=== PATIENT | female | born 1960 | race Caucasian/White ===

== ENCOUNTER 2020-04-05 07:54 | Outpatient (REF) | payer OTHER, SELFPAY ==
--- NOTE | 2020-04-05 07:58 | MM_ITS ---
EXAMINATION: MM SCREENING DIGITAL BREAST TOMOSYNTHESIS, BILATERAL CLINICAL INFORMATION: Screening. Asymptomatic. The lifetime risk of breast cancer based on the Tyrer-Cuzick Model is 15%. COMPARISON: Mammography: 08/30/2018, 08/14/2017, 07/25/2016, 06/29/2015, 05/21/2014 TECHNIQUE: Digital breast tomosynthesis is performed in both the craniocaudal and mediolateral oblique views along with computer-aided detection (CAD). Synthesized 2D images are generated from the tomosynthesis. FINDINGS: There are scattered areas of fibroglandular density (ACR BI-RADS breast composition Category b). Parenchymal pattern is similar to prior studies. There is no developing density. There are no significant masses, abnormal calcifications, or other abnormalities. No significant changes. MM/MM tomosynthesis screening BI IMPRESSION: No significant changes from prior studies. ASSESSMENT: BI-RADS 1: Negative RECOMMENDATION: Routine annual mammography screening. This patient's information was entered into a reminder system with a target due date for their next mammogram.
== END 2020-04-05 07:55 | disposition home or self-care (01) ==
LOC: HO.MAMMO 07:54
PROVIDERS: PCP Internal Medicine; Visit Provider Obstetrics & Gynecology
DX: Z12.31 Encounter for screening mammogram for malignant neoplasm of breast (principal)
CPT/HCPCS: 77063; 77067

== ENCOUNTER 2020-05-13 08:38 | Outpatient (REF) | payer OTHER, SELFPAY ==
[2020-05-13 09:31] LABS: Estimated Average Glucose 108 mg/dL; Hemoglobin A1c % 5.4 %
[2020-05-13 09:48] LABS: Alanine Aminotransferase 21 U/L (0-31); Albumin Level 4.9 g/dL (3.5-5.0); Alkaline Phosphatase 88 U/L (39-117); Anion Gap 17 (12-20); Aspartate Amino Transferase 21 U/L (5-31); Bilirubin Total 0.5 mg/dL (0.0-1.0); Blood Urea Nitrogen 13 mg/dL (9-16); Calcium 9.6 mg/dL (8.4-10.2); Carbon Dioxide 25 mmol/L (22-29); Chloride 104 mmol/L (96-108); Cholesterol 153 mg/dL; Estimated Glomerular Filt Rate > 60; Glucose Fasting 95 mg/dL (60-99); HDL Cholesterol 76 mg/dL; LDL Cholesterol Calculated 70 mg/dl; Potassium 4.5 mmol/l (3.3-5.1); Sodium 141 mmol/L (135-145); Total Protein 7.4 g/dL (6.5-8.0); Triglycerides 39 mg/dL
== END 2020-05-13 08:39 | disposition home or self-care (01) ==
LOC: HO.LAB 08:38
PROVIDERS: Visit Provider Internal Medicine
DX: E11.9 Type 2 diabetes mellitus without complications (principal)
CPT/HCPCS: 36415; 80053; 80061; 83036

== ENCOUNTER 2020-05-17 09:13 | Outpatient (REF) | payer OTHER, SELFPAY ==
[2020-05-17 09:47] LABS: MANUAL DIFF FLAG NO
[2020-05-17 09:56] LABS: Basophils Absolute Auto 0.1 X10*3/uL (0.0-0.2); Basophils Percent Auto 1.2 % (0-2); Eosinophils Absolute Auto 0.2 X10*3/uL (0.0-0.4); Eosinophils Percent Auto 4.3 % (0-4); Hematocrit 36.1 % (37-47); Hemoglobin 11.4 g/dl (12.0-16.0); Imm Gran Abs Auto 0.01 X10*3/uL (0.00-0.03); Imm Gran Pct Auto 0.2 % (0.0-0.4); Lymphocytes Absolute Auto 2.1 X10*3/uL (1.2-4.9); Mean Corpuscular HGB Conc 31.6 g/dl (31.0-35.0); Mean Corpuscular Hemoglobin 28.3 pg (27.0-33.0); Mean Corpuscular Volume 89.6 fL (80-98); Mean Platelet Volume 9.2 fL (9.4-12.3); Monocytes Absolute Auto 0.4 X10*3/uL (0.1-1.2); Monocytes Percent Auto 7.9 % (2-11); Neutrophils Absolute Auto 2.1 X10*3/uL (2.0-8.3); Neutrophils Percent Auto 43.4 % (45-73); Platelet Count 271 X10*3/uL (160-400); Red Blood Count 4.03 X10*6/uL (4.20-5.50); Red Cell Distribution Width 12.7 % (11.0-16.0); White Blood Count 4.9 X10*3/uL (4.8-10.8)
== END 2020-05-17 09:14 | disposition home or self-care (01) ==
LOC: HO.LAB 09:13
PROVIDERS: Visit Provider Internal Medicine
DX: Z00.00 Encounter for general adult medical examination without abnormal findings (principal); E11.9 Type 2 diabetes mellitus without complications
CPT/HCPCS: 36415; 85025

== ENCOUNTER 2020-05-20 09:22 | Outpatient (REF) | payer OTHER, SELFPAY ==
[2020-05-20 14:41] LABS: Creatinine Urine 42.39 mg/dL; Microalbum/Creatinine Ratio Ur 68.4 ug/mg cr
== END 2020-05-20 09:23 | disposition home or self-care (01) ==
LOC: HO.LAB 09:22
PROVIDERS: Visit Provider Internal Medicine
DX: E11.9 Type 2 diabetes mellitus without complications (principal)
CPT/HCPCS: 82043

== ENCOUNTER 2020-06-14 07:00 | Outpatient (RCR) | payer OTHER, SELFPAY | END 2020-06-28 15:21 | disposition other institution (70) | LOC: HO.PT 07:00 | PROVIDERS: PCP Internal Medicine; Visit Provider Podiatrist | DX: M72.2 Plantar fascial fibromatosis (principal) | CPT/HCPCS: 97035; 97110; 97112; 97140; 97162; 97535 ==

== ENCOUNTER 2020-09-09 08:15 | Outpatient (REF) | payer OTHER, SELFPAY ==
[2020-09-09 08:59] LABS: Glucose Urine UA NEG (NEG); Leukocyte Esterase Urine NEG (NEG); Nitrite Urine NEG (NEG); Urine Blood NEG (NEG); Urine Ketones NEG (NEG); Urine Protein NEG (NEG-TRACE)
[2020-09-09 09:01] LABS: Appearance Urine CLEAR; Color Urine YELLOW
[2020-09-09 09:13] LABS: Anion Gap 13 (12-20); Blood Urea Nitrogen 9 mg/dL (9-16); Calcium 9.9 mg/dL (8.4-10.2); Carbon Dioxide 25 mmol/L (22-29); Chloride 105 mmol/L (96-108); Estimated Glomerular Filt Rate > 60; Potassium 4.3 mmol/L (3.3-5.1); Sodium 139 mmol/L (135-145)
[2020-09-09 09:30] LABS: Creatinine Urine 43.36 mg/dL; Protein/Creatinine Ratio, Ur 0.21 (<0.2); Total Protein Urine Random 9 mg/dL (<12)
== END 2020-09-09 08:16 | disposition home or self-care (01) ==
LOC: HO.LAB 08:15
PROVIDERS: PCP Internal Medicine; Visit Provider Internal Medicine Hypertension Specialist
DX: R80.9 Proteinuria, unspecified (principal)
CPT/HCPCS: 36415; 80051; 81003; 82310; 82565; 84156; 84520

== ENCOUNTER → 2020-10-02 08:17 | Outpatient (BNVA) | payer OTHER, SELFPAY | PROVIDERS: PCP Internal Medicine; Visit Provider Obstetrics & Gynecology ==

== ENCOUNTER 2020-11-27 13:58 | Outpatient (REF) | payer OTHER, SELFPAY ==
[2020-11-27 14:23] LABS: COVID-19 Test Negative (Negative)
== END 2020-11-27 13:59 | disposition home or self-care (01) ==
LOC: HO.LAB 13:58
PROVIDERS: Visit Provider Internal Medicine
DX: Z20.822 Contact with and (suspected) exposure to COVID-19 (principal)
CPT/HCPCS: 36415; 87635; C9803

== ENCOUNTER → 2020-11-27 16:06 | Outpatient (BNVA) | payer SELFPAY | PROVIDERS: PCP Internal Medicine ==

== ENCOUNTER 2021-04-29 07:47 | Outpatient (REF) | payer OTHER, SELFPAY ==
--- NOTE | ~2021-04-29 | MM_ITS ---
EXAMINATION: MM SCREENING DIGITAL BREAST TOMOSYNTHESIS, BILATERAL CLINICAL INFORMATION: Screening. Asymptomatic. The lifetime risk of breast cancer based on the Tyrer-Cuzick Model is 11%. COMPARISON: Mammography: 04/05/2020, 08/30/2018, 08/06/2017 TECHNIQUE: Digital breast tomosynthesis is performed in both the craniocaudal and mediolateral oblique views along with computer-aided detection (CAD). Synthesized 2D images are generated from the tomosynthesis. FINDINGS: There are scattered areas of fibroglandular density (ACR BI-RADS breast composition Category b). There are no significant masses, abnormal calcifications, or other abnormalities. MM/MM tomosynthesis screening BI IMPRESSION: No mammographic evidence of malignancy. ASSESSMENT: BI-RADS 1: Negative RECOMMENDATION: Routine annual mammography screening. This patient's information was entered into a reminder system with a target due date for their next mammogram.
== END 2021-04-29 07:48 | disposition home or self-care (01) ==
LOC: HO.MAMMO 07:47
PROVIDERS: PCP Internal Medicine; Visit Provider Obstetrics & Gynecology
DX: Z12.31 Encounter for screening mammogram for malignant neoplasm of breast (principal)
CPT/HCPCS: 77063; 77067

== ENCOUNTER → 2021-09-17 08:03 | Outpatient (BNVA) | payer OTHER, SELFPAY | PROVIDERS: PCP Internal Medicine; Visit Provider Obstetrics & Gynecology | DX: Z13.89 Encounter for screening for other disorder (principal) ==

== ENCOUNTER → 2021-12-24 15:25 | Outpatient (BNVA) | payer OTHER, SELFPAY | PROVIDERS: PCP Internal Medicine | DX: Z13.89 Encounter for screening for other disorder (principal) | CPT/HCPCS: 16000; 99213 ==

== ENCOUNTER → 2021-12-26 09:32 | Outpatient (BNVA) | payer OTHER, SELFPAY | PROVIDERS: PCP Internal Medicine; Visit Provider Physician Assistant | DX: Z13.89 Encounter for screening for other disorder (principal) | CPT/HCPCS: 99213 ==

== ENCOUNTER 2022-05-06 08:38 | Outpatient (REF) | payer OTHER, SELFPAY ==
--- NOTE | ~2022-05-06 | MM_ITS ---
EXAMINATION: MM SCREENING DIGITAL BREAST TOMOSYNTHESIS, BILATERAL CLINICAL INFORMATION: Screening. Asymptomatic. The lifetime risk of breast cancer based on the Tyrer-Cuzick Model is 10.3%. COMPARISON: Mammography: April 29, 2021 and studies dating back to June 29, 2015 TECHNIQUE: Digital breast tomosynthesis is performed in both the craniocaudal and mediolateral oblique views along with computer-aided detection (CAD). Synthesized 2D images are generated from the tomosynthesis. FINDINGS: There are scattered areas of fibroglandular density (ACR BI-RADS breast composition Category b). There are no significant masses, abnormal calcifications, or other abnormalities. MM/MM tomosynthesis screening BI IMPRESSION: No significant changes ASSESSMENT: BI-RADS 1: Negative RECOMMENDATION: Routine annual mammography screening. This patient's information was entered into a reminder system with a target due date for their next mammogram.
== END 2022-05-06 08:39 | disposition home or self-care (01) ==
LOC: HO.MAMMO 08:38
PROVIDERS: PCP Internal Medicine; Visit Provider Internal Medicine
DX: Z12.31 Encounter for screening mammogram for malignant neoplasm of breast (principal)
CPT/HCPCS: 77063; 77067

== ENCOUNTER → 2022-06-09 14:36 | Outpatient (BNVA) | payer OTHER, SELFPAY | PROVIDERS: PCP Internal Medicine; Visit Provider Physician Assistant Medical | DX: Z13.89 Encounter for screening for other disorder (principal) | CPT/HCPCS: 16020; 99202 ==

== ENCOUNTER → 2022-06-10 09:20 | Outpatient (BNVA) | payer OTHER, SELFPAY | PROVIDERS: PCP Internal Medicine | DX: Z13.89 Encounter for screening for other disorder (principal) | CPT/HCPCS: 99213 ==

== ENCOUNTER → 2022-06-15 09:50 | Outpatient (BNVA) | payer OTHER, SELFPAY | PROVIDERS: PCP Internal Medicine; Visit Provider Physician Assistant Medical | DX: Z13.89 Encounter for screening for other disorder (principal) | CPT/HCPCS: 99213 ==

== ENCOUNTER → 2022-07-03 13:36 | Outpatient (BNVA) | payer OTHER, SELFPAY | PROVIDERS: PCP Internal Medicine; Visit Provider Internal Medicine | DX: Z13.89 Encounter for screening for other disorder (principal) | CPT/HCPCS: 99202 ==

== ENCOUNTER → 2022-07-07 09:57 | Outpatient (BNVA) | payer OTHER, SELFPAY | PROVIDERS: PCP Internal Medicine; Visit Provider Internal Medicine | DX: Z13.89 Encounter for screening for other disorder (principal) | CPT/HCPCS: 99213 ==

== ENCOUNTER → 2022-09-23 08:19 | Outpatient (BNVA) | payer OTHER, SELFPAY | PROVIDERS: PCP Internal Medicine; Visit Provider Obstetrics & Gynecology ==

== ENCOUNTER 2023-02-22 11:32 | Outpatient (AMB) | payer OTHER, SELFPAY ==
--- NOTE | 2023-02-22 13:44 | AM.OFFWIN_ITS ---
Intake Vital Signs 02/22/23 13:45 Height 5 ft 6 in Weight 199 lb BMI 32.1 BP 128/78 Blood Pressure Location Lt brachial Position Sitting Pulse 83 Pulse Source Pulse Oximeter Temp 98 F Temp Source Oral Pulse Oximetry (%) 97 Oxygen Delivery Method Room Air Intake Visit Reasons: EP, cough, congestion, sore throat Intake Note: pt is here for c/o cough, congestion, sore throat Patient Tobacco Use Status: Never used Tobacco Allergies MILTON Inhibitors [MILTON INHIBITORS] Allergy (Severe, Verified 02/22/23 14:25) SWELLING,ANAPHYLAXIS Calcium Channel Blocking Agents-Dih [CALCIUM CHANNEL BLOCKING AGENTS-DIH] Allergy (Severe, Verified 02/22/23 14:25) SEVERE WEIGHT LOSS lidocaine [LIDOCAINE] Allergy (Severe, Verified 02/22/23 14:25) ANAPHYLAXIS amlodipine [AMLODIPINE] Allergy (Intermediate, Verified 02/22/23 14:25) HIVES, rash aspirin [ASPIRIN] Allergy (Intermediate, Verified 02/22/23 14:25) GI UPSET, rash codeine [CODEINE] Allergy (Intermediate, Verified 02/22/23 14:25) GI UPSET, rash acetaminophen [Percocet] Allergy (Unknown, Verified 02/22/23 14:25) Unknown amoxicillin [AMOXICILLIN] Allergy (Unknown, Verified 02/22/23 14:25) UNKNOWN Anesthetics - Amide Type - Select A [ANESTHETICS - AMIDE TYPE] Allergy (Unknown, Verified 02/22/23 14:25) ANESTHETIC ADDITIVES lisinopril Allergy (Unknown, Verified 02/22/23 14:25) Angioedema, anaphylaxis morphine Allergy (Unknown, Verified 02/22/23 14:25) rash oxycodone [Percocet] Allergy (Unknown, Verified 02/22/23 14:25) Unknown From Novocain Allergy (Severe, Uncoded 02/22/23 14:25) ANAPHYLAXIS ... additives or preservative Allergy (Unknown, Uncoded 02/22/23 14:25) unknown MILTON Inhibitors Allergy (Unknown, Uncoded 02/22/23 14:25) unknown calcium blockers Allergy (Unknown, Uncoded 02/22/23 14:25) unnown Calcium Channel blockers Allergy (Unknown, Uncoded 02/22/23 14:25) anaphylaxis Codeine Phosphate Allergy (Unknown, Uncoded 02/22/23 14:25) unknown Novocain Allergy (Unknown, Uncoded 02/22/23 14:25) anaphylaxis From PERCOCET Adverse Reaction (Intermediate, Uncoded 02/22/23 14:25) GI UPSET Medication List - Last Reconciled 02/22/23 by Maxwell Dickson MD atorvastatin 80 mg PO DAILY blood sugar diagnostic ([employer] Ultra Test strips) once per day escitalopram oxalate 15 mg PO DAILY lamotrigine ER 375 mg PO DAILY lancets ([employer] Delica Lancets) once a day lancing device with lancets ([employer] Delica Plus Lancing Device kit) test once daily lorazepam 1 mg PO BID PRN metformin 500 mg PO TID spironolacton-hydrochlorothiaz 25-25 mg 0.5 tabs PO BID temazepam 15 mg PO BEDTIME trazodone 100 mg PO DAILY Do you need a note to return to daycare/school/sports/work: Yes HPI EP, cough, congestion, sore throat HPI Details Patient presents for a sick visit. Reporting symptoms of sinus congestion, sore throat and difficulty swallowing. Low-grade fever. No family member is sick. No recent travel. Patient reports symptoms of malaise and fatigue. [facility] Medical History Colonoscopy planned Diabetes mellitus Kidney disease Surgical History H/O breast surgery No history of previous surgery Family History Mother No problems noted. Father No problems noted. Social History Housing: House Alcohol intake: current Alcohol intake frequency: holidays/special occasions only Patient Tobacco Use Status: Never used Tobacco Current occupational status: employed Female Reproductive History Menstrual Age of Menarche: 13 Physical Exam Vital Signs: Last Vital Signs Temp 98 F 02/22/23 13:45 Pulse 83 02/22/23 13:45 BP 128/78 02/22/23 13:45 Pulse Ox 97 02/22/23 13:45 Oxygen Delivery Method Room Air 02/22/23 13:45 BMI result Body Mass Index 32.1 Const General: cooperative and healthy appearing Nutritional Appearance: well nourished Orientation/consciousness: patient oriented x3 Limitations: no limitations HEENT Head: Yes normal to inspection Eyes General: appearance normal, both eyes and all related structures Neck Neck: Yes normal visual inspection Chest Chest palpation & inspection: normal palpation of entire chest wall Resp Effort & Inspection: normal respiratory effort Neuro General: patient oriented x3 Office Procedures Nebulizer Treatment Nebulizer Treatment 23686-[id number]/MDI RX initial, or Nebulizer Subsequent Treatment Office Meds albuterol sulfate 2.5 mg/3 mL (0.083 %) solution for nebulization Performing Provider: Maxwell Dickson MD Performing Location: [facility] Administered by: Esha Kebede RN on 02/22/23 14:29 Dose Route Admin Location Dispensed Lot Number Expiration Date [employer] 2.5 mg inhalation 3 mL [id number] 06/17/24 26968-577-88 [employer] Results AMB Rapid Strep AMB Rapid Strep Negative Last Edit by Ed Jimenez CMA on 02/22/23 14 :29 Results Reviewed Results Reviewed: Laboratory Last Values Strep Scn Rapid Clinic Negative 02/22/23 14:26 Assessment & Plan Assessment & Plan (1) Upper respiratory tract infection: Code(s): J06.9 - Acute upper respiratory infection, unspecified Plan: Antibiotics ordered. Increase fluid intake. Tylenol for aches and pains. If symptoms worsen, follow-up here for a recheck. Orders: Orders AMB Nebulizer Treatment Today J06.9 - Acute upper respiratory infection, unspecified AMB Rapid Strep Screen Today Z13.9 - Encounter for screening, unspecified SARS-CoV2/FLU/RSV Today R43.9 - Unspecified disturbances of smell and taste Medications: New prednisone 60 mg (3 x 20 mg) PO DAILY 9 tabs 0RF azithromycin (Zithromax) take 500 mg today (day 1), then 250 mg for 4 days (days 2-5) PO 6 tabs 0RF albuterol sulfate 90 mcg/actuation (Ventolin HFA) 1 inh inhalation QID PRN 8.5 grams 1RF shortness of breath or wheezing Coding Level of Care Code Est Pt Level 4 (64000) Diagnoses Upper respiratory tract infection J06.9 CPT Codes Nebulizer Treatment - Nebulizer Treatment, initial or subsequent: 28800- Nebulizer/MDI RX initial, or Nebulizer Subsequent Treatment ([id number])
[2023-02-22 13:45] VITALS: BP 128/78; PULSE 83; TEMP 36.6; O2SAT 97; BMI 32.1
== END 2023-02-22 14:56 | disposition home or self-care (01) ==
PROVIDERS: PCP Internal Medicine; Visit Provider Internal Medicine
DX: J06.9 Acute upper respiratory infection, unspecified (principal); Z13.9 Encounter for screening, unspecified
CPT/HCPCS: 87880; 94640; 99214; J7613

== ENCOUNTER 2023-02-22 14:26 | Outpatient (REF) | payer OTHER, SELFPAY ==
[2023-02-22 17:45] LABS: Influenza A PCR NEGATIVE (Negative); Influenza B PCR NEGATIVE (Negative); Resp Syncy Virus RNA Qual PCR NEGATIVE (Negative); SARS COV2 PCR INHOUSE POSITIVE (Negative)
== END 2023-02-22 14:27 | disposition home or self-care (01) ==
LOC: HO.LAB 14:26
PROVIDERS: Visit Provider Internal Medicine
DX: Z11.52 Encounter for screening for COVID-19 (principal); Z20.822 Contact with and (suspected) exposure to COVID-19; R43.9 Unspecified disturbances of smell and taste
CPT/HCPCS: 0241U

== ENCOUNTER 2023-03-31 08:24 | Outpatient (REF) | payer OTHER, SELFPAY ==
[2023-03-31 09:35] LABS: Anion Gap 12 (12-20); Blood Urea Nitrogen 20 mg/dL (9-16); Calcium 9.6 mg/dL (8.4-10.2); Carbon Dioxide 27 mmol/L (22-29); Chloride 106 mmol/L (96-108); Estimated Glomerular Filt Rate > 60; Glucose Random 117 mg/dL (60-115); Potassium 4.1 mmol/L (3.3-5.1); Sodium 141 mmol/L (135-145)
[2023-03-31 10:51] LABS: Creatinine Urine 103.97 mg/dL; Protein/Creatinine Ratio, Ur 0.14 (<0.2); Total Protein Urine Random 15 mg/dL (<12)
== END 2023-03-31 08:25 | disposition home or self-care (01) ==
LOC: HO.LAB 08:24
PROVIDERS: PCP Internal Medicine; Visit Provider Internal Medicine Hypertension Specialist
DX: R80.9 Proteinuria, unspecified (principal)
CPT/HCPCS: 36415; 80048; 82570; 84156

== ENCOUNTER 2023-04-26 09:01 | Emergency (ER) | payer OTHER, SELFPAY ==
[2023-04-26 09:12] VITALS: BP 144/92; BP 154/91; PULSE 87; PULSE 90; RESP 20; TEMP 36.9; O2SAT 96; BMI 27.9
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
== END 2023-04-26 10:54 | disposition home or self-care (01) ==
PROVIDERS: Emergency Provider Emergency Medicine
DX: S13.4XXA Sprain of ligaments of cervical spine, initial encounter (principal); M54.2 Cervicalgia; R51.9 Headache, unspecified; V43.52XA Car driver injured in collision with other type car in traffic accident, initial encounter; Y93.9 Activity, unspecified; Y92.410 Unspecified street and highway as the place of occurrence of the external cause; Y99.9 Unspecified external cause status; Z79.899 Other long term (current) drug therapy
CPT/HCPCS: 70450; 72125; 99283; 99284

== ENCOUNTER 2023-04-29 10:52 | Outpatient (AMB) | payer OTHER, SELFPAY ==
[2023-04-29 10:53] VITALS: BP 140/80; PULSE 77; O2SAT 96; BMI 31.7
--- NOTE | 2023-04-29 10:53 | HO.NEPHOV ---
HPI HPI Comments History of Present Illness Details Middle aged woman with DM And proteinuria Unabel to tolerate ACEi/ARB She has been on Sprinoloactone and has done very well Urine protein excretion is negligible HOme BP is excellent She has gained some weight and she is post menopausal Unable to walk much due to foot pain. She has plantar fasciitis and fibroma in foot PFSH Medical History Colonoscopy planned Kidney disease Diabetes mellitus Surgical History H/O breast surgery No history of previous surgery Family History Mother No problems noted. Father No problems noted. Social History Housing: House Alcohol intake: current Alcohol intake frequency: holidays/special occasions only Patient Tobacco Use Status: Never used Tobacco Current occupational status: employed Female Reproductive History Menstrual Age of Menarche: 13 Vital Signs 04/29/23 10:53 04/29/23 11:11 Height 5 ft 7 in Weight 202 lb 2 oz BMI 31.7 BP 140/80 H 136/80 Blood Pressure Location Rt brachial Lt brachial Position Sitting Pulse 77 Pulse Source Pulse Oximeter Pulse Oximetry (%) 96 Oxygen Delivery Method Room Air Physical Exam Vital Signs: Last Vital Signs Pulse 77 04/29/23 10:53 BP 136/80 04/29/23 11:11 Pulse Ox 96 04/29/23 10:53 Oxygen Delivery Method Room Air 04/29/23 10:53 BMI result Body Mass Index 31.7 Const General: comfortable Nutritional Appearance: well nourished Orientation/consciousness: patient oriented x3 HEENT Head: No normal to inspection Mouth: moist mucous membranes Neck Neck: Yes supple and Yes no JVD Resp Auscultation: clear to auscultation bilaterally, no rales and rub present Cardio Jugular venous distension: no JVD Palpation: no palpable S3 and no palpable S4 Heart sounds: no rubs GI Palpation (GI): Soft to palpation and nontender Percussion: No Fluid wave present General: Yes no CVA tenderness Back/Spine/Pelvis Back: no CVA tenderness Skin General skin exam: no rashes or lesions noted Neuro General: patient oriented x3 Extrem General: Yes no pedal edema and No clubbing Assessment & Plan Assessment & Plan (1) Proteinuria: Code(s): R80.9 - Proteinuria, unspecified Plan: Keep on Spironolactone for ADRIANE inhibition Discussed weight loss and control of BP Currently BP is excellent at home (2) Diabetes mellitus: Code(s): E11.9 - Type 2 diabetes mellitus without complications Plan: Goal A1C < 7% NEeds weight loss Orders: Orders Total Protein Urine Random 11 Months R80.9 - Proteinuria, unspecified Electrolytes 11 Months R80.9 - Proteinuria, unspecified Blood Urea Nitrogen 11 Months R80.9 - Proteinuria, unspecified Creatinine 11 Months R80.9 - Proteinuria, unspecified Calcium 11 Months R80.9 - Proteinuria, unspecified Creatinine Urine 11 Months R80.9 - Proteinuria, unspecified Coding Level of Care Code Est Pt Level 3 (15153) Diagnoses Proteinuria R80.9 Diabetes mellitus E11.9 Results Reviewed Nephrology Results: Sodium 141 mmol/L (135-145) 03/31/23 Potassium 4.1 mmol/L (3.3-5.1) 03/31/23 Chloride 106 mmol/L (96-108) 03/31/23 Carbon Dioxide 27 mmol/L (22-29) 03/31/23 BUN 20 mg/dL (9-16) H 03/31/23 Creatinine 0.93 mg/dL (0.5-1.4) 03/31/23 Calcium 9.6 mg/dL (8.4-10.2) 03/31/23 Urine Creatinine 103.97 mg/dL 03/31/23 Protein/Creatinin Ratio 0.14 (<0.2) 03/31/23
[2023-04-29 11:11] VITALS: BP 136/80
== END 2023-04-29 11:16 | disposition home or self-care (01) ==
PROVIDERS: PCP Internal Medicine; Visit Provider Internal Medicine Hypertension Specialist
DX: R80.9 Proteinuria, unspecified (principal); E11.9 Type 2 diabetes mellitus without complications
CPT/HCPCS: 99213

== ENCOUNTER → 2023-04-29 10:52 | Outpatient (BNVA) | payer OTHER, SELFPAY | PROVIDERS: PCP Internal Medicine; Visit Provider Internal Medicine Hypertension Specialist ==

== ENCOUNTER 2023-06-04 07:22 | Outpatient (REF) | payer OTHER, SELFPAY | END 2023-06-04 07:23 | disposition home or self-care (01) | LOC: HO.MAMMO 07:22 | PROVIDERS: PCP Internal Medicine; Visit Provider Internal Medicine | DX: Z12.31 Encounter for screening mammogram for malignant neoplasm of breast (principal) | CPT/HCPCS: 77063; 77067 ==

== ENCOUNTER → 2023-06-04 07:30 | Outpatient (BNV) | payer OTHER, SELFPAY | PROVIDERS: PCP Internal Medicine; Visit Provider Radiology Diagnostic Radiology | DX: Z12.31 Encounter for screening mammogram for malignant neoplasm of breast (principal) | CPT/HCPCS: 77063; 77067 ==

== ENCOUNTER 2023-06-08 12:09 | Emergency (ER) | payer OTHER, SELFPAY ==
--- NOTE | ~2023-06-08 | XR_ITS ---
EXAMINATION: XR CHEST CLINICAL INFORMATION: Coughing COMPARISON: None available. TECHNIQUE: Frontal view of the chest was obtained. FINDINGS: No significant abnormality is noted involving the heart, lungs, mediastinum, bony thorax or soft tissues. XR/XR chest 1V IMPRESSION: Unremarkable chest examination.
[2023-06-08 12:12] VITALS: BP 182/76; PULSE 89; RESP 18; TEMP 36.6; O2SAT 97; BMI 27.9
--- NOTE | 2023-06-08 12:16 | ED.GENADULT ---
HPI - General Adult General Chief complaint: Upper Respiratory Symptoms Stated complaint: Asthma Time Seen by Provider: 06/08/23 12:27 Source: patient Mode of arrival: ambulatory Limitations: no limitations History of Present Illness HPI narrative: This is a 62-year-old female past medical history of diabetes presenting to the emergency department with sudden onset cough that started just prior to arrival while patient was at work. Cough is a dry cough. Patient also reporting fatigue and malaise. She tried using an inhaler with little to no relief. Patient denies chest pain, nausea, vomiting, diarrhea, abdominal pain, headache, vision changes, hemoptysis, dizziness or weakness. 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 Related Data Home Medications Medication Instructions Recorded Confirmed trazodone 100 mg tablet 100 mg PO DAILY 10/02/20 07/30/22 lamotrigine 300 mg tablet,extended 375 mg PO DAILY 07/30/22 07/30/22 release 24 hr escitalopram oxalate 10 mg tablet See Rx Instructions PO DAILY 04/29/23 lorazepam 1 mg/0.5 mL oral syringe 1 mg PO DAILY PRN 04/29/23 (FOR ORAL USE ONLY) spironolactone 25 mg tablet 12.5 mg PO DAILY 04/29/23 temazepam 15 mg capsule See Rx Instructions PO BEDTIME 04/29/23 Previous Rx's Medication Instructions Recorded blood sugar diagnostic ([employer] #100 ea 08/05/22 Ultra Test strips) lancets 33 gauge ([employer] #100 ea 08/05/22 Lancets) lancing device with lancets kit #1 ea 08/05/22 ([employer] Delica Plus Lancing Device kit) atorvastatin 80 mg tablet 80 mg PO DAILY #90 tabs 10/14/22 albuterol sulfate 90 mcg/actuation 1 inh inhalation QID PRN shortness 02/22/23 aerosol inhaler (Ventolin HFA) of breath or wheezing #8.5 grams metformin 500 mg tablet 500 mg PO TID #90 tabs 04/03/23 cyclobenzaprine 5 mg tablet 5 mg PO Q8H PRN pain (scale score 04/26/23 7-10) 5 days #14 tabs albuterol sulfate 90 mcg/actuation 2 inh inhalation Q4-6H PRN 06/08/23 breath activated powder inhaler shortness of breath or wheezing #1 ea benzonatate 100 mg capsule 100 mg PO BID PRN cough #20 caps 06/08/23 prednisone 20 mg tablet 40 mg (2 x 20 mg) PO DAILY 5 days 06/08/23 #10 tabs Allergies Allergy/AdvReac Type Severity Reaction Status Date / Time MILTON Inhibitors Allergy Severe SWELLING,AN Verified 06/08/23 12:12 [MILTON INHIBITORS] APHYLAXIS Calcium Channel Blocking Allergy Severe SEVERE Verified 06/08/23 12:12 Agents-Dih WEIGHT LOSS [CALCIUM CHANNEL BLOCKING AGENTS-DIH] lidocaine [LIDOCAINE] Allergy Severe ANAPHYLAXIS Verified 06/08/23 12:12 amlodipine [AMLODIPINE] Allergy Intermediate HIVES, rash Verified 06/08/23 12:12 aspirin [ASPIRIN] Allergy Intermediate GI UPSET, Verified 06/08/23 12:12 rash codeine [CODEINE] Allergy Intermediate GI UPSET, Verified 06/08/23 12:12 rash acetaminophen [Percocet] Allergy Unknown Unknown Verified 06/08/23 12:12 amoxicillin [AMOXICILLIN] Allergy Unknown UNKNOWN Verified 06/08/23 12:12 Anesthetics - Amide Type - Allergy Unknown ANESTHETIC Verified 06/08/23 12:12 Select A ADDITIVES [ANESTHETICS - AMIDE TYPE] lisinopril Allergy Unknown Angioedema, Verified 06/08/23 12:12 anaphylaxis morphine Allergy Unknown rash Verified 06/08/23 12:12 oxycodone [Percocet] Allergy Unknown Unknown Verified 06/08/23 12:12 From Novocain Allergy Severe ANAPHYLAXIS Uncoded 06/08/23 12:12 ... additives or Allergy Unknown unknown Uncoded 06/08/23 12:12 preservative MILTON Inhibitors Allergy Unknown unknown Uncoded 06/08/23 12:12 calcium blockers Allergy Unknown unnown Uncoded 06/08/23 12:12 Calcium Channel blockers Allergy Unknown anaphylaxis Uncoded 06/08/23 12:12 Codeine Phosphate Allergy Unknown unknown Uncoded 06/08/23 12:12 Novocain Allergy Unknown anaphylaxis Uncoded 06/08/23 12:12 From PERCOCET AdvReac Intermediate GI UPSET Uncoded 06/08/23 12:12 Review of Systems Review of Systems: Yes all other systems are reviewed and are negative PMFSH Past Medical History Attestation statement: The following information was validated with the patient. Source: old records reviewed and nursing notes reviewed Medical History Colonoscopy planned Kidney disease Diabetes mellitus Surgical History H/O breast surgery No history of previous surgery Family History Family History Mother No problems noted. Father No problems noted. Social History Social History Housing: House Alcohol intake: current Alcohol intake frequency: holidays/special occasions only Patient Tobacco Use Status: Never used Tobacco Advance Directives: No Current occupational status: employed Physical Exam ED Vital Signs: Vital Signs - 24 hr 06/08/23 12:12 06/08/23 12:30 06/08/23 16:19 Temperature 98 F 98.6 F Pulse Rate 89 91 84 Respiratory Rate 18 22 H 18 Blood Pressure 182/76 H 155/72 H Pulse Oximetry 97 94 Oxygen Delivery Method Room Air Room Air 06/08/23 17:18 06/08/23 18:36 Temperature 98.2 F Pulse Rate 90 88 Respiratory Rate 18 18 Blood Pressure 158/74 H Pulse Oximetry 96 Oxygen Delivery Method Room Air BMI result Body Mass Index 27.9 vss Appearance: Alert.? Oriented X3.? No acute distress.? Head: Normocephalic, atraumatic, no step-offs or deformities Eyes: Pupils equal, round and reactive to light.? CVS: Normal heart rate and rhythm.? Pulses normal.? Respiratory: No respiratory distress.? Breath sounds normal.? Abdomen: Soft and nontender.? Skin: Skin warm and dry.? Normal skin color.? Normal skin turgor.? Extremities: No lower extremity edema.? No calf ttp. 5/5 strength to bilateral upper and lower extremities Neuro: Oriented X 3.? No motor deficit.? No sensory deficit. CN 2-12 intact Course Course Course Narrative: RME: 62 yold female pmh of URI which required albuterol presents to the ED for consistent coughing unable to stop even with inhaler. Patient denies any chest pain, shortness of breath, leg pain, leg swelling, chills, pleurisy, or coughing up blood. lungs clear. chest xray, SARS, ED bronchodilator ordered Reevaluation(s) Reevaluation #1: Chest x-ray unremarkable. CBC no acute findings requiring intervention. Chemistry unremarkable. Troponin 7.6. Coags normal. D-dimer negative unlikely PE. Flu, COVID and RSV negative. Repeat troponin pending for 04:00 o'clock Time: 14:54 Reevaluation #2: Second troponin 11.3 repeat 9.0. Nonischemic EKG. Discuss this case with my attending who agrees patient can be discharged home likely viral illness. Educated patient on diagnosis and treatment plan, answered all question, patient verbalizes understanding. At this time patient will be discharged home, advised to return with new or worsening symptoms. Educated on worrisome signs and symptoms and when to return. At this time I feel comfortable discharge home. Time: 18:31 Medications Administered Discontinued Medications Generic Name Dose Route Start Last Admin Trade Name Freq PRN Reason Stop Dose Admin Albuterol Sulfate 2.5 mg 06/08/23 17:07 06/08/23 17:16 Albuterol Sulfate (0.083%) 2.5 Mg/3 Ml Vial.Neb INHALE 06/08/23 17:08 2.5 mg ONCE ONE Administration Albuterol/Ipratropium 3 ml 06/08/23 12:26 06/08/23 12:29 Albuterol/Iprat 2.5/0.5mg 3 Ml Ampul.Neb INHALE 06/08/23 12:27 3 ml ONCE ONE Administration Benzonatate 200 mg 06/08/23 14:56 06/08/23 15:05 Benzonatate 100 Mg Capsule PO 06/08/23 14:57 200 mg ONCE ONE Administration Dexamethasone Sodium Phosphate 10 mg 06/08/23 13:35 06/08/23 13:50 Dexamethasone Sod Phosphate 10 Mg/Ml Vial IVPUSH 06/08/23 13:36 10 mg ONCE ONE Administration Guaifenesin 10 ml 06/08/23 13:36 06/08/23 13:50 Guaifenesin 200 Mg/10 Ml 10 Ml Liquid PO 06/08/23 13:37 10 ml ONCE ONE Administration Medical Decision Making Medical Decision Making MDM Narrative: 62-year-old female presents with cough that started prior to arrival. Physical exam benign Likely viral bronchitis based off length of symptoms versus viral illness. Unlikely bacterial bronchitis. Low suspicion for PE, pneumonia, ACS, acute respiratory distress. Plan labs, viral test, troponin, EKG, D-dimer. Differential Diagnosis Differential Diagnoses: The differential diagnosis associated with the presentation includes Likely viral bronchitis based off length of symptoms versus viral illness. Unlikely bacterial bronchitis. Low suspicion for PE, pneumonia, ACS, acute respiratory distress. Admission/Observation Consideration of admission/observation: Escalation of care including admission/observation considered Unlikely Lab Data MDM Lab Attestation statement: I reviewed the patient's lab results. 06/08/23 13:59 06/08/23 13:59 Labs: Lab Results 06/08/23 06/08/23 06/08/23 Range/Units 12:54 13:59 16:13 WBC 7.0 (4.8-10.8) X10*3/uL RBC 4.05 L (4.20-5.50) X10*6/uL Hgb 11.7 L (12.0-16.0) g/dl Hct 36.0 L (37.0-47.0) % MCV 88.9 (80.0-98.0) fL MCH 28.9 (27.0-33.0) pg MCHC 32.5 (31.0-35.0) g/dl RDW 13.3 (11.0-16.0) % Plt Count 240 (160-400) X10*3/uL MPV 9.3 L (9.4-12.3) fL Immature Gran % (Auto) 0.6 H (0.0-0.4) % Neut % (Auto) 58.0 (45-73) % Lymph % (Auto) 29.9 (20-40) % [place] % (Auto) 7.9 (2-11) % Eos % (Auto) 2.9 (0-4) % Baso % (Auto) 0.7 (0-2) % Lymph # (Auto) 2.1 (1.2-4.9) X10*3/uL [place] # (Auto) 0.6 (0.1-1.2) X10*3/uL Eos # (Auto) 0.2 (0.0-0.4) X10*3/uL Baso # (Auto) 0.1 (0.0-0.2) X10*3/uL Abs Immat Gran (auto) 0.04 H (0.00-0.03) X10*3/uL Absolute Neuts (auto) 4.1 (2.0-8.3) x10*3/uL Absolute Nucleated RBC 0.000 (0.0-0.012) X10*3/uL Nucleated RBC % (auto) 0.0 (0.0-0.2) /100WBC PT 10.4 L (11.1-13.3) SEC INR 0.9 (0.9-1.1) D-Dimer High Sensitivty < 150 NG/ML Sodium 142 (135-145) mmol/L Potassium 3.5 (3.3-5.1) mmol/L Chloride 108 (96-108) mmol/L Carbon Dioxide 25 (22-29) mmol/L Anion Gap 13 (12-20) BUN 17 H (9-16) mg/dL Creatinine 0.94 (0.5-1.4) mg/dL Estim Creat Clear Calc 69.5 Estimated GFR > 60 Random Glucose 119 H (60-115) mg/dL Calcium 9.4 (8.4-10.2) mg/dL Magnesium 1.6 (1.6-2.6) mg/dL Total Bilirubin 0.5 (0.0-1.0) mg/dL AST 21 (5-31) U/L ALT 20 (0-31) U/L Alkaline Phosphatase 102 (39-117) U/L Troponin I High Sens 7.6 11.3 (<3.5-17.0) ng/L Total Protein 7.2 (6.5-8.0) g/dL Albumin 4.4 (3.5-5.0) g/dL Influenza Type A (PCR) NEGATIVE (Negative) Influenza Type B (PCR) NEGATIVE (Negative) RSV RNA Qual (PCR) NEGATIVE (Negative) SARS-CoV-2 RNA (RT-PCR) NEGATIVE (Negative) 06/08/23 Range/Units 18:02 WBC (4.8-10.8) X10*3/uL RBC (4.20-5.50) X10*6/uL Hgb (12.0-16.0) g/dl Hct (37.0-47.0) % MCV (80.0-98.0) fL MCH (27.0-33.0) pg MCHC (31.0-35.0) g/dl RDW (11.0-16.0) % Plt Count (160-400) X10*3/uL MPV (9.4-12.3) fL Immature Gran % (Auto) (0.0-0.4) % Neut % (Auto) (45-73) % Lymph % (Auto) (20-40) % [place] % (Auto) (2-11) % Eos % (Auto) (0-4) % Baso % (Auto) (0-2) % Lymph # (Auto) (1.2-4.9) X10*3/uL [place] # (Auto) (0.1-1.2) X10*3/uL Eos # (Auto) (0.0-0.4) X10*3/uL Baso # (Auto) (0.0-0.2) X10*3/uL Abs Immat Gran (auto) (0.00-0.03) X10*3/uL Absolute Neuts (auto) (2.0-8.3) x10*3/uL Absolute Nucleated RBC (0.0-0.012) X10*3/uL Nucleated RBC % (auto) (0.0-0.2) /100WBC PT (11.1-13.3) SEC INR (0.9-1.1) D-Dimer High Sensitivty NG/ML Sodium (135-145) mmol/L Potassium (3.3-5.1) mmol/L Chloride (96-108) mmol/L Carbon Dioxide (22-29) mmol/L Anion Gap (12-20) BUN (9-16) mg/dL Creatinine (0.5-1.4) mg/dL Estim Creat Clear Calc Estimated GFR Random Glucose (60-115) mg/dL Calcium (8.4-10.2) mg/dL Magnesium (1.6-2.6) mg/dL Total Bilirubin (0.0-1.0) mg/dL AST (5-31) U/L ALT (0-31) U/L Alkaline Phosphatase (39-117) U/L Troponin I High Sens 9.0 (<3.5-17.0) ng/L Total Protein (6.5-8.0) g/dL Albumin (3.5-5.0) g/dL Influenza Type A (PCR) (Negative) Influenza Type B (PCR) (Negative) RSV RNA Qual (PCR) (Negative) SARS-CoV-2 RNA (RT-PCR) (Negative) Independent Interpretation I performed an independent interpretation of an: Plain X-Ray Radiology Impression Discussion of test interpretation with radiology: I have reviewed the radiologist's reading. Chronic Conditions Patient?s care impacted by: Diabetes Critical Care Time Critical Care Time Critical Care Time: No Discharge Plan Discharge Clinical Impression: Bronchitis Patient Disposition: Home, Self-Care Instructions: Acute Bronchitis (ED) Additional Instructions: Take your medications as prescribed. If you were prescribed antibiotics today, it is important that you take your medication to their entirety, do not skip any doses, do not finish them early. Follow-up with your primary care provider this week. Return to the emergency department with new or worsening symptoms. Such as fevers, chills, chest pain, shortness of breath, nausea, vomiting, dizziness, headache, vision changes, lethargy In case of emergency call 911 XR/XR chest 1V IMPRESSION: Unremarkable chest examination. Prescriptions: New benzonatate 100 mg capsule 100 mg PO BID PRN (Reason: cough) Qty: 20 0RF albuterol sulfate 90 mcg/actuation aerosol powdr breath activated 2 inh inhalation Q4-6H PRN (Reason: shortness of breath or wheezing) Qty: 1 0RF prednisone 20 mg tablet 40 mg PO DAILY 5 Days Qty: 10 0RF No Action (DME) lancets [[employer] Lancets] 33 gauge misc See Rx Instructions .Route Qty: 100 0RF Rx Instructions: once a day (DME) [employer] Ultra Test Strip See Rx Instructions .Route Qty: 100 0RF Rx Instructions: once per day (DME) lancing device with lancets [[employer] Plus Lanc Dev] Kit See Rx Instructions .Route Qty: 1 0RF Rx Instructions: test once daily atorvastatin 80 mg tablet 80 mg PO DAILY Qty: 90 8RF metformin 500 mg tablet 500 mg PO TID Qty: 90 8RF cyclobenzaprine 5 mg tablet 5 mg PO Q8H PRN (Reason: pain (scale score 7-10)) 5 Days Qty: 14 0RF albuterol sulfate [Ventolin HFA] 90 mcg/actuation HFA aerosol inhaler 1 inh inhalation QID PRN (Reason: shortness of breath or wheezing) Qty: 8.5 1RF trazodone 100 mg tablet 100 mg PO DAILY lamotrigine 300 mg tablet extended release 24hr 375 mg PO DAILY lorazepam 1 mg/0.5 mL syringe 1 mg PO DAILY PRN temazepam 15 mg capsule See Rx Instructions PO BEDTIME Rx Instructions: 7.5 mg orally bedtime; escitalopram oxalate 10 mg tablet See Rx Instructions PO DAILY Rx Instructions: 20 orally daily; spironolactone 25 mg tablet 12.5 mg PO DAILY Referrals: Hai Stevens MD [Primary Care Provider] - 2 days Stand Alone Forms: Work/School Release Interventions: ED Discharge Assessment Last Done: 06/08/23 18:40 Discharge Date/Time: 06/08/23 18:40
[2023-06-08] MEDS: Albuterol/Iprat 2.5/0.5MG 3 ML AMPUL.NEB INHALE (12:29)
[2023-06-08 12:30] VITALS: PULSE 91; RESP 22; O2SAT 96
[2023-06-08 13:37] LABS: Influenza A PCR NEGATIVE (Negative); Influenza B PCR NEGATIVE (Negative); Resp Syncy Virus RNA Qual PCR NEGATIVE (Negative); SARS COV2 PCR INHOUSE NEGATIVE (Negative)
[2023-06-08] MEDS: dexAMETHasone sod phosphate 10 MG/ML VIAL IVPUSH (13:50)
[2023-06-08] MEDS: guaiFENesin 200 MG/10 ML 10 ML LIQUID PO (13:50)
--- NOTE | 2023-06-08 14:04 | PC.NURSE ---
patient a&ox3, labs drawn, pt medicated per order, cxr performed, nasal swab performed, call us within reach, will continue to monitor
[2023-06-08 14:05] LABS: MANUAL DIFF FLAG NO
[2023-06-08 14:07] LABS: Basophils Absolute Auto 0.1 X10*3/uL (0.0-0.2); Basophils Percent Auto 0.7 % (0-2); Eosinophils Absolute Auto 0.2 X10*3/uL (0.0-0.4); Eosinophils Percent Auto 2.9 % (0-4); Hemoglobin 11.7 g/dl (12.0-16.0); Imm Gran Abs Auto 0.04 X10*3/uL (0.00-0.03); Imm Gran Pct Auto 0.6 % (0.0-0.4); Lymphocytes Absolute Auto 2.1 X10*3/uL (1.2-4.9); Lymphocytes Percent Auto 29.9 % (20-40); Mean Corpuscular HGB Conc 32.5 g/dl (31.0-35.0); Mean Corpuscular Hemoglobin 28.9 pg (27.0-33.0); Mean Corpuscular Volume 88.9 fL (80.0-98.0); Mean Platelet Volume 9.3 fL (9.4-12.3); Monocytes Absolute Auto 0.6 X10*3/uL (0.1-1.2); Monocytes Percent Auto 7.9 % (2-11); Neutrophils Absolute Auto 4.1 x10*3/uL (2.0-8.3); Platelet Count 240 X10*3/uL (160-400); Red Blood Count 4.05 X10*6/uL (4.20-5.50); Red Cell Distribution Width 13.3 % (11.0-16.0)
[2023-06-08 14:12] LABS: INTERNATIONAL NORM RATIO 0.9 (0.9-1.1); Prothrombin Time 10.4 SEC (11.1-13.3)
[2023-06-08 14:21] LABS: D Dimer High Sensitivity < 150 NG/ML
[2023-06-08 14:24] LABS: Alanine Aminotransferase 20 U/L (0-31); Albumin Level 4.4 g/dL (3.5-5.0); Alkaline Phosphatase 102 U/L (39-117); Anion Gap 13 (12-20); Aspartate Amino Transferase 21 U/L (5-31); Bilirubin Total 0.5 mg/dL (0.0-1.0); Blood Urea Nitrogen 17 mg/dL (9-16); Calcium 9.4 mg/dL (8.4-10.2); Carbon Dioxide 25 mmol/L (22-29); Chloride 108 mmol/L (96-108); Creatinine Clr Calc Pharmacy 69.5; Estimated Glomerular Filt Rate > 60; Glucose Random 119 mg/dL (60-115); Magnesium 1.6 mg/dL (1.6-2.6); Potassium 3.5 mmol/L (3.3-5.1); Sodium 142 mmol/L (135-145); Total Protein 7.2 g/dL (6.5-8.0)
[2023-06-08 14:33] LABS: Troponin-I High Sensitivity 7.6 ng/L (<3.5-17.0)
[2023-06-08] MEDS: Benzonatate 100 MG CAPSULE 200 MG PO (15:05)
--- NOTE | 2023-06-08 15:09 | PC.NURSE ---
pt medicated per MAR, call us within reach
[2023-06-08 16:19] VITALS: BP 155/72; PULSE 84; RESP 18; TEMP 37; O2SAT 94
[2023-06-08 16:40] LABS: Troponin-I High Sensitivity 11.3 ng/L (<3.5-17.0)
[2023-06-08] MEDS: Albuterol Sulfate (0.083%) 2.5 MG/3 ML VIAL.NEB INHALE (17:16)
[2023-06-08 17:18] VITALS: PULSE 90; RESP 18; O2SAT 94
--- NOTE | 2023-06-08 18:35 | PC.NURSE ---
patient a&ox3, vss, denies pain discomfort, pt to be discharged home with medications.
[2023-06-08 18:36] VITALS: BP 158/74; PULSE 88; RESP 18; TEMP 36.8; O2SAT 96
== END 2023-06-08 18:40 | disposition home or self-care (01) ==
PROVIDERS: Physician Assistant; Emergency Provider Emergency Medicine; PCP Internal Medicine
DX: J40 Bronchitis, not specified as acute or chronic (principal); R05.9 Cough, unspecified; R53.83 Other fatigue; Z79.899 Other long term (current) drug therapy; Z20.822 Contact with and (suspected) exposure to COVID-19; Z11.52 Encounter for screening for COVID-19
CPT/HCPCS: 0241U; 36415; 71045; 80053; 83735; 84484; 85025; 85379; 85610; 94640; 99284; J1100

== ENCOUNTER 2023-07-13 09:49 | Outpatient (REF) | payer OTHER, SELFPAY ==
[2023-07-13 10:03] LABS: MANUAL DIFF FLAG NO
[2023-07-13 10:51] LABS: Basophils Absolute Auto 0.1 X10*3/uL (0.0-0.2); Eosinophils Absolute Auto 0.2 X10*3/uL (0.0-0.4); Eosinophils Percent Auto 2.5 % (0-4); Hematocrit 37.5 % (37.0-47.0); Hemoglobin 11.7 g/dl (12.0-16.0); Imm Gran Abs Auto 0.03 X10*3/uL (0.00-0.03); Imm Gran Pct Auto 0.5 % (0.0-0.4); Lymphocytes Absolute Auto 1.7 X10*3/uL (1.2-4.9); Lymphocytes Percent Auto 28.5 % (20-40); Mean Corpuscular HGB Conc 31.2 g/dl (31.0-35.0); Mean Corpuscular Hemoglobin 27.9 pg (27.0-33.0); Mean Corpuscular Volume 89.5 fL (80.0-98.0); Mean Platelet Volume 9.5 fL (9.4-12.3); Monocytes Absolute Auto 0.6 X10*3/uL (0.1-1.2); Neutrophils Absolute Auto 3.6 x10*3/uL (2.0-8.3); Neutrophils Percent Auto 58.5 % (45-73); Platelet Count 283 X10*3/uL (160-400); Red Blood Count 4.19 X10*6/uL (4.20-5.50); Red Cell Distribution Width 13.4 % (11.0-16.0); White Blood Count 6.1 X10*3/uL (4.8-10.8)
[2023-07-13 10:57] LABS: Estimated Average Glucose 117 mg/dL; Hemoglobin A1c % 5.7 % (<6.0)
[2023-07-13 11:28] LABS: Alanine Aminotransferase 16 U/L (0-31); Albumin Level 4.3 g/dL (3.5-5.0); Alkaline Phosphatase 111 U/L (39-117); Anion Gap 13 (12-20); Aspartate Amino Transferase 20 U/L (5-31); Bilirubin Total 0.8 mg/dL (0.0-1.0); Blood Urea Nitrogen 22 mg/dL (9-16); Calcium 9.9 mg/dL (8.4-10.2); Carbon Dioxide 25 mmol/L (22-29); Chloride 107 mmol/L (96-108); Cholesterol 149 mg/dL (<200); Estimated Glomerular Filt Rate > 60; Glucose Fasting 101 mg/dL (60-99); HDL Cholesterol 72 mg/dL (>40); LDL Cholesterol Calculated 69 mg/dL (<100); Sodium 141 mmol/L (135-145); Total Protein 7.1 g/dL (6.5-8.0); Triglycerides 44 mg/dL (<150)
[2023-07-13 11:45] LABS: Thyroid Stimulating Hormone 0.66 uIU/mL (0.32-4.0)
[2023-07-13 13:10] LABS: Creatinine Urine 94.11 mg/dL; Microalbum/Creatinine Ratio Ur 63.7 ug/mg cr (<30)
== END 2023-07-13 09:50 | disposition home or self-care (01) ==
LOC: HO.LAB 09:49
PROVIDERS: PCP Internal Medicine; Visit Provider Internal Medicine
DX: E11.65 Type 2 diabetes mellitus with hyperglycemia (principal); E78.5 Hyperlipidemia, unspecified; E11.69 Type 2 diabetes mellitus with other specified complication; E66.01 Morbid (severe) obesity due to excess calories; N28.9 Disorder of kidney and ureter, unspecified; E03.9 Hypothyroidism, unspecified; D64.9 Anemia, unspecified
CPT/HCPCS: 36415; 80053; 80061; 82043; 82570; 83036; 84443; 85025

== ENCOUNTER 2023-07-27 09:36 | Outpatient (AMB) | payer OTHER, SELFPAY ==
[2023-07-27 09:38] VITALS: BP 134/90; PULSE 81; O2SAT 96; BMI 31.5
--- NOTE | 2023-07-27 09:38 | MHC.PC.OV ---
Vital Signs 07/27/23 09:38 Height 5 ft 7 in Weight 201 lb 0.4 oz BMI 31.5 BP 134/90 H Blood Pressure Location Lt brachial Position Sitting Pulse 81 Pulse Source Pulse Oximeter Pulse Oximetry (%) 96 Oxygen Delivery Method Room Air Intake Visit Reasons: diabetes follow up Government Relations Director Required: No Allergies MILTON Inhibitors [MILTON INHIBITORS] Allergy (Severe, Verified 07/27/23 09:39) SWELLING,ANAPHYLAXIS Calcium Channel Blocking Agents-Dih [CALCIUM CHANNEL BLOCKING AGENTS-DIH] Allergy (Severe, Verified 07/27/23 09:39) SEVERE WEIGHT LOSS lidocaine [LIDOCAINE] Allergy (Severe, Verified 07/27/23 09:39) ANAPHYLAXIS amlodipine [AMLODIPINE] Allergy (Intermediate, Verified 07/27/23 09:39) HIVES, rash aspirin [ASPIRIN] Allergy (Intermediate, Verified 07/27/23 09:39) GI UPSET, rash codeine [CODEINE] Allergy (Intermediate, Verified 07/27/23 09:39) GI UPSET, rash acetaminophen [Percocet] Allergy (Unknown, Verified 07/27/23 09:39) Unknown amoxicillin [AMOXICILLIN] Allergy (Unknown, Verified 07/27/23 09:39) UNKNOWN Anesthetics - Amide Type - Select A [ANESTHETICS - AMIDE TYPE] Allergy (Unknown, Verified 07/27/23 09:39) ANESTHETIC ADDITIVES lisinopril Allergy (Unknown, Verified 07/27/23 09:39) Angioedema, anaphylaxis morphine Allergy (Unknown, Verified 07/27/23 09:39) rash oxycodone [Percocet] Allergy (Unknown, Verified 07/27/23 09:39) Unknown From Novocain Allergy (Severe, Uncoded 07/27/23 09:39) ANAPHYLAXIS ... additives or preservative Allergy (Unknown, Uncoded 07/27/23 09:39) unknown MILTON Inhibitors Allergy (Unknown, Uncoded 07/27/23 09:39) unknown calcium blockers Allergy (Unknown, Uncoded 07/27/23 09:39) unnown Calcium Channel blockers Allergy (Unknown, Uncoded 07/27/23 09:39) anaphylaxis Codeine Phosphate Allergy (Unknown, Uncoded 07/27/23 09:39) unknown Novocain Allergy (Unknown, Uncoded 07/27/23 09:39) anaphylaxis From PERCOCET Adverse Reaction (Intermediate, Uncoded 07/27/23 09:39) GI UPSET Medication List - Last Reconciled 07/27/23 by Hai Stevens MD albuterol sulfate 90 mcg/actuation 2 inhalations inhalation Q4-6H PRN albuterol sulfate 90 mcg/actuation (Ventolin HFA) 1 inh inhalation QID PRN atorvastatin 80 mg PO DAILY blood sugar diagnostic ([employer] Ultra Test strips) once per day escitalopram oxalate 20 orally daily; lamotrigine ER 375 mg PO DAILY lancets ([employer] Delica Lancets) once a day lancing device with lancets ([employer] Delica Plus Lancing Device kit) test once daily lorazepam 1 mg PO DAILY PRN metformin 500 mg PO TID spironolactone 12.5 mg PO DAILY temazepam 7.5 mg orally bedtime; trazodone 100 mg PO DAILY Tobacco use date assessed: 07/27/23 [facility] diabetes follow up HPI Details Diabetes hyperlipidemia and asthma; doing well and compliant [facility] Medical History Colonoscopy planned Kidney disease Diabetes mellitus Surgical History H/O breast surgery No history of previous surgery Family History Mother No problems noted. Father No problems noted. Social History Housing: House Alcohol intake: current Alcohol intake frequency: holidays/special occasions only Patient Tobacco Use Status: Never used Tobacco Current occupational status: employed Cognitive needs: No Hearing needs: No Vision needs: No Female Reproductive History Menstrual Age of Menarche: 13 Questionnaire PHQ-9 Over the last 2 weeks, how often have you been bothered by any of the following problems? 1. Little interest or pleasure in doing things: not at all 2. Feeling down, depressed, or hopeless: not at all 3. Trouble falling or staying asleep, or sleeping too much: not at all 4. Feeling tired or having little energy: not at all 5. Poor appetite or overeating: not at all 6. Feeling bad about yourself - or that you are a failure or have let yourself or your family down: not at all 7. Trouble concentrating on things, such as reading the newspaper or watching television: not at all 8. Moving or speaking so slowly that other people could have noticed. Or the opposite - being so fidgety or restless that you have been moving around a lot more than usual: not at all 9. Thoughts that you would be better off or of hurting yourself in some way: not at all Total score: 0 Depression Screening Interpretation: Negative Depression Screening Done: Yes 92247 - PHQ-9 Billing: Yes Source: Developed by Drs. Lobito Chaidez, Socorro Bergman, Marcio Salguero and colleagues, with an educational ismael from [employer] Thrive Questionnaire Date Thrive assessed: 07/27/23 I am a: Patient What is your living situation today?: I have a steady place to live Within the past 12 months, did the food you bought not last and you didn't have the money to get more?: Never true Within the past 12 months, did you worry whether your food would run out before you got money to buy more?: Never true Do you have trouble paying for medicines?: No Do you have trouble getting transportation to medical appointments?: No Do you have trouble paying your heating and electricity bill?: No Do you have trouble taking care of your child, family member or friend?: No Do you have trouble with day-to-day activities such as bathing, preparing meals, shopping, managing finances, etc.?: No Are you currently unemployed and looking for a job?: No Are you interested in more education?: No Please select the resources that you would like help with: None Currently or been in a relationship where the following occur: no concerns reported THRIVE Score: 0 AUDIT C Alcohol Use Questionnaire (AUDIT-C) 1. How often do you have a drink containing alcohol?: Never 3. How often do you have six or more drinks on one occasion?: Never Total Score: 0 Score Reviewed/Action Taken: Yes BLAISE-7 AMB Questionnaire BLAISE-7 Date BLAISE - 7 assessed: 07/27/23 Feeling nervous, anxious, or on edge: 0 = Not at all Not being able to stop or control worryin = Not at all Worrying too much about different things: 0 = Not at all Trouble relaxin = Not at all Being so restless that it is hard to sit still: 0 = Not at all Becoming easily annoyed or irritable: 0 = Not at all Feeling afraid as if something awful might happen: 0 = Not at all Total BLAISE-7 score (0-4 normal; 5-9 mild; 10-14 moderate; 15-21 severe): 0 Source: Developed by Drs. Lobito Chaidez, Socorro Bergman, Marcio Salguero and colleagues, with an educational ismael from [employer] BLAISE-7 Assessment Billing BLAISE-7 Assessment Tool: BLAISE-7 Assessment 86716 Review of Systems Const Denies chills, Denies headache(s) and Denies weight loss ENT Denies headache(s) Card Denies chest pain, Denies syncope, Denies irregular heart rhythm and Denies dyspnea Resp Denies chest congestion, Denies cough and Denies dyspnea GI Denies abdominal pain, Denies change in stool character, Denies nausea and Denies vomiting Musc Denies deformity and Denies joint swelling Neuro Denies syncope and Denies headache(s) Physical exam (Primary Care) Vital Signs: Last Vital Signs Pulse 81 07/27/23 09:38 BP 134/90 H 07/27/23 09:38 Pulse Ox 96 07/27/23 09:38 Oxygen Delivery Method Room Air 07/27/23 09:38 BMI result Body Mass Index 31.5 Tobacco/Smoking Status: Tobacco use Status Tobacco use date assessed 07/27/23 07/27/23 09:40 Patient Tobacco Use Status Never used Tobacco 07/27/23 09:40 PHQ-9: PHQ-9 Score PHQ-9: Total score 0 07/27/23 09:46 Depression Screening Interpretation: Negative Thrive Assessment: Date of Thrive Assessment Date Thrive assessed 07/27/23 07/27/23 09:40 Currently or been in a relationship where the following occur: no concerns reported Const General: cooperative, comfortable, no acute distress and alert Neck Neck: Yes no lymphadenopathy Thyroid: Thyroid normal Resp Effort & Inspection: normal respiratory effort Auscultation: clear to auscultation bilaterally Percussion: percussion normal Cardio Jugular venous distension: no JVD Palpation: normal PMI Rate: regular rate Rhythm: regular rhythm Heart sounds: S1 normal heart sound present and S2 normal heart sound present GI Inspection: Yes normal to inspection Palpation (GI): No hepatosplenomegaly present Skin General skin exam: no rashes or lesions noted Extrem General: Yes no clubbing, cyanosis or edema Assessment and Plan Assessment & Plan (1) Diabetes mellitus with coincident hypertension: Code(s): E11.9 - Type 2 diabetes mellitus without complications; I10 - Essential (primary) hypertension Plan: stable; same rx (2) Hyperlipidemia: Code(s): E78.5 - Hyperlipidemia, unspecified Plan: stable; same rx (3) Asthma: Code(s): J45.909 - Unspecified asthma, uncomplicated Plan: stable; same rx Orders: Orders Lipid Panel Today Z13.220 - Encounter for screening for lipoid disorders Complete Blood Count Auto Diff Today Z13.0 - Encounter for screening for diseases of the blood and blood-forming organs and certain disorders involving the immune mechanism Comprehensive [place]. Panel Fast Today Z13.9 - Encounter for screening, unspecified Hemoglobin A1c Today R73.9 - Hyperglycemia, unspecified Referrals Account Analyst Nutrition Referral E11.9 - Type 2 diabetes mellitus without complications, I10 - Essential (primary) hypertension Coding Level of Care Code Est Pt Level 4 (42751) Diagnoses Diabetes mellitus with coincident hypertension E11.9; I10 Hyperlipidemia E78.5 Asthma J45.909 Additional Codes BLAISE-7 Assessment Billing - BLAISE-7 Assessment Tool: BLAISE-7 Assessment 62191 ([id number])
== END 2023-07-27 10:05 | disposition home or self-care (01) ==
PROVIDERS: PCP Internal Medicine; Visit Provider Internal Medicine
DX: E11.9 Type 2 diabetes mellitus without complications (principal); I10 Essential (primary) hypertension; E78.5 Hyperlipidemia, unspecified; J45.909 Unspecified asthma, uncomplicated
CPT/HCPCS: 99214

== ENCOUNTER 2023-08-10 09:51 | Outpatient (AMB) | payer OTHER, SELFPAY ==
[2023-08-10 10:09] VITALS: BMI 32.3
--- NOTE | 2023-08-10 10:09 | A.OFFVIS_ITS ---
Intake VS Expanded 08/10/23 10:09 08/12/23 14:18 Height 5 ft 7 in 5 ft 7 in Weight 206 lb 5.643 oz 206 lb BMI 32.3 32.3 Intake Visit Reasons: Hypertension, T2DM Allergies MILTON Inhibitors [MILTON INHIBITORS] Allergy (Severe, Verified 07/27/23 09:39) SWELLING,ANAPHYLAXIS Calcium Channel Blocking Agents-Dih [CALCIUM CHANNEL BLOCKING AGENTS-DIH] Allergy (Severe, Verified 07/27/23 09:39) SEVERE WEIGHT LOSS lidocaine [LIDOCAINE] Allergy (Severe, Verified 07/27/23 09:39) ANAPHYLAXIS amlodipine [AMLODIPINE] Allergy (Intermediate, Verified 07/27/23 09:39) HIVES, rash aspirin [ASPIRIN] Allergy (Intermediate, Verified 07/27/23 09:39) GI UPSET, rash codeine [CODEINE] Allergy (Intermediate, Verified 07/27/23 09:39) GI UPSET, rash acetaminophen [Percocet] Allergy (Unknown, Verified 07/27/23 09:39) Unknown amoxicillin [AMOXICILLIN] Allergy (Unknown, Verified 07/27/23 09:39) UNKNOWN Anesthetics - Amide Type - Select A [ANESTHETICS - AMIDE TYPE] Allergy (Unknown, Verified 07/27/23 09:39) ANESTHETIC ADDITIVES lisinopril Allergy (Unknown, Verified 07/27/23 09:39) Angioedema, anaphylaxis morphine Allergy (Unknown, Verified 07/27/23 09:39) rash oxycodone [Percocet] Allergy (Unknown, Verified 07/27/23 09:39) Unknown From Novocain Allergy (Severe, Uncoded 07/27/23 09:39) ANAPHYLAXIS ... additives or preservative Allergy (Unknown, Uncoded 07/27/23 09:39) unknown MILTON Inhibitors Allergy (Unknown, Uncoded 07/27/23 09:39) unknown calcium blockers Allergy (Unknown, Uncoded 07/27/23 09:39) unnown Calcium Channel blockers Allergy (Unknown, Uncoded 07/27/23 09:39) anaphylaxis Codeine Phosphate Allergy (Unknown, Uncoded 07/27/23 09:39) unknown Novocain Allergy (Unknown, Uncoded 07/27/23 09:39) anaphylaxis From PERCOCET Adverse Reaction (Intermediate, Uncoded 07/27/23 09:39) GI UPSET HPI Nutrition Presentation Details Pt presents for MNT for T2DM with HTN. The Pt was referred by Tari Penaloza. Pt reports having gained 50 lbs since 2018 Work schedule 10-am to 7 pm , gradually working on reducing portions/sugars typically B: banana or fruit, tea 1:30 lunch: salad tuna, water 7 pm : salads with tuna increased appetite at night (sweets ) physical activity: daily life activities NRS-Tnimrgb-Kk.Libertad Equation Height 5 ft 7 in Weight 206 lb Resting Metabolic Rate 1540.89 Calculated Activity Level Sedentary Calories Needed to Maintain Weight 1849.07 Diagnosis Nutrition problem #1 food nutri know defi As related to (etiology) #1 diagnosis As evidenced by (sign/symptom) #1 weight gain (BMI at 32.3 on 07/2023, HTN, DM, ) Monitoring/Goals Nutrition problem monitoring level of knowledge/skill, total PRO intake, total CHO intake, weight and oral fluids Nutrition goal/outcome wt loss 5lbs in 2 months Outcome progress verbalized understanding Learning/Education Readiness to learn good Most Recent Diabetes Results: Microalb/Creat Ratio 63.7 ug/mg cr (<30) H 07/13/23 Cholesterol 149 mg/dL (<200) 07/13/23 HDL Cholesterol 72 mg/dL (>40) 07/13/23 Triglycerides 44 mg/dL (<150) 07/13/23 Creatinine 0.89 mg/dL (0.5-1.4) 07/13/23 Blood Urea Nitrogen 22 mg/dL (9-16) H 07/13/23 Sodium 141 mmol/L (135-145) 07/13/23 Potassium 4.0 mmol/L (3.3-5.1) 07/13/23 Chloride 107 mmol/L (96-108) 07/13/23 Carbon Dioxide 25 mmol/L (22-29) 07/13/23 Calcium 9.9 mg/dL (8.4-10.2) 07/13/23 AST 20 U/L (5-31) 07/13/23 ALT 16 U/L (0-31) 07/13/23 Total Protein 7.1 g/dL (6.5-8.0) 07/13/23 Albumin 4.3 g/dL (3.5-5.0) 07/13/23 [facility] Medical History Colonoscopy planned Kidney disease Diabetes mellitus Surgical History H/O breast surgery No history of previous surgery Family History Mother No problems noted. Father No problems noted. Social History Housing: House Alcohol intake: current Alcohol intake frequency: holidays/special occasions only Patient Tobacco Use Status: Never used Tobacco Current occupational status: employed Cognitive needs: No Hearing needs: No Vision needs: No Female Reproductive History Menstrual Age of Menarche: 13 Assessment & Plan Assessment & Plan (1) Diabetes mellitus with coincident hypertension: Code(s): E11.9 - Type 2 diabetes mellitus without complications; I10 - Essential (primary) hypertension Plan: Wt: 94Kg ( July/2023 ) Est kcal needs as per MSJ: 1800 (40% carb, 30% protein/fat) Est fluid needs as per 25-30 ml/d: 2800 Est prot per day as per 1 g/kg bw: 94 Recommend fiber intake : 8-10 g per day and gradually increase to 25-28 g per day for women and 35-38 g for men or as tolerated Recommend sodium intake per day : less than 2000 mg Educated patient on: ( R = reviewed V = verbalizes understanding N/R = needs review N/A = not applicable * Food sources of carbohydrate, adequate serving sizes and its role in various health conditions: R * Differences between complex carbohydrates a simple carbohydrates, role of fiber in diet: R * Lean protein sources of foods: R * Meal replacement and snack replacement option: R * Differences between types of fats and role in diet (mono on saturated fat fatty acids, saturated fatty acids, trans fats): N/R * Food sources of sodium in salt and healthy modifications for heart health in kidney health: NR * Vitamins and minerals: N/R * Healthy plate method concept: R * Physical activity: Benefits a precaution: R * Hypoglycemia protocol (rule of 15): R V * Dietary prevention of Hyperglycemia: R Patient Instructions: Reduce on your total carbs to less than 60 g at meal following heathy plate method Have a meal replacement at 7-8pm see list of options Coding Level of Care Code Nutr Indiv Intake (26428) Diagnoses Diabetes mellitus with coincident hypertension E11.9; I10 Time Spent (min) 30
[2023-08-12 14:18] VITALS: BMI 32.3
== END 2023-08-10 10:44 | disposition home or self-care (01) ==
PROVIDERS: PCP Internal Medicine; Visit Provider Dietitian, Registered
DX: E11.9 Type 2 diabetes mellitus without complications (principal); I10 Essential (primary) hypertension

== ENCOUNTER → 2023-08-10 09:51 | Outpatient (BNVA) | payer OTHER, SELFPAY | PROVIDERS: PCP Internal Medicine; Visit Provider Dietitian, Registered | DX: E11.9 Type 2 diabetes mellitus without complications (principal); I10 Essential (primary) hypertension; Z71.3 Dietary counseling and surveillance | CPT/HCPCS: 97802 ==

== ENCOUNTER → 2023-09-01 13:12 | Outpatient (BNVA) | payer SELFPAY | PROVIDERS: PCP Internal Medicine ==

== ENCOUNTER 2023-09-01 14:26 | Emergency (ER) | payer OTHER, SELFPAY ==
--- NOTE | ~2023-09-01 | CT_ITS ---
EXAMINATION: CT HEAD WITHOUT CONTRAST (STROKE PROTOCOL) CLINICAL INFORMATION: Stroke protocol. Dizziness, difficulty walking COMPARISON: CT scan of brain on 04/26/2023 TECHNIQUE: Contiguous axial imaging was performed from the skull base to vertex without intravenous administration of contrast. This CT examination was performed using dose optimization techniques as appropriate, variously including the following: *Automated exposure control *Adjustment of mA and/or kV according to patient size (this includes techniques or standardized protocols for targeted exams where dose is matched to indication/reason for exam; i.e. extremities or head) *Use of iterative reconstruction technique DLP: 579.62 mGy-cm FINDINGS: Ventricles, sulci and cisterns are normal. There is no midline shift, no abnormal intra- or extra- axial fluid accumulation. Lion and white matter differentiation is normal. Bone window images show no evidence of skull fracture. CT/CT head for stroke IMPRESSION: 1. Unchanged Normal CT scan of the brain. 2. No intracranial hemorrhage or skull fracture is seen. 3. No evidence of space occupying lesion could be found. 4. The current plain CT scan of the brain shows no diagnostic evidence of acute cerebral infarction. This critical result was discussed with Dr. Imer Carnse at 1538 hours on 09/01/2023. It was ascertained that the content and urgency of the report was understood at the time of direct communication.
--- NOTE | 2023-09-01 14:33 | ECG_ITS ---
Test Reason : DIZZINESS Blood Pressure : / mmHG Vent. Rate : 069 BPM Atrial Rate : 069 BPM P-R Int : 142 ms QRS Dur : 078 ms QT Int : 396 ms P-R-T Axes : 048 014 031 degrees QTc Int : 424 ms Normal sinus rhythm Normal ECG When compared with ECG of 03-MAR-2018 06:20, No significant change was found Referred By: Generic ED Physician Electronically Signed By:AYAN MELENDEZ MD
[2023-09-01 14:59] VITALS: BP 134/71; PULSE 61; RESP 16; TEMP 36.5; O2SAT 98; BMI 28.2
--- NOTE | 2023-09-01 14:59 | ED_ITS ---
HPI - General Adult General Chief complaint: Dizziness Stated complaint: Dizziness Time Seen by Provider: 09/01/23 15:40 History of Present Illness HPI narrative: The patient is a 62-year-old woman with a history of type 2 diabetes and who also says she has kidney problems. 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 She says that she felt mildly dizzy this morning when she came to work but the symptoms were quite mild. At around 14:00 this afternoon was standing when she felt acutely lightheaded. She says that staff workers said she looked white as a sheet. She felt somewhat unsteady with walking. She was referred to the emergency room. She has not had any difficulty speaking. She has not had any noted facial asymmetry. She has not had any unilateral weakness. No headache. No chest pain. She has no history of coronary disease or stroke. She has no history of vascular disease. Related Data Home Medications ?Medication ?Instructions ?Recorded ?Confirmed trazodone 100 mg tablet 100 mg PO DAILY 10/02/20 07/27/23 lamotrigine 300 mg tablet,extended 375 mg PO DAILY 07/30/22 07/27/23 release 24 hr escitalopram oxalate 10 mg tablet See Rx Instructions PO DAILY 04/29/23 07/27/23 lorazepam 1 mg/0.5 mL oral syringe 1 mg PO DAILY PRN 04/29/23 07/27/23 (FOR ORAL USE ONLY) spironolactone 25 mg tablet 12.5 mg PO DAILY 04/29/23 07/27/23 temazepam 15 mg capsule See Rx Instructions PO BEDTIME 04/29/23 07/27/23 Previous Rx's ?Medication ?Instructions ?Recorded blood sugar diagnostic (Innovega #100 ea 08/05/22 Ultra Test strips) lancets 33 gauge (Reachable #100 ea 08/05/22 Lancets) lancing device with lancets kit #1 ea 08/05/22 (Skelta Softwareica Plus Lancing Device kit) atorvastatin 80 mg tablet 80 mg PO DAILY #90 tabs 10/14/22 albuterol sulfate 90 mcg/actuation 1 inh inhalation QID PRN shortness 02/22/23 aerosol inhaler (Ventolin HFA) of breath or wheezing #8.5 grams metformin 500 mg tablet 500 mg PO TID #90 tabs 04/03/23 albuterol sulfate 90 mcg/actuation 2 inh inhalation Q4-6H PRN 06/08/23 breath activated powder inhaler shortness of breath or wheezing #1 ea meclizine 25 mg tablet 25 mg PO QID PRN dizziness #14 tabs 09/01/23 Allergies Allergy/AdvReac Type Severity Reaction Status Date / Time MILTON Inhibitors Allergy Severe SWELLING,AN Verified 09/01/23 15:01 [MILTON INHIBITORS] APHYLAXIS Calcium Channel Blocking Allergy Severe SEVERE Verified 09/01/23 15:01 Agents-Dih WEIGHT LOSS [CALCIUM CHANNEL BLOCKING AGENTS-DIH] lidocaine [LIDOCAINE] Allergy Severe ANAPHYLAXIS Verified 09/01/23 15:01 amlodipine [AMLODIPINE] Allergy Intermediate HIVES, rash Verified 09/01/23 15:01 aspirin [ASPIRIN] Allergy Intermediate GI UPSET, Verified 09/01/23 15:01 rash codeine [CODEINE] Allergy Intermediate GI UPSET, Verified 09/01/23 15:01 rash acetaminophen [Percocet] Allergy Unknown Unknown Verified 09/01/23 15:01 amoxicillin [AMOXICILLIN] Allergy Unknown UNKNOWN Verified 09/01/23 15:01 Anesthetics - Amide Type - Allergy Unknown ANESTHETIC Verified 09/01/23 15:01 Select A ADDITIVES [ANESTHETICS - AMIDE TYPE] lisinopril Allergy Unknown Angioedema, Verified 09/01/23 15:01 anaphylaxis morphine Allergy Unknown rash Verified 09/01/23 15:01 oxycodone [Percocet] Allergy Unknown Unknown Verified 09/01/23 15:01 From Novocain Allergy Severe ANAPHYLAXIS Uncoded 09/01/23 15:01 ... additives or Allergy Unknown unknown Uncoded 09/01/23 15:01 preservative MILTON Inhibitors Allergy Unknown unknown Uncoded 09/01/23 15:01 calcium blockers Allergy Unknown unnown Uncoded 09/01/23 15:01 Calcium Channel blockers Allergy Unknown anaphylaxis Uncoded 09/01/23 15:01 Codeine Phosphate Allergy Unknown unknown Uncoded 09/01/23 15:01 Novocain Allergy Unknown anaphylaxis Uncoded 09/01/23 15:01 From PERCOCET AdvReac Intermediate GI UPSET Uncoded 09/01/23 15:01 Review of Systems 2 Review of Systems: Yes all other systems are reviewed and are negative PMFSH Past Medical History Medical History Colonoscopy planned Kidney disease Diabetes mellitus Surgical History H/O breast surgery No history of previous surgery Family History Family History Mother No problems noted. Father No problems noted. Social History Social History Housing: House Alcohol intake: current Alcohol intake frequency: holidays/special occasions only Patient Tobacco Use Status: Never used Tobacco Smoked in Last 30 Days: No Use of substances other than those prescribed or required for medical reasons: No Advance Directives: No Advance Directives Information Provided: No Do you have a plan to hurt others: No Plan Current occupational status: employed Cognitive needs: No Hearing needs: No Vision needs: No Physical Exam ED Vital Signs: Vital Signs - 24 hr 09/01/23 14:59 09/01/23 18:00 09/01/23 18:34 Temperature 97.7 F 97.2 F 97.2 F Pulse Rate 61 69 69 Respiratory Rate 16 16 Blood Pressure 134/71 113/67 113/67 Pulse Oximetry 98 96 96 Oxygen Delivery Method Room Air Room Air Room Air BMI result Body Mass Index 28.2 Const Other: The patient is awake and alert. She is pleasant and cooperative. She does not appear obviously ill. HENMT Other: The face is symmetrical. Mucous membranes moist. Eyes Other: Pupils are round equal, conjunctivae are clear Neck Other: No JVD, no bruits Resp Effort & Inspection: normal respiratory effort Auscultation: clear to auscultation bilaterally Cardio Rate: regular rate Rhythm: regular rhythm Heart sounds: S1 normal heart sound present and S2 normal heart sound present GI Other: Abdomen is soft and nontender Skin Other: Skin is pale and dry Neuro Other: The patient is awake, alert, and appropriately oriented. Mental status is normal. She can tell me the correct month and her age. Follow commands correctly. Visual lopez are intact. Eye movements are intact. Face is symmetrical. Speech is normal without dysarthria or aphasia. Strength is 5/5 in all 4 extremities. There is no pronator drift. Finger-nose is normal. Heel-horn is normal. Sensation is intact throughout. Her NIH stroke scale is 0. Feels that her walking is difficult however Extrem Other: Calf swelling or tenderness, no pitting edema, no asymmetry NIH Stroke Scale Internal: Initial- Upon Arrival Time: 15:07 Level of Consciousness: Alert Level of Consciousness Questions: Answers both questions correctly Level of Consciousness Commands: Performs both tasks correctly Best Gaze: Normal Visual: No visual loss Facial Palsy: Normal Motor Arm (Right): No drift Motor Arm (Left): No drift Motor Leg (Right): No drift Motor Leg (Left): No drift Limb Ataxia: Absent Sensory: Normal Best Language: No aphasia Dysarthia: Normal Extinction and Inattention: No abnormality Score: 0 Course Course Course Narrative: This is a rapid medical exam performed by Collins Medrano NP: Additional HPI, ROS, PE not included below will be deferred to primary provider. 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 Denies chest pain, denies prior episodes. Began around 12:30. Seen at [facility] and referred here for further evaluation. Plan: patient activated as Stroke alert and brought directly to CT Medications Administered Discontinued Medications Generic Name Dose Route Start Last Admin Trade Name Freq PRN Reason Stop Dose Admin Sodium Chloride 1,000 mls @ 999 mls/hr 09/01/23 16:00 09/01/23 17:42 Ns IV 09/01/23 17:00 Infused .Q1H1M BJ Infusion Meclizine HCl 25 mg 09/01/23 15:50 09/01/23 16:19 Meclizine Hcl 25 Mg Tablet PO 09/01/23 15:51 25 mg ONCE ONE Administration Medical Decision Making Medical Decision Making [facility] Narrative: The patient is a 62-year-old female who was at work at the hospital here today when she became abruptly dizzy. She variably described for symptoms as lightheaded and as if she might pass out on some occasions and as room spinning dizziness on other occasions. There is no associated headache. On her physical exam she has no focal neurological deficit apparent but her gait was mildly abnormal. She had a stat noncontrast head CT that was negative. Given the absence of any focal neurological deficit on the NIH stroke scale felt it was unlikely that a CT angiogram would be helpful. Clinically I was not certain that she was having a stroke. This seemed to possibly some kind of a vertigo like syndrome. I did not appreciate any nystagmus on exam however. The patient was treated with 1 L of IV normal saline and 25 mg of meclizine orally. She was observed. She had significant improvement in her symptoms. She was then able to walk without any difficulty. I felt that this was unlikely to represent a posterior circulation stroke. I think some kind of a peripheral vertigo syndrome is much more likely. She will be discharged with instructions to use meclizine as needed for the next couple of days, to rest and take it easy, to follow up soon with the regular doctor, and to return to the emergency room if worse. Lab Data 09/01/23 15:39 09/01/23 15:39 Labs: Lab Results 09/01/23 09/01/23 09/01/23 Range/Units 15:39 15:52 16:07 WBC 6.3 (4.8-10.8) X10*3/uL RBC 4.20 (4.20-5.50) X10*6/uL Hgb 12.2 (12.0-16.0) g/dl Hct 36.5 L (37.0-47.0) % MCV 86.9 (80.0-98.0) fL MCH 29.0 (27.0-33.0) pg MCHC 33.4 (31.0-35.0) g/dl RDW 13.2 (11.0-16.0) % Plt Count 260 (160-400) X10*3/uL MPV 9.0 L (9.4-12.3) fL Immature Gran % (Auto) 0.3 (0.0-0.4) % Neut % (Auto) 51.7 (45-73) % Lymph % (Auto) 35.3 (20-40) % [place] % (Auto) 8.2 (2-11) % Eos % (Auto) 3.6 (0-4) % Baso % (Auto) 0.9 (0-2) % Lymph # (Auto) 2.2 (1.2-4.9) X10*3/uL [place] # (Auto) 0.5 (0.1-1.2) X10*3/uL Eos # (Auto) 0.2 (0.0-0.4) X10*3/uL Baso # (Auto) 0.1 (0.0-0.2) X10*3/uL Abs Immat Gran (auto) 0.02 (0.00-0.03) X10*3/uL Absolute Neuts (auto) 3.3 (2.0-8.3) x10*3/uL Absolute Nucleated RBC 0.000 (0.0-0.012) X10*3/uL Nucleated RBC % (auto) 0.0 (0.0-0.2) /100WBC PT 10.5 L (11.1-13.3) SEC Whole Blood PT 11.2 (11.1-13.5) sec INR 0.9 (0.9-1.1) Whole Blood INR 0.9 (0.9-1.1) APTT 34.9 (26.0-36.8) SEC Sodium 132 L (135-145) mmol/L Potassium 4.0 (3.3-5.1) mmol/L Chloride 98 (96-108) mmol/L Carbon Dioxide 24 (22-29) mmol/L Anion Gap 14 (12-20) BUN 15 (9-16) mg/dL Creatinine 0.95 (0.5-1.4) mg/dL Estim Creat Clear Calc 69.2 Estimated GFR > 60 POC Glucose 88 (60-115) mg/dL Random Glucose 88 (60-115) mg/dL Calcium 9.8 (8.4-10.2) mg/dL Total Creatine Kinase 239 H (26-140) U/L Troponin I High Sens 7.6 (<3.5-17.0) ng/L Urine Color Yellow Urine Appearance Clear Urine pH 6.0 (5.0-9.0) Ur Specific [place] <= 1.005 (1.005-1.025) Urine Protein Negative (Neg-Trace) mg/dL Urine Glucose (UA) Negative (Negative) mg/dL Urine Ketones Negative (Negative) mg/dL Urine Blood Negative (Negative) Urine Nitrite Negative (Negative) Ur Leukocyte Esterase Moderate (2+) H (Negative) Urine RBC 0-2 (0-2) /HPF Urine WBC 6-10 H (0-5) /HPF Ur Squamous Epith Cells 0-2 (0-2) /HPF Urine Bacteria None Seen (None Seen) Hyaline Casts 0-2 (0-2) /LPF Independent Interpretation I performed an independent interpretation of an: EKG Interpretation: EKG at 14:47 shows normal sinus rhythm at 69 beats per minute. It is a normal EKG Discharge Plan Discharge Clinical Impression: Dizziness Patient Disposition: Home, Self-Care Instructions: Dizziness (ED) Additional Instructions: Please rest and take it easy tonight and for the next 2 days. Drink lot of fluids. My hope is that you will be feeling better by Wednesday and that you will be able to return to work on Wednesday. Tomorrow please call your regular doctor's office to make a follow up appointment to discuss this episode further. Return to the emergency room if you are significantly worse. Prescriptions: New meclizine 25 mg tablet 25 mg PO QID PRN (Reason: dizziness) Qty: 14 0RF No Action (DME) lancets [OneTouch Delica Lancets] 33 gauge misc See Rx Instructions .Route Qty: 100 0RF Rx Instructions: once a day (DME) OneTouch Ultra Test Strip See Rx Instructions .Route Qty: 100 0RF Rx Instructions: once per day (DME) lancing device with lancets [[email or web address] Delica Plus Lanc Dev] Kit See Rx Instructions .Route Qty: 1 0RF Rx Instructions: test once daily atorvastatin 80 mg tablet 80 mg PO DAILY Qty: 90 8RF metformin 500 mg tablet 500 mg PO TID Qty: 90 8RF albuterol sulfate 90 mcg/actuation aerosol powdr breath activated 2 inh inhalation Q4-6H PRN (Reason: shortness of breath or wheezing) Qty: 1 0RF albuterol sulfate [Ventolin HFA] 90 mcg/actuation HFA aerosol inhaler 1 inh inhalation QID PRN (Reason: shortness of breath or wheezing) Qty: 8.5 1RF trazodone 100 mg tablet 100 mg PO DAILY lamotrigine 300 mg tablet extended release 24hr 375 mg PO DAILY lorazepam 1 mg/0.5 mL syringe 1 mg PO DAILY PRN temazepam 15 mg capsule See Rx Instructions PO BEDTIME Rx Instructions: 7.5 mg orally bedtime; escitalopram oxalate 10 mg tablet See Rx Instructions PO DAILY Rx Instructions: 20 orally daily; spironolactone 25 mg tablet 12.5 mg PO DAILY Referrals: Rodney SHERIDAN)Hai MD [Primary Care Provider] - (Episode of dizziness) Stand Alone Forms: Work/School Release Interventions: ED Discharge Assessment Last Done: 09/01/23 18:34 Discharge Date/Time: 09/01/23 18:35 Print Language: Yakut
[2023-09-01 15:45] LABS: MANUAL DIFF FLAG NO
[2023-09-01 15:46] LABS: Basophils Absolute Auto 0.1 X10*3/uL (0.0-0.2); Basophils Percent Auto 0.9 % (0-2); Eosinophils Absolute Auto 0.2 X10*3/uL (0.0-0.4); Eosinophils Percent Auto 3.6 % (0-4); Hematocrit 36.5 % (37.0-47.0); Hemoglobin 12.2 g/dl (12.0-16.0); Imm Gran Abs Auto 0.02 X10*3/uL (0.00-0.03); Imm Gran Pct Auto 0.3 % (0.0-0.4); Lymphocytes Absolute Auto 2.2 X10*3/uL (1.2-4.9); Lymphocytes Percent Auto 35.3 % (20-40); Mean Corpuscular HGB Conc 33.4 g/dl (31.0-35.0); Mean Corpuscular Volume 86.9 fL (80.0-98.0); Monocytes Absolute Auto 0.5 X10*3/uL (0.1-1.2); Monocytes Percent Auto 8.2 % (2-11); Neutrophils Absolute Auto 3.3 x10*3/uL (2.0-8.3); Neutrophils Percent Auto 51.7 % (45-73); Platelet Count 260 X10*3/uL (160-400); Red Cell Distribution Width 13.2 % (11.0-16.0); White Blood Count 6.3 X10*3/uL (4.8-10.8)
[2023-09-01 15:48] LABS: Appearance Urine Clear; Color Urine Yellow; Glucose Urine UA Negative (Negative); Leukocyte Esterase Urine Moderate (2+) (Negative); Nitrite Urine Negative (Negative); Specific Gravity - Urine <= 1.005 (1.005-1.025); UMIC TRIGGER UACC YES; Urine Blood Negative (Negative); Urine Ketones Negative (Negative); Urine Protein Negative (Neg-Trace)
[2023-09-01 15:55] LABS: INTERNATIONAL NORM RATIO 0.9 (0.9-1.1); Prothrombin Time 10.5 SEC (11.1-13.3)
[2023-09-01 15:56] LABS: Glucose, Whole Blood 88 mg/dL (60-115)
[2023-09-01 15:58] LABS: Partial Thromboplastin Time 34.9 SEC (26.0-36.8)
[2023-09-01 15:59] LABS: Anion Gap 14 (12-20); Blood Urea Nitrogen 15 mg/dL (9-16); Calcium 9.8 mg/dL (8.4-10.2); Carbon Dioxide 24 mmol/L (22-29); Chloride 98 mmol/L (96-108); Creatinine Clr Calc Pharmacy 69.2; Estimated Glomerular Filt Rate > 60; Glucose Random 88 mg/dL (60-115); Sodium 132 mmol/L (135-145)
[2023-09-01 16:06] LABS: Troponin-I High Sensitivity 7.6 ng/L (<3.5-17.0)
[2023-09-01] MEDS: Meclizine HCl 25 MG TABLET PO (16:19)
[2023-09-01] MEDS: 0.9 % Sodium Chloride 1,000 ML 999 ML IV (16:19)
[2023-09-01 16:26] LABS: Bacteria Urine None Seen (None Seen); Hyaline Casts Urine 0-2 /LPF (0-2); RBC Urine 0-2 /HPF (0-2); Squamous Epithelial Cell Urine 0-2 /HPF (0-2); UACC Culture Trigger YES
[2023-09-01 17:53] LABS: Prothrombin Time Whole Bld POC 11.2 sec (11.1-13.5); ~PT, ~INR - Anti Coag Clinic 0.9 (0.9-1.1)
[2023-09-01 18:00] VITALS: BP 113/67; PULSE 69; TEMP 36.2; O2SAT 96
--- NOTE | 2023-09-01 18:30 | PC.NURSE ---
pt reports improvement in symptoms
[2023-09-01 18:34] VITALS: BP 113/67; PULSE 69; RESP 16; TEMP 36.2; O2SAT 96
[2023-09-01 19:36] LABS: Stroke Lab Use COMPLETE
== END 2023-09-01 18:35 | disposition home or self-care (01) ==
PROVIDERS: Registered Nurse Emergency; Emergency Provider Emergency Medicine; PCP Internal Medicine
DX: R42 Dizziness and giddiness (principal); R23.1 Pallor; R26.81 Unsteadiness on feet; E11.9 Type 2 diabetes mellitus without complications; N28.9 Disorder of kidney and ureter, unspecified; Z79.899 Other long term (current) drug therapy
CPT/HCPCS: 36415; 70450; 80048; 81001; 81003; 82550; 82947; 84484; 85025; 85610; 85730; 87086; 93005; 96360; 99285

== ENCOUNTER → 2023-09-01 14:33 | Outpatient (BNV) | payer OTHER, SELFPAY | PROVIDERS: Emergency Provider Emergency Medicine; PCP Internal Medicine; Visit Provider Internal Medicine Cardiovascular Disease | DX: R42 Dizziness and giddiness (principal) | CPT/HCPCS: 93010 ==

== ENCOUNTER 2023-10-05 09:49 | Outpatient (AMB) | payer OTHER, SELFPAY ==
[2023-10-05 10:22] VITALS: BMI 30.5
--- NOTE | 2023-10-05 10:22 | A.OFFVIS_ITS ---
VS Expanded 10/05/23 10:22 Height 5 ft 7 in Weight 194 lb 10.691 oz BMI 30.5 Intake Visit Reasons: T2DM HTN/CONFIRMED Allergies MILTON Inhibitors [MILTON INHIBITORS] Allergy (Severe, Verified 09/01/23 15:01) SWELLING,ANAPHYLAXIS Calcium Channel Blocking Agents-Dih [CALCIUM CHANNEL BLOCKING AGENTS-DIH] Allergy (Severe, Verified 09/01/23 15:01) SEVERE WEIGHT LOSS lidocaine [LIDOCAINE] Allergy (Severe, Verified 09/01/23 15:01) ANAPHYLAXIS amlodipine [AMLODIPINE] Allergy (Intermediate, Verified 09/01/23 15:01) HIVES, rash aspirin [ASPIRIN] Allergy (Intermediate, Verified 09/01/23 15:01) GI UPSET, rash codeine [CODEINE] Allergy (Intermediate, Verified 09/01/23 15:01) GI UPSET, rash acetaminophen [Percocet] Allergy (Unknown, Verified 09/01/23 15:01) Unknown amoxicillin [AMOXICILLIN] Allergy (Unknown, Verified 09/01/23 15:01) UNKNOWN Anesthetics - Amide Type - Select A [ANESTHETICS - AMIDE TYPE] Allergy (Unknown, Verified 09/01/23 15:01) ANESTHETIC ADDITIVES lisinopril Allergy (Unknown, Verified 09/01/23 15:01) Angioedema, anaphylaxis morphine Allergy (Unknown, Verified 09/01/23 15:01) rash oxycodone [Percocet] Allergy (Unknown, Verified 09/01/23 15:01) Unknown From Novocain Allergy (Severe, Uncoded 09/01/23 15:01) ANAPHYLAXIS ... additives or preservative Allergy (Unknown, Uncoded 09/01/23 15:01) unknown MILTON Inhibitors Allergy (Unknown, Uncoded 09/01/23 15:01) unknown calcium blockers Allergy (Unknown, Uncoded 09/01/23 15:01) unnown Calcium Channel blockers Allergy (Unknown, Uncoded 09/01/23 15:01) anaphylaxis Codeine Phosphate Allergy (Unknown, Uncoded 09/01/23 15:01) unknown Novocain Allergy (Unknown, Uncoded 09/01/23 15:01) anaphylaxis From PERCOCET Adverse Reaction (Intermediate, Uncoded 09/01/23 15:01) GI UPSET Nutrition Presentation Details: Pt presnts for MNT f/u for T2DM, HTN Pt reports working on diet modifications and feeling comfortable BS Monitoring Most Recent Diabetes Results: Microalb/Creat Ratio 63.7 ug/mg cr (<30) H 07/13/23 Cholesterol 149 mg/dL (<200) 07/13/23 HDL Cholesterol 72 mg/dL (>40) 07/13/23 Triglycerides 44 mg/dL (<150) 07/13/23 Creatinine 0.95 mg/dL (0.5-1.4) 09/01/23 Blood Urea Nitrogen 15 mg/dL (9-16) 09/01/23 Sodium 132 mmol/L (135-145) L 09/01/23 Potassium 4.0 mmol/L (3.3-5.1) 09/01/23 Chloride 98 mmol/L (96-108) 09/01/23 Carbon Dioxide 24 mmol/L (22-29) 09/01/23 Calcium 9.8 mg/dL (8.4-10.2) 09/01/23 AST 20 U/L (5-31) 07/13/23 ALT 16 U/L (0-31) 07/13/23 Total Protein 7.1 g/dL (6.5-8.0) 07/13/23 Albumin 4.3 g/dL (3.5-5.0) 07/13/23 [facility] Medical History Colonoscopy planned Kidney disease Diabetes mellitus Surgical History H/O breast surgery No history of previous surgery Family History Mother No problems noted. Father No problems noted. Social History Housing: House Alcohol intake: current Alcohol intake frequency: holidays/special occasions only Patient Tobacco Use Status: Never used Tobacco Current occupational status: employed Cognitive needs: No Hearing needs: No Vision needs: No Female Reproductive History Menstrual Age of Menarche: 13 Assessment & Plan Assessment & Plan (1) Diabetes mellitus with coincident hypertension: Code(s): E11.9 - Type 2 diabetes mellitus without complications; I10 - Essential (primary) hypertension Category: Medical Plan: Wt: 94Kg ( July/2023 ), 87 kg (09/2023) Est kcal needs as per MSJ: 1800 (40% carb, 30% protein/fat) Est fluid needs as per 25-30 ml/d: 2800 Est prot per day as per 1 g/kg bw: 94 Recommend fiber intake : 8-10 g per day and gradually increase to 25-28 g per day for women and 35-38 g for men or as tolerated Recommend sodium intake per day : less than 2000 mg Educated patient on: ( R = reviewed V = verbalizes understanding N/R = needs review N/A = not applicable * Food sources of carbohydrate, adequate serving sizes and its role in various health conditions: R * Differences between complex carbohydrates a simple carbohydrates, role of fiber in diet: R * Lean protein sources of foods: R * Meal replacement and snack replacement option: R * Differences between types of fats and role in diet (mono on saturated fat fatty acids, saturated fatty acids, trans fats): R * Food sources of sodium in salt and healthy modifications for heart health in kidney health: R * Vitamins and minerals: N/R * Healthy plate method concept: R * Physical activity: Benefits a precaution: R * Hypoglycemia protocol (rule of 15): R V * Dietary prevention of Hyperglycemia: R Patient Instructions: Continue working on following healthy plate method keep hydrated by having water with meals and snacks Include at least 2 servings of dairy in your diet, Coding Level of Care Code Nutr Indiv Subseq (22126) Diagnoses Diabetes mellitus with coincident hypertension E11.9; I10 Time Spent (min) 30
== END 2023-10-05 10:48 | disposition home or self-care (01) ==
PROVIDERS: PCP Internal Medicine; Visit Provider Dietitian, Registered
DX: E11.9 Type 2 diabetes mellitus without complications (principal); I10 Essential (primary) hypertension

== ENCOUNTER → 2023-10-05 09:49 | Outpatient (BNVA) | payer OTHER, SELFPAY | PROVIDERS: PCP Internal Medicine; Visit Provider Dietitian, Registered | DX: E11.9 Type 2 diabetes mellitus without complications (principal); I10 Essential (primary) hypertension; Z71.3 Dietary counseling and surveillance | CPT/HCPCS: 97803 ==

== ENCOUNTER 2023-11-12 10:29 | Outpatient (REF) | payer OTHER, SELFPAY ==
[2023-11-12 10:40] LABS: MANUAL DIFF FLAG NO
[2023-11-12 11:35] LABS: Basophils Absolute Auto 0.1 X10*3/uL (0.0-0.2); Eosinophils Absolute Auto 0.3 X10*3/uL (0.0-0.4); Eosinophils Percent Auto 5.1 % (0-4); Hemoglobin 12.1 g/dl (12.0-16.0); Imm Gran Abs Auto 0.01 X10*3/uL (0.00-0.03); Imm Gran Pct Auto 0.2 % (0.0-0.4); Lymphocytes Absolute Auto 2.3 X10*3/uL (1.2-4.9); Lymphocytes Percent Auto 38.9 % (20-40); Mean Corpuscular HGB Conc 31.8 g/dl (31.0-35.0); Mean Corpuscular Hemoglobin 28.7 pg (27.0-33.0); Mean Corpuscular Volume 90.3 fL (80.0-98.0); Mean Platelet Volume 9.8 fL (9.4-12.3); Monocytes Absolute Auto 0.5 X10*3/uL (0.1-1.2); Monocytes Percent Auto 8.2 % (2-11); Neutrophils Absolute Auto 2.8 x10*3/uL (2.0-8.3); Neutrophils Percent Auto 46.6 % (45-73); Platelet Count 287 X10*3/uL (160-400); Red Blood Count 4.21 X10*6/uL (4.20-5.50); Red Cell Distribution Width 13.7 % (11.0-16.0); White Blood Count 5.9 X10*3/uL (4.8-10.8)
[2023-11-12 11:48] LABS: Estimated Average Glucose 111 mg/dL; Hemoglobin A1c % 5.5 % (<6.0)
[2023-11-12 12:24] LABS: Alanine Aminotransferase 15 U/L (0-31); Albumin Level 4.5 g/dL (3.5-5.0); Alkaline Phosphatase 91 U/L (39-117); Anion Gap 13 (12-20); Aspartate Amino Transferase 15 U/L (5-31); Bilirubin Total 0.6 mg/dL (0.0-1.0); Blood Urea Nitrogen 16 mg/dL (9-16); Carbon Dioxide 24 mmol/L (22-29); Chloride 109 mmol/L (96-108); Cholesterol 143 mg/dL (<200); Estimated Glomerular Filt Rate > 60; Glucose Fasting 94 mg/dL (60-99); HDL Cholesterol 64 mg/dL (>40); LDL Cholesterol Calculated 68 mg/dL (<100); Potassium 4.2 mmol/L (3.3-5.1); Sodium 142 mmol/L (135-145); Thyroid Stimulating Hormone 0.51 uIU/mL (0.32-4.0); Total Protein 7.1 g/dL (6.5-8.0); Triglycerides 59 mg/dL (<150)
== END 2023-11-12 10:30 | disposition home or self-care (01) ==
LOC: HO.LAB 10:29
PROVIDERS: PCP Internal Medicine; Visit Provider Internal Medicine
DX: Z13.220 Encounter for screening for lipoid disorders (principal); Z13.0 Encounter for screening for diseases of the blood and blood-forming organs and certain disorders involving the immune mechanism; Z13.9 Encounter for screening, unspecified; R73.9 Hyperglycemia, unspecified; E03.9 Hypothyroidism, unspecified
CPT/HCPCS: 36415; 80053; 80061; 83036; 84443; 85025

== ENCOUNTER 2023-11-30 09:15 | Outpatient (AMB) | payer OTHER, SELFPAY ==
[2023-11-30 09:17] VITALS: BP 130/76; PULSE 71; O2SAT 99; BMI 30.2
--- NOTE | 2023-11-30 09:17 | MHC.PC.OV ---
Vital Signs 11/30/23 09:17 Height 5 ft 7 in Weight 193 lb 0.2 oz BMI 30.2 BP 130/76 Blood Pressure Location Lt brachial Position Sitting Pulse 71 Pulse Source Pulse Oximeter Pulse Oximetry (%) 99 Oxygen Delivery Method Room Air Intake Visit Reasons: 4mth f/u Wardrobe Assistant Required: No Allergies MILTON Inhibitors [MILTON INHIBITORS] Allergy (Severe, Verified 11/30/23 09:18) SWELLING,ANAPHYLAXIS Calcium Channel Blocking Agents-Dih [CALCIUM CHANNEL BLOCKING AGENTS-DIH] Allergy (Severe, Verified 11/30/23 09:18) SEVERE WEIGHT LOSS lidocaine [LIDOCAINE] Allergy (Severe, Verified 11/30/23 09:18) ANAPHYLAXIS amlodipine [AMLODIPINE] Allergy (Intermediate, Verified 11/30/23 09:18) HIVES, rash aspirin [ASPIRIN] Allergy (Intermediate, Verified 11/30/23 09:18) GI UPSET, rash codeine [CODEINE] Allergy (Intermediate, Verified 11/30/23 09:18) GI UPSET, rash acetaminophen [Percocet] Allergy (Unknown, Verified 11/30/23 09:18) Unknown amoxicillin [AMOXICILLIN] Allergy (Unknown, Verified 11/30/23 09:18) UNKNOWN Anesthetics - Amide Type - Select A [ANESTHETICS - AMIDE TYPE] Allergy (Unknown, Verified 11/30/23 09:18) ANESTHETIC ADDITIVES lisinopril Allergy (Unknown, Verified 11/30/23 09:18) Angioedema, anaphylaxis morphine Allergy (Unknown, Verified 11/30/23 09:18) rash oxycodone [Percocet] Allergy (Unknown, Verified 11/30/23 09:18) Unknown From Novocain Allergy (Severe, Uncoded 11/30/23 09:18) ANAPHYLAXIS ... additives or preservative Allergy (Unknown, Uncoded 11/30/23 09:18) unknown MILTON Inhibitors Allergy (Unknown, Uncoded 11/30/23 09:18) unknown calcium blockers Allergy (Unknown, Uncoded 11/30/23 09:18) unnown Calcium Channel blockers Allergy (Unknown, Uncoded 11/30/23 09:18) anaphylaxis Codeine Phosphate Allergy (Unknown, Uncoded 11/30/23 09:18) unknown Novocain Allergy (Unknown, Uncoded 11/30/23 09:18) anaphylaxis From PERCOCET Adverse Reaction (Intermediate, Uncoded 11/30/23 09:18) GI UPSET Medication List - Last Reconciled 11/30/23 by Hai Stevens MD albuterol sulfate 90 mcg/actuation 2 inhalations inhalation Q4-6H PRN albuterol sulfate 90 mcg/actuation (Ventolin HFA) 1 inh inhalation QID PRN atorvastatin 80 mg PO DAILY blood sugar diagnostic (Augmate Ultra Test strips) once per day escitalopram oxalate 20 orally daily; lamotrigine ER 375 mg PO DAILY lancets (Augmate Delica Lancets) once a day lancing device with lancets (Augmate Delica Plus Lancing Device kit) test once daily lorazepam 1 mg PO DAILY PRN meclizine 25 mg PO QID PRN metformin 500 mg PO TID spironolactone 12.5 mg PO DAILY temazepam 7.5 mg orally bedtime; trazodone 100 mg PO DAILY Tobacco use date assessed: 07/27/23 Dental Screening Dental Screen Date: 11/30/23 HPI 4mth f/u HPI Details DM hyperlipidemia and hypertension on rx; doing well and compliant; A1C fine PFSH Medical History Colonoscopy planned Kidney disease Diabetes mellitus Surgical History H/O breast surgery No history of previous surgery Family History Mother No problems noted. Father No problems noted. Social History Housing: House Alcohol intake: current Alcohol intake frequency: holidays/special occasions only Patient Tobacco Use Status: Never used Tobacco Current occupational status: employed Cognitive needs: No Hearing needs: No Vision needs: No Female Reproductive History Menstrual Age of Menarche: 13 Questionnaire Thrive Questionnaire Date Thrive assessed: 07/27/23 AUDIT C Alcohol Use Questionnaire (AUDIT-C) 1. How often do you have a drink containing alcohol?: Never 3. How often do you have six or more drinks on one occasion?: Never Total Score: 0 Score Reviewed/Action Taken: Yes BLAISE-7 AMB Questionnaire BLAISE-7 Date BLAISE - 7 assessed: 07/27/23 Source: Developed by Drs. Lobito Chaidez, Socorro Bergman, Marcio Salguero and colleagues, with an educational ismael from [employer]. Review of Systems Const Denies chills, Denies headache(s) and Denies weight loss ENT Denies headache(s) Card Denies chest pain, Denies syncope, Denies irregular heart rhythm and Denies dyspnea Resp Denies chest congestion, Denies cough and Denies dyspnea GI Denies abdominal pain, Denies change in stool character, Denies nausea and Denies vomiting Musc Denies deformity and Denies joint swelling Neuro Denies syncope and Denies headache(s) Physical exam (Primary Care) Vital Signs: Last Vital Signs Pulse 71 11/30/23 09:17 BP 130/76 11/30/23 09:17 Pulse Ox 99 11/30/23 09:17 Oxygen Delivery Method Room Air 11/30/23 09:17 BMI result Body Mass Index 30.2 Tobacco/Smoking Status: Tobacco use Status Tobacco use date assessed 07/27/23 11/30/23 09:18 Patient Tobacco Use Status Never used Tobacco 11/30/23 09:18 Thrive Assessment: Date of Thrive Assessment Date Thrive assessed 07/27/23 11/30/23 09:18 Const General: cooperative, comfortable, no acute distress and alert Neck Neck: Yes no lymphadenopathy Thyroid: Thyroid normal Resp Effort & Inspection: normal respiratory effort Auscultation: clear to auscultation bilaterally Percussion: percussion normal Cardio Jugular venous distension: no JVD Palpation: normal PMI Rate: regular rate Rhythm: regular rhythm Heart sounds: S1 normal heart sound present and S2 normal heart sound present GI Inspection: Yes normal to inspection Palpation (GI): No hepatosplenomegaly present Skin General skin exam: no rashes or lesions noted Extrem General: Yes no clubbing, cyanosis or edema Assessment and Plan Assessment & Plan (1) Diabetes mellitus with coincident hypertension: Code(s): E11.9 - Type 2 diabetes mellitus without complications; I10 - Essential (primary) hypertension Plan: stable; same rx (2) Hyperlipidemia: Code(s): E78.5 - Hyperlipidemia, unspecified Plan: stable; same rx (3) Hypertension: Code(s): I10 - Essential (primary) hypertension Plan: stable; same rx Orders: Orders Thyroid Stimulating Hormone Today Z13.29 - Encounter for screening for other suspected endocrine disorder Microalbumin, Random (w Creat) Today E11.69 - Type 2 diabetes mellitus with other specified complication, E66.01 - Morbid (severe) obesity due to excess calories Comprehensive [place]. Panel Fast Today Z13.9 - Encounter for screening, unspecified Hemoglobin A1c Today R73.9 - Hyperglycemia, unspecified Coding Level of Care Code Est Pt Level 4 (87490) Diagnoses Diabetes mellitus with coincident hypertension E11.9; I10 Hyperlipidemia E78.5 Hypertension I10
== END 2023-11-30 09:42 | disposition home or self-care (01) ==
PROVIDERS: PCP Internal Medicine; Visit Provider Internal Medicine
DX: E11.9 Type 2 diabetes mellitus without complications (principal); I10 Essential (primary) hypertension; E78.5 Hyperlipidemia, unspecified
CPT/HCPCS: 99214

== ENCOUNTER 2023-12-23 09:24 | Outpatient (AMB) | payer OTHER, SELFPAY ==
[2023-12-23 09:33] VITALS: BMI 30.1
--- NOTE | 2023-12-23 09:33 | A.OFFVIS_ITS ---
VS Expanded 12/23/23 09:33 Height 5 ft 7 in Weight 192 lb 3.889 oz BMI 30.1 Intake Visit Reasons: T2DM/LVM Allergies MILTON Inhibitors [MILTON INHIBITORS] Allergy (Severe, Verified 11/30/23 09:18) SWELLING,ANAPHYLAXIS Calcium Channel Blocking Agents-Dih [CALCIUM CHANNEL BLOCKING AGENTS-DIH] Allergy (Severe, Verified 11/30/23 09:18) SEVERE WEIGHT LOSS lidocaine [LIDOCAINE] Allergy (Severe, Verified 11/30/23 09:18) ANAPHYLAXIS amlodipine [AMLODIPINE] Allergy (Intermediate, Verified 11/30/23 09:18) HIVES, rash aspirin [ASPIRIN] Allergy (Intermediate, Verified 11/30/23 09:18) GI UPSET, rash codeine [CODEINE] Allergy (Intermediate, Verified 11/30/23 09:18) GI UPSET, rash acetaminophen [Percocet] Allergy (Unknown, Verified 11/30/23 09:18) Unknown amoxicillin [AMOXICILLIN] Allergy (Unknown, Verified 11/30/23 09:18) UNKNOWN Anesthetics - Amide Type - Select A [ANESTHETICS - AMIDE TYPE] Allergy (Unknown, Verified 11/30/23 09:18) ANESTHETIC ADDITIVES lisinopril Allergy (Unknown, Verified 11/30/23 09:18) Angioedema, anaphylaxis morphine Allergy (Unknown, Verified 11/30/23 09:18) rash oxycodone [Percocet] Allergy (Unknown, Verified 11/30/23 09:18) Unknown From Novocain Allergy (Severe, Uncoded 11/30/23 09:18) ANAPHYLAXIS ... additives or preservative Allergy (Unknown, Uncoded 11/30/23 09:18) unknown MILTON Inhibitors Allergy (Unknown, Uncoded 11/30/23 09:18) unknown calcium blockers Allergy (Unknown, Uncoded 11/30/23 09:18) unnown Calcium Channel blockers Allergy (Unknown, Uncoded 11/30/23 09:18) anaphylaxis Codeine Phosphate Allergy (Unknown, Uncoded 11/30/23 09:18) unknown Novocain Allergy (Unknown, Uncoded 11/30/23 09:18) anaphylaxis From PERCOCET Adverse Reaction (Intermediate, Uncoded 11/30/23 09:18) GI UPSET Nutrition Presentation Details: Pt presents for MNT f/u for T2DM with HTN Pt 's A1c better at 5.5% in 10/2023 Pt reprorts working on diet modifications, feeling better. BS Monitoring Most Recent Diabetes Results: Microalb/Creat Ratio 63.7 ug/mg cr (<30) H 07/13/23 Cholesterol 143 mg/dL (<200) 11/12/23 HDL Cholesterol 64 mg/dL (>40) 11/12/23 Triglycerides 59 mg/dL (<150) 11/12/23 Creatinine 0.90 mg/dL (0.5-1.4) 11/12/23 Blood Urea Nitrogen 16 mg/dL (9-16) 11/12/23 Sodium 142 mmol/L (135-145) 11/12/23 Potassium 4.2 mmol/L (3.3-5.1) 11/12/23 Chloride 109 mmol/L (96-108) H 11/12/23 Carbon Dioxide 24 mmol/L (22-29) 11/12/23 Calcium 10.0 mg/dL (8.4-10.2) 11/12/23 AST 15 U/L (5-31) 11/12/23 ALT 15 U/L (0-31) 11/12/23 Total Protein 7.1 g/dL (6.5-8.0) 11/12/23 Albumin 4.5 g/dL (3.5-5.0) 11/12/23 [facility] Medical History Colonoscopy planned Kidney disease Diabetes mellitus Surgical History H/O breast surgery No history of previous surgery Family History Mother No problems noted. Father No problems noted. Social History Housing: House Alcohol intake: current Alcohol intake frequency: holidays/special occasions only Patient Tobacco Use Status: Never used Tobacco Current occupational status: employed Cognitive needs: No Hearing needs: No Vision needs: No Female Reproductive History Menstrual Age of Menarche: 13 Assessment & Plan Assessment & Plan (1) Diabetes mellitus with coincident hypertension: Code(s): E11.9 - Type 2 diabetes mellitus without complications; I10 - Essential (primary) hypertension Category: Medical Plan: Wt: 94Kg ( July/2023 ), 87 kg (09/2023),87 kg (12/2023) Est kcal needs as per MSJ: 1800 (40% carb, 30% protein/fat) Est fluid needs as per 25-30 ml/d: 2800 Est prot per day as per 1 g/kg bw: 94 Recommend fiber intake : 8-10 g per day and gradually increase to 25-28 g per day for women and 35-38 g for men or as tolerated Recommend sodium intake per day : less than 2000 mg Educated patient on: ( R = reviewed V = verbalizes understanding N/R = needs review N/A = not applicable * Food sources of carbohydrate, adequate serving sizes and its role in various health conditions: R * Differences between complex carbohydrates a simple carbohydrates, role of fiber in diet: R * Lean protein sources of foods: R * Meal replacement and snack replacement option: R * Differences between types of fats and role in diet (mono on saturated fat fatty acids, saturated fatty acids, trans fats): R * Food sources of sodium in salt and healthy modifications for heart health in kidney health: R * Vitamins and minerals: N/R * Healthy plate method concept: R * Physical activity: Benefits a precaution: R * Hypoglycemia protocol (rule of 15): R V * Dietary prevention of Hyperglycemia: R Patient Instructions: Choose foods with lower sodium content (sauces, dressings, cheese , nuts) see list of lower sodium food options and seasonings Coding Level of Care Code Nutr Indiv Subseq (71648) Diagnoses Diabetes mellitus with coincident hypertension E11.9; I10 Time Spent (min) 30
== END 2023-12-23 09:55 | disposition home or self-care (01) ==
PROVIDERS: PCP Internal Medicine; Visit Provider Dietitian, Registered
DX: E11.9 Type 2 diabetes mellitus without complications (principal); I10 Essential (primary) hypertension

== ENCOUNTER → 2023-12-23 09:24 | Outpatient (BNVA) | payer OTHER, SELFPAY | PROVIDERS: PCP Internal Medicine; Visit Provider Dietitian, Registered | DX: E11.9 Type 2 diabetes mellitus without complications (principal); I10 Essential (primary) hypertension; Z71.3 Dietary counseling and surveillance | CPT/HCPCS: 97803 ==

== ENCOUNTER 2023-12-25 14:32 | Emergency (ER) | payer OTHER, SELFPAY ==
[2023-12-25 14:34] VITALS: BP 172/80; PULSE 95; RESP 16; TEMP 36.6; O2SAT 98; BMI 30.6
--- NOTE | 2023-12-25 15:19 | ED_ITS ---
HPI - Burn/Smoke Inhalation General Chief complaint: Burn/Smoke Inhalation Stated complaint: burned hand Time Seen by Provider: 12/25/23 14:39 Source: patient, RN notes reviewed and old records reviewed Mode of arrival: ambulatory History of Present Illness HPI Narrative: 63-year-old female with a past medical history of renal disease, diabetes, presenting to the ED complaining of burn to right hand s/p accidentally closing in [employer] while at work. Tetanus unknown. Denies injury to other area, numbness/tingling Related Data Home Medications ?Medication ?Instructions ?Recorded ?Confirmed trazodone 100 mg tablet 100 mg PO DAILY 10/02/20 11/30/23 lamotrigine 300 mg tablet,extended 375 mg PO DAILY 07/30/22 11/30/23 release 24 hr escitalopram oxalate 10 mg tablet See Rx Instructions PO DAILY 04/29/23 11/30/23 lorazepam 1 mg/0.5 mL oral syringe 1 mg PO DAILY PRN 04/29/23 11/30/23 (FOR ORAL USE ONLY) spironolactone 25 mg tablet 12.5 mg PO DAILY 04/29/23 11/30/23 temazepam 15 mg capsule See Rx Instructions PO BEDTIME 04/29/23 11/30/23 Previous Rx's ?Medication ?Instructions ?Recorded blood sugar diagnostic (Ailvxing net #100 ea 08/05/22 Ultra Test strips) lancets 33 gauge ([employer] #100 ea 08/05/22 Lancets) lancing device with lancets kit #1 ea 08/05/22 ([employer] Plus Lancing Device kit) albuterol sulfate 90 mcg/actuation 1 inh inhalation QID PRN shortness 02/22/23 aerosol inhaler (Ventolin HFA) of breath or wheezing #8.5 grams metformin 500 mg tablet 500 mg PO TID #90 tabs 04/03/23 albuterol sulfate 90 mcg/actuation 2 inh inhalation Q4-6H PRN 06/08/23 breath activated powder inhaler shortness of breath or wheezing #1 ea meclizine 25 mg tablet 25 mg PO QID PRN dizziness #14 tabs 09/01/23 atorvastatin 80 mg tablet 80 mg PO DAILY #90 tabs 10/30/23 bacitracin 500 unit/gram topical 1 appl topical BID burn #30 grams 12/25/23 ointment Allergies Allergy/AdvReac Type Severity Reaction Status Date / Time MILTON Inhibitors Allergy Severe SWELLING,AN Verified 12/25/23 14:35 [MILTON INHIBITORS] APHYLAXIS Calcium Channel Blocking Allergy Severe SEVERE Verified 12/25/23 14:35 Agents-Dih WEIGHT LOSS [CALCIUM CHANNEL BLOCKING AGENTS-DIH] lidocaine [LIDOCAINE] Allergy Severe ANAPHYLAXIS Verified 12/25/23 14:35 amlodipine [AMLODIPINE] Allergy Intermediate HIVES, rash Verified 12/25/23 14:35 aspirin [ASPIRIN] Allergy Intermediate GI UPSET, Verified 12/25/23 14:35 rash codeine [CODEINE] Allergy Intermediate GI UPSET, Verified 12/25/23 14:35 rash acetaminophen [Percocet] Allergy Unknown Unknown Verified 12/25/23 14:35 amoxicillin [AMOXICILLIN] Allergy Unknown UNKNOWN Verified 12/25/23 14:35 Anesthetics - Amide Type - Allergy Unknown ANESTHETIC Verified 12/25/23 14:35 Select A ADDITIVES [ANESTHETICS - AMIDE TYPE] lisinopril Allergy Unknown Angioedema, Verified 12/25/23 14:35 anaphylaxis morphine Allergy Unknown rash Verified 12/25/23 14:35 oxycodone [Percocet] Allergy Unknown Unknown Verified 12/25/23 14:35 From Novocain Allergy Severe ANAPHYLAXIS Uncoded 11/30/23 09:18 ... additives or Allergy Unknown unknown Uncoded 11/30/23 09:18 preservative MILTON Inhibitors Allergy Unknown unknown Uncoded 11/30/23 09:18 calcium blockers Allergy Unknown unnown Uncoded 11/30/23 09:18 Calcium Channel blockers Allergy Unknown anaphylaxis Uncoded 11/30/23 09:18 Codeine Phosphate Allergy Unknown unknown Uncoded 11/30/23 09:18 Novocain Allergy Unknown anaphylaxis Uncoded 11/30/23 09:18 From PERCOCET AdvReac Intermediate GI UPSET Uncoded 11/30/23 09:18 Review of Systems 2 Review of Systems: Yes all other systems are reviewed and are negative Constitutional: Constitutional: Reports as per [facility] Past Medical History Attestation statement: The following information was validated with the patient. Source: old records reviewed Medical History Colonoscopy planned Kidney disease Diabetes mellitus Surgical History H/O breast surgery No history of previous surgery Family History Family History Mother No problems noted. Father No problems noted. Social History Social History Housing: House Alcohol intake: current Alcohol intake frequency: holidays/special occasions only Patient Tobacco Use Status: Never used Tobacco Current occupational status: employed Cognitive needs: No Hearing needs: No Vision needs: No Physical Exam 2 Vital Signs: Vital Signs: Last Vital Signs Temp 97.8 F 12/25/23 14:34 Pulse 95 12/25/23 14:34 Resp 16 12/25/23 14:34 BP 172/80 H 12/25/23 14:34 Pulse Ox 98 12/25/23 14:34 O2 Del Method Room Air 12/25/23 14:34 BMI result Body Mass Index 30.6 Const: General: cooperative, healthy appearing and no acute distress O rientation/consciousness: patient oriented x3 Limitations: no limitations HEENT: Head: Yes normal to inspection and Yes atraumatic Ears: hearing grossly normal bilaterally General nose exam: Normal external nose present Face and sinus: Yes normal facial exam Eyes: General: appearance normal, both eyes and all related structures EOM: EOMs intact bilaterally Neck: Neck: Yes normal visual inspection and Yes no meningeal signs Resp: Effort & Inspection: normal respiratory effort and no respiratory distress Cardio: Rate: regular rate Skin: Other: Please refer to image above. Superficial burn to volar aspect of right hand. Minimal surrounding erythema. No drainage. No blisters. Full range of motion intact. Not circumferential. Rashes: no rashes Neuro: General: patient oriented x3, tone normal and no meningeal signs C ranial nerves: Yes CN's II-XII intact bilaterally Gait exam (Neuro): Normal gait present Extrem: General: Yes normal to inspection Medications Administered Discontinued Medications Generic Name Dose Route Start Last Admin Trade Name Freq PRN Reason Stop Dose Admin Bacitracin 1 appl 12/25/23 14:57 12/25/23 15:38 Bacitracin Oint 0.9 Gm Packet TOPICAL 12/25/23 14:58 1 appl ONCE ONE Administration Protocol Diphtheria/Tetanus/Acell Pertussis 0.5 ml 12/25/23 14:58 12/25/23 15:40 Diphth,Pertus(Acell),Tet Adult 0.5 Ml Syringe IM 12/25/23 14:59 0.5 ml .ONCE ONE Administration Ibuprofen 800 mg 12/25/23 15:34 12/25/23 15:38 Ibuprofen 800 Mg Tablet PO 12/25/23 15:35 800 mg ONCE ONE Administration Medical Decision Making Medical Decision Making MDM Narrative: 63-year-old female with a past medical history of renal disease, diabetes, presenting to the ED complaining of burn to right hand s/p accidentally closing in [employer] while at work. On exam vital signs stable, NAD, nontoxic appearing, please refer to image above. Concern for superficial burn. Low suspicion for overlying cellulitis/infection, fracture, osteo, burn not circumferential. Last Tdap 2014 per EMR Plan: Burn management with topical bacitracin/dressing, update tetanus and PCP follow-up Please refer to course for remaining clinical decision making, interpretation of labs/imaging results, and discussions with consultants and/or family members. Results discussed with patient including worrisome signs and symptoms and strict return precautions, and when to return to the emergency department. They verbalized understanding and feel safe for discharge at this time. Differential Diagnosis Differential Diagnoses: The differential diagnosis associated with the presentation includes As above External Record Review External record reviewed: Inpatient record, Office record, Outpatient record, Prior outpatient labs, Prior outpatient radiology, Primary care record and Outside ED record Tests considered The following testing was considered but not selected: As above Prescription Management I considered prescription management with: Pain Medication Chronic Conditions Patient?s care impacted by: Diabetes Discharge Plan Discharge Clinical Impression: Superficial burn Patient Disposition: Home, Self-Care Instructions: Superficial Burn (DC) Additional Instructions: Please apply bacitracin twice daily. Keep area dry and clean If begins to look infected, is red, there is pus drainage, you fever, increasing or worsening pain, decreased range of motion return to the emergency department Follow-up with her doctor Prescriptions: New bacitracin 500 unit/gram ointment 1 appl topical BID Qty: 30 0RF No Action (DME) lancets [OneTouch Delica Lancets] 33 gauge misc See Rx Instructions .Route Qty: 100 0RF Rx Instructions: once a day (DME) OneTouch Ultra Test Strip See Rx Instructions .Route Qty: 100 0RF Rx Instructions: once per day (DME) lancing device with lancets [OneTouch Delica Plus Lanc Dev] Kit See Rx Instructions .Route Qty: 1 0RF Rx Instructions: test once daily metformin 500 mg tablet 500 mg PO TID Qty: 90 8RF atorvastatin 80 mg tablet 80 mg PO DAILY Qty: 90 8RF albuterol sulfate 90 mcg/actuation aerosol powdr breath activated 2 inh inhalation Q4-6H PRN (Reason: shortness of breath or wheezing) Qty: 1 0RF meclizine 25 mg tablet 25 mg PO QID PRN (Reason: dizziness) Qty: 14 0RF albuterol sulfate [Ventolin HFA] 90 mcg/actuation HFA aerosol inhaler 1 inh inhalation QID PRN (Reason: shortness of breath or wheezing) Qty: 8.5 1RF trazodone 100 mg tablet 100 mg PO DAILY lamotrigine 300 mg tablet extended release 24hr 375 mg PO DAILY lorazepam 1 mg/0.5 mL syringe 1 mg PO DAILY PRN temazepam 15 mg capsule See Rx Instructions PO BEDTIME Rx Instructions: 7.5 mg orally bedtime; escitalopram oxalate 10 mg tablet See Rx Instructions PO DAILY Rx Instructions: 20 orally daily; spironolactone 25 mg tablet 12.5 mg PO DAILY Referrals: Physician,Unknown J [Primary Care Provider] - Print Language: Malawian
[2023-12-25] MEDS: Bacitracin Oint 0.9 GM PACKET 1 APPL TOPICAL (15:38)
[2023-12-25] MEDS: Ibuprofen 800 MG TABLET PO (15:38)
[2023-12-25] MEDS: Diphth,Pertus(ACell),Tet Adult 0.5 ML SYRINGE IM (15:40)
[2023-12-25 16:00] VITALS: BP 147/83; PULSE 70; RESP 16; TEMP 36.1; O2SAT 98
[2023-12-25 16:49] VITALS: BP 147/83; PULSE 70; RESP 16; TEMP 36.1; O2SAT 98
== END 2023-12-25 16:53 | disposition home or self-care (01) ==
PROVIDERS: Emergency Provider Emergency Medicine Emergency Medical Services; PCP Internal Medicine
DX: T23.001A Burn of unspecified degree of right hand, unspecified site, initial encounter (principal); X17.XXXA Contact with hot engines, machinery and tools, initial encounter; Y93.G2 Activity, grilling and smoking food; Y92.511 Restaurant or cafe as the place of occurrence of the external cause; Y99.0 Civilian activity done for income or pay; Z23 Encounter for immunization
CPT/HCPCS: 16000; 90471; 90715; 99283; 99284

== ENCOUNTER → 2023-12-27 09:45 | Outpatient (BNVA) | payer OTHER, SELFPAY | PROVIDERS: PCP Internal Medicine; Visit Provider Internal Medicine | DX: Z13.89 Encounter for screening for other disorder (principal) | CPT/HCPCS: 99203 ==

== ENCOUNTER → 2023-12-29 09:37 | Outpatient (BNVA) | payer OTHER, SELFPAY | PROVIDERS: PCP Internal Medicine; Visit Provider Internal Medicine | DX: Z13.89 Encounter for screening for other disorder (principal) | CPT/HCPCS: 99213 ==

== ENCOUNTER → 2023-12-31 09:32 | Outpatient (BNVA) | payer OTHER, SELFPAY | PROVIDERS: PCP Internal Medicine; Visit Provider Internal Medicine | DX: Z13.89 Encounter for screening for other disorder (principal) | CPT/HCPCS: 99213 ==

== ENCOUNTER → 2024-01-03 09:10 | Outpatient (BNVA) | payer OTHER, SELFPAY | PROVIDERS: PCP Internal Medicine; Visit Provider Physician Assistant Medical | DX: Z13.89 Encounter for screening for other disorder (principal) | CPT/HCPCS: 99213 ==

== ENCOUNTER → 2024-01-07 15:01 | Outpatient (BNVA) | payer OTHER, SELFPAY | PROVIDERS: PCP Internal Medicine; Visit Provider Physician Assistant Medical | DX: Z13.89 Encounter for screening for other disorder (principal) | CPT/HCPCS: 99213 ==

== ENCOUNTER → 2024-01-13 08:48 | Outpatient (BNVA) | payer OTHER, SELFPAY | PROVIDERS: PCP Internal Medicine; Visit Provider Physician Assistant Medical | DX: Z13.89 Encounter for screening for other disorder (principal) | CPT/HCPCS: 73130; 99214 ==

== ENCOUNTER → 2024-01-28 12:56 | Outpatient (BNVA) | payer OTHER, SELFPAY | PROVIDERS: PCP Internal Medicine; Visit Provider Physician Assistant Medical | DX: Z13.89 Encounter for screening for other disorder (principal) | CPT/HCPCS: 99213 ==

== ENCOUNTER → 2024-02-04 14:10 | Outpatient (BNVA) | payer OTHER, SELFPAY | PROVIDERS: PCP Internal Medicine; Visit Provider Registered Nurse | DX: Z13.89 Encounter for screening for other disorder (principal) | CPT/HCPCS: 99213 ==

== ENCOUNTER → 2024-02-14 07:50 | Outpatient (BNVA) | payer OTHER, SELFPAY | PROVIDERS: PCP Internal Medicine; Visit Provider Physician Assistant Medical | DX: Z13.89 Encounter for screening for other disorder (principal) | CPT/HCPCS: 99213 ==

== ENCOUNTER 2024-02-18 09:06 | Outpatient (AMB) | payer OTHER, SELFPAY ==
--- NOTE | 2024-02-18 09:42 | MHC.OFFVIS ---
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 She was seen at work connection and is currently attending OT. She has pain and cracking at her 2nd MCP as well as a numbness and tingling sensation. Intermittent swelling in her wrist. Hx of diabetes. Allergies MILTON Inhibitors [MILTON INHIBITORS] Allergy (Severe, Verified 02/18/24 09:43) SWELLING,ANAPHYLAXIS Calcium Channel Blocking Agents-Dih [CALCIUM CHANNEL BLOCKING AGENTS-DIH] Allergy (Severe, Verified 02/18/24 09:43) SEVERE WEIGHT LOSS lidocaine [LIDOCAINE] Allergy (Severe, Verified 02/18/24 09:43) ANAPHYLAXIS amlodipine [AMLODIPINE] Allergy (Intermediate, Verified 02/18/24 09:43) HIVES, rash aspirin [ASPIRIN] Allergy (Intermediate, Verified 02/18/24 09:43) GI UPSET, rash codeine [CODEINE] Allergy (Intermediate, Verified 02/18/24 09:43) GI UPSET, rash acetaminophen [Percocet] Allergy (Unknown, Verified 02/18/24 09:43) Unknown amoxicillin [AMOXICILLIN] Allergy (Unknown, Verified 02/18/24 09:43) UNKNOWN Anesthetics - Amide Type - Select A [ANESTHETICS - AMIDE TYPE] Allergy (Unknown, Verified 02/18/24 09:43) ANESTHETIC ADDITIVES lisinopril Allergy (Unknown, Verified 02/18/24 09:43) Angioedema, anaphylaxis morphine Allergy (Unknown, Verified 02/18/24 09:43) rash oxycodone [Percocet] Allergy (Unknown, Verified 02/18/24 09:43) Unknown From Novocain Allergy (Severe, Uncoded 02/18/24 09:43) ANAPHYLAXIS ... additives or preservative Allergy (Unknown, Uncoded 02/18/24 09:43) unknown MILTON Inhibitors Allergy (Unknown, Uncoded 02/18/24 09:43) unknown calcium blockers Allergy (Unknown, Uncoded 02/18/24 09:43) unnown Calcium Channel blockers Allergy (Unknown, Uncoded 02/18/24 09:43) anaphylaxis Codeine Phosphate Allergy (Unknown, Uncoded 02/18/24 09:43) unknown Novocain Allergy (Unknown, Uncoded 02/18/24 09:43) anaphylaxis From PERCOCET Adverse Reaction (Intermediate, Uncoded 02/18/24 09:43) GI UPSET Medication List - Last Reconciled 02/19/24 by Nerissa Daugherty PA-C albuterol sulfate 90 mcg/actuation 2 inhalations inhalation Q4-6H PRN albuterol sulfate 90 mcg/actuation (Ventolin HFA) 1 inh inhalation QID PRN atorvastatin 80 mg PO DAILY bacitracin 1 appl topical BID blood sugar diagnostic ([employer] Ultra Test strips) once per day doxycycline hyclate 100 mg PO BID 7 days escitalopram oxalate 20 orally daily; lamotrigine ER 375 mg PO DAILY lancets ([employer] Delica Lancets) once a day lancing device with lancets ([employer] Delica Plus Lancing Device kit) test once daily lorazepam 1 mg PO DAILY PRN meclizine 25 mg PO QID PRN metformin 500 mg PO TID spironolactone 12.5 mg (1/2 x 25 mg) PO DAILY temazepam 7.5 mg orally bedtime; trazodone 100 mg PO DAILY HPI 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 She reports she was working at the [employer] station when the panini grill went down on her hand causing a burn at the dorsal aspect of her hand. She was seen at work connection for her hand and she has been working with occupational therapy as instructed. She currently states she has weakness, pain and cracking at the 2nd MCP as well as numbness and tingling sensation. She also reports intermittent swelling in her wrist. She states there was no w/c claim filed. She has been working since the time of the injury since work connection has given her restrictions; however, she has been told there are no restrictions available at her job. She has a history of diabetes. [facility] Medical History Colonoscopy planned Kidney disease Diabetes mellitus Surgical History H/O breast surgery No history of previous surgery Family History Mother No problems noted. Father No problems noted. Social History (Updated 02/18/24 @ 09:44 by OLIVE Stewart) Housing: House Alcohol intake: current Alcohol intake frequency: holidays/special occasions only Patient Tobacco Use Status: Never used Tobacco Current occupational status: employed Current occupation: right hand dominant Cognitive needs: No Hearing needs: No Vision needs: No Female Reproductive History Menstrual Age of Menarche: 13 Review of Systems Const All systems reviewed & are unremarkable except as noted in HPI and below Physical Exam Vital Signs: BMI result Body Mass Index 30.5 Const General: cooperative, healthy appearing, comfortable, no acute distress, well developed and alert Orientation/consciousness: patient oriented x3 HEENT Head: Yes normal to inspection, Yes normocephalic and Yes atraumatic Eyes General: appearance normal, both eyes and all related structures Resp Effort & Inspection: normal respiratory effort and able to speak in complete sentences Cardio Rate: regular rate Peripheral pulses: Peripheral pulses 2+ throughout GI Palpation (GI): Soft to palpation Skin Lesions: no lesions Rashes: no rashes Neuro General: patient oriented x3 Extrem Other: Right hand: Normal to inspection. She does have swelling at the dorsum of hand over the 2nd and 3rd digits. No open wounds. She is able full extend all digits but upon flexion she lacks approximately 1 cm from the 2nd palmar crease. I can passively bring her to a closed fist. She has significant weakness of the 2nd and thirds digit, 2nd weaker than the 3rd. Weakness with wrist flexion and extension. NVI. Assessment & Plan Assessment & Plan (1) Right hand weakness: Code(s): R29.898 - Other symptoms and signs involving the musculoskeletal system Category: Medical Plan We discussed options today which include continued occupational therapy. I did reassure that she is only been attending for a month therefore she would benefit from 6 weeks working with therapy. She has work limitations set in place however it is not fulfilled by her current job as there are no accommodations they can give her and she states that she does not have an option; personally, to remain out of work at this time. I would like to see her back 3 weeks with Crystal Vaughan for further examination. She is content with this plan. Orders: Orders OT Evaluation and Treatment 02/18/24 R29.898 - Other symptoms and signs involving the musculoskeletal system Patient Instructions: Scribed for Nerissa Daugherty PA-C, by Mario Ledesma medical device sales representative, on 02/18/2024 at 9:30 AM EST.? I, Nerissa Daugherty PA-C, have personally reviewed and agree with the information entered by the scribe. Coding Level of Care Code New Pt Level 3 (02697) Complex EM visit Add On G2211 Diagnoses Right hand weakness R29.898
[2024-02-18 09:49] VITALS: BMI 30.5
== END 2024-02-18 12:22 | disposition home or self-care (01) ==
PROVIDERS: PCP Internal Medicine; Visit Provider Physician Assistant
DX: R29.898 Other symptoms and signs involving the musculoskeletal system (principal)
CPT/HCPCS: 99203; G2211

== ENCOUNTER → 2024-02-18 09:06 | Outpatient (BNVA) | payer OTHER, SELFPAY | PROVIDERS: PCP Internal Medicine; Visit Provider Physician Assistant | DX: R29.898 Other symptoms and signs involving the musculoskeletal system (principal) | CPT/HCPCS: 99202 ==

== ENCOUNTER 2024-02-22 09:44 | Outpatient (AMB) | payer OTHER, SELFPAY ==
[2024-02-22 10:04] VITALS: BMI 30.5
--- NOTE | 2024-02-22 10:04 | MHC.AMNUTRGE ---
VS Expanded 02/22/24 10:04 Height 5 ft 7 in Weight 194 lb 14.218 oz BMI 30.5 Intake Visit Reasons: obesity/CONFIRMED Allergies MILTON Inhibitors [MILTON INHIBITORS] Allergy (Severe, Verified 02/18/24 09:43) SWELLING,ANAPHYLAXIS Calcium Channel Blocking Agents-Dih [CALCIUM CHANNEL BLOCKING AGENTS-DIH] Allergy (Severe, Verified 02/18/24 09:43) SEVERE WEIGHT LOSS lidocaine [LIDOCAINE] Allergy (Severe, Verified 02/18/24 09:43) ANAPHYLAXIS amlodipine [AMLODIPINE] Allergy (Intermediate, Verified 02/18/24 09:43) HIVES, rash aspirin [ASPIRIN] Allergy (Intermediate, Verified 02/18/24 09:43) GI UPSET, rash codeine [CODEINE] Allergy (Intermediate, Verified 02/18/24:43) GI UPSET, rash acetaminophen [Percocet] Allergy (Unknown, Verified 02/18/24 09:43) Unknown amoxicillin [AMOXICILLIN] Allergy (Unknown, Verified 02/18/24 09:43) UNKNOWN Anesthetics - Amide Type - Select A [ANESTHETICS - AMIDE TYPE] Allergy (Unknown, Verified 02/18/24 09:43) ANESTHETIC ADDITIVES lisinopril Allergy (Unknown, Verified 02/18/24 09:43) Angioedema, anaphylaxis morphine Allergy (Unknown, Verified 02/18/24 09:43) rash oxycodone [Percocet] Allergy (Unknown, Verified 02/18/24 09:43) Unknown From Novocain Allergy (Severe, Uncoded 02/18/24 09:43) ANAPHYLAXIS ... additives or preservative Allergy (Unknown, Uncoded 02/18/24 09:43) unknown MILTON Inhibitors Allergy (Unknown, Uncoded 02/18/24 09:43) unknown calcium blockers Allergy (Unknown, Uncoded 02/18/24 09:43) unnown Calcium Channel blockers Allergy (Unknown, Uncoded 02/18/24 09:43) anaphylaxis Codeine Phosphate Allergy (Unknown, Uncoded 02/18/24 09:43) unknown Novocain Allergy (Unknown, Uncoded 02/18/24 09:43) anaphylaxis From PERCOCET Adverse Reaction (Intermediate, Uncoded 02/18/24 09:43) GI UPSET Nutrition Presentation Details: Pt presents for Mnt f/u for T2DM with HTN Pt reports working on having a variety of foods following healthy plate method Typical meal B: oatmeal with banana and oatmilk L eggs and green salad and fruit ,water dinner:salmon/potatoes , 2 yasso bars , water or crystal light stationary bike : 10 minutes twice a week etoh/smoking denies BS Monitoring Most Recent Diabetes Results: No Data to Display [facility] Medical History Colonoscopy planned Kidney disease Diabetes mellitus Surgical History H/O breast surgery No history of previous surgery Family History Mother No problems noted. Father No problems noted. Social History (Updated 02/18/24 @ 09:44 by OLIVE Stewart) Housing: House Alcohol intake: current Alcohol intake frequency: holidays/special occasions only Patient Tobacco Use Status: Never used Tobacco Current occupational status: employed Current occupation: right hand dominant Cognitive needs: No Hearing needs: No Vision needs: No Female Reproductive History Menstrual Age of Menarche: 13 Assessment & Plan Assessment & Plan (1) Diabetes mellitus with coincident hypertension: Code(s): E11.9 - Type 2 diabetes mellitus without complications; I10 - Essential (primary) hypertension Category: Medical Plan: Wt: 94Kg ( July/2023 ), 87 kg (09/2023),87 kg (12/2023), 88 kg (03/12) Est kcal needs as per MSJ: 1800 (40% carb, 30% protein/fat) Est fluid needs as per 25-30 ml/d: 2800 Est prot per day as per 1 g/kg bw: 94 Recommend fiber intake : 8-10 g per day and gradually increase to 25-28 g per day for women and 35-38 g for men or as tolerated Recommend sodium intake per day : less than 2000 mg Educated patient on: ( R = reviewed V = verbalizes understanding N/R = needs review N/A = not applicable Food sources of carbohydrate, adequate serving sizes and its role in various health conditions: R Differences between complex carbohydrates a simple carbohydrates, role of fiber in diet: R Lean protein sources of foods: R Meal replacement and snack replacement option: R Differences between types of fats and role in diet (mono on saturated fat fatty acids, saturated fatty acids, trans fats): R Food sources of sodium in salt and healthy modifications for heart health in kidney health: R Vitamins and minerals: N/R Healthy plate method concept: R Physical activity: Benefits a precaution: R Hypoglycemia protocol (rule of 15): R V Dietary prevention of Hyperglycemia: R Patient Instructions: increase physical ativity as able unless otherwise stated by your doctor: Stationary bike 15 minutes 3 times a week Have a meal replacement 5 times a week Coding Level of Care Code Nutr Indiv Subseq (00336) Diagnoses Diabetes mellitus with coincident hypertension E11.9; I10 Time Spent (min) 30
== END 2024-02-22 10:36 | disposition home or self-care (01) ==
LOC: HO.ENCR 09:45
PROVIDERS: PCP Internal Medicine; Visit Provider Dietitian, Registered
DX: E11.9 Type 2 diabetes mellitus without complications (principal); I10 Essential (primary) hypertension

== ENCOUNTER → 2024-02-22 09:44 | Outpatient (BNVA) | payer OTHER, SELFPAY | PROVIDERS: PCP Internal Medicine; Visit Provider Dietitian, Registered | DX: E11.9 Type 2 diabetes mellitus without complications (principal); I10 Essential (primary) hypertension; Z71.3 Dietary counseling and surveillance | CPT/HCPCS: 97803 ==

== ENCOUNTER → 2024-02-28 07:46 | Outpatient (BNVA) | payer OTHER, SELFPAY | PROVIDERS: PCP Internal Medicine; Visit Provider Physician Assistant Medical | DX: Z13.89 Encounter for screening for other disorder (principal) | CPT/HCPCS: 99213 ==

== ENCOUNTER 2024-03-08 08:38 | Outpatient (REF) | payer OTHER, SELFPAY | END 2024-03-08 08:39 | disposition home or self-care (01) | LOC: HO.HOSX 08:38 | PROVIDERS: Visit Provider Orthopaedic Surgery | DX: M79.641 Pain in right hand (principal); T23.001D Burn of unspecified degree of right hand, unspecified site, subsequent encounter; T23.031D Burn of unspecified degree of multiple right fingers (nail), not including thumb, subsequent encounter; R29.898 Other symptoms and signs involving the musculoskeletal system; R20.3 Hyperesthesia; E11.9 Type 2 diabetes mellitus without complications | CPT/HCPCS: 73130; 99202 ==

== ENCOUNTER 2024-03-08 09:14 | Outpatient (AMB) | payer OTHER, SELFPAY ==
[2024-03-08 09:30] VITALS: BMI 30.4
--- NOTE | 2024-03-08 09:30 | A.OFFVIS_ITS ---
Vital Signs 03/08/24 09:30 Height 5 ft 7 in Weight 194 lb BMI 30.4 Intake Visit Reasons: OV- right hand contusion WC DOI 12/25/23 Intake Note: Rajwinder a 63 year old female who presents today for evaluation of the right hand s/p work injury on 12/25/23. Patient reports pain on the dorsal aspect of the hand as well as swelling. She has been icing it during work hours due to i nflammation. Patient is unable to bend her right index finger. Patient states OT has been stopped because they felt her problem was not resolving. Patient feels OT was not helpful. Patient expresses frustration because she is having trouble keeping up with expectations at work. She works at the [employer]. Patient has been taking Tylenol without relief. Allergies MILTON Inhibitors [MILTON INHIBITORS] Allergy (Severe, Verified 03/08/24 09:31) SWELLING,ANAPHYLAXIS Calcium Channel Blocking Agents-Dih [CALCIUM CHANNEL BLOCKING AGENTS-DIH] Allergy (Severe, Verified 03/08/24 09:31) SEVERE WEIGHT LOSS lidocaine [LIDOCAINE] Allergy (Severe, Verified 03/08/24 09:31) ANAPHYLAXIS amlodipine [AMLODIPINE] Allergy (Intermediate, Verified 03/08/24 09:31) HIVES, rash aspirin [ASPIRIN] Allergy (Intermediate, Verified 03/08/24 09:31) GI UPSET, rash codeine [CODEINE] Allergy (Intermediate, Verified 03/08/24 09:31) GI UPSET, rash acetaminophen [Percocet] Allergy (Unknown, Verified 03/08/24 09:31) Unknown amoxicillin [AMOXICILLIN] Allergy (Unknown, Verified 03/08/24 09:31) UNKNOWN Anesthetics - Amide Type - Select A [ANESTHETICS - AMIDE TYPE] Allergy (Unknown, Verified 03/08/24 09:31) ANESTHETIC ADDITIVES lisinopril Allergy (Unknown, Verified 03/08/24 09:31) Angioedema, anaphylaxis morphine Allergy (Unknown, Verified 03/08/24 09:31) rash oxycodone [Percocet] Allergy (Unknown, Verified 03/08/24 09:31) Unknown From Novocain Allergy (Severe, Uncoded 03/08/24 09:31) ANAPHYLAXIS ... additives or preservative Allergy (Unknown, Uncoded 03/08/24 09:31) unknown MILTON Inhibitors Allergy (Unknown, Uncoded 03/08/24 09:31) unknown calcium blockers Allergy (Unknown, Uncoded 03/08/24 09:31) unnown Calcium Channel blockers Allergy (Unknown, Uncoded 03/08/24 09:31) anaphylaxis Codeine Phosphate Allergy (Unknown, Uncoded 03/08/24 09:31) unknown Novocain Allergy (Unknown, Uncoded 03/08/24 09:31) anaphylaxis From PERCOCET Adverse Reaction (Intermediate, Uncoded 03/08/24 09:31) GI UPSET HPI HPI OV- right hand contusion WC DOI 12/25/23: Details: Rajwinder is a 63 year old right hand dominant Diabetic woman who presents for a right hand burn. 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 She has been attending OT hand therapy for this. She says she has been seen by [employer], and is working on [employer]. She complains of pain, weakness, swelling, and clumsiness in her right hand, particularly the index finger. She says she is limited in her index finger motion because of pain when she makes a fist the dorsal aspect of the finger . She says she has been dropping things at work, including knives & food products. She says she has been working since her injury. She says she has a note from [employer] putting her on light duty with a 1-5 lb weight limit. However, she reportedly found that there is no light duty or accommodations available for her, and she has had 2 do her job without accommodations.. She says she has been attending OT since her injury, but recently her sessions were put on hold due to a decrease in her function & strength, until she was seen by our clinic again. [facility] Medical History Colonoscopy planned Kidney disease Diabetes mellitus Surgical History H/O breast surgery No history of previous surgery Family History Mother No problems noted. Father No problems noted. Social History (Updated 02/18/24 @ 09:44 by OLIVE Stewart) Housing: House Alcohol intake: current Alcohol intake frequency: holidays/special occasions only Patient Tobacco Use Status: Never used Tobacco Current occupational status: employed Current occupation: right hand dominant Cognitive needs: No Hearing needs: No Vision needs: No Female Reproductive History Menstrual Age of Menarche: 13 Review of Systems Const All systems reviewed & are unremarkable except as noted in HPI and below Physical Exam Vital Signs: BMI result Body Mass Index 30.4 Const General: cooperative, healthy appearing and no acute distress Orientation/consciousness: patient oriented x3 HEENT Head: Yes normocephalic and Yes atraumatic Eyes EOM: EOMs intact bilaterally Resp Effort & Inspection: normal respiratory effort and able to speak in complete sentences Cardio Jugular venous distension: no JVD Skin General skin exam: turgor normal Rashes: no rashes Neuro General: patient oriented x3 Extrem Other: Evaluation of Right Upper Extremity: The patient is alert, oriented, and in no acute distress Neuro: Median, Ulnar, Radial nerves motor and sensory intact and sensation is normal to the tips of all digits Vascular: Cap refill brisk ROM: Initially she was afraid to fully flex or extend her digits, particularly the index finger because of pain over the dorsal aspect of the finger with flexion. With encouragement she could bring all her fingers closed to a tight fist and back into full extension Before leaving clinic she had more confidence, and had full active extension of the index finger against resistance without pain. She could also flex all of her fingers including the index finger to a tight fist with a tightness and tingling discomfort over the dorsal aspect of the MCP and proximal phalanx that was tolerable. Skin: She has a couple of erythematous burn daniel over the dorsal aspect of the right hand proximal to the 2nd and 3rd MCP joints. These are well healed. The skin is nice and mobile over the underlying flexor tendons without any adherence. These were evidently second-degree andino. Again the andino themselves are healed, but she appears to have some hypersensitivity in the skin near the andino proximal to the 2nd and 3rd MCP joints and then extending over the dorsal aspect of the index finger to about the PIP joint. She was able to tolerate touching the skin in clinic today. General: No Ecchymosis. Radiographs: 3 views of the right hand were taken and viewed by me today in clinic. They show no fractures or dislocations Psych Appearance: grossly normal Affect: normal affect Attitude: cooperative Assessment & Plan Assessment & Plan (1) Burn of right hand including fingers: Code(s): T23.001A - Burn of unspecified degree of right hand, unspecified site, initial encounter; T23.031A - Burn of unspecified degree of multiple right fingers (nail), not including thumb, initial encounter Category: Medical (2) Right hand weakness: Code(s): R29.898 - Other symptoms and signs involving the musculoskeletal system Category: Medical (3) Hyperesthesia: Code(s): R20.3 - Hyperesthesia Category: Medical (4) Diabetes mellitus: Code(s): E11.9 - Type 2 diabetes mellitus without complications Category: Medical Plan Assessment & Plan: 1. Right dorsal hand burn, second-degree by report DOI: 12/25/23 This is a work-related injury, secondary to the [employer] press closing onto her hand 2. Right hand weakness Secondary to her injury 3. Right hand hypersensitivity Secondary to her injury I educated her about these conditions The andino have healed well. She does have some mild hypersensitivity. 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 I believe most of her problem in OT hand therapy was due to confidence. She now has the confident that she can fully and actively extend her fingers and bring them close to a tight fist and that even though she has some mild discomfort it is not causing harm. The same with desensitization training. 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 She was given a note to remain out of work for the next 3 weeks while she works on OT hand therapy strengthening in anticipation of returning to work at full duty in about 3 weeks. She is out of work effective 03/08/24. She will follow up in 3 weeks to see how she is doing, and again both of us are hopeful that she can return to full duty at that time. Scribed for Yris Rojas MD by Turner Brown emergency medicine medical director, on 03/08/24 at 9:55 AM, EST. Orders: Orders XR hand RT min 3V Today M79.641 - Pain in right hand Coding Level of Care Code New Pt Level 4 (72208) Diagnoses Burn of right hand including fingers T23.001A; T23.031A Right hand weakness R29.898 Hyperesthesia R20.3 Diabetes mellitus E11.9
== END 2024-03-08 10:11 | disposition home or self-care (01) ==
PROVIDERS: PCP Internal Medicine; Visit Provider Orthopaedic Surgery
DX: T23.001A Burn of unspecified degree of right hand, unspecified site, initial encounter (principal); T23.031A Burn of unspecified degree of multiple right fingers (nail), not including thumb, initial encounter; R29.898 Other symptoms and signs involving the musculoskeletal system; R20.3 Hyperesthesia; E11.9 Type 2 diabetes mellitus without complications
CPT/HCPCS: 99204

== ENCOUNTER → 2024-03-10 12:53 | Outpatient (BNVA) | payer OTHER, SELFPAY | PROVIDERS: PCP Internal Medicine; Visit Provider Physician Assistant Medical | DX: Z13.89 Encounter for screening for other disorder (principal) | CPT/HCPCS: 99213 ==

== ENCOUNTER 2024-03-15 08:04 | Outpatient (REF) | payer OTHER, SELFPAY ==
[2024-03-15 09:18] LABS: Estimated Average Glucose 117 mg/dL; Hemoglobin A1C 124.4005 umol/L; Hemoglobin A1c % 5.7 % (<6.0)
[2024-03-15 09:56] LABS: Alanine Aminotransferase 24 U/L (0-31); Albumin Level 4.4 g/dL (3.5-5.0); Alkaline Phosphatase 123 U/L (39-117); Anion Gap 15 (12-20); Aspartate Amino Transferase 20 U/L (5-31); Bilirubin Total 0.4 mg/dL (0.0-1.0); Blood Urea Nitrogen 18 mg/dL (9-16); Calcium 9.5 mg/dL (8.4-10.2); Carbon Dioxide 27 mmol/L (22-29); Chloride 105 mmol/L (96-108); Estimated Glomerular Filt Rate > 60; Glucose Fasting 114 mg/dL (60-99); Potassium 4.4 mmol/L (3.3-5.1); Sodium 143 mmol/L (135-145); Thyroid Stimulating Hormone 1.01 uIU/mL (0.32-4.0); Total Protein 7.1 g/dL (6.5-8.0)
[2024-03-15 09:57] LABS: Microalbum/Creatinine Ratio Ur 257.9 ug/mg cr (<30)
== END 2024-03-15 08:05 | disposition home or self-care (01) ==
LOC: HO.LAB 08:04
PROVIDERS: PCP Internal Medicine; Visit Provider Internal Medicine
DX: E11.69 Type 2 diabetes mellitus with other specified complication (principal); E66.01 Morbid (severe) obesity due to excess calories; Z13.29 Encounter for screening for other suspected endocrine disorder; Z13.9 Encounter for screening, unspecified
CPT/HCPCS: 36415; 80053; 82043; 82570; 83036; 84443

== ENCOUNTER 2024-03-23 13:42 | Outpatient (RCR) | payer OTHER, SELFPAY ==
--- NOTE | 2024-01-21 08:47 | MHC.OT.EP ---
[address] [phone] Occupational Therapy Plan of Care Patient Name: Rajwinder Hall Date of Evaluation: 01/21/24 Diagnosis: Right Hand Second Degree Burn Pain Location: 3/10 irritating pain in dorsal hand 4/10 pain after work Pain Score: 4 Pain Scale Used: Numeric (0 - 10) Aggravating Factors: General movements in hand Alleviating Factors: Warm water Assessment: 63 yo female w/ second degree burn after closing [employer] on her hand at work at [employer] She was out of work for two days and returned full duty but using non-dominant left hand. She is currently about one month s/p injury and very guarded with high sensitivity on dorsal hand, specifically dorsal index MCP. Scars are healing well, new pink tissue with mild adhesion over index MCP. She has limited digit composite and hook flexion and tightness into full digit extension as well, gross grasp is weakened at 15lb. I anticipate she will do well w/ course of OT, we have initiated ROM program, scar massage and mobilization, desensitization and encouraging general use of right hand w/ daily activities. Frequency and Duration: The patient will be seen 2x/w for 4 weeks Short Term Goals: Ind w/ HEP Good follow through w/ scar management techniques Good follow through w/ desensitization program AROM tip-palm w/ ease Full digit extension w/ ease Prison Goals: Full hook fist w/ ease Gross grasp >35lb FDT <25 sec QuickDASH score <35 pts Treatment Plan: Therapeutic Exercise Therapeutic Activity Home Exercise Program Patient Education Desensitization/Sensory Re-ed Edema Control ADL Training Ultrasound Paraffin Fluidotherapy MHP Joint Mobilization Soft Tissue Mobilization Kinesiotaping Electronically Signed By: Alicia Clarke OTR/L CHT Please Sign and return to therapist. Thank you once again for your referral.
--- NOTE | 2024-02-25 08:36 | MHC.OT.OP ---
[address] [phone] F: [phone] Occupational Therapy Progress Note Patient Name: Rajwinder Hall Diagnosis: Right Hand Second Degree Burn Date of Evaluation: 01/21/24 Treatments to Date: 9 Subjective: I can't hold onto things Pain Score: 2 Pain Location: right dorsal hand over D2 MCP Objective Measures: Gross grasp 40lb Full active tip-palm (needs encouragement for range) Status: Progressing Assessment: Two months s/p injury. 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 Still guarded w/ work tasks and deconditioned w/ light lifting, but does well w/ encouragement. Very minimal scar adhesions noted, not limiting range and able to complete full composite digit flexion and extension. Short Term Goals: Ind w/ HEP (met) Good follow through w/ scar management techniques (met) Good follow through w/ desensitization program (met) AROM tip-palm w/ ease Full digit extension w/ ease (met) Fci Goals: Full hook fist w/ ease Gross grasp >35lb FDT <25 sec QuickDASH score <35 pts Frequency and Duration: The patient will be seen 3 more visits Treatment Plan: Therapeutic Exercise Therapeutic Activity Home Exercise Program Patient Education Edema Control ADL Training Ultrasound Paraffin Fluidotherapy MHP Cold Packs Soft Tissue Mobilization Kinesiotaping Good follow through w/ HEP, needs strengthening Electronically Signed By: Alicia Clarke OTR/Marojrie CHT Reviewed/agree with student documentation: Therapist:
--- NOTE | 2024-03-03 09:06 | MHC.OT.OP ---
[address] [phone] F: [phone] Occupational Therapy Progress Note Patient Name: Rajwinder Hall Diagnosis: Right Hand Second Degree Burn Date of Evaluation: 01/21/24 Treatments to Date: 10 Subjective: It's just awful Pain Score: 2 Pain Location: right dorsal hand over D2 MCP Objective Measures: GG 20lb (from 40lb last visit) Full tip-palm AROM w/ encouragement Functional Dexterity Test 85 sec (was 32 sec on assessment) [place] Juan 3.61 B/L'ly Status: Not Progressing Assessment: Rajwinder is two months s/p injury, had been progressing well, but reports recent functional decline, states she has not been able to clasp bra behind her back and has been breaking dishes while shes washing. No obvious impairment noted on assessment, pt has good range and minimal edema, scar tissue not limiting range or adhered to tissue, but decreased strength today on assessment. Reports good follow through w/ HEP including FMC tasks, ROM and UB strengthening. Has had to take time off of work and reports taking more breaks to ice due to edema, reports coworkers are frustrated with her and pt becomes emotionally labile during treatment. Pain reported over dorsal index MCP w/ gripping and repetitive use of right hand. She has been Ind w/ her home program but hesitant at times to incorporate right hand into activity, has been very guarded. At this time we will hold OT due to decline in strength, FMC and functional use of hand, requesting return to physician (has appt next week) for further guidance, thank you. Short Term Goals: Ind w/ HEP (met) Good follow through w/ scar management techniques (met) Good follow through w/ desensitization program (met) AROM tip-palm w/ ease Full digit extension w/ ease (met) Half-Way Goals: Full hook fist w/ ease Gross grasp >35lb FDT <25 sec QuickDASH score <35 pts Frequency and Duration: The patient will be seen 3 more visits Treatment Plan: Therapeutic Exercise Therapeutic Activity Home Exercise Program Patient Education Edema Control ADL Training Ultrasound Paraffin Fluidotherapy MHP Cold Packs Soft Tissue Mobilization Kinesiotaping Good follow through w/ HEP, needs strengthening Electronically Signed By: Alicia Clarke, OTR/L CHT Reviewed/agree with student documentation: Therapist:
--- NOTE | 2024-03-28 14:21 | MHC.OT.DC ---
[address] [phone] F: [phone] Occupational Therapy Discharge Note Patient Name: Rajwinder Hall Provider: Rina Trent Diagnosis: Right Hand Second Degree Burn Date of Surgery: Date of Evaluation: 01/21/24 Date of Discharge: Treatments to Date: 14 Cancellations to Date: No Shows to Date: Discharge Status: Achieved Goals Improved Function Independent with HEP Discharge Summary: Patient has been progressing very well. Today was patients last treatment session. Patient was aware today was her last tx and was confident and happy with the functional gains she has made in this round of skilled OT. Patient has all of the tools needed to be successful in self management outside of the clinic and is confident with performing her HEP independently. Patient has achieved all of the therapeutic goals set and reports feeling ready and confident in returning to work. Thank you for your referral. Electronically Signed By: Aleida Almeida OT/s Reviewed/agree with student documentation: Yes Therapist: Crissy Palacios, OTR/L, CLT Please Sign and return to therapist, thank you for your referral.
== END 2024-03-28 14:23 | disposition home or self-care (01) ==
LOC: HO.OT 13:42
PROVIDERS: Absent Provider Orthopaedic Surgery; PCP Internal Medicine; Visit Provider Physician Assistant Medical
DX: T23.201D Burn of second degree of right hand, unspecified site, subsequent encounter (principal); S67.21XD Crushing injury of right hand, subsequent encounter
CPT/HCPCS: 97110; 97112; 97140; 97165; 97530

== ENCOUNTER 2024-03-29 11:08 | Outpatient (AMB) | payer OTHER, SELFPAY ==
--- NOTE | 2024-03-29 11:10 | MHC.OFFVIS ---
Intake Visit Reasons: OV-right hand contusion WC DOI 12/25/23-3 Week F/U Intake Note: Rajwinder is a 63 year old female who presents today for a follow up of her right hand. On 12/25/23 the dorsal aspect of the right hand was burned by the sandwich press at work. Occupational therapy was ordered at her last visit to work on desensitization, strengthening and ROM - which she has completed. Patient reports that she is doing well, pain has improved significantly. She has some flair ups with swelling in the dorsal aspect of the 2nd digit. Occasional numbness on the palmar aspect of the 2nd digit. Today we will discuss RTW, she feels that this is appropriate and would like to return on Wednesday. Allergies MILTON Inhibitors [MILTON INHIBITORS] Allergy (Severe, Verified 03/08/24 09:31) SWELLING,ANAPHYLAXIS Calcium Channel Blocking Agents-Dih [CALCIUM CHANNEL BLOCKING AGENTS-DIH] Allergy (Severe, Verified 03/08/24 09:31) SEVERE WEIGHT LOSS lidocaine [LIDOCAINE] Allergy (Severe, Verified 03/08/24 09:31) ANAPHYLAXIS amlodipine [AMLODIPINE] Allergy (Intermediate, Verified 03/08/24 09:31) HIVES, rash aspirin [ASPIRIN] Allergy (Intermediate, Verified 03/08/24 09:31) GI UPSET, rash codeine [CODEINE] Allergy (Intermediate, Verified 03/08/24 09:31) GI UPSET, rash acetaminophen [Percocet] Allergy (Unknown, Verified 03/08/24 09:31) Unknown amoxicillin [AMOXICILLIN] Allergy (Unknown, Verified 03/08/24 09:31) UNKNOWN Anesthetics - Amide Type - Select A [ANESTHETICS - AMIDE TYPE] Allergy (Unknown, Verified 03/08/24 09:31) ANESTHETIC ADDITIVES lisinopril Allergy (Unknown, Verified 03/08/24 09:31) Angioedema, anaphylaxis morphine Allergy (Unknown, Verified 03/08/24 09:31) rash oxycodone [Percocet] Allergy (Unknown, Verified 03/08/24 09:31) Unknown From Novocain Allergy (Severe, Uncoded 03/08/24 09:31) ANAPHYLAXIS ... additives or preservative Allergy (Unknown, Uncoded 03/08/24 09:31) unknown MILTON Inhibitors Allergy (Unknown, Uncoded 03/08/24 09:31) unknown calcium blockers Allergy (Unknown, Uncoded 03/08/24 09:31) unnown Calcium Channel blockers Allergy (Unknown, Uncoded 03/08/24 09:31) anaphylaxis Codeine Phosphate Allergy (Unknown, Uncoded 03/08/24 09:31) unknown Novocain Allergy (Unknown, Uncoded 03/08/24 09:31) anaphylaxis From PERCOCET Adverse Reaction (Intermediate, Uncoded 03/08/24 09:31) GI UPSET HPI HPI OV-right hand contusion WC DOI 12/25/23-3 Week F/U: Details: Rajwinder is a 63 year old right hand dominant Diabetic woman who returns for a right hand burn. 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 She has been attending OT hand therapy for this. She says she has been seen by work connections, and is working on [employer] worker's comp. She says she is feeling much better after completing her course of OT hand therapy. She has been working on ROM exercises at home and feels she is improving. She reports occasional numbness in her index finger. She says this is new and happens a few times throughout the week. She would like to discuss her return to work, and feels that she is ready to return to full duty [facility] Medical History Colonoscopy planned Kidney disease Diabetes mellitus Surgical History H/O breast surgery No history of previous surgery Family History Mother No problems noted. Father No problems noted. Social History (Updated 02/18/24 @ 09:44 by OLIVE Stewart) Housing: House Alcohol intake: current Alcohol intake frequency: holidays/special occasions only Patient Tobacco Use Status: Never used Tobacco Current occupational status: employed Current occupation: right hand dominant Cognitive needs: No Hearing needs: No Vision needs: No Female Reproductive History Menstrual Age of Menarche: 13 Physical Exam Extrem Other: Evaluation of Right Upper Extremity: The patient is alert, oriented, and in no acute distress Neuro: Median, Ulnar, Radial nerves motor and sensory intact and sensation is normal to the tips of all digits Vascular: Cap refill brisk ROM: She could bring all her fingers closed to a tight fist and back into full extension. She can now do this quickly and with ease. She has full active extension of the index finger against resistance without pain Skin: She has a couple of erythematous burn daniel over the dorsal aspect of the right hand proximal to the 2nd and 3rd MCP joints. These are well healed. The skin is nice and mobile over the underlying flexor tendons without any adherence. These were evidently second-degree andino. Her hypersensitivity for the most part appears to have resolved. I no longer see any swelling. She is much happier with her hand range of motion and decreased discomfort. Assessment & Plan Assessment & Plan (1) Burn of right hand including fingers: Code(s): T23.001A - Burn of unspecified degree of right hand, unspecified site, initial encounter; T23.031A - Burn of unspecified degree of multiple right fingers (nail), not including thumb, initial encounter Category: Medical (2) Numbness of right hand: Code(s): R20.0 - Anesthesia of skin Category: Medical (3) Diabetes mellitus: Code(s): E11.9 - Type 2 diabetes mellitus without complications Category: Medical Plan Assessment & Plan: 1. Right dorsal hand burn, second-degree by report DOI: 12/25/23 This is a work-related injury, secondary to the [employer]ini press closing onto her hand Healed 2. Right hand weakness Secondary to her injury Resolved 3. Right hand hypersensitivity Secondary to her injury Resolved I educated her about these conditions The andino have healed well. She has had good resolution of her hypersensitivity and improved strength. 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 She was given a note to return to work on 04/03/24, on full duty. She can follow up prn 4. Right hand numbness In the index finger Symptoms intermittent & occasional I educated her about carpal tunnel syndrome If her symptoms increase in frequency or severity she should contact the clinic for a NCS Scribed for Yris Rojas MD by Turner Brown, medical device sales consultant, on 03/29/24 at 11:35 AM, EST. Coding Level of Care Code Est Pt Level 3 (61260) Diagnoses Burn of right hand including fingers T23.001A; T23.031A Numbness of right hand R20.0 Diabetes mellitus E11.9
== END 2024-03-29 11:40 | disposition home or self-care (01) ==
PROVIDERS: PCP Internal Medicine; Visit Provider Orthopaedic Surgery
DX: T23.001A Burn of unspecified degree of right hand, unspecified site, initial encounter (principal); T23.031A Burn of unspecified degree of multiple right fingers (nail), not including thumb, initial encounter; R20.0 Anesthesia of skin; E11.9 Type 2 diabetes mellitus without complications
CPT/HCPCS: 99213

== ENCOUNTER → 2024-03-29 11:08 | Outpatient (BNVA) | payer OTHER, SELFPAY | PROVIDERS: PCP Internal Medicine; Visit Provider Orthopaedic Surgery | DX: T23.261A Burn of second degree of back of right hand, initial encounter (principal); T23.231A Burn of second degree of multiple right fingers (nail), not including thumb, initial encounter; W29.2XXA Contact with other powered household machinery, initial encounter; Y93.G3 Activity, cooking and baking; Y92.530 Ambulatory surgery center as the place of occurrence of the external cause; Y99.0 Civilian activity done for income or pay; R20.0 Anesthesia of skin; E11.9 Type 2 diabetes mellitus without complications | CPT/HCPCS: 99212 ==

== ENCOUNTER 2024-03-31 08:28 | Outpatient (AMB) | payer OTHER, SELFPAY ==
[2024-03-31 08:32] VITALS: BP 134/88; PULSE 86; O2SAT 97; BMI 30.5
--- NOTE | 2024-03-31 08:32 | A.OFFPC_ITS ---
Vital Signs 03/31/24 08:32 Height 5 ft 7 in Weight 195 lb BMI 30.5 BP 134/88 Blood Pressure Location Lt brachial Position Sitting Pulse 86 Pulse Source Pulse Oximeter Pulse Oximetry (%) 97 Oxygen Delivery Method Room Air Intake Visit Reasons: 4 Month F/U Allergies MILTON Inhibitors [MILTON INHIBITORS] Allergy (Severe, Verified 03/31/24 08:32) SWELLING,ANAPHYLAXIS Calcium Channel Blocking Agents-Dih [CALCIUM CHANNEL BLOCKING AGENTS-DIH] Allergy (Severe, Verified 03/31/24 08:32) SEVERE WEIGHT LOSS lidocaine [LIDOCAINE] Allergy (Severe, Verified 03/31/24 08:32) ANAPHYLAXIS amlodipine [AMLODIPINE] Allergy (Intermediate, Verified 03/31/24 08:32) HIVES, rash aspirin [ASPIRIN] Allergy (Intermediate, Verified 03/31/24 08:32) GI UPSET, rash codeine [CODEINE] Allergy (Intermediate, Verified 03/31/24 08:32) GI UPSET, rash acetaminophen [Percocet] Allergy (Unknown, Verified 03/31/24 08:32) Unknown amoxicillin [AMOXICILLIN] Allergy (Unknown, Verified 03/31/24 08:32) UNKNOWN Anesthetics - Amide Type - Select A [ANESTHETICS - AMIDE TYPE] Allergy (Unknown, Verified 03/31/24 08:32) ANESTHETIC ADDITIVES lisinopril Allergy (Unknown, Verified 03/31/24 08:32) Angioedema, anaphylaxis morphine Allergy (Unknown, Verified 03/31/24 08:32) rash oxycodone [Percocet] Allergy (Unknown, Verified 03/31/24 08:32) Unknown From Novocain Allergy (Severe, Uncoded 03/31/24 08:32) ANAPHYLAXIS ... additives or preservative Allergy (Unknown, Uncoded 03/31/24 08:32) unknown MILTON Inhibitors Allergy (Unknown, Uncoded 03/31/24 08:32) unknown calcium blockers Allergy (Unknown, Uncoded 03/31/24 08:32) unnown Calcium Channel blockers Allergy (Unknown, Uncoded 03/31/24 08:32) anaphylaxis Codeine Phosphate Allergy (Unknown, Uncoded 03/31/24 08:32) unknown Novocain Allergy (Unknown, Uncoded 03/31/24 08:32) anaphylaxis From PERCOCET Adverse Reaction (Intermediate, Uncoded 03/31/24 08:32) GI UPSET Medication List - Last Reconciled 04/03/24 by Hai Stevens MD albuterol sulfate 90 mcg/actuation 2 inhalations inhalation Q4-6H PRN albuterol sulfate 90 mcg/actuation (Ventolin HFA) 1 inh inhalation QID PRN atorvastatin 80 mg PO DAILY bacitracin 1 appl topical BID blood sugar diagnostic ([employer] Ultra Test strips) once per day escitalopram oxalate 20 orally daily; lamotrigine ER 375 mg PO DAILY lancets ([employer] Delica Lancets) once a day lancing device with lancets ([employer] Delica Plus Lancing Device kit) test once daily lorazepam 1 mg PO DAILY PRN meclizine 25 mg PO QID PRN metformin 500 mg PO TID spironolactone 12.5 mg (1/2 x 25 mg) PO DAILY temazepam 7.5 mg orally bedtime; trazodone 100 mg PO DAILY Tobacco use date assessed: 07/27/23 Dental Screening Dental Screen Date: 11/30/23 HPI 4 Month F/U HPI Details DM and hyperlipidemia on rx; doing well and compliant; labs fine [facility] Medical History Colonoscopy planned Kidney disease Diabetes mellitus Surgical History H/O breast surgery No history of previous surgery Family History (Updated 03/31/24 @ 08:33 by Dayana Jorgensen CMA) Mother No problems noted. Father No problems noted. Social History (Updated 02/18/24 @ 09:44 by OLIVE Stewart) Housing: House Alcohol intake: current Alcohol intake frequency: holidays/special occasions only Patient Tobacco Use Status: Never used Tobacco Tobacco use type: Cigarette e-Cigarette/Vaping Use: Never Used Second Hand Smoke Exposure: No Current occupational status: employed Current occupation: right hand dominant Cognitive needs: No Hearing needs: No Vision needs: No Female Reproductive History Menstrual Age of Menarche: 13 Questionnaire PHQ-9 Over the last 2 weeks, how often have you been bothered by any of the following problems? 1. Little interest or pleasure in doing things: not at all 2. Feeling down, depressed, or hopeless: not at all 3. Trouble falling or staying asleep, or sleeping too much: not at all 4. Feeling tired or having little energy: not at all 5. Poor appetite or overeating: not at all 6. Feeling bad about yourself - or that you are a failure or have let yourself or your family down: not at all 7. Trouble concentrating on things, such as reading the newspaper or watching television: not at all 8. Moving or speaking so slowly that other people could have noticed. Or the op posite - being so fidgety or restless that you have been moving around a lot more than usual: not at all 9. Thoughts that you would be better off or of hurting yourself in some way: not at all Total score: 0 Depression Screening Interpretation: Negative Depression Screening Done: Yes 04269 - PHQ-9 Billing: Yes Source: Developed by Drs. Lobito Chaidez, Socorro Bergman, Marcio Salguero and colleagues, with an educational ismael from [employer]. Thrive Questionnaire Date Thrive assessed: 07/27/23 AUDIT C Alcohol Use Questionnaire (AUDIT-C) 1. How often do you have a drink containing alcohol?: Never 3. How often do you have six or more drinks on one occasion?: Never Total Score: 0 Score Reviewed/Action Taken: Yes BLAISE-7 AMB Questionnaire BLAISE-7 Date BLAISE - 7 assessed: 07/27/23 Source: Developed by Drs. Lobito Chaidez, Socorro Bergman, Marcio Salguero and colleagues, with an educational ismael from [employer]. Review of Systems Const Denies chills, Denies headache(s) and Denies weight loss ENT Denies headache(s) Card Denies chest pain, Denies syncope, Denies irregular heart rhythm and Denies dyspnea Resp Denies chest congestion, Denies cough and Denies dyspnea GI Denies abdominal pain, Denies change in stool character, Denies nausea and Denies vomiting Musc Denies deformity and Denies joint swelling Neuro Denies syncope and Denies headache(s) Physical exam (Primary Care) Vital Signs: Last Vital Signs Pulse 86 03/31/24 08:32 BP 134/88 03/31/24 08:32 Pulse Ox 97 03/31/24 08:32 Oxygen Delivery Method Room Air 03/31/24 08:32 BMI result Body Mass Index 30.5 Tobacco/Smoking Status: Tobacco use Status Tobacco use date assessed 07/27/23 03/31/24 08:36 Patient Tobacco Use Status Never used Tobacco 03/31/24 08:36 Tobacco use type Cigarette 03/31/24 08:36 e-Cigarette/Vaping Use Never Used 03/31/24 08:36 PHQ-9: PHQ-9 Score PHQ-9: Total score 0 03/31/24 08:36 Depression Screening Interpretation: Negative Thrive Assessment: Date of Thrive Assessment Date Thrive assessed 07/27/23 03/31/24 08:36 Const General: cooperative, comfortable, no acute distress and alert Neck Neck: Yes no lymphadenopathy Thyroid: Thyroid normal Resp Effort & Inspection: normal respiratory effort Auscultation: clear to auscultation bilaterally Percussion: percussion normal Cardio Jugular venous distension: no JVD Palpation: normal PMI Rate: regular rate Rhythm: regular rhythm Heart sounds: S1 normal heart sound present and S2 normal heart sound present GI Inspection: Yes normal to inspection Palpation (GI): No hepatosplenomegaly present Skin General skin exam: no rashes or lesions noted Extrem General: Yes no clubbing, cyanosis or edema Coding Level of Care Code Est Pt Level 3 (12516) Diagnoses Hyperlipidemia E78.5 Diabetes mellitus with coincident hypertension E11.9; I10 Additional Codes PHQ-9 - 50519 - PHQ-9 Billing: Yes ([id number]) Assessment & Plan Assessment & Plan (1) Hyperlipidemia: Code(s): E78.5 - Hyperlipidemia, unspecified Category: Medical Plan: stable; same rx (2) Diabetes mellitus with coincident hypertension: Code(s): E11.9 - Type 2 diabetes mellitus without complications; I10 - Essential (primary) hypertension Category: Medical Plan: stable; same rx Orders: Orders Comprehensive [place]. Panel Fast Today Z13.9 - Encounter for screening, unspecified Hemoglobin A1c Today R73.9 - Hyperglycemia, unspecified Lipid Panel Today Z13.220 - Encounter for screening for lipoid disorders
== END 2024-03-31 08:54 | disposition home or self-care (01) ==
PROVIDERS: PCP Internal Medicine; Visit Provider Internal Medicine
DX: E78.5 Hyperlipidemia, unspecified (principal); E11.9 Type 2 diabetes mellitus without complications; I10 Essential (primary) hypertension

== ENCOUNTER → 2024-03-31 08:28 | Outpatient (BNVA) | payer OTHER, SELFPAY | PROVIDERS: PCP Internal Medicine; Visit Provider Internal Medicine | DX: E78.5 Hyperlipidemia, unspecified (principal); E11.9 Type 2 diabetes mellitus without complications; I10 Essential (primary) hypertension | CPT/HCPCS: 96127 ==

== ENCOUNTER 2024-04-24 08:23 | Outpatient (REF) | payer OTHER, SELFPAY ==
[2024-04-24 09:21] LABS: Appearance Urine Clear; Color Urine Yellow; Glucose Urine UA Negative (Negative); Leukocyte Esterase Urine Moderate (2+) (Negative); Nitrite Urine Negative (Negative); UMIC TRIGGER UA YES; Urine Blood Negative (Negative); Urine Ketones Negative (Negative); Urine Protein Negative (Neg-Trace)
[2024-04-24 09:25] LABS: Anion Gap 11 (12-20); Blood Urea Nitrogen 11 mg/dL (9-16); Calcium 9.6 mg/dL (8.4-10.2); Carbon Dioxide 26 mmol/L (22-29); Chloride 109 mmol/L (96-108); Estimated Glomerular Filt Rate > 60; Glucose Random 109 mg/dL (60-115); Potassium 4.2 mmol/L (3.3-5.1); Sodium 142 mmol/L (135-145)
[2024-04-24 09:29] LABS: Bacteria Urine None Seen (None Seen); Hyaline Casts Urine 0-2 /LPF (0-2); RBC Urine 0-2 /HPF (0-2); Squamous Epithelial Cell Urine 0-2 /HPF (0-2); WBC Urine 0-5 /HPF (0-5)
[2024-04-24 09:56] LABS: Creatinine Urine 39.32 mg/dL; Total Protein Urine Random 11 mg/dL (<12)
== END 2024-04-24 08:24 | disposition home or self-care (01) ==
LOC: HO.LAB 08:23
PROVIDERS: PCP Internal Medicine; Visit Provider Internal Medicine Hypertension Specialist
DX: I10 Essential (primary) hypertension (principal); R80.9 Proteinuria, unspecified
CPT/HCPCS: 36415; 80048; 81001; 81003; 82570; 84156

== ENCOUNTER 2024-04-27 08:05 | Outpatient (AMB) | payer OTHER, SELFPAY ==
[2024-04-27 08:48] VITALS: BP 120/82; PULSE 96; TEMP 37; O2SAT 95; BMI 30.9
--- NOTE | 2024-04-27 08:48 | MHC.OFFWIV ---
Intake Vital Signs 04/27/24 08:48 Height 5 ft 7 in Weight 197 lb BMI 30.9 BP 120/82 Blood Pressure Location Lt brachial Position Sitting Pulse 96 Pulse Source Pulse Oximeter Temp 98.6 F Temp Source Oral Pulse Oximetry (%) 95 Oxygen Delivery Method Room Air Intake Visit Reasons: EP cough, brown mucus, cough Intake Note: Pt is here today c/o coughing up brown mucus x3days Patient Tobacco Use Status: Never used Tobacco Allergies MILTON Inhibitors [MILTON INHIBITORS] Allergy (Severe, Verified 04/27/24 08:50) SWELLING,ANAPHYLAXIS Calcium Channel Blocking Agents-Dih [CALCIUM CHANNEL BLOCKING AGENTS-DIH] Allergy (Severe, Verified 04/27/24 08:50) SEVERE WEIGHT LOSS lidocaine [LIDOCAINE] Allergy (Severe, Verified 04/27/24 08:50) ANAPHYLAXIS amlodipine [AMLODIPINE] Allergy (Intermediate, Verified 04/27/24 08:50) HIVES, rash aspirin [ASPIRIN] Allergy (Intermediate, Verified 04/27/24 08:50) GI UPSET, rash codeine [CODEINE] Allergy (Intermediate, Verified 04/27/24 08:50) GI UPSET, rash acetaminophen [Percocet] Allergy (Unknown, Verified 04/27/24 08:50) Unknown amoxicillin [AMOXICILLIN] Allergy (Unknown, Verified 04/27/24 08:50) UNKNOWN Anesthetics - Amide Type - Select A [ANESTHETICS - AMIDE TYPE] Allergy (Unknown, Verified 04/27/24 08:50) ANESTHETIC ADDITIVES lisinopril Allergy (Unknown, Verified 04/27/24 08:50) Angioedema, anaphylaxis morphine Allergy (Unknown, Verified 04/27/24 08:50) rash oxycodone [Percocet] Allergy (Unknown, Verified 04/27/24 08:50) Unknown From Novocain Allergy (Severe, Uncoded 04/27/24 08:50) ANAPHYLAXIS ... additives or preservative Allergy (Unknown, Uncoded 04/27/24 08:50) unknown MILTON Inhibitors Allergy (Unknown, Uncoded 04/27/24 08:50) unknown calcium blockers Allergy (Unknown, Uncoded 04/27/24 08:50) unnown Calcium Channel blockers Allergy (Unknown, Uncoded 04/27/24 08:50) anaphylaxis Codeine Phosphate Allergy (Unknown, Uncoded 04/27/24 08:50) unknown Novocain Allergy (Unknown, Uncoded 04/27/24 08:50) anaphylaxis From PERCOCET Adverse Reaction (Intermediate, Uncoded 04/27/24 08:50) GI UPSET HPI HPI Comments History of Present Illness Details History The patient is a 63-year-old female presenting with a cough and associated symptoms. She has experienced a productive cough for three days and brown sputum production. Additional complaints include a headache, sinus issues, and ears feeling submerged. The cough exacerbates the sensation of chest pressure. Persistent asthma symptoms are unresponsive to her inhaler. Her headache persists despite Tylenol. She has diabetes and chronic kidney disease, restricting medication choices. Physical Exam General: Cooperative, healthy appearing, comfortable and no acute distress Orientation/consciousness: Patient oriented x3 Limitations: No limitations Head: Normal to inspection Ears: Hearing grossly normal bilaterally, external ears normal, fluid present bilateral TMs Nose: Normal external nose present, Normal nares present and No nasal discharge present Face and sinus: Normal facial exam and Yes sinuses tender Mouth: Normal oral and palatal mucosa present and moist mucous membranes Throat: Yes tonsils normal, Yes uvula midline. Posterior oropharynx erythema, throat irritated, no exudates Eyes: Appearance normal, both eyes and all related structures Neck: Normal visual inspection Respiratory: Clear to auscultation bilaterally. Normal respiratory effort, able to speak in complete sentences, Actively coughing, no respiratory distress, not tachypneic, no tripod positioning and no use of accessory muscles, shortness of breath present Cardiovascular: Regular rate and rhythm. Normal S1 and S2 Skin: No rashes or lesions noted Neuro: Patient oriented x3 Extremities: Normal to inspection and Yes no clubbing, cyanosis or edema PFSH Medical History Colonoscopy planned Kidney disease Diabetes mellitus Surgical History H/O breast surgery No history of previous surgery Family History (Updated 03/31/24 @ 08:33 by Dayana Jorgensen CMA) Mother No problems noted. Father No problems noted. Social History (Updated 02/18/24 @ 09:44 by OLIVE Stewart) Housing: House Alcohol intake: current Alcohol intake frequency: holidays/special occasions only Patient Tobacco Use Status: Never used Tobacco Tobacco use type: Cigarette e-Cigarette/Vaping Use: Never Used Second Hand Smoke Exposure: No Current occupational status: employed Current occupation: right hand dominant Cognitive needs: No Hearing needs: No Vision needs: No Female Reproductive History Menstrual Age of Menarche: 13 Review of Systems Const All systems reviewed & are unremarkable except as noted in HPI and below Physical Exam Vital Signs: Last Vital Signs Temp 98.6 F 04/27/24 08:48 Pulse 96 04/27/24 08:48 BP 120/82 04/27/24 08:48 Pulse Ox 95 04/27/24 08:48 Oxygen Delivery Method Room Air 04/27/24 08:48 BMI result Body Mass Index 30.9 Assessment & Plan Assessment & Plan (1) Lower respiratory infection (e.g., bronchitis, pneumonia, pneumonitis, pulmonitis): Code(s): J22 - Unspecified acute lower respiratory infection Plan: Plan The patient's primary concern with her respiratory symptoms is addressed with a SoluMedrol Dosepak, anticipated to reduce inflammation and enhance airflow. Flonase has been prescribed for sinus and ear-related symptoms. 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 Ongoing monitoring of her chronic conditions remains vital. A diagnostic workup for flu, COVID, and RSV is in progress, with follow-ups for confirmed testing outcomes planned. Patient was informed and verbally consented to the use of an ambient scribe for clinic note documentation during this visit Orders: Orders SARS-CoV2/FLU/RSV Today J22 - Unspecified acute lower respiratory infection Medications: New methylprednisolone PO PER PKG DIR for 6 days 21 ea 0RF fluticasone propionate 50 mcg/actuation administer into each nostril 1 spray intranasal Q12H 16 grams 0RF Coding Level of Care Code Est Pt Level 4 (60896) Diagnoses Lower respiratory infection (e.g., bronchitis, pneumonia, pneumonitis, pulmonitis) J22
== END 2024-04-27 09:57 | disposition home or self-care (01) ==
PROVIDERS: PCP Internal Medicine; Visit Provider Physician Assistant
DX: J22 Unspecified acute lower respiratory infection (principal)

== ENCOUNTER 2024-04-27 08:05 | Outpatient (REF) | payer OTHER, SELFPAY ==
[2024-04-27 14:17] LABS: Influenza A PCR NEGATIVE (Negative); Influenza B PCR NEGATIVE (Negative); Resp Syncy Virus RNA Qual PCR NEGATIVE (Negative); SARS COV2 PCR INHOUSE NEGATIVE (Negative)
== END 2024-04-27 08:06 | disposition home or self-care (01) ==
LOC: HO.LAB 08:05
PROVIDERS: PCP Internal Medicine; Visit Provider Physician Assistant
DX: J22 Unspecified acute lower respiratory infection (principal)
CPT/HCPCS: 0241U

== ENCOUNTER 2024-05-02 08:43 | Outpatient (AMB) | payer OTHER, SELFPAY ==
--- NOTE | 2024-05-02 08:55 | MHC.AMNUTRGE ---
VS Expanded 05/02/24 08:57 Height 5 ft 7 in Weight 196 lb 10.437 oz BMI 30.8 Intake Visit Reasons: T2DM, htn/Confirmed Allergies MILTON Inhibitors [MILTON INHIBITORS] Allergy (Severe, Verified 04/27/24 08:50) SWELLING,ANAPHYLAXIS Calcium Channel Blocking Agents-Dih [CALCIUM CHANNEL BLOCKING AGENTS-DIH] Allergy (Severe, Verified 04/27/24 08:50) SEVERE WEIGHT LOSS lidocaine [LIDOCAINE] Allergy (Severe, Verified 04/27/24 08:50) ANAPHYLAXIS amlodipine [AMLODIPINE] Allergy (Intermediate, Verified 04/27/24 08:50) HIVES, rash aspirin [ASPIRIN] Allergy (Intermediate, Verified 04/27/24 08:50) GI UPSET, rash codeine [CODEINE] Allergy (Intermediate, Verified 04/27/24 08:50) GI UPSET, rash acetaminophen [Percocet] Allergy (Unknown, Verified 04/27/24 08:50) Unknown amoxicillin [AMOXICILLIN] Allergy (Unknown, Verified 04/27/24 08:50) UNKNOWN Anesthetics - Amide Type - Select A [ANESTHETICS - AMIDE TYPE] Allergy (Unknown, Verified 04/27/24 08:50) ANESTHETIC ADDITIVES lisinopril Allergy (Unknown, Verified 04/27/24 08:50) Angioedema, anaphylaxis morphine Allergy (Unknown, Verified 04/27/24 08:50) rash oxycodone [Percocet] Allergy (Unknown, Verified 04/27/24 08:50) Unknown From Novocain Allergy (Severe, Uncoded 04/27/24 08:50) ANAPHYLAXIS ... additives or preservative Allergy (Unknown, Uncoded 04/27/24 08:50) unknown MILTON Inhibitors Allergy (Unknown, Uncoded 04/27/24 08:50) unknown calcium blockers Allergy (Unknown, Uncoded 04/27/24 08:50) unnown Calcium Channel blockers Allergy (Unknown, Uncoded 04/27/24 08:50) anaphylaxis Codeine Phosphate Allergy (Unknown, Uncoded 04/27/24 08:50) unknown Novocain Allergy (Unknown, Uncoded 04/27/24 08:50) anaphylaxis From PERCOCET Adverse Reaction (Intermediate, Uncoded 04/27/24 08:50) GI UPSET Nutrition Presentation Details: Pt presents for MNT f/u for T2DM, obesity HTN Pt working on choosing lean protein foods , working on following healthy plate method, notices increased snacks on empty calorie foods Typical meal routine Breakfast oatmeal makde with water and apple and green tea Lunch: salad with 3 eggs, oil and vinegar, water or protein smart glucerna dinner salmon and potatoes and salad or tuna with green salad snacks on fruits , crackers, candies beverages: water mainly 24 oz/d physical activity 15 min 3 x/wk BS Monitoring Most Recent Diabetes Results: Microalb/Creat Ratio 257.9 ug/mg cr (<30) H 03/15/24 Creatinine 0.91 mg/dL (0.5-1.4) 04/24/24 Blood Urea Nitrogen 11 mg/dL (9-16) 04/24/24 Sodium 142 mmol/L (135-145) 04/24/24 Potassium 4.2 mmol/L (3.3-5.1) 04/24/24 Chloride 109 mmol/L (96-108) H 04/24/24 Carbon Dioxide 26 mmol/L (22-29) 04/24/24 Calcium 9.6 mg/dL (8.4-10.2) 04/24/24 AST 20 U/L (5-31) 03/15/24 ALT 24 U/L (0-31) 03/15/24 Total Protein 7.1 g/dL (6.5-8.0) 03/15/24 Albumin 4.4 g/dL (3.5-5.0) 03/15/24 [facility] Medical History Colonoscopy planned Kidney disease Diabetes mellitus Surgical History H/O breast surgery No history of previous surgery Family History (Updated 03/31/24 @ 08:33 by Dayana Jorgensen CMA) Mother No problems noted. Father No problems noted. Social History (Updated 02/18/24 @ 09:44 by OLIVE Stewart) Housing: House Alcohol intake: current Alcohol intake frequency: holidays/special occasions only Patient Tobacco Use Status: Never used Tobacco Tobacco use type: Cigarette e-Cigarette/Vaping Use: Never Used Second Hand Smoke Exposure: No Current occupational status: employed Current occupation: right hand dominant Cognitive needs: No Hearing needs: No Vision needs: No Female Reproductive History Menstrual Age of Menarche: 13 Assessment & Plan Assessment & Plan (1) Diabetes mellitus with coincident hypertension: Code(s): E11.9 - Type 2 diabetes mellitus without complications; I10 - Essential (primary) hypertension Category: Medical Plan: Wt: 94Kg ( July/2023 ), ----, 88 kg (03/12), 89 kg ( 05/13) Est kcal needs as per MSJ: 1800 (40% carb, 30% protein/fat) Est fluid needs as per 25-30 ml/d: 2800 Est prot per day as per 1 g/kg bw: 94 Recommend fiber intake : 8-10 g per day and gradually increase to 25-28 g per day for women and 35-38 g for men or as tolerated Recommend sodium intake per day : less than 2000 mg Educated patient on: ( R = reviewed V = verbalizes understanding N/R = needs review N/A = not applicable Food sources of carbohydrate, adequate serving sizes and its role in various health conditions: R Differences between complex carbohydrates a simple carbohydrates, role of fiber in diet: R Lean protein sources of foods: R Meal replacement and snack replacement option: R Differences between types of fats and role in diet (mono on saturated fat fatty acids, saturated fatty acids, trans fats): R Food sources of sodium in salt and healthy modifications for heart health in kidney health: R Vitamins and minerals: N/R Healthy plate method concept: R Physical activity: Benefits a precaution: R Hypoglycemia protocol (rule of 15): R V Dietary prevention of Hyperglycemia: R Patient Instructions: Choose fiber rich snacks and low in sodium (raw peppers, carrots, apples, berries Engage in physical activity goal 20-30 minutes 3-4 times aweek unless otherwise specified by your doctor Coding Level of Care Code Nutr Indiv Subseq (23285) Diagnoses Diabetes mellitus with coincident hypertension E11.9; I10 Time Spent (min) 30
[2024-05-02 08:57] VITALS: BMI 30.8
== END 2024-05-02 09:37 | disposition home or self-care (01) ==
PROVIDERS: PCP Internal Medicine; Visit Provider Dietitian, Registered
DX: E11.9 Type 2 diabetes mellitus without complications (principal); I10 Essential (primary) hypertension

== ENCOUNTER → 2024-05-02 08:43 | Outpatient (BNVA) | payer OTHER, SELFPAY | PROVIDERS: PCP Internal Medicine; Visit Provider Dietitian, Registered | DX: E11.9 Type 2 diabetes mellitus without complications (principal); E66.9 Obesity, unspecified; Z68.30 Body mass index [BMI] 30.0-30.9, adult; I10 Essential (primary) hypertension; Z71.3 Dietary counseling and surveillance | CPT/HCPCS: 97803 ==

== ENCOUNTER 2024-05-03 12:20 | Outpatient (AMB) | payer OTHER, SELFPAY ==
--- NOTE | 2024-05-03 13:24 | AM.OFFWIN_ITS ---
Intake Vital Signs 05/03/24 13:25 Height 5 ft 7 in Weight 199 lb BMI 31.2 BP 126/78 Blood Pressure Location Rt brachial Position Sitting Pulse 87 Pulse Source Pulse Oximeter Pulse Oximetry (%) 96 Oxygen Delivery Method Room Air Intake Visit Reasons: EP headache, ear blocked, cough, mucus Intake Note: Pt is here today for a walk in visit. Pt states that she was seen last week and she finished all the meds that she was given. Pt states that she is not feeling better she is feeling worst. Cough, congestion, loosing voice, lightheaded. Patient Tobacco Use Status: Never used Tobacco Allergies MILTON Inhibitors [MILTON INHIBITORS] Allergy (Severe, Verified 05/03/24 13:30) SWELLING,ANAPHYLAXIS Calcium Channel Blocking Agents-Dih [CALCIUM CHANNEL BLOCKING AGENTS-DIH] Allergy (Severe, Verified 05/03/24 13:30) SEVERE WEIGHT LOSS lidocaine [LIDOCAINE] Allergy (Severe, Verified 05/03/24 13:30) ANAPHYLAXIS amlodipine [AMLODIPINE] Allergy (Intermediate, Verified 05/03/24 13:30) HIVES, rash aspirin [ASPIRIN] Allergy (Intermediate, Verified 05/03/24 13:30) GI UPSET, rash codeine [CODEINE] Allergy (Intermediate, Verified 05/03/24 13:30) GI UPSET, rash acetaminophen [Percocet] Allergy (Unknown, Verified 05/03/24 13:30) Unknown amoxicillin [AMOXICILLIN] Allergy (Unknown, Verified 05/03/24 13:30) UNKNOWN Anesthetics - Amide Type - Select A [ANESTHETICS - AMIDE TYPE] Allergy (Unknown, Verified 05/03/24 13:30) ANESTHETIC ADDITIVES lisinopril Allergy (Unknown, Verified 05/03/24 13:30) Angioedema, anaphylaxis morphine Allergy (Unknown, Verified 05/03/24 13:30) rash oxycodone [Percocet] Allergy (Unknown, Verified 05/03/24 13:30) Unknown From Novocain Allergy (Severe, Uncoded 05/03/24 13:30) ANAPHYLAXIS ... additives or preservative Allergy (Unknown, Uncoded 05/03/24 13:30) unknown MILTON Inhibitors Allergy (Unknown, Uncoded 05/03/24 13:30) unknown calcium blockers Allergy (Unknown, Uncoded 05/03/24 13:30) unnown Calcium Channel blockers Allergy (Unknown, Uncoded 05/03/24 13:30) anaphylaxis Codeine Phosphate Allergy (Unknown, Uncoded 05/03/24 13:30) unknown Novocain Allergy (Unknown, Uncoded 05/03/24 13:30) anaphylaxis From PERCOCET Adverse Reaction (Intermediate, Uncoded 05/03/24 13:30) GI UPSET Do you need a note to return to daycare/school/sports/work: Yes HPI HPI Comments History of Present Illness Details History - The patient is a 63-year-old female pr esenting with persistent symptoms of a lower respiratory infection. - Initially diagnosed on April 27, ne gative tests for influenza, COVID-19, and RSV. - Completed treatment with a steroid tap er and Flonase with no improvement and worsening symptoms. - Current symptoms: persistent cough, co ngestion, loss of voice, lightheadedness, and brownish mucus. - Reports experiences of fluctuating tem perature. - Prior ineffective inhaler use noted. - Allergy to amoxicillin - Sleep affected due to ongoing cough. Physical Exam General: Cooperative, healthy appearing, comfortable and no acute distress Orientation/consciousness: Patient oriented x3 Limitations: No limitations Head: Normal to inspection Ears: Hearing grossly normal bilaterally, external ears normal, TM's with some fluid, no infection noted Nose: Normal external nose present, Normal nares present and No nasal discharge present Face and sinus: Normal facial exam and Yes sinuses nontender Mouth: Normal oral and palatal mucosa present and moist mucous membranes Throat: Yes tonsils normal, Yes uvula midline. Posterior oropharynx erythema Eyes: Appearance normal, both eyes and all related structures Neck: Normal visual inspection Respiratory: Clear to auscultation bilaterally. Normal respiratory effort, able to speak in complete sentences, Actively coughing, no respiratory distress, not tachypneic, no tripod positioning and no use of accessory muscles Cardiovascular: Regular rate and rhythm. Normal S1 and S2 Skin: No rashes or lesions noted Neuro: Patient oriented x3 Extremities: Normal to inspection and Yes no clubbing, cyanosis or edema PFSH Medical History Colonoscopy planned Kidney disease Diabetes mellitus Surgical History H/O breast surgery No history of previous surgery Family History (Updated 03/31/24 @ 08:33 by Dayana Jorgensen CMA) Mother No problems noted. Father No problems noted. Social History (Updated 02/18/24 @ 09:44 by Ashley Tineo Erickson) Housing: House Alcohol intake: current Alcohol intake frequency: holidays/special occasions only Patient Tobacco Use Status: Never used Tobacco Tobacco use type: Cigarette e-Cigarette/Vaping Use: Never Used Second Hand Smoke Exposure: No Current occupational status: employed Current occupation: right hand dominant Cognitive needs: No Hearing needs: No Vision needs: No Female Reproductive History Menstrual Age of Menarche: 13 Review of Systems Const All systems reviewed & are unremarkable except as noted in HPI and below Physical Exam Vital Signs: Last Vital Signs Pulse 87 05/03/24 13:25 BP 126/78 05/03/24 13:25 Pulse Ox 96 05/03/24 13:25 Oxygen Delivery Method Room Air 05/03/24 13:25 BMI result Body Mass Index 31.2 Assessment & Plan Assessment & Plan (1) Atypical pneumonia: Code(s): J18.9 - Pneumonia, unspecified organism Plan: The patient will begin azithromycin treatment to address persistent symptoms indicative of walking pneumonia. Tessalon Perles are prescribed to control cough, especially at night, in conjunction with Benadryl for its anticholinergic effects, to manage ear fluid secretion. Patient will be instructed on night- only Benadryl use to prevent daytime sedation. No utility in repeating viral testing as previous results were negative. Admission of rest and hydration is emphasized for recovery. Return to work likely by Wednesday based on anticipated symptom improvement. A follow-up may be necessary if symptoms persist despite treatment efforts. Patient was informed and verbally consented to the use of an ambient scribe for clinic note documentation during this visit Medications: New benzonatate 200 mg PO TID PRN 14 caps 0RF cough azithromycin For 250 mg dose pack: take 500 mg today (day 1), then 250 mg for 4 days (days 2-5) orally; 6 tabs 0RF Coding Level of Care Code Est Pt Level 3 (93176) Diagnoses Atypical pneumonia J18.9
[2024-05-03 13:25] VITALS: BP 126/78; PULSE 87; O2SAT 96; BMI 31.2
== END 2024-05-03 14:21 | disposition home or self-care (01) ==
PROVIDERS: PCP Internal Medicine; Visit Provider Physician Assistant
DX: J18.9 Pneumonia, unspecified organism (principal)

== ENCOUNTER → 2024-05-03 12:20 | Outpatient (BNVA) | payer OTHER, SELFPAY | PROVIDERS: PCP Internal Medicine; Visit Provider Physician Assistant ==

== ENCOUNTER 2024-05-16 10:03 | Outpatient (AMB) | payer OTHER, SELFPAY ==
--- NOTE | 2024-05-16 10:10 | HO.NEPHOV_ITS ---
Vital Signs 05/16/24 10:11 Height 5 ft 7 in Weight 202 lb BMI 31.6 BP 114/78 Blood Pressure Location Lt brachial Position Sitting Pulse 83 Pulse Source Pulse Oximeter Pulse Oximetry (%) 96 Oxygen Delivery Method Room Air Intake Visit Reasons: R/S 04/27/2024/ Conf Director [employer] Required: No Accompanied by: Self / Same As Patient Allergies MILTON Inhibitors [MILTON INHIBITORS] Allergy (Severe, Verified 05/16/24 10:12) SWELLING,ANAPHYLAXIS Calcium Channel Blocking Agents-Dih [CALCIUM CHANNEL BLOCKING AGENTS-DIH] Allergy (Severe, Verified 05/16/24 10:12) SEVERE WEIGHT LOSS lidocaine [LIDOCAINE] Allergy (Severe, Verified 05/16/24 10:12) ANAPHYLAXIS amlodipine [AMLODIPINE] Allergy (Intermediate, Verified 05/16/24 10:12) HIVES, rash aspirin [ASPIRIN] Allergy (Intermediate, Verified 05/16/24 10:12) GI UPSET, rash codeine [CODEINE] Allergy (Intermediate, Verified 05/16/24 10:12) GI UPSET, rash acetaminophen [Percocet] Allergy (Unknown, Verified 05/16/24 10:12) Unknown amoxicillin [AMOXICILLIN] Allergy (Unknown, Verified 05/16/24 10:12) UNKNOWN Anesthetics - Amide Type - Select A [ANESTHETICS - AMIDE TYPE] Allergy (Unknown, Verified 05/16/24 10:12) ANESTHETIC ADDITIVES lisinopril Allergy (Unknown, Verified 05/16/24 10:12) Angioedema, anaphylaxis morphine Allergy (Unknown, Verified 05/16/24 10:12) rash oxycodone [Percocet] Allergy (Unknown, Verified 05/16/24 10:12) Unknown From Novocain Allergy (Severe, Uncoded 05/03/24 13:30) ANAPHYLAXIS ... additives or preservative Allergy (Unknown, Uncoded 05/03/24 13:30) unknown MILTON Inhibitors Allergy (Unknown, Uncoded 05/03/24 13:30) unknown calcium blockers Allergy (Unknown, Uncoded 05/03/24 13:30) unnown Calcium Channel blockers Allergy (Unknown, Uncoded 05/03/24 13:30) anaphylaxis Codeine Phosphate Allergy (Unknown, Uncoded 05/03/24 13:30) unknown Novocain Allergy (Unknown, Uncoded 05/03/24 13:30) anaphylaxis From PERCOCET Adverse Reaction (Intermediate, Uncoded 05/03/24 13:30) GI UPSET Medication List - Last Reconciled 05/16/24 by Víctor Foley MD albuterol sulfate 90 mcg/actuation 2 inhalations inhalation Q4-6H PRN albuterol sulfate 90 mcg/actuation (Ventolin HFA) 1 inh inhalation QID PRN atorvastatin 80 mg PO DAILY blood sugar diagnostic ([employer] Ultra Test strips) once per day escitalopram oxalate 20 orally daily; lamotrigine 375 mg PO BID lancets ([employer] Delica Lancets) once a day lancing device with lancets ([employer] Delica Plus Lancing Device kit) test once daily lorazepam 1 mg PO BID PRN metformin 500 mg PO TID spironolactone 12.5 mg (1/2 x 25 mg) PO DAILY temazepam 7.5 mg orally bedtime; trazodone 100 mg PO DAILY HPI Comments Details: Middle aged woman with DM And proteinuria Unabel to tolerate ACEi/ARB She has been on Sprinoloactone and has done very well Urine protein excretion is negligible HOme BP is excellent She has gained some weight and she is post menopausal Unable to walk much due to foot pain. She has plantar fasciitis and fibroma in foot 05/16/2024. Plantar fasciitis has resolved. She is complaining of leg edema for last 2 weeks. She recently had upper respiratory infection in this has resolved. Over the last 1 month she has gained about 4-6 lb. [facility] Medical History Colonoscopy planned Kidney disease Diabetes mellitus Surgical History H/O breast surgery No history of previous surgery Family History Mother No problems noted. Father No problems noted. Social History Housing: House Alcohol intake: current Alcohol intake frequency: holidays/special occasions only Patient Tobacco Use Status: Never used Tobacco Tobacco use type: Cigarette e-Cigarette/Vaping Use: Never Used Second Hand Smoke Exposure: No Current occupational status: employed Current occupation: right hand dominant Cognitive needs: No Hearing needs: No Vision needs: No Female Reproductive History Menstrual Age of Menarche: 13 Physical Exam Vital Signs: Last Vital Signs Pulse 83 05/16/24 10:11 BP 114/78 05/16/24 10:11 Pulse Ox 96 05/16/24 10:11 Oxygen Delivery Method Room Air 05/16/24 10:11 BMI result Body Mass Index 31.6 Comfortable Neck supple no JVD. Lungs entry equal no rales. Heart S1-S2 heard no gallop or rub. Abdomen soft nontender. Neuro alert awake oriented. No asterixis. Extremities no edema. Results Reviewed Nephrology Results: Sodium 142 mmol/L (135-145) 04/24/24 Potassium 4.2 mmol/L (3.3-5.1) 04/24/24 Chloride 109 mmol/L (96-108) H 04/24/24 Carbon Dioxide 26 mmol/L (22-29) 04/24/24 BUN 11 mg/dL (9-16) 04/24/24 Creatinine 0.91 mg/dL (0.5-1.4) 04/24/24 Calcium 9.6 mg/dL (8.4-10.2) 04/24/24 Urine Protein Negative mg/dL (Neg-Trace) 04/24/24 Urine Creatinine 39.32 mg/dL 04/24/24 Assessment & Plan Assessment & Plan (1) Proteinuria: Code(s): R80.9 - Proteinuria, unspecified Category: Medical Plan: Keep on Spironolactone for ADRIANE inhibition Discussed weight loss and control of BP Currently BP is excellent at home (2) Diabetes mellitus: Code(s): E11.9 - Type 2 diabetes mellitus without complications Category: Medical Plan: Goal A1C < 7% NEeds weight loss Orders: Orders Basic Metabolic Panel 1 Year I10 - Essential (primary) hypertension Creatinine Urine 1 Year I10 - Essential (primary) hypertension UA and rflx microscopic 1 Year I10 - Essential (primary) hypertension Total Protein Urine Random 1 Year I10 - Essential (primary) hypertension Coding Level of Care Code Est Pt Level 4 (76547) Diagnoses Proteinuria R80.9 Diabetes mellitus E11.9
[2024-05-16 10:11] VITALS: BP 114/78; PULSE 83; O2SAT 96; BMI 31.6
--- OUTSIDE RECORDS SUMMARY | 2024-05-16 10:50 | XMS_ITS | Clinical Summary ---
Author Organization [facility] Facility Address [address] [place] [address] Care Team Providers Care In Home Sales Representative Name Role Phone Hai Stevens MD Primary Care Provider [phone] Allergies Active Allergy Reactions Criticality Noted Date Comments Jb Inhibitors Other (see comments) 11/23/2017 Amlodipine Other (see comments) 11/23/2017 Amoxicillin Other (see comments) 11/23/2017 Propofol Other (see comments) 01/13/2022 Aspirin Other (see comments) 11/23/2017 Codeine Other (see comments) 11/23/2017 Epinephrine Other (see comments) 01/13/2022 Ibuprofen Other (see comments) 01/13/2022 Oxycodone-Acetaminophen Other (see comments) Procaine Other (see comments) 11/23/2017 Medications atorvastatin (LIPITOR) 80 MG tablet Take 80 mg by mouth daily Active LORazepam (ATIVAN) 0.5 MG tablet Take 0.5 mg by mouth 2 (two) times a day if needed 12/06/2020 Active traZODone (DESYREL) 150 MG tablet Take 175 mg by mouth daily Active metFORMIN (GLUCOPHAGE) 1000 MG tablet Take 1,500 mg by mouth 1 (one) time each day Active temazepam (RESTORIL) 7.5 MG capsule Take 15 mg by mouth every night 01/09/2021 Active lamoTRIgine (LaMICtal) 150 MG tablet Take 2 mg by mouth 1 (one) time each day 12/24/2020 Active escitalopram (LEXAPRO) 10 MG tablet Take 10 mg by mouth 1 (one) time each day Active spironolactone (ALDACTONE) 25 MG tabletIndicatio ns:Type 2 diabetes mellitus with diabetic chronic kidney disease (HCC) Take 0.5 tablets (12.5 mg total) by mouth 1 (one) time each day 45 tablet 7 01/27/2023 Active Active Problems Problem Noted Date Diagnosed Date Proteinuria 01/16/2021 Family History Medical History Relation Comments Diabetes Father Relation Status Comments Father Mother Social History Tobacco Use Types Packs/Day Years Used Date Smoking Tobacco: Never Smokeless Tobacco: Never Alcohol Use Standard Drinks/Week Comments Never 0 (1 standard drink = 0.6 oz pure alcohol) Alcoholic Drinks/day: Occasional social drink Comments Unknown Sex and Gender Information Value Date Recorded Sex Assigned at Not on file Legal Sex Female 5:08 PM EST Gender Identity Not on file Sexual Orientation Not on file Last Filed Vital Signs Vital Sign Reading Time Taken Comments Blood Pressure 120/70 04/02/2022 3:36 PM EST Pulse 62 01/16/2021 1:11 PM EDT Temperature - - Respiratory Rate - - Oxygen Saturation 98% 09/23/2018 12:00 PM EDT Inhaled Oxygen Concentration - - Weight 87.5 kg (193 lb) 04/02/2022 3:36 PM EST Height 167.6 cm (5' 6 ) 04/02/2022 3:36 PM EST Body Mass Index 31.15 04/02/2022 3:36 PM EST Plan of Treatment Health Maintenance Due Date Last Done Comments Breast Cancer Screening 1960 Colorectal Cancer Screening: Annual FOBT 11/11/2011 Colorectal Cancer Screening: Colonoscopy 11/11/2011 Colorectal Cancer Screening: Sigmoidoscopy 11/11/2011 Diabetes: Hemoglobin A1C 04/02/2022 Diabetes: Ophthalmology Exam 04/02/2022 Diabetes: Pedal Pulse Checked 04/02/2022 Diabetes: Sensory Foot Exam 04/02/2022 Diabetes: Visual Foot Exam 04/02/2022 Influenza Vaccine (#1) 2023 , 02/16/2020, 02/16/2019, Additional history exists Hepatitis B Vaccine Aged Out No longe r eligible based on patient's age to complete this topic Pneumococcal Vaccine: Pediatrics (0 to 5 Years) and At-Risk Patients (6 to 64 Years) Aged Out No longer eligible based on patient's age to complete this topic Insurance CIG[employer] CIGNA Care Teams In Home Sales Representative Relationship Specialty Start Date End Date Hai Stevens MD [id number] [place], [place] PCP - General 04/29/20
--- OUTSIDE RECORDS SUMMARY | 2024-05-16 10:50 | XMS_ITS | Clinical Summary ---
Author Organization [employer] Address [address] [place] [address] Care Team Providers Care Clinical Practitioner Name Role Phone Hai Stevens MD Primary Care Provider [phone] Social History Tobacco Use Types Packs/Day Years Used Date Smoking Tobacco: Never Assessed Sex and Gender Information Value Date Recorded Sex Assigned at Not on file Gender Identity Not on file Sexual Orientation Not on file Job Start Date Occupation Industry Not on file Not on file Not on file Plan of Treatment Health Maintenance Due Date Last Done Comments CT Colonography 1960 Cologuard 1962 FOBT/FIT 1960 Hepatitis C Screening 1960 Sigmoidoscopy 1962 PHQ-9 Depression Screen 1974 BLAISE-7 Anxiety Screen 1980 DTaP,Tdap,and Td Vaccines (1 - Tdap) 1981 Cervical Cancer Screening (Pap/HPV) 11/11/1983 Zoster Vaccines (1 of 2) 2012 Annual Preventive Exam 09/26/2020 09/27/2019 Mammogram 04/05/2022 04/05/2020, 04/05/2020 RSV Vaccine (SCDM) (1 - Risk 60-74 years 1-dose series) 2022 COVID-19 Vaccine ( - season) 2023 Influenza Vaccine (#1) 2023 Colonoscopy 07/18/2029 07/19/2019 Colorectal Cancer Screening 07/18/2029 Care Teams Clinical Practitioner Relationship Specialty Start Date End Date Hai Stevens MD [address] [place] [address] [place] [id number] PCP - General Internal Medicine 11/10/21
--- OUTSIDE RECORDS SUMMARY | 2024-05-16 10:50 | XMS_ITS ---
Author Organization [facility] Address [address] [place] [address] Care Team Providers Care Composition Roofer Name Role Phone Hai Stevens MD Primary Care Provider Camryn Rodriguez [phone] REASON FOR VISIT Updating Health Insurance Encounters Encounter Location Date Provider Diagnosis [facility] [address] [place] [address] 09/23/2023 Camryn Harding Plan Of Treatment Next Appt Details Provider Name:Camryn valera, 06/27/2024 09:00:00 AM, [address] [facility] [place], [address], Progress Notes * Rajwinder HALL MDOB: [birth year] (62 yo F)Acc No.[id number]:09/23/2023 Patient:?Rajwinder Hall :1960???Age:62 Y???Sex:Female Address:[address], [address] * true * Date:? Generated for Printi saji/Marry/eTransmitting on:?05/16/2024 10:49 AM EST
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
== END 2024-05-16 10:22 | disposition home or self-care (01) ==
PROVIDERS: PCP Internal Medicine; Visit Provider Internal Medicine Hypertension Specialist
DX: R80.9 Proteinuria, unspecified (principal); E11.9 Type 2 diabetes mellitus without complications
CPT/HCPCS: 99214

== ENCOUNTER → 2024-05-16 10:03 | Outpatient (BNVA) | payer OTHER, SELFPAY | PROVIDERS: PCP Internal Medicine; Visit Provider Internal Medicine Hypertension Specialist ==

== ENCOUNTER 2024-05-23 08:00 | Outpatient (REF) | payer OTHER, SELFPAY ==
--- OUTSIDE RECORDS SUMMARY | 2024-05-23 11:07 | XMS_ITS | Clinical Summary ---
Author Organization [facility] Facility Address [address] [place] [address] Care Team Providers Care Administration Dean Name Role Phone Hai Stevens MD Primary Care Provider [phone] Allergies Active Allergy Reactions Criticality Noted Date [...] this topic Insurance CIGNA CIGNA Care Teams Administration Dean Relationship Specialty Start Date End Date Hai Stevens MD [address] [place], [place] PCP - General 04/29/20
--- OUTSIDE RECORDS SUMMARY | 2024-05-23 11:07 | XMS_ITS | Clinical Summary ---
Author Organization [employer] Address [address] [place] [address] Care Team Providers Care Enrollment Management Director Name Role Phone Hai Stevens MD Primary Care Provider [phone] Social History Tobacco Use Types Packs/Day Years [...] 07/19/2019 Colorectal Cancer Screening 07/18/2029 Care Teams Enrollment Management Director Relationship Specialty Start Date End Date Hai Stevens MD [address] [place] [address] [place] [address] PCP - General Internal Medicine 11/10/21
[2024-05-23 12:40] LABS: Influenza A PCR NEGATIVE (Negative); Influenza B PCR NEGATIVE (Negative); Resp Syncy Virus RNA Qual PCR POSITIVE (Negative); SARS COV2 PCR INHOUSE NEGATIVE (Negative)
== END 2024-05-23 08:01 | disposition home or self-care (01) ==
LOC: HO.LNP 08:00
PROVIDERS: Visit Provider Physician Assistant
DX: R05.1 Acute cough (principal); R09.89 Other specified symptoms and signs involving the circulatory and respiratory systems
CPT/HCPCS: 0241U

== ENCOUNTER 2024-05-23 08:00 | Outpatient (AMB) | payer OTHER, SELFPAY ==
--- OUTSIDE RECORDS SUMMARY | 2024-05-23 08:03 | XMS_ITS | Clinical Summary ---
Author Organization [employer] Address [address] [place] [address] Care Team Providers Care Cotton Program Technician Name Role Phone Hai Stevens MD Primary Care Provider [phone] Social History Tobacco Use Types Packs/Day Years [...] 07/19/2019 Colorectal Cancer Screening 07/18/2029 Care Teams Cotton Program Technician Relationship Specialty Start Date End Date Hai Stevens MD [address] [place] [address] [place] [address] PCP - General Internal Medicine 11/10/21
--- OUTSIDE RECORDS SUMMARY | 2024-05-23 08:03 | XMS_ITS | Clinical Summary ---
Author Organization [facility] Facility Address [address] [place] [address] Care Team Providers Care It Software Engineer Name Role Phone Hai Stevens MD Primary Care Provider [phone] Allergies Active Allergy Reactions Criticality Noted Date [...] this topic Insurance [employer] C[employer] Care Teams It Software Engineer Relationship Specialty Start Date End Date Hai Stevens MD [address] [place], [place] PCP - General 04/29/20
[2024-05-23 08:12] VITALS: BP 130/74; PULSE 91; TEMP 37.1; O2SAT 97
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
== END 2024-05-23 08:50 | disposition home or self-care (01) ==
PROVIDERS: PCP Internal Medicine; Visit Provider Physician Assistant
DX: J22 Unspecified acute lower respiratory infection (principal)

== ENCOUNTER 2024-05-23 08:00 | Outpatient (REF) | payer OTHER, SELFPAY ==
--- OUTSIDE RECORDS SUMMARY | 2024-05-23 08:44 | XMS_ITS | Clinical Summary ---
Author Organization [facility] Address [address] [place] [address] Care Team Providers Care Recreation Counselor Name Role Phone Hai Stevens MD Primary Care Provider [phone] Allergies Active Allergy Reactions Criticality Noted Date [...] this topic Insurance CIGNA CIGNA Care Teams Recreation Counselor Relationship Specialty Start Date End Date Hai Stevens MD [address] [place], [place] PCP - General 04/29/20
--- OUTSIDE RECORDS SUMMARY | 2024-05-23 08:44 | XMS_ITS | Clinical Summary ---
Author Organization [employer] Address [address] [place] [address] Care Team Providers Care Municipal Engineer Name Role Phone Hai Stevens MD Primary Care Provider [phone] Social History Tobacco Use Types Packs/Day Years [...] 07/19/2019 Colorectal Cancer Screening 07/18/2029 Care Teams Municipal Engineer Relationship Specialty Start Date End Date Hai Stevens MD [address] [place] [address] [place] [address] PCP - General Internal Medicine 11/10/21
== END 2024-05-23 08:01 | disposition home or self-care (01) ==
LOC: HO.LAB 08:00
PROVIDERS: PCP Internal Medicine; Visit Provider Physician Assistant
DX: J22 Unspecified acute lower respiratory infection (principal)
CPT/HCPCS: 94640

== ENCOUNTER 2024-05-23 08:53 | Outpatient (REF) | payer OTHER, SELFPAY ==
--- NOTE | ~2024-05-23 | XR_ITS ---
EXAMINATION: XR CHEST CLINICAL INFORMATION: R05.9 - Cough, unspecified COMPARISON: June 08, 2023. TECHNIQUE: 2 views of the chest were obtained. FINDINGS: Scapula overlapping the upper thorax, bilaterally. No hyperinflation. No consolidation pleural effusion or pneumothorax. Cardiomediastinal silhouette is normal in size. Mild multilevel thoracic and upper lumbar spondylosis. XR/XR chest 2V IMPRESSION: No acute airspace disease. Electronically signed by: Jairon Adames MD 05/23/2024 09:07 AM CAS
--- OUTSIDE RECORDS SUMMARY | 2024-05-23 09:07 | XMS_ITS | Clinical Summary ---
Author Organization [facility] Address [address] [place] [address] Care Team Providers Care Steam Clothes Press Operator Name Role Phone Hai Stevens MD Primary Care Provider [phone] Allergies Active Allergy Reactions Criticality Noted Date [...] this topic Insurance CIGNA CIGNA Care Teams Steam Clothes Press Operator Relationship Specialty Start Date End Date Hai Stevens MD [address] [place], [place] PCP - General 04/29/20
--- OUTSIDE RECORDS SUMMARY | 2024-05-23 09:07 | XMS_ITS | Clinical Summary ---
Author Organization [employer] Address [address] [place] [address] Care Team Providers Care Bulldozer Engineer Name Role Phone Hai Stevens MD Primary Care Provider [phone] Social History Tobacco Use Types Packs/Day Years [...] 07/19/2019 Colorectal Cancer Screening 07/18/2029 Care Teams Bulldozer Engineer Relationship Specialty Start Date End Date Hai Stevens MD [address] [place] [address] [place] [address] PCP - General Internal Medicine 11/10/21
== END 2024-05-23 08:54 | disposition home or self-care (01) ==
LOC: HO.HMGCX 08:53
PROVIDERS: PCP Internal Medicine; Visit Provider Physician Assistant
DX: R05.9 Cough, unspecified (principal)
CPT/HCPCS: 71046

== ENCOUNTER → 2024-05-23 08:57 | Outpatient (BNV) | payer OTHER, SELFPAY | PROVIDERS: PCP Internal Medicine; Visit Provider Radiology Diagnostic Radiology | DX: R05.9 Cough, unspecified (principal) | CPT/HCPCS: 71046 ==

== ENCOUNTER 2024-06-12 07:19 | Outpatient (AMB) | payer OTHER, SELFPAY ==
--- OUTSIDE RECORDS SUMMARY | 2024-06-12 07:21 | XMS_ITS ---
Author Organization [facility] Address [address] [facility] [place] [address] Care Team Providers Care Pourer Bull Ladle Name Role Phone Hai Stevens MD Primary Care Provider Unavaila Camryn Simmons Unavailable [phone] Allergies Allergen (clinical drug ingredient) Drug/Non Drug [...] W/U Status Risk Notes Problem Plantar wart (10029301) Plantar wart (B07.0) Active confirmed Vital Signs Height 5ft 7in in 12/14/2023 Weight 178 lbs 12/14/2023 BMI 27.88 kg/m2 12/14/2023 Blood pressure systolic 117 mm Hg 12/14/19 24 Blood pressure diastolic 75 mm Hg 024 Encounters Encounter Location Date Provider Diagnosis [facility] [address] [place] [address] 12/14/2023 Camryn Harding Type 2 diabetes mellitus [...] Provider Name:Camryn valera, 06/27/2024 09:00:00 AM, [address] [place] [address], [address], Procedure Notes * Category Sub-Category Detail Notes Wart Treatment Procedure Verrucae were de brided to pin-point bleeding margins with sterile 15 surgical blade, silver nitrate chemocautery applied, recomm. immune-boosting meds such as zinc, recomm. follow up with topical chemosurgical agents, Pt defers any other forms of tx (03147) Keratoma Treatment Parring or Cutting o f Benign Hyperkeratotic Lesion(s) 11908 (2-4 Lesions) - The Benign hyperkeratotic lesions, [...] as necessary. Patient chooses, no pharmaceutical tx (41107) Nail Reduction Nail Reduction Trimming of dyst rophic nails performed to reduce/remove overall nail length and girth, by manual and electrical means with use of a nail nipper and/or dremel, to more viable healthy nail plate or bed tissue 6-10 (G0127) Progress Notes * Rajwinder HALL MDOB: [birth year] (63 yo F)Acc No.[id number]:12/14/2023 Progress Note Patient:?Rajwinder Hall Provider:?Camryn Harding DPM :1960???Age:63 Y???Sex:Female D ate:12/14/2023 Address:[address] Pcp:Hai Stevens MD Subjective: * Chief Complaints: [...] History:?colonoscop y 07/2019 * [place]ization/Major Diagno stic [place] [place] * Family History:?Mother: [...] ?Exercise: yes, walking. ?Marital status: . ?Occupation: [employer] [facility] [facility] [place] * Medications:?TakingEscitalop dafne Oxalate 20 MG Tablet [...] as necessary. Patient chooses, no pharmaceutical tx (50385).?Keratoma Treatment:?Parring or Cutting of Benign Hyperkeratotic Lesion(s)?47612 (2-4 Lesions) - The Benign hyperkeratotic lesions, as described above were pared, and/or cut utilizing a sterile #15 blade, tissue nippers, and/or dremel.?Wart Treatment:?Procedure?Verrucae were debrided to pin-point bleeding margins with sterile 15 surgical blade, silver nitrate chemocautery applied, recomm. immune-boosting meds such as zinc, recomm. follow up with topical chemosurgical agents, Pt defers any other forms of tx (75113).?Nail Reduction:?Nail Reduction?Trimming of dystrophic nails performed to reduce/remove overall nail length and girth, by manual and electrical means with use of a nail nipper and/or dremel, to more viable healthy nail plate or bed tissue 6-10 (G0127).? * Procedure Codes:?75161 Wart Destruction, 1-14, Modifiers: XS G0127 TRIMMING DYSTROPHIC NAILS ANY #, Modifiers: XS 60048 TRIM SKIN LESIONS, 2 TO 4, Modifiers: XS 31475 DEBRIDE NAIL, 1-5, Modifiers: XS * Follow Up:?3 Months * Images: * Sign off status: Completed true * Provider:?Camryn Harding DPM Date:? Generated for Sofya lennon/Marry/Marcos on:?06/12/2024 07:20 AM EST History and Physical Notes * [...]
--- OUTSIDE RECORDS SUMMARY | 2024-06-12 07:21 | XMS_ITS | Clinical Summary ---
Author Organization [employer] Address [address] [place] [address] Care Team Providers Care Cashier Clerk Name Role Phone Hai Stevens MD Primary Care Provider [phone] Social History Tobacco Use Types Packs/Day Years Used Date Smoking Tobacco: Never Assessed Comments Unknown Sex and Gender Information Value Date Recorded Sex Assigned at Not on file Legal Sex Female 5:10 AM MST Gender Identity Not on file Sexual Orientation Not on file Plan of Treatment Health Maintenance Due Date Last Done Comments CT Colonography 1962 Cologuard 1962 FOBT/FIT 1962 Hepatitis C Screening 1960 Sigmoidoscopy 1962 PHQ-9 Depression Screen 1974 BLAISE-7 Anxiety Screen 1980 DTaP,Tdap,and Td Vaccines (1 - Tdap) 1981 Pneumococcal Vaccine: 50+ Ye ars (1 of 2 - PCV) 1981 Cervical Cancer Screening (Pap/HPV) 11/11/1983 Zoster Vaccines (1 of 2) 2012 Annual Preventive Exam 09/26/2020 09/27/2019 Mammogram 04/05/2022 04/05/2020, 04/05/2020 RSV Vaccine (SCDM) (1 - Risk 60-74 years 1-dose series) 2022 COVID-19 Vaccine (1 - season) 2023 Influenza Vaccine (#1) 2023 Colonoscopy 07/18/2029 07/19/2019 Colorectal Cancer Screening 07/18/2029 Insurance CIGNA Care Teams Cashier Clerk Relationship Specialty Start Date End Date Hai Stevens MD [address] [place] [address] [place] [address] PCP - General Internal Medicine 11/10/21
--- OUTSIDE RECORDS SUMMARY | 2024-06-12 07:21 | XMS_ITS ---
Author Organization [facility] Address [address] [facility] [place] [address] Care Team Providers Care Roof Cement And Paint Maker Helper Name Role Phone Hai Stevens MD Primary Care Provider Camryn Rodriguez [phone] REASON FOR VISIT Updating Health Insurance Encounters Encounter Location Date Provider Diagnosis [facility] [address] [facility] [place] [address] 09/23/2023 Camryn Harding Plan Of Treatment Next Appt Details Provider Name:Camryn valera, 06/27/2024 09:00:00 AM, [address] [facility] [place], [address], Progress Notes * Rajwinder HALL MDOB: [birth year] (62 yo F)Acc No.[id number]:09/23/2023 Patient:?Rajwinder Hall :1960???Age:62 Y???Sex:Female Address:[address], [address] * true * Date:? Generated for Printi saji/Marry/eTransmitting on:?06/12/2024 07:20 AM EST
--- OUTSIDE RECORDS SUMMARY | 2024-06-12 07:21 | XMS_ITS | Patient Health Record ---
Author Organization [facility] Address [address] [facility] [place] [address] Care Team Providers Care Leasing Professional Name Role Phone Rodney SANCHES, Hai Primary Care Provider Camryn Rodriguez Unavailable [phone] Allergies Allergen (clinical drug ingredient) Drug/Non Drug [...] Vaccine Route Administration Date Status Comme nts Influenza Unknown 01/15/2017 Administered Influenza Unknown 12/18/2017 Administered Influenza Unknown 02/16/2019 Administered Influenza Unknown 02/16/2020 Administered Influenza Unknown 01/21/2021 Administered Influenza Unknown 12/18/2021 Administered Influenza Unknown 01/18/2023 Administered COVID-19 Pfizer BioNTech Vaccine Unknown 12/31/2020 Administered First Dose: 04/08/2020 Second given 04/29/2020 Social History Tobacco Use: Social History Observation [...] W/U Status Risk Notes Problem Plantar wart (92213067) Plantar wart (B07.0) Active confirmed Problem 299225967 Hammer toe of right foot (M20.41) Active confirmed Problem 905821589 Hammer toe of left foot (M20.42) Active confirmed Problem 334106921 Type 2 diabetes mellitus without complication, without long-term current use of insulin (E11.9) Active confirmed Vital Signs Blood pressure diastolic 81 mm Hg 03/21/2024 Height 5ft7in in 03/21/2024 Blood pressure systolic 115 mm Hg 03/21/2024 Weight 175 lbs 03/21/2024 BMI 27.41 kg/m2 03/21/2024 Encounters Encounter Location Date Provider Diagnosis [address] [address] 06/15/2023 Camryndarin Harding Type 2 diabetes mellitus without complication, without long-term current use of insulin E11.9 ; Tinea unguium B35.1 ; Pain in toe of left foot M79.675 and Pain in toe of right foot M79.[address] [address] 12/14/2023 Camryn Harding Type 2 diabetes mellitus without complication, without long-term current use of insulin E11.9 ; Tinea unguium B35.1 ; Pain in toe of left foot M79.675 ; Pain in toe of right foot M79.674 ; Right foot pain M79.671 and Plantar wart B07.[address] [address] 03/21/2024 Camryn Harding Type 2 diabetes mellitus without complication, without long-term current use of insulin E11.9 ; Tinea unguium B35.1 ; Pain in toe of left foot M79.675 ; Pain in toe of right foot M79.674 ; Right foot pain M79.671 ; Plantar wart B07.0 and Pain in left foot M79.[address] [address] 06/15/2023 Camryn Harding [address] [address] 09/17/2023 Camryn Harding [facility] [address] [place] [address] 09/23/2023 Camryn Harding Assessments Encounter Date Diagnosis [...] X ray : Foot, right 3V 08/11/2022 [id number] DYSTROPHIC NAILS ANY # [id number] DYSTROPHIC NAILS ANY # 55220,[id number] TENDON SHEATH/LIGAMENT 0 11/24/2019 Next Appt Details Provider Name:Camryn Valera Nelson valera, 06/27/2024 09:00:00 AM, [address] [place], [address], Insurance Providers Payer Name Payer Address Payer Phone Subscriber Number Group Number Insured Name Patient Relationship to Insured Coverage Start Date Coverage End Date Blue Benefits [address] [address] [place] [address] [id number] Rajwinder Hall Self - patient is the insured Medical (General) History Medical History History ICD Code Anxiety Cholesterol Depression type II diabetes Kidney disease Chicken pox Surgical History Surgery Date(Month/Year) colonoscopy 07/2019 Hospitalization History Reason Date(Month/Year) [facility] [place] 02/2018
--- OUTSIDE RECORDS SUMMARY | 2024-06-12 07:21 | XMS_ITS | Clinical Summary ---
Author Organization [facility] Address [address] [place] [address] Care Team Providers Care Liability Claims Examiner Name Role Phone Hai Stevens MD Primary Care Provider [phone] Allergies Active Allergy Reactions Criticality Noted Date [...] this topic Insurance CIGNA CIGNA Care Teams Liability Claims Examiner Relationship Specialty Start Date End Date Hai Stevens MD [address] [place], [place] PCP - General 04/29/20
--- NOTE | 2024-06-12 07:22 | MHC.OFFVIS ---
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/DO NOT RS Pre Sales Architect Required: No Information Interpreted: non-clinical & clinical Business Transformation Consultant: Business Transformation Consultant Present (Xin SCHAEFER) Accompanied by: Self / Same As Patient Allergies MILTON Inhibitors [MILTON INHIBITORS] Allergy (Severe, Verified 06/12/24 07:27) SWELLING,ANAPHYLAXIS Calcium Channel Blocking Agents-Dih [CALCIUM CHANNEL BLOCKING AGENTS-DIH] Allergy (Severe, Verified 06/12/24 07:27) SEVERE WEIGHT LOSS lidocaine [LIDOCAINE] Allergy (Severe, Verified 06/12/24 07:27) ANAPHYLAXIS amlodipine [AMLODIPINE] Allergy (Intermediate, Verified 06/12/24 07:27) HIVES, rash aspirin [ASPIRIN] Allergy (Intermediate, Verified 06/12/24 07:27) GI UPSET, rash codeine [CODEINE] Allergy (Intermediate, Verified 06/12/24 07:27) GI UPSET, rash acetaminophen [Percocet] Allergy (Unknown, Verified 06/12/24 07:27) Unknown amoxicillin [AMOXICILLIN] Allergy (Unknown, Verified 06/12/24 07:27) UNKNOWN Anesthetics - Amide Type - Select A [ANESTHETICS - AMIDE TYPE] Allergy (Unknown, Verified 06/12/24 07:27) ANESTHETIC ADDITIVES lisinopril Allergy (Unknown, Verified 06/12/24 07:27) Angioedema, anaphylaxis morphine Allergy (Unknown, Verified 06/12/24 07:27) rash oxycodone [Percocet] Allergy (Unknown, Verified 06/12/24 07:27) Unknown From Novocain Allergy (Severe, Uncoded 06/12/24 07:27) ANAPHYLAXIS ... additives or preservative Allergy (Unknown, Uncoded 06/12/24 07:27) unknown MILTON Inhibitors Allergy (Unknown, Uncoded 06/12/24 07:27) unknown calcium blockers Allergy (Unknown, Uncoded 06/12/24 07:27) unnown Calcium Channel blockers Allergy (Unknown, Uncoded 06/12/24 07:27) anaphylaxis Codeine Phosphate Allergy (Unknown, Uncoded 06/12/24 07:27) unknown Novocain Allergy (Unknown, Uncoded 06/12/24 07:27) anaphylaxis From PERCOCET Adverse Reaction (Intermediate, Uncoded 06/12/24 07:27) GI UPSET Post menopausal: Yes HPI Comments Details: Presenting for annual exam. No complaints. Last Pap/HPV was in 10/06 was negative Last Mammogram was BI-RADS 1 in 06/12 Last Colonoscopy was in 08/06, the recommendation was to repeat in 5 years [facility] Medical History Colonoscopy planned Kidney disease Diabetes mellitus Surgical History H/O breast surgery No history of previous surgery Family History Mother No problems noted. Father No problems noted. Social History Housing: House Alcohol intake: current Alcohol intake frequency: holidays/special occasions only Patient Tobacco Use Status: Never used Tobacco Tobacco use type: Cigarette e-Cigarette/Vaping Use: Never Used Second Hand Smoke Exposure: No Current occupational status: employed Current occupation: right hand dominant Cognitive needs: No Hearing needs: No Vision needs: No Female Reproductive History Menstrual Age of Menarche: 13 Date of last pap smear: 09/28/19 Date of Mammogram: 06/04/23 Review of Systems Const All systems reviewed & are unremarkable except as noted in HPI and below Card Reports as per HPI Resp Reports as per HPI GI Reports as per HPI and Reports no additional complaints Reports as per HPI Physical Exam Vital Signs: Last Vital Signs BP 122/82 06/12/24 07:23 BMI result Body Mass Index 31.6 Const General: cooperative, healthy appearing and comfortable Chest Chest palpation & inspection: normal inspection of the chest and normal palpation of entire chest wall Breast/axilla inspection: normal inspection of the breasts and normal inspection of the axillae Breast/axilla palpation: normal palpation of the breasts, normal palpation of the axillae and no axillary lymphadenopathy Resp Effort & Inspection: normal respiratory effort Auscultation: clear to auscultation bilaterally Percussion: percussion normal Cardio Palpation: normal PMI Rate: regular rate Rhythm: regular rhythm Heart sounds: no murmurs and no rubs Peripheral pulses: Peripheral pulses 2+ throughout GI Inspection: Yes normal to inspection Palpation (GI): Soft to palpation, nontender, no guarding, not rigid and No hepatosplenomegaly present Percussion: Yes normal to percussion Auscultation: normal bowel sounds Rectal Exam - Female: deferred General: Yes bladder normal to palpation External Female Exam: No lesion Speculum Exam - Vagina: normal appearance of the vagina, normal palpation, normal vaginal discharge and not erythematous Speculum Exam - Cervix: normal appearance of the cervix and normal palpation Bimanual exam- vagina & uterus: normal bimanual exam, normal palpation, uterine size normal, bladder normal to palpation, consistency normal and normal palpation Bimanual Exam- Adnexa, other: normal adnexae, no masses and no tenderness Assessment & Plan Assessment & Plan (1) Well woman exam: Code(s): Z01.419 - Encounter for gynecological examination (general) (routine) without abnormal findings Category: Medical Plan: Co testing done. Counseled the patient about the recommended dietary allowance of 1200 mg of Calcium & 600 IU of vitamin D. Mammogram schedule in 08/11. The patient was referred to GI for screening colonoscopy . The patient was instructed to perform monthly self-breast exams and schedule annual exam in a year. All questions answered and the patient verbalized understanding. Orders: Referrals Gastroenterology Referral Z12.11 - Encounter for screening for malignant neoplasm of colon Coding Level of Care Code Est Pt Prev Care 40-64y([address]) Diagnoses Well woman exam Z01.419
[2024-06-12 07:23] VITALS: BP 122/82; BMI 31.6
== END 2024-06-12 07:58 | disposition home or self-care (01) ==
LOC: HO.HWS 07:19
PROVIDERS: PCP Internal Medicine; Visit Provider Obstetrics & Gynecology
DX: Z01.419 Encounter for gynecological examination (general) (routine) without abnormal findings (principal)
CPT/HCPCS: 99396; 99459

== ENCOUNTER 2024-06-12 07:19 | Outpatient (REF) | payer OTHER, SELFPAY ==
--- OUTSIDE RECORDS SUMMARY | 2024-06-12 08:20 | XMS_ITS | Clinical Summary ---
Author Organization [employer] Address [address] [place] [address] Care Team Providers Care Feather Duster Winder Name Role Phone Hai Stevens MD Primary Care Provider [phone] Social History Tobacco Use Types Packs/Day Years [...] Cancer Screening 07/18/2029 Insurance [employer] Care Teams Feather Duster Winder Relationship Specialty Start Date End Date Hai Stevens MD [address] [place] [address] [place] [address] PCP - General Internal Medicine 11/10/21
--- OUTSIDE RECORDS SUMMARY | 2024-06-12 08:21 | XMS_ITS | Clinical Summary ---
Author Organization [facility] Facility Address [address] [place] [address] Care Team Providers Care Office Machine Inspector Name Role Phone Hai Stevens MD Primary Care Provider Allergies Active Allergy Reactions Criticality Noted Date [...] this topic Insurance [employer] CIGNA Care Teams Office Machine Inspector Relationship Specialty Start Date End Date Hai Stevens MD [address] [place], [place] PCP - General 04/29/20
[2024-06-20 10:29] LABS: HPV Genotype 16 Negative (Negative); HPV Genotype 18 Negative (Negative); HPV High Risk Negative (Negative)
== END 2024-06-12 07:20 | disposition home or self-care (01) ==
LOC: HO.LNP 07:19
PROVIDERS: PCP Internal Medicine; Visit Provider Obstetrics & Gynecology
DX: Z01.419 Encounter for gynecological examination (general) (routine) without abnormal findings (principal)
CPT/HCPCS: 87626; 88175

== ENCOUNTER 2024-06-13 07:56 | Outpatient (AMB) | payer OTHER, SELFPAY ==
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
--- OUTSIDE RECORDS SUMMARY | 2024-06-13 08:00 | XMS_ITS | Clinical Summary ---
Author Organization [facility] Address [address] [place] [address] Care Team Providers Care Personal Attendant Name Role Phone Hai Stevens MD Primary Care Provider [phone] Allergies Active Allergy Reactions Criticality Noted Date [...] this topic Insurance CIGNA CIGNA Care Teams Personal Attendant Relationship Specialty Start Date End Date Hai Stevens MD [address] [place], [place] PCP - General 04/29/20
--- OUTSIDE RECORDS SUMMARY | 2024-06-13 08:00 | XMS_ITS | Clinical Summary ---
Author Organization [employer] Address [address] [place] [address] Care Team Providers Care Paraprofessional Aide Name Role Phone Hai Stevens MD Primary Care Provider [phone] Social History Tobacco Use Types Packs/Day Years [...] Cancer Screening 07/18/2029 Insurance CIGNA Care Teams Paraprofessional Aide Relationship Specialty Start Date End Date Hai Stevens MD [address] [place] [address] [place] [address] PCP - General Internal Medicine 11/10/21
--- OUTSIDE RECORDS SUMMARY | 2024-06-13 08:00 | XMS_ITS ---
Author Organization [facility] [place] Address [address] [facility] [place] [address] Care Team Providers Care Mophead Trimmer And Wrapper Name Role Phone Hai Stevens MD Primary Care Provider Camryn Rodriguez [phone] REASON FOR VISIT Updating Health Insurance Encounters Encounter Location Date Provider Diagnosis [facility] [address] [facility] [place] [address] 09/23/2023 Camryn Harding Plan Of Treatment Next Appt Details Provider Name:Camryn valera, 06/27/2024 09:00:00 AM, [address] [facility] [place], [address], Progress Notes * Rajwinder HALL MDOB: [birth year] (62 yo F)Acc No.[id number]:09/23/2023 Patient:?Rajwinder Hall :1960???Age:62 Y???Sex:Female Address:[address] [place], [address] * true * Date:? Generated for Printi saji/Marry/eTransmitting on:?06/13/2024 07:59 AM EST
--- OUTSIDE RECORDS SUMMARY | 2024-06-13 08:00 | XMS_ITS | Patient Health Record ---
[facility] Address [address] [facility] [place] [address] Care Team Providers Care Airport Refueling Handler Name Role Phone Rodney SANCHES, Hai Primary Care Provider Camryn Rodriguez Unavailable [phone] Allergies Allergen (clinical drug ingredient) Drug/Non Drug [...] W/U Status Risk Notes Problem Plantar wart (47434957) Plantar wart (B07.0) Active confirmed Problem 177330415 Hammer toe of right foot (M20.41) Active confirmed Problem 567589260 Hammer toe of left foot (M20.42) Active confirmed Problem 383109995 Type 2 diabetes mellitus without complication, without long-term current use of insulin (E11.9) Active confirmed Vital Signs Blood pressure diastolic 81 mm Hg 03/21/2024 Height 5ft7in in 03/21/2024 Blood pressure systolic 115 mm Hg 03/21/2024 Weight 175 lbs 03/21/2024 BMI 27.41 kg/m2 03/21/2024 Encounters Encounter Location Date Provider Diagnosis [address] [address] 06/15/2023 Camryndarin Harding Type 2 diabetes mellitus without complication, without long-term current use of insulin E11.9 ; Tinea unguium B35.1 ; Pain in toe of left foot M79.675 and Pain in toe of right foot M79.[address] [address] 12/14/2023 Camryn Harding Type 2 diabetes mellitus without complication, without long-term current use of insulin E11.9 ; Tinea unguium B35.1 ; Pain in toe of left foot M79.675 ; Pain in toe of right foot M79.674 ; Right foot pain M79.671 and Plantar wart B07.[address] [address] 03/21/2024 Camryn Harding Type 2 diabetes mellitus without complication, without long-term current use of insulin E11.9 ; Tinea unguium B35.1 ; Pain in toe of left foot M79.675 ; Pain in toe of right foot M79.674 ; Right foot pain M79.671 ; Plantar wart B07.0 and Pain in left foot M79.[address] [address] 06/15/2023 Camryn Harding [address] [address] 09/17/2023 Camryn Harding [facility] [address] [place] [address] 09/23/2023 Camryn Harding Assessments Encounter Date Diagnosis [...] X ray : Foot, right 3V 08/11/2022 [id number] DYSTROPHIC NAILS ANY # [id number] DYSTROPHIC NAILS ANY # [id number] TENDON SHEATH/LIGAMENT 0 11/24/2019 Next Appt Details Provider Name:Camryn Valera Nelson valera, 06/27/2024 09:00:00 AM, [address] [place], [address], Insurance Providers Payer Name Payer Address Payer Phone Subscriber Number Group Number Insured Name Patient Relationship to Insured Coverage Start Date Coverage End Date Blue Benefits [address] [address] [place] [address] [id number] Rajwinder Hall Self - patient is the insured Medical (General) History Medical History History ICD Code Anxiety Cholesterol Depression type II diabetes Kidney disease Chicken pox Surgical History Surgery Date(Month/Year) colonoscopy 07/2019 Hospitalization History Reason Date(Month/[place] [facility] [place]
[2024-06-13 08:29] VITALS: BMI 31.1
--- NOTE | 2024-06-13 08:29 | A.OFFVIS_ITS ---
VS Expanded 06/13/24 08:29 Height 5 ft 7 in Weight 198 lb 13.711 oz BMI 31.1 Intake Visit Reasons: T2DM/obesity/HTN Allergies MILTON Inhibitors [MILTON INHIBITORS] Allergy (Severe, Verified 06/12/24 07:27) SWELLING,ANAPHYLAXIS Calcium Channel Blocking Agents-Dih [CALCIUM CHANNEL BLOCKING AGENTS-DIH] Allergy (Severe, Verified 06/12/24 07:27) SEVERE WEIGHT LOSS lidocaine [LIDOCAINE] Allergy (Severe, Verified 06/12/24 07:27) ANAPHYLAXIS amlodipine [AMLODIPINE] Allergy (Intermediate, Verified 06/12/24 07:27) HIVES, rash aspirin [ASPIRIN] Allergy (Intermediate, Verified 06/12/24 07:27) GI UPSET, rash codeine [CODEINE] Allergy (Intermediate, Verified 06/12/24 07:27) GI UPSET, rash acetaminophen [Percocet] Allergy (Unknown, Verified 06/12/24 07:27) Unknown amoxicillin [AMOXICILLIN] Allergy (Unknown, Verified 06/12/24 07:27) UNKNOWN Anesthetics - Amide Type - Select A [ANESTHETICS - AMIDE TYPE] Allergy (Unknown, Verified 06/12/24 07:27) ANESTHETIC ADDITIVES lisinopril Allergy (Unknown, Verified 06/12/24 07:27) Angioedema, anaphylaxis morphine Allergy (Unknown, Verified 06/12/24 07:27) rash oxycodone [Percocet] Allergy (Unknown, Verified 06/12/24 07:27) Unknown From Novocain Allergy (Severe, Uncoded 06/12/24 07:27) ANAPHYLAXIS ... additives or preservative Allergy (Unknown, Uncoded 06/12/24 07:27) unknown MILTON Inhibitors Allergy (Unknown, Uncoded 06/12/24 07:27) unknown calcium blockers Allergy (Unknown, Uncoded 06/12/24 07:27) unnown Calcium Channel blockers Allergy (Unknown, Uncoded 06/12/24 07:27) anaphylaxis Codeine Phosphate Allergy (Unknown, Uncoded 06/12/24 07:27) unknown Novocain Allergy (Unknown, Uncoded 06/12/24 07:27) anaphylaxis From PERCOCET Adverse Reaction (Intermediate, Uncoded 06/12/24 07:27) GI UPSET Nutrition Presentation Details: Pt presents for MNT f/u for T2DM and obesity Pt reports challenges with consistency in diet modifications food frequency fruits: 1-2/day veservings protein: variety 3-4 oz/ dairy: 2 servings snacks: nuts/popcorn/crackers/juices physical activity: sedentary (was having a walking routine but stopped) ETOH: occ BS Monitoring Most Recent Diabetes Results: No Data to Display [facility] Medical History Colonoscopy planned Kidney disease Diabetes mellitus Surgical History H/O breast surgery No history of previous surgery Family History Mother No problems noted. Father No problems noted. Social History Housing: House Alcohol intake: current Alcohol intake frequency: holidays/special occasions only Patient Tobacco Use Status: Never used Tobacco Tobacco use type: Cigarette e-Cigarette/Vaping Use: Never Used Second Hand Smoke Exposure: No Current occupational status: employed Current occupation: right hand dominant Cognitive needs: No Hearing needs: No Vision needs: No Female Reproductive History Menstrual Age of Menarche: 13 Assessment & Plan Assessment & Plan (1) Diabetes mellitus with coincident hypertension: Code(s): E11.9 - Type 2 diabetes mellitus without complications; I10 - Essential (primary) hypertension Category: Medical Plan: Wt: 94Kg ( July/2023 ), ----, 88 kg (03/12), 89 kg ( 05/13), 90kg(06/13) Est kcal needs as per MSJ: 1800 (40% carb, 30% protein/fat) Est fluid needs as per 25-30 ml/d: 2800 Est prot per day as per 1 g/kg bw: 94 Recommend fiber intake : 8-10 g per day and gradually increase to 25-28 g per day for women and 35-38 g for men or as tolerated Recommend sodium intake per day : less than 2000 mg Educated patient on: ( R = reviewed V = verbalizes understanding N/R = needs review N/A = not applicable * Food sources of carbohydrate, adequate serving sizes and its role in various health conditions: R * Differences between complex carbohydrates a simple carbohydrates, role of fiber in diet: R * Lean protein sources of foods: R * Meal replacement and snack replacement option: R * Differences between types of fats and role in diet (mono on saturated fat fatty acids, saturated fatty acids, trans fats): R * Food sources of sodium in salt and healthy modifications for heart health in kidney health: R * Vitamins and minerals: N/R * Healthy plate method concept: R * Physical activity: Benefits a precaution: R * Hypoglycemia protocol (rule of 15): R V * Dietary prevention of Hyperglycemia: R Patient Instructions: Resume walking 15 min to start and gradually increase to 30 minutes, keep hydrated Read labels - limit snack to less than 3 a day and choose those with less than 100 calories Be mindful of hidden fats Coding Level of Care Code Nutr Indiv Subseq (79767) Diagnoses Diabetes mellitus with coincident hypertension E11.9; I10 Time Spent (min) 30
== END 2024-06-13 08:55 | disposition home or self-care (01) ==
PROVIDERS: PCP Internal Medicine; Visit Provider Dietitian, Registered
DX: E11.9 Type 2 diabetes mellitus without complications (principal); I10 Essential (primary) hypertension

== ENCOUNTER → 2024-06-13 07:56 | Outpatient (BNVA) | payer OTHER, SELFPAY | PROVIDERS: PCP Internal Medicine; Visit Provider Dietitian, Registered | DX: E11.9 Type 2 diabetes mellitus without complications (principal); I10 Essential (primary) hypertension; E66.9 Obesity, unspecified; Z68.31 Body mass index [BMI] 31.0-31.9, adult; Z71.3 Dietary counseling and surveillance | CPT/HCPCS: 97803 ==

== ENCOUNTER 2024-06-16 08:37 | Outpatient (REF) | payer OTHER, SELFPAY ==
--- OUTSIDE RECORDS SUMMARY | 2024-06-16 08:54 | XMS_ITS ---
Author [facility] Address [address] [facility] [place] [address] Care Team Providers Care Paymaster Of Purses Name Role Phone Hai Stevens MD Primary Care Provider Camryn Rodriguez Unavailable [phone] Allergies Allergen (clinical drug ingredient) Drug/Non Drug Allergy documented on EMR Reaction Allergy Type Onset Date Status ibuprofen Advil kidney disease Drug Allergy Ac tive amlodipine Amlodipine Besylate Unknown Drug Allergy Active amoxicillin Amoxicillin Unknown Drug Allergy Act jonathan aspirin Aspirin upset stomach Drug Allergy Act jonathan EPINEPHrine Unknown Drug Allergy Activ e Lisinopril Unknown Drug Allergy Active acetaminophen / oxycodone Percocet Unknown Drug Allergy [...] W/U Status Risk Notes Problem Plantar wart (88762515) Plantar wart (B07.0) Active confirmed Vital Signs Height 5ft 7in in 12/14/2023 Weight 178 lbs 12/14/2023 BMI 27.88 kg/m2 12/14/2023 Blood pressure systolic 117 mm Hg 12/14/19 24 Blood pressure diastolic 75 mm Hg 024 Encounters Encounter Location Date Provider Diagnosis [facility] [address] [place] [address] 12/14/2023 Camryn Harding Type 2 diabetes mellitus [...] Reason: Provider Name:Camryn valera, 06/27/2024 09:00:00 AM, [address] [place] [address], [address], Procedure Notes * Category Sub-Category Detail Notes Wart Treatment Procedure Verrucae were de brided to pin-point bleeding margins with sterile 15 surgical blade, silver nitrate chemocautery applied, recomm. immune-boosting meds such as zinc, recomm. follow up with topical chemosurgical agents, Pt defers any other forms of tx (25519) Keratoma Treatment Parring or Cutting o f Benign Hyperkeratotic Lesion(s) 54640 (2-4 Lesions) - The Benign hyperkeratotic lesions, [...] as necessary. Patient chooses, no pharmaceutical tx (73731) Nail Reduction Nail Reduction Trimming of dyst rophic nails performed to reduce/remove overall nail length and girth, by manual and electrical means with use of a nail nipper and/or dremel, to more viable healthy nail plate or bed tissue 6-10 (G0127) Progress Notes * Rajwinder HALL MDOB: [birth year] (63 yo F)Acc No.[id number]:12/14/2023 Progress Note Patient:?Ina Halle Tari Provider:?Camryn Harding DPM :1960???Age:63 Y???Sex:Female D ate:12/14/2023 Address:[address] Pcp:Hai Stevens MD Subjective: * Chief Complaints: [...] History:?colonoscop y 07/2019 * Hospitalization/Major Diagno stic Procedure:?[facility] [place] - [place] 02/2018 * Family History:?Mother: [...] ?Exercise: yes, walking. ?Marital status: . ?Occupation: [facility] [place]. * Medications:?TakingEscitalop dafne Oxalate 20 MG Tablet [...] 5.6 * Examination: ???Ophthalmology Referral: ?DIABETES EYE EXAM?Diabetic Retinopathy Screening:?Yes 07/2023 ?Findings of Diabetic Eye Exam:?no retinopathy?Dermatologic: ?SKIN FINDINGS:? Skin shows sign(s) of, a [...] as necessary. Patient chooses, no pharmaceutical tx (88133).?Keratoma Treatment:?Parring or Cutting of Benign Hyperkeratotic Lesion(s)?45572 (2-4 Lesions) - The Benign hyperkeratotic lesions, as described above were pared, and/or cut utilizing a sterile #15 blade, tissue nippers, and/or dremel.?Wart Treatment:?Procedure?Verrucae were debrided to pin-point bleeding margins with sterile 15 surgical blade, silver nitrate chemocautery applied, recomm. immune-boosting meds such as zinc, recomm. follow up with topical chemosurgical agents, Pt defers any other forms of tx (44873).?Nail Reduction:?Nail Reduction?Trimming of dystrophic nails performed to reduce/remove overall nail length and girth, by manual and electrical means with use of a nail nipper and/or dremel, to more viable healthy nail plate or bed tissue 6-10 (G0127).? * Procedure Codes:?56648 Wart Destruction, 1-14, Modifiers: XS G0127 TRIMMING DYSTROPHIC NAILS ANY #, Modifiers: XS 18562 TRIM SKIN LESIONS, 2 TO 4, Modifiers: XS 32716 DEBRIDE NAIL, 1-5, Modifiers: XS * Follow Up:?3 Months * Images: * Sign off status: Completed true * Provider:?Camryn Harding, HEAVEN Date:? Generated for Sofya lennon/Faxing/eTransmitting on:?06/16/2024 08:54 AM EST History and Physical Notes * [...]
--- OUTSIDE RECORDS SUMMARY | 2024-06-16 08:54 | XMS_ITS | Clinical Summary ---
Author Organization [employer] Address [address] [place] [address] Care Team Providers Care Grain Combine Driver Name Role Phone Hai Stevens MD Primary Care Provider Social History Tobacco Use Types Packs/Day Years [...] Cancer Screening 07/18/2029 Insurance [employer] Care Teams Grain Combine Driver Relationship Specialty Start Date End Date Hai Stevens MD [address] [place] [address] [place] [address] PCP - General Internal Medicine 11/10/21
--- OUTSIDE RECORDS SUMMARY | 2024-06-16 08:54 | XMS_ITS | Patient Health Record ---
Author [facility] Address [address] [facility] [place] [address] Care Team Providers Care Wreath And Garland Maker Hand Name Role Phone Rodney SANCHES, Hai Primary Care Provider Camryn Rodriguez Unavailable [phone] Allergies Allergen (clinical drug ingredient) Drug/Non Drug [...] W/U Status Risk Notes Problem Plantar wart (47483744) Plantar wart (B07.0) Active confirmed Problem 092482721 Hammer toe of right foot (M20.41) Active confirmed Problem 369753542 Hammer toe of left foot (M20.42) Active confirmed Problem 205632688 Type 2 diabetes mellitus without complication, without long-term current use of insulin (E11.9) Active confirmed Vital Signs Blood pressure diastolic 81 mm Hg 03/21/2024 Height 5ft7in in 03/21/2024 Blood pressure systolic 115 mm Hg 03/21/2024 Weight 175 lbs 03/21/2024 BMI 27.41 kg/m2 03/21/2024 Encounters Encounter Location Date Provider Diagnosis [address] [address] 12/14/2023 Camryn Harding Type 2 diabetes mellitus without complication, without long-term current use of insulin E11.9 ; Tinea unguium B35.1 ; Pain in toe of left foot M79.675 ; Pain in toe of right foot M79.674 ; Right foot pain M79.671 and Plantar wart B07.[address] [address] 03/21/2024 Camryn Harding Type 2 diabetes mellitus without complication, without long-term current use of insulin E11.9 ; Tinea unguium B35.1 ; Pain in toe of left foot M79.675 ; Pain in toe of right foot M79.674 ; Right foot pain M79.671 ; Plantar wart B07.0 and Pain in left foot M79.[address] [address] 09/17/2023 Camryn Harding [address] [address] 09/23/2023 Camryn Harding Assessments Encounter Date Diagnosis (ICD Code) Assessment Notes Treatment Notes Treatment Clinical Notes Section Notes 12/14/2023 Tinea unguium (ICD-10 - B35.1) 12/14/2023 Type 2 diabetes mellitus without complication, [...] 12/14/2023 Right foot pain (ICD-10 - M79.671) 03/21/2024 Plantar wart (ICD-10 - B07.0) 12/14/2023 Plantar wart (ICD-10 - B07.0) 03/21/2024 Pain in left foot (ICD-10 - M79.672) Plan Of Treatment Pending Test Test Name Order Date X ray : Foot, right 3V 08/11/2022 [id number] DYSTROPHIC NAILS ANY # [id number] DYSTROPHIC NAILS ANY # [id number] TENDON SHEATH/LIGAMENT 0 11/24/2019 Next Appt Details Provider Name:Camryn valera, 06/27/2024 09:00:00 AM, [address] [place], [address], Insurance Providers Payer Name Payer Address Payer Phone Subscriber Number Group Number Insured Name Patient Relationship to Insured Coverage Start Date Coverage End Date Blue Benefits [address] [address] [place] [address] [id number] Rajwinder Hall Self - patient is the insured Medical (General) History Medical History History ICD Code Anxiety Cholesterol Depression type II diabetes Kidney disease Chicken pox Surgical History Surgery Date(Month/Year) colonoscopy 07/2019 Hospitalization History Reason Date(Month/Year) [facility] [place] [facility] [place]
--- OUTSIDE RECORDS SUMMARY | 2024-06-16 08:54 | XMS_ITS ---
Author Organization [facility] [place] Address [address] [facility] [place] [address] Care Team Providers Care Speech Communication Professor Name Role Phone Hai Stevens MD Primary Care Provider Camryn Rodriguez [phone] REASON FOR VISIT Updating Health Insurance Encounters Encounter Location Date Provider Diagnosis [facility] [address] [facility] [place] [address] 09/23/2023 Camryn Harding Plan Of Treatment Next Appt Details Provider Name:Camryn valera, 06/27/2024 09:00:00 AM, [address] [facility] [place], [address], Progress Notes * Rajwinder HALL MDOB: [birth year] (62 yo F)Acc No.[id number]:09/23/2023 Patient:?Rajwinder Hall :1960???Age:62 Y???Sex:Female Address:[address] [place], [address] * true * Date:? Generated for Printi saji/Nag/eTransmitting on:?06/16/2024 08:54 AM EST
--- OUTSIDE RECORDS SUMMARY | 2024-06-16 08:54 | XMS_ITS | Clinical Summary ---
Author Organization [facility] Facility Address [address] [place] [address] Care Team Providers Care Childcare Attendant Name Role Phone Hai Stevens MD Primary Care Provider [phone] Allergies Active Allergy Reactions Criticality Noted Date [...] this topic Insurance CIGNA CIGNA Care Teams Childcare Attendant Relationship Specialty Start Date End Date Hai Stevens MD [address] [place], [place] PCP - General 04/29/20
[2024-06-16 10:44] LABS: Appearance Urine Clear; Color Urine Yellow; Glucose Urine UA Negative (Negative); Leukocyte Esterase Urine Negative (Negative); Nitrite Urine Negative (Negative); PH 5.5 (5.0-9.0); Specific Gravity - Urine <= 1.005 (1.005-1.025); Urine Blood Negative (Negative); Urine Ketones Negative (Negative); Urine Protein Negative (Neg-Trace)
[2024-06-16 10:57] LABS: Anion Gap 11 (12-20); Blood Urea Nitrogen 11 mg/dL (9-16); Calcium 9.8 mg/dL (8.4-10.2); Carbon Dioxide 25 mmol/L (22-29); Chloride 107 mmol/L (96-108); Estimated Glomerular Filt Rate > 60; Glucose Random 86 mg/dL (60-115); Potassium 4.3 mmol/L (3.3-5.1); Sodium 139 mmol/L (135-145)
[2024-06-16 11:08] LABS: Creatinine Urine 42.87 mg/dL; Total Protein Urine Random < 7 mg/dL (<12)
== END 2024-06-16 08:38 | disposition home or self-care (01) ==
LOC: HO.LAB 08:37
PROVIDERS: Internal Medicine Hypertension Specialist; PCP Internal Medicine; Visit Provider Internal Medicine
DX: I10 Essential (primary) hypertension (principal); R80.9 Proteinuria, unspecified
CPT/HCPCS: 36415; 80048; 81003; 82570; 84156

== ENCOUNTER 2024-06-28 08:14 | Outpatient (AMB) | payer OTHER, SELFPAY ==
[2024-06-28 08:21] VITALS: BP 132/76; PULSE 89; O2SAT 95; BMI 31.6
--- NOTE | 2024-06-28 08:21 | MHC.PC.OV ---
Vital Signs 06/28/24 08:21 Height 5 ft 7 in Weight 202 lb BMI 31.6 BP 132/76 Blood Pressure Location Lt brachial Position Sitting Pulse 89 Pulse Source Pulse Oximeter Pulse Oximetry (%) 95 Oxygen Delivery Method Room Air Intake Visit Reasons: 3 month f/u Allergies MILTON Inhibitors [MILTON INHIBITORS] Allergy (Severe, Verified 06/28/24 08:26) SWELLING,ANAPHYLAXIS Calcium Channel Blocking Agents-Dih [CALCIUM CHANNEL BLOCKING AGENTS-DIH] Allergy (Severe, Verified 06/28/24 08:26) SEVERE WEIGHT LOSS lidocaine [LIDOCAINE] Allergy (Severe, Verified 06/28/24 08:26) ANAPHYLAXIS amlodipine [AMLODIPINE] Allergy (Intermediate, Verified 06/28/24 08:26) HIVES, rash aspirin [ASPIRIN] Allergy (Intermediate, Verified 06/28/24 08:) GI UPSET, rash codeine [CODEINE] Allergy (Intermediate, Verified 06/28/24 08:26) GI UPSET, rash acetaminophen [Percocet] Allergy (Unknown, Verified 06/28/24 08:26) Unknown amoxicillin [AMOXICILLIN] Allergy (Unknown, Verified 06/28/24 08:26) UNKNOWN Anesthetics - Amide Type - Select A [ANESTHETICS - AMIDE TYPE] Allergy (Unknown, Verified 06/28/24 08:26) ANESTHETIC ADDITIVES lisinopril Allergy (Unknown, Verified 06/28/24 08:26) Angioedema, anaphylaxis morphine Allergy (Unknown, Verified 06/28/24 08:26) rash oxycodone [Percocet] Allergy (Unknown, Verified 06/28/24 08:26) Unknown From Novocain Allergy (Severe, Uncoded 06/28/24 08:26) ANAPHYLAXIS ... additives or preservative Allergy (Unknown, Uncoded 06/28/24 08:26) unknown MILTON Inhibitors Allergy (Unknown, Uncoded 06/28/24 08:26) unknown calcium blockers Allergy (Unknown, Uncoded 06/28/24 08:26) unnown Calcium Channel blockers Allergy (Unknown, Uncoded 06/28/24 08:26) anaphylaxis Codeine Phosphate Allergy (Unknown, Uncoded 06/28/24 08:26) unknown Novocain Allergy (Unknown, Uncoded 06/28/24 08:26) anaphylaxis From PERCOCET Adverse Reaction (Intermediate, Uncoded 06/28/24 08:26) GI UPSET Medication List - Last Reconciled 06/28/24 by Hai Stevens MD albuterol sulfate 90 mcg/actuation 2 inhalations inhalation Q4-6H PRN albuterol sulfate 90 mcg/actuation (Ventolin HFA) 1 inh inhalation QID PRN atorvastatin 80 mg PO DAILY benzonatate 200 mg PO TID PRN blood sugar diagnostic ([employer] Ultra Test strips) once per day escitalopram oxalate 20 orally daily; lamotrigine 225 mg PO BID lancets ([employer] Delica Lancets) once a day lancing device with lancets ([employer] Delica Plus Lancing Device kit) test once daily lorazepam 1 mg PO BID PRN metformin 500 mg PO TID spironolactone 12.5 mg (1/2 x 25 mg) PO DAILY temazepam 7.5 mg orally bedtime; trazodone 100 mg PO DAILY Tobacco use date assessed: 06/28/24 Dental Screening Dental Screen Date: 06/28/24 Did you have a dental visit in the last 12 months?: Yes Did you have a dental problem in the last 6 months where you did not have access to dental care?: No Was dental information given to patient?: Patient has dentist HPI 3 month f/u HPI Details DM on rx; doing well and compliant [facility] Medical History Colonoscopy planned Kidney disease Diabetes mellitus Surgical History H/O breast surgery No history of previous surgery Family History Mother No problems noted. Father No problems noted. Social History Housing: House Alcohol intake: current Alcohol intake frequency: holidays/special occasions only Patient Tobacco Use Status: Never used Tobacco Tobacco use type: Cigarette e-Cigarette/Vaping Use: Never Used Second Hand Smoke Exposure: No Current occupational status: employed Current occupation: right hand dominant Cognitive needs: No Hearing needs: No Vision needs: No Female Reproductive History Menstrual Age of Menarche: 13 Questionnaire PHQ-9 Over the last 2 weeks, how often have you been bothered by any of the following problems? 1. Little interest or pleasure in doing things: not at all 2. Feeling down, depressed, or hopeless: not at all 3. Trouble falling or staying asleep, or sleeping too much: not at all 4. Feeling tired or having little energy: not at all 5. Poor appetite or overeating: not at all 6. Feeling bad about yourself - or that you are a failure or have let yourself or your family down: not at all 7. Trouble concentrating on things, such as reading the newspaper or watching television: not at all 8. Moving or speaking so slowly that other people could have noticed. Or the opposite - being so fidgety or restless that you have been moving around a lot more than usual: not at all 9. Thoughts that you would be better off or of hurting yourself in some way: not at all Total score: 0 Depression Screening Interpretation: Negative Depression Screening Done: Yes 86036 - PHQ-9 Billing: Yes Source: Developed by Drs. Lobito Chaidez, Socorro Bergman, Marcio Salguero and colleagues, with an educational ismael from [employer]. Thrive Questionnaire Date Thrive assessed: 06/28/24 I am a: Patient What is your living situation today?: I have a steady place to live Within the past 12 months, did the food you bought not last and you didn't have the money to get more?: Never true Within the past 12 months, did you worry whether your food would run out before you got money to buy more?: Never true Do you have trouble paying for medicines?: No Do you have trouble getting transportation to medical appointments?: No Do you have trouble paying your heating and electricity bill?: No Do you have trouble taking care of your child, family member or friend?: No Do you have trouble with day-to-day activities such as bathing, preparing meals, shopping, managing finances, etc.?: No Are you currently unemployed and looking for a job?: No Are you interested in more education?: No Currently or been in a relationship where the following occur: No concerns reported THRIVE Score: 0 AUDIT C Alcohol Use Questionnaire (AUDIT-C) 1. How often do you have a drink containing alcohol?: Never 3. How often do you have six or more drinks on one occasion?: Never Total Score: 0 Score Reviewed/Action Taken: Yes BLAISE-7 AMB Questionnaire BLAISE-7 Date BLAISE - 7 assessed: 06/28/24 Feeling nervous, anxious, or on edge: 0 = Not at all Not being able to stop or control worryin = Not at all Worrying too much about different things: 0 = Not at all Trouble relaxin = Not at all Being so restless that it is hard to sit still: 0 = Not at all Becoming easily annoyed or irritable: 0 = Not at all Feeling afraid as if something awful might happen: 0 = Not at all Total BLAISE-7 score (0-4 normal; 5-9 mild; 10-14 moderate; 15-21 severe): 0 Source: Developed by Drs. Lobito Chaidez, Socorro Bergman, Marcio Salguero and colleagues, with an educational ismael from [employer]. Review of Systems Const Denies chills, Denies headache(s) and Denies weight loss ENT Denies headache(s) Card Denies chest pain, Denies syncope, Denies irregular heart rhythm and Denies dyspnea Resp Denies chest congestion, Denies cough and Denies dyspnea GI Denies abdominal pain, Denies change in stool character, Denies nausea and Denies vomiting Musc Denies deformity and Denies joint swelling Neuro Denies syncope and Denies headache(s) Physical exam (Primary Care) Vital Signs: Last Vital Signs Pulse 89 06/28/24 08:21 BP 132/76 06/28/24 08:21 Pulse Ox 95 06/28/24 08:21 Oxygen Delivery Method Room Air 06/28/24 08:21 BMI result Body Mass Index 31.6 Tobacco/Smoking Status: Tobacco use Status Tobacco use date assessed 06/28/24 06/28/24 08:28 Patient Tobacco Use Status Never used Tobacco 06/28/24 08:28 Tobacco use type Cigarette 06/28/24 08:28 e-Cigarette/Vaping Use Never Used 06/28/24 08:28 PHQ-9: PHQ-9 Score PHQ-9: Total score 0 06/28/24 08:28 Depression Screening Interpretation: Negative Thrive Assessment: Date of Thrive Assessment Date Thrive assessed 06/28/24 06/28/24 08:28 Currently or been in a relationship where the following occur: No concerns reported Const General: cooperative, comfortable, no acute distress and alert Neck Neck: Yes no lymphadenopathy Thyroid: Thyroid normal Resp Effort & Inspection: normal respiratory effort Auscultation: clear to auscultation bilaterally Percussion: percussion normal Cardio Jugular venous distension: no JVD Palpation: normal PMI Rate: regular rate Rhythm: regular rhythm Heart sounds: S1 normal heart sound present and S2 normal heart sound present GI Inspection: Yes normal to inspection Palpation (GI): No hepatosplenomegaly present Skin General skin exam: no rashes or lesions noted Extrem General: Yes no clubbing, cyanosis or edema Coding Level of Care Code Est Pt Level 3 (73545) Diagnoses Diabetes mellitus E11.9 Additional Codes PHQ-9 - 72147 - PHQ-9 Billing: Yes ([id number]) Assessment & Plan Assessment & Plan (1) Diabetes mellitus: Code(s): E11.9 - Type 2 diabetes mellitus without complications Category: Medical Plan: stable; same rx Orders: Referrals Speech and Hearing Referral H91.90 - Unspecified hearing loss, unspecified ear Medications: Refilled benzonatate 200 mg PO TID PRN 14 caps 0RF cough
== END 2024-06-28 08:47 | disposition home or self-care (01) ==
LOC: HO.HMCH 08:15
PROVIDERS: PCP Internal Medicine; Visit Provider Internal Medicine
DX: E11.9 Type 2 diabetes mellitus without complications (principal)

== ENCOUNTER → 2024-06-28 08:14 | Outpatient (BNVA) | payer OTHER, SELFPAY | PROVIDERS: PCP Internal Medicine; Visit Provider Internal Medicine | DX: E11.9 Type 2 diabetes mellitus without complications (principal); H91.90 Unspecified hearing loss, unspecified ear | CPT/HCPCS: 96127 ==

== ENCOUNTER 2024-07-26 08:10 | Outpatient (AMB) | payer OTHER, SELFPAY ==
--- OUTSIDE RECORDS SUMMARY | 2024-07-26 08:16 | XMS_ITS | Clinical Summary ---
Author Organization [employer] Address [address] [place] [address] Care Team Providers Care Carpenter Labor Supervisor Name Role Phone Hai Stevens MD Primary Care Provider [phone] Social History Tobacco Use Types Packs/Day Years [...] Vaccine (1 - season) 2023 Influenza Vaccine (Season Ended) 2024 Colonoscopy 07/18/2029 07/19/2019 Colorectal Cancer Screening 07/18/2029 Insurance [employer] Care Teams Carpenter Labor Supervisor Relationship Specialty Start Date End Date Hai Stevens MD [address] [place] [address] [place] [id number] PCP - General Internal Medicine 11/10/21
--- OUTSIDE RECORDS SUMMARY | 2024-07-26 08:16 | XMS_ITS | Patient Health Record ---
Author [facility] Address [address] [facility] [place] [address] Care Team Providers Care Sterilisation Technician Name Role Phone Rodney SANCHES, Hai Primary Care Provider Camryn Rodriguez Unavailable [phone] Allergies Allergen (clinical drug ingredient) Drug/Non Drug [...] Performing Lab: Notes/Report: TOTAL HEMOGLOBIN (HGBA1C) 5.6 HEMOGLOBIN A1C (GLYCOHEMOGLO BIN) Reviewed date:06/27/2024 10:58:06 AM Interpretation: Performing Lab: Notes/Report: HEMOGLOBIN A1C % (HH) 5.6 Reason For Referral No Information Medications [...] (M20.41,M20.42), Preulcerative Skin Lesion(s) (L85.1) 12/30/2018 Not-Taking Temazepam 7.5 MG 1 capsule at bedtime as needed Orally Once a day Active Extra Depth Orthopedic Shoes (1 Pair) with Customized Heat Molded Multidensity Innersoles (3 Pair) as directed Offloading left plantar fibroma Dx: NIDDM (E11.9), Hammertoe Foot Deformity (M20.41,M20.42), Preulcerative Skin Lesion(s) (L85.1) 06/03/2021 Active lamoTRIgine 150 MG 1 tablet Orally at night 225 mg in am Active Lorazepam 1 mg Activ e Escitalopram Oxalate 20 MG as directed Orally Once a day for 30 days Active Physical Therapy . . Ultrasound for painful fibroma left foot> right foot 2-3x/week 03/25/2020 Not-Taking Atorvastatin Calcium 80 MG Active traZODone HCl 100 MG as directed Active metFORMIN HCl 1500 mg as directed Orally 3 times a day Active Spironolactone 12.5 mg Active Immunizations Vaccine Route Administration Date Status [...] W/U Status Risk Notes Problem Plantar wart (98812623) Plantar wart (B07.0) Active confirmed Problem [id number] Hammer toe of right foot (M20.41) Active confirmed Problem [id number] Hammer toe of left foot (M20.42) Active confirmed Problem [id number] Type 2 diabetes mellitus without complication, without long-term current use of insulin (E11.9) Active confirmed Vital Signs Blood pressure diastolic 60 mm Hg 06/27/2024 Height 5ft7in in 06/27/2024 Blood pressure systolic 170 mm Hg 06/27/2024 Weight 183 lbs 06/27/2024 BMI 28.66 kg/m2 06/27/2024 Encounters Encounter Location Date Provider Diagnosis [address] [address] 12/14/2023 Camryn Harding Type 2 diabetes mellitus without complication, without long-term current use of insulin E11.9 ; Tinea unguium B35.1 ; Pain in toe of left foot M79.675 ; Pain in toe of right foot M79.674 ; Right foot pain M79.671 and Plantar wart B07.[address] [address] 03/21/2024 Camryn Harding Type 2 diabetes mellitus without complication, without long-term current use of insulin E11.9 ; Tinea unguium B35.1 ; Pain in toe of left foot M79.675 ; Pain in toe of right foot M79.674 ; Right foot pain M79.671 ; Plantar wart B07.0 and Pain in left foot M79.[address] [address] 06/27/2024 Camryn Harding Type 2 diabetes mellitus without complication, without long-term current use of insulin E11.9 ; Tinea unguium B35.1 ; Pain in toe of left foot M79.675 ; Pain in toe of right foot M79.674 ; Right foot pain M79.671 ; Plantar wart B07.0 and Pain in left foot M79.672 [facility] [place] [address] [place] [address] 09/17/2023 Camryn Harding [facility] [address] [address] 09/23/2023 Camryn Harding Assessments Encounter Date Diagnosis (ICD Code) Assessment Notes Treatment Notes Treatment Clinical Notes Section Notes 12/14/2023 Tinea unguium (ICD-10 - B35.1) 12/14/2023 Type 2 diabetes mellitus without complication, without long-term current use of insulin (ICD-10 - E11.9) 03/21/2024 Tinea unguium (ICD-10 - B35.1) 03/21/2024 Type 2 diabetes mellitus without complication, without long-term current use of insulin (ICD-10 - E11.9) 06/27/2024 Type 2 diabetes mellitus without complication, without long-term current use of insulin (ICD-10 - E11.9) 06/27/2024 Tinea unguium (ICD-10 - B35.1) 03/21/2024 Pain in toe of left foot (ICD-10 - M79.675) 12/14/2023 Pain in toe of left foot (ICD-10 - M79.675) 12/14/2023 Pain in toe of right foot (ICD-10 - M79.674) 03/21/2024 Pain in toe of right foot (ICD-10 - M79.674) 06/27/2024 Pain in toe of left foot (ICD-10 - M79.675) 06/27/2024 Pain in toe of right foot (ICD-10 - M79.674) 03/21/2024 Right foot pain (ICD-10 - M79.671) 12/14/2023 Right foot pain (ICD-10 - M79.671) 03/21/2024 Plantar wart (ICD-10 - B07.0) 12/14/2023 Plantar wart (ICD-10 - B07.0) 06/27/2024 Right foot pain (ICD-10 - M79.671) 03/21/2024 Pain in left foot (ICD-10 - M79.672) 06/27/2024 Plantar wart (ICD-10 - B07.0) 06/27/2024 Pain in left foot (ICD-10 - M79.672) Plan Of Treatment Pending Test Test Name Order Date X ray : Foot, right 3V 08/11/2022 [id number] DYSTROPHIC NAILS ANY # [id number] DYSTROPHIC NAILS ANY # [id number] TENDON SHEATH/LIGAMENT 0 11/24/2019 Next Appt Details Provider Name:Camryn valera, 09/19/2024 11:30:00 AM, [address] [place], [address], Insurance Providers Payer Name Payer Address Payer Phone Subscriber Number Group Number Insured Name Patient Relationship to Insured Coverage Start Date Coverage End Date [employer] [address] [address] [place] [address] [id number] Rajwinder Hall Self - patient is the insured Medical (General) History Medical History History ICD Code Anxiety Cholesterol Depression type II diabetes Kidney disease Chicken pox Surgical History Surgery Date(Month/Year) colonoscopy 07/2019 Hospitalization History Reason Date(Month/[place] [facility] [place]
--- OUTSIDE RECORDS SUMMARY | 2024-07-26 08:16 | XMS_ITS ---
Author Organization [facility] Address [address] [facility] [place] [address] Care Team Providers Care Delivery Stock Clerk Name Role Phone Hai Stevens MD Primary Care Provider Unavaila Camryn Simmons Unavailable [phone] Allergies Allergen (clinical drug ingredient) Drug/Non Drug [...] (M20.41,M20.42), Preulcerative Skin Lesion(s) (L85.1) 06/03/2021 Active Physical Therapy . . Ultrasound for painful fibroma left foot> right foot 2-3x/week 03/25/2020 Not-Taking lamoTRIgine 150 MG 1 tablet Orally at night 225 mg in am Active Lorazepam 1 mg Activ e traZODone HCl 100 MG as directed Active metFORMIN HCl 1500 mg as directed Orally 3 times a day Active Spironolactone 12.5 mg Active Escitalopram Oxalate 20 MG as directed [...] an other tobacco user? No Vital Signs Blood pressure systolic 170 mm Hg 06/28/19 25 Blood pressure diastolic 60 mm Hg 025 Height 5ft7in in 06/27/2024 Weight 183 lbs 06/27/2024 BMI 28.66 kg/m2 06/27/2024 Encounters Encounter Location Date Provider Diagnosis [facility] [place] [address] [place] [address] 06/27/2024 Camryn Harding Type 2 diabetes mellitus [...] Treatment Notes Treatment Clinical Notes Section Notes 06/27/2024 Type 2 diabetes mellitus without complication, without long-term current use of insulin (ICD-10 - E11.9) 06/27/2024 Tinea unguium (ICD-10 - B35.1) 06/27/2024 Pain in toe of left foot (ICD-10 - M79.675) 06/27/2024 Pain in toe of right foot (ICD-10 - M79.674) 06/27/2024 Right foot pain (ICD-10 - M79.671) 06/27/2024 Plantar wart (ICD-10 - B07.0) 06/27/2024 Pain in left foot (ICD-10 - M79.672) Plan Of Treatment Next Appt Details Follow Up: 2 Months, Reason: Provider Name:Camryn valera, 09/19/2024 11:30:00 AM, [address] [place] [address], [phone], Procedure Notes * Category Sub-Category Detail Notes Wart Treatment Procedure Verrucae were de brided to pin-point bleeding margins with sterile 15 surgical blade, silver nitrate chemocautery applied, recomm. immune-boosting meds such as zinc, recomm. follow up with topical chemosurgical agents, Pt defers any other forms of tx (98651) Keratoma Treatment Parring or Cutting o f Benign Hyperkeratotic Lesion(s) (-56) 2-4 Lesions - Due to the at risk nature of the patients medical condition as documented in the exam findings, performance of this keratoderma treatment is medically necessary as its management by an unskilled/untrained nonprofessional would put this patients foot and overall health at risk. Therefore, the benign hyperkeratotic lesions, ( 3 ) in total, locations as stated and described in the exam ( Plantar , TA , T5 , SUB MTH (s) , 5 , Right), were pared, and/or cut utilizing a sterile 15 blade, tissue nippers, and/or power dremel instrumentation by the physician of record - 89730 Debride Nails 1-5 Procedure: Due to the cli nical pathology outlined in the exam findings, performance of this nail treatment is medically necessary as its management by an unskilled/untrained nonprofessional would put this patients foot and overall health at risk. Therefore, debridement to affected nail(s), as described in exam ( TA, T5, T7), was performed exclusively by the physician of record to reduce/remove overall nail length, girth, thickness, subungual debris, and necrotic tissue, by manual and/or electrical means through the use of a nail nipper and/or dremel stylegrinder, to a more viable healthy nail plate or bed tissue 5 nails or fewer in number. Silver nitrate was used for any petechial bleeding as necessary. Definitive antifungal treatment options, both pharmaceutical and surgical, have been reviewed and discussed with the patient. The patient solely prefers the use of intermittent/as needed professional debridement services for their nail condition and understands that additional periodic treatments may be required as necessary to maintain effective symptomatic relief - 00321 Nail Reduction Nail Reduction (-27) Trimming o f all dystrophic nails - Due to the at risk nature of the patients medical condition as documented in the exam findings, performance of this nail treatment is medically necessary as its management by an unskilled/untrained nonprofessional would put this patients foot and overall health at risk. Therefore, the dystrophic nails, in locations as stated and described in the exam ( T1, T2, T3, T4, T6, T8, T9, ), were debrided by the phisician of record to reduce/remove overall nail length and girth, by manual and electrical means with use of a nail nipper and/or dremel, to more viable healthy nail plate or bed tissue - G0127 Progress Notes * Rajwinder HALL MDOB: [birth year] (63 yo F)Acc No.[id number]:06/27/2024 Progress Note Patient:?Rajwinder HALL Provider:?Camryn Harding DPM :1960???Age:63 Y???Sex:Female D ate:06/27/2024 [address] [place] Pcp:Hai Stevens MD Subjective: * Chief Complaints: * ???At Risk FootcareWart(s) * HPI: ???At Risk footcare:?Pt States Last PCP Visit:?Date?01/18/2024 ???Skin problems:?Pt States PCP Visit: ?DATE?01/18/2024 * ROS:?General/Constitutional:?Nausea?denies.?Vomiting?denies.?Hunger Thirst?denies.?Loss appetite?denies.?Chills?denies.?Fatigue?denies.?Fever?denies.?Night Sweats?denies.?Unexplained weight loss?denies.?Unexplained [...] History:?colonoscop y 07/2019 * Hospitalization/Major Diagno stic Procedure:[place] [place] * Family History:?Mother: [...] than smoking?Are you an other tobacco user??No ???Miscellaneous:?Caffeine: no. ?Children: no. ?Exercise: yes, walking. ?Marital status: . ?Occupation: [employer] [facility] [place]. * Medications:?TakingEscitalop dafne Oxalate 20 MG Tablet [...] stomachLisinopril: Allergyyes[Allergies Verified] Objective: * Vitals:?Ht: 5ft7in, Wt:183, BMI:28.66, Shoe size: 9.5-10, BP:170/60mm Hg, BS: 120, Ht-cm: 170.18 cm, Wt-k.01 kg. * ???Past Orders: ???Lab:HEMOGLOBIN A1C (GLYCO HEMOGLOBIN) (Order Date - 01/18/2024) (Collection Date & Time - 01/18/2024 10:57 AM) ? Value Reference Range ?HEMOGLOBIN A1C % (HH) 5.6 * Examination: ???Ophthalmology Referral: ?DIABETES EYE EXAM?Procedure Performed:?No ?Eye Exam not performed:?No reason specified?Dermatologic: ?SKIN FINDINGS:? Skin shows sign(s) of, a [...] denies, anesthesia, burning, paresthesia, tingling, B/L.?Nails: ?NAILS are:?T1, T2, T3, T4, , T6, T8, T9, nails are elongated, overgrown, dystrophic; Elongated, overgrown, dystrophic, lytic, greater than 3mm thick, discolored and friable with crumbly malodorous subungual debris, with pain on palpation TA T5, T7.?General Examination: ?GENERAL APPEARANCE:?Reveals a pleasant, alert, well nourished, well- developed, well hydrated individual, who demonstrates proper attention to hygiene/body habitus, and is in no acute distress, Pt serves as own historian for office visit today.?ORIENTED:?person, place, and time.?FOOT EXAM:?Lower Extremity Neurological Exam performed:?Yes ?Visual exam of foot performed:?Yes ?Date?06/27/2024 ?Footwear Evaluation?Footwear Evaluation performed:?Yes?Orthopedic: ?FOOTWEAR:?good condition.? Assessment: * Assessment: 1.?Type 2 diabetes mellitus without complication, without long-term current use of insulin - E11.9???2.?Tinea unguium - B35.1 (Primary)???3.?Pain in toe of left foot - M79.675???4.?Pain in toe of right foot - M79.674???5.?Right foot pain - M79.671???6.?Plantar wart - B07.0???7.?Pain in left foot - M79.672??? Plan: * Treatment: * Procedures:?Debride Nails 1-5:?Procedure:?Due to the clinical pathology outlined in the exam findings, performance of this nail treatment is medically necessary as its management by an unskilled/untrained nonprofessional would put this patients foot and overall health at risk. Therefore, debridement to affected nail(s), as described in exam ( TA, T5, T7), was performed exclusively by the physician of record to reduce/remove overall nail length, girth, thickness, subungual debris, and necrotic tissue, by manual and/or electrical means through the use of a nail nipper and/or dremel stylegrinder, to a more viable healthy nail plate or bed tissue 5 nails or fewer in number. Silver nitrate was used for any petechial bleeding as necessary. Definitive antifungal treatment options, both pharmaceutical and surgical, have been reviewed and discussed with the patient. The patient solely prefers the use of intermittent/as needed professional debridement services for their nail condition and understands that additional periodic treatments may be required as necessary to maintain effective symptomatic relief - 87072.?Keratoma Treatment:?Parring or Cutting of Benign Hyperkeratotic Lesion(s)?(-56) 2-4 Lesions - Due to the at risk nature of the patients medical condition as documented in the exam findings, performance of this keratoderma treatment is medically necessary as its management by an unskilled/untrained nonprofessional would put this patients foot and overall health at risk. Therefore, the benign hyperkeratotic lesions, ( 3 ) in total, locations as stated and described in the exam (?Plantar?,?TA?,?T5?,?SUB MTH (s)?,?5?,?Right), were pared, and/or cut utilizing a sterile 15 blade, tissue nippers, and/or power dremel instrumentation by the physician of record - 64842.?Wart Treatment:?Procedure?Verrucae were debrided to pin-point bleeding margins with sterile 15 surgical blade, silver nitrate chemocautery applied, recomm. immune-boosting meds such as zinc, recomm. follow up with topical chemosurgical agents, Pt defers any other forms of tx (78701).?Nail Reduction:?Nail Reduction?(-27) Trimming of all dystrophic nails - Due to the at risk nature of the patients medical condition as documented in the exam findings, performance of this nail treatment is medically necessary as its management by an unskilled/untrained nonprofessional would put this patients foot and overall health at risk. Therefore, the dystrophic nails, in locations as stated and described in the exam ( ?T1, T2, T3, T4,? T6, T8, T9, ), were debrided by the phisician of record to reduce/remove overall nail length and girth, by manual and electrical means with use of a nail nipper and/or dremel, to more viable healthy nail plate or bed tissue - G0127.? * Procedure Codes:?30461 Wart Destruction, 1-14, Modifiers: XS G0127 TRIMMING DYSTROPHIC NAILS ANY #, Modifiers: XS 20020 TRIM SKIN LESIONS, 2 TO 4, Modifiers: XS 74419 DEBRIDE NAIL, 1-5, Modifiers: XS * Preventive Medicine:? ??Screening/Special Tests:?Fall Risk?Assessment:?Performed ?Screening:?No falls in the past year ?FALLS: Screening for Future Fall Risk?Have you had two or more falls in the past year??No ?Have you had any falls with injury in the past year??No * Follow Up:?2 Months * Images: * Sign off status: Completed true * Provider:?Camryn Harding DPM Date:?02/2025 Generated for Sofya lennon/Marry/Marcos on:?07/26/2024 08:16 AM EDT History and Physical Notes * HPI (History of Present Illness) Category Sub-Category Detail Notes Category Not es Skin problems Pt States PCP Visit: DATE: 01/18/2024 At Risk footcare Pt States Last PCP [...] at __2__ mm diameter, plantar Forefoot, B/L Orthopedic FOOTWEAR EVALUATION: good condition General Examination GENERAL APPEARANCE: Reveals a pleasant, alert, well nourished, well-developed, well hydrated individual, who demonstrates proper attention to hygiene/body habitus, and is in no acute distress, Pt serves as own historian for office visit today FOOT EXAM: Lower Extremity Neurological Exa m performed:: Yes Visual exam of foot performed:: Yes Date: 06/27/2024 ORIENTED: person, place, and t walter Footwear Evaluation Footwear Evaluation performe d:: Yes Ophthalmology Referral DIABETES EYE EXAM Procedure Perform ed:: No Eye Exam not performed:: No reason speci fied Nails NAILS are: T1, T2, T3, T4, , T6, T8, T9, nails are elongated, overgrown, dystrophic; Elongated, overgrown, dystrophic, lytic, greater than 3mm thick, discolored and friable with crumbly malodorous subungual debris, with pain on palpation TA T5, T7
--- OUTSIDE RECORDS SUMMARY | 2024-07-26 08:17 | XMS_ITS | Clinical Summary ---
Author Organization [facility] Facility Address [address] [place] [address] Care Team Providers Care Guest Relations Officer Name Role Phone Hai Stevens MD Primary Care Provider [phone] Allergies Active Allergy Reactions Criticality Noted Date [...] Diabetes: Visual Foot Exam 04/02/2022 Influenza Vaccine (Season Ended) 2024 01/21/2021, 02/16/2020, 02/16/2019, Additional history exists Hepatitis B Vaccine Aged Out No longe r eligible based on patient's age to complete this topic Pneumococcal Vaccine: Pediatrics (0 to 5 Years) and At-Risk Patients (6 to 64 Years) Aged Out No longer eligible based on patient's age to complete this topic Insurance CIG[employer] CIGNA Care Teams Guest Relations Officer Relationship Specialty Start Date End Date Hai Stevens MD [address] [place], [place] PCP - General 04/29/20
--- OUTSIDE RECORDS SUMMARY | 2024-07-26 08:17 | XMS_ITS ---
Author Organization [facility] Address [address] [place] [address] Care Team Providers Care Material Requirements Planning Manager Name Role Phone Hai Stevens MD Primary Care Provider Camryn Rodriguez [phone] Encounters Encounter Location Date Provider Diagnosis [address] [address] 06/27/2024 Camryn Harding Plan Of Treatment Next Appt Details Provider Name:Camryn valera, 09/19/2024 11:30:00 AM, [address] [place], [address], Progress Notes * Rajwinder HALL MDOB: [birth year] (63 yo F)Acc No.[id number]:06/27/2024 Progress Note Patient:?Rajwinder HALL Provider:?Camryn Harding DPM :1960???Age:63 Y???Sex:Female D ate:06/27/2024 Address[place] [place] Pcp:Hai Stevens MD Subjective: * Chief Complaints: * ??? * Medical History:? Objective: * Vitals:? Assessment: Plan: * Treatment: * Images: * The named appointment provid er may or may not be the originator of this progress note, and it is not deemed complete until electronically signed by the appointment provider. Sign off status: Pending * Provider:?Camryn Harding DPM Date:?02/2025 Generated for Sofya lennon/Marry/Marcos on:?07/26/2024 08:16 AM EDT
--- NOTE | 2024-07-26 08:33 | A.OFFVIS_ITS ---
VS Expanded 07/26/24 08:34 Height 5 ft 7 in Weight 207 lb 10.807 oz BMI 32.5 Intake Visit Reasons: obesity, t2dm Allergies MILTON Inhibitors [MILTON INHIBITORS] Allergy (Severe, Verified 06/28/24 08:26) SWELLING,ANAPHYLAXIS Calcium Channel Blocking Agents-Dih [CALCIUM CHANNEL BLOCKING AGENTS-DIH] Allergy (Severe, Verified 06/28/24 08:26) SEVERE WEIGHT LOSS lidocaine [LIDOCAINE] Allergy (Severe, Verified 06/28/24 08:26) ANAPHYLAXIS amlodipine [AMLODIPINE] Allergy (Intermediate, Verified 06/28/24 08:26) HIVES, rash aspirin [ASPIRIN] Allergy (Intermediate, Verified 06/28/24 08:26) GI UPSET, rash codeine [CODEINE] Allergy (Intermediate, Verified 06/28/24:) GI UPSET, rash acetaminophen [Percocet] Allergy (Unknown, Verified 06/28/24 08:) Unknown amoxicillin [AMOXICILLIN] Allergy (Unknown, Verified 06/28/24 08:) UNKNOWN Anesthetics - Amide Type - Select A [ANESTHETICS - AMIDE TYPE] Allergy (Unknown, Verified 06/28/24 08:26) ANESTHETIC ADDITIVES lisinopril Allergy (Unknown, Verified 06/28/24 08:26) Angioedema, anaphylaxis morphine Allergy (Unknown, Verified 06/28/24 08:26) rash oxycodone [Percocet] Allergy (Unknown, Verified 06/28/24 08:26) Unknown From Novocain Allergy (Severe, Uncoded 06/28/24 08:26) ANAPHYLAXIS ... additives or preservative Allergy (Unknown, Uncoded 06/28/24 08:26) unknown MILTON Inhibitors Allergy (Unknown, Uncoded 06/28/24 08:26) unknown calcium blockers Allergy (Unknown, Uncoded 06/28/24 08:26) unnown Calcium Channel blockers Allergy (Unknown, Uncoded 06/28/24 08:26) anaphylaxis Codeine Phosphate Allergy (Unknown, Uncoded 06/28/24 08:26) unknown Novocain Allergy (Unknown, Uncoded 06/28/24 08:26) anaphylaxis From PERCOCET Adverse Reaction (Intermediate, Uncoded 06/28/24 08:26) GI UPSET Nutrition Presentation Details: Pt presents for MNT for T2DM Pt reports working on diet modifications BS Monitoring Most Recent Diabetes Results: Creatinine 0.80 mg/dL (0.5-1.4) 06/16/24 Blood Urea Nitrogen 11 mg/dL (9-16) 06/16/24 Sodium 139 mmol/L (135-145) 06/16/24 Potassium 4.3 mmol/L (3.3-5.1) 06/16/24 Chloride 107 mmol/L (96-108) 06/16/24 Carbon Dioxide 25 mmol/L (22-29) 06/16/24 Calcium 9.8 mg/dL (8.4-10.2) 06/16/24 [facility] Medical History Colonoscopy planned Kidney disease Diabetes mellitus Surgical History H/O breast surgery No history of previous surgery Family History Mother No problems noted. Father No problems noted. Social History Housing: House Alcohol intake: current Alcohol intake frequency: holidays/special occasions only Patient Tobacco Use Status: Never used Tobacco Tobacco use type: Cigarette e-Cigarette/Vaping Use: Never Used Second Hand Smoke Exposure: No Current occupational status: employed Current occupation: right hand dominant Cognitive needs: No Hearing needs: No Vision needs: No Female Reproductive History Menstrual Age of Menarche: 13 Assessment & Plan Assessment & Plan (1) Diabetes mellitus with coincident hypertension: Code(s): E11.9 - Type 2 diabetes mellitus without complications; I10 - Essential (primary) hypertension Category: Medical Plan: Wt: 94Kg ( July/2023 ), ----, 88 kg (03/12), 89 kg ( 05/13), 90kg(06/13), 94kg (08/11) Est kcal needs as per MSJ: 1800 (40% carb, 30% protein/fat) Est fluid needs as per 25-30 ml/d: 2800 Est prot per day as per 1 g/kg bw: 94 Recommend fiber intake : 8-10 g per day and gradually increase to 25-28 g per day for women and 35-38 g for men or as tolerated Recommend sodium intake per day : less than 2000 mg Educated patient on: ( R = reviewed V = verbalizes understanding N/R = needs review N/A = not applicable * Food sources of carbohydrate, adequate serving sizes and its role in various health conditions: R * Differences between complex carbohydrates a simple carbohydrates, role of fiber in diet: R * Lean protein sources of foods: R * Meal replacement and snack replacement option: R * Differences between types of fats and role in diet (mono on saturated fat fatty acids, saturated fatty acids, trans fats): R * Food sources of sodium in salt and healthy modifications for heart health in kidney health: R * Vitamins and minerals: N/R * Healthy plate method concept: R * Physical activity: Benefits a precaution: R * Hypoglycemia protocol (rule of 15): R V * Dietary prevention of Hyperglycemia: R Patient Instructions: * have 6 oz of milk with 2 unsalted crackers with peanut as snack * Choose fiber rich foods while reducing on sugar/pastries and empty calories foods (try carrots sticks, celery Coding Level of Care Code Nutr Indiv Subseq (65038) Diagnoses Diabetes mellitus with coincident hypertension E11.9; I10 Time Spent (min) 30
[2024-07-26 08:34] VITALS: BMI 32.5
== END 2024-07-26 09:12 | disposition home or self-care (01) ==
LOC: HO.ENCR 08:10
PROVIDERS: PCP Internal Medicine; Visit Provider Dietitian, Registered
DX: E11.9 Type 2 diabetes mellitus without complications (principal); I10 Essential (primary) hypertension

== ENCOUNTER → 2024-07-26 08:10 | Outpatient (BNVA) | payer OTHER, SELFPAY | PROVIDERS: PCP Internal Medicine; Visit Provider Dietitian, Registered | DX: E11.9 Type 2 diabetes mellitus without complications (principal); I10 Essential (primary) hypertension | CPT/HCPCS: 97803 ==

== ENCOUNTER 2024-07-31 08:40 | Outpatient (REF) | payer OTHER, SELFPAY ==
--- OUTSIDE RECORDS SUMMARY | 2024-07-31 09:13 | XMS_ITS | Patient Health Record ---
Author Organization [facility] Address [address] [facility] [address] Care Team Providers Care Cytology Technologist Name Role Phone Rodney SANCHES, Hai Primary Care Provider Camryn Rodriguez Unavailable [phone] Allergies Allergen (clinical drug ingredient) Drug/Non Drug [...] W/U Status Risk Notes Problem Plantar wart (55728833) Plantar wart (B07.0) Active confirmed Problem 404391681 Hammer toe of right foot (M20.41) Active confirmed Problem 084113700 Hammer toe of left foot (M20.42) Active confirmed Problem 516113662 Type 2 diabetes mellitus without complication, without long-term current use of insulin (E11.9) Active confirmed Vital Signs Blood pressure diastolic 60 mm Hg 06/27/2024 Height 5ft7in in 06/27/2024 Blood pressure systolic 170 mm Hg 06/27/2024 Weight 183 lbs 06/27/2024 BMI 28.66 kg/m2 06/27/2024 Encounters Encounter Location Date Provider Diagnosis [address] [address] 12/14/2023 Camryn Harding Type 2 diabetes mellitus without complication, without long-term current use of insulin E11.9 ; Tinea unguium B35.1 ; Pain in toe of left foot M79.675 ; Pain in toe of right foot M79.674 ; Right foot pain M79.671 and Plantar wart B07.[address] [address] 03/21/2024 Camryn Harding Type 2 diabetes mellitus without complication, without long-term current use of insulin E11.9 ; Tinea unguium B35.1 ; Pain in toe of left foot M79.675 ; Pain in toe of right foot M79.674 ; Right foot pain M79.671 ; Plantar wart B07.0 and Pain in left foot M79.[address] [address] 06/27/2024 Camryn Harding Type 2 diabetes mellitus without complication, without long-term current use of insulin E11.9 ; Tinea unguium B35.1 ; Pain in toe of left foot M79.675 ; Pain in toe of right foot M79.674 ; Right foot pain M79.671 ; Plantar wart B07.0 and Pain in left foot M79.672 [facility] [place] [address] [place] [address] 09/17/2023 Camryn Harding [facility] [address] [address] 09/23/2023 Camryn Harding Assessments Encounter Date Diagnosis [...] X ray : Foot, right 3V 08/11/2022 E9525-[id number] DYSTROPHIC NAILS ANY # [id number] DYSTROPHIC NAILS ANY # [id number] TENDON SHEATH/LIGAMENT 0 11/24/2019 Next Appt Details Provider Name:Camryn valera, 09/19/2024 11:30:00 AM, [address] [place], [address], Insurance Providers Payer Name Payer Address Payer Phone Subscriber Number Group Number Insured Name Patient Relationship to Insured Coverage Start Date Coverage End Date Blue Benefits [address] [address] [place] [address] [id number] Rajwinder Hall Self - patient is the insured Medical (General) History Medical History History ICD Code Anxiety Cholesterol Depression type II diabetes Kidney disease Chicken pox Surgical History Surgery Date(Month/Year) colonoscopy 07/2019 Hospitalization History Reason Date[place] [facility] [place]
--- OUTSIDE RECORDS SUMMARY | 2024-07-31 09:13 | XMS_ITS | Clinical Summary ---
Author Organization [employer] Address [address] [place] [address] Care Team Providers Care Air Tester Name Role Phone Hai Stevens MD Primary Care Provider [phone] Social History Tobacco Use Types Packs/Day Years [...] Cancer Screening 07/18/2029 Insurance C[employer] Care Teams Air Tester Relationship Specialty Start Date End Date Hai Stevens MD [address] [place] [address] [place] [address] PCP - General Internal Medicine 11/10/21
--- OUTSIDE RECORDS SUMMARY | 2024-07-31 09:14 | XMS_ITS ---
Author Organization [facility] Address [address] [facility] [place] [address] Care Team Providers Care Quill Collector Name Role Phone Hai Stevesn MD Primary Care Provider Camryn Rodriguez [phone] Encounters Encounter Location Date Provider Diagnosis [address] [address] 06/27/2024 Camryn Harding Plan Of Treatment Next Appt Details Provider Name:Camryn valera, 09/19/2024 11:30:00 AM, [address] [place], [address], Progress Notes * Rajwinder HALL MDOB: [birth year] (63 yo F)Acc No.[id number]:06/27/2024 Progress Note Patient:?Rajwinder HALL Provider:?Camryn Harding DPM :1960???Age:63 Y???Sex:Female D ate:06/27/2024 Address:[address] [place] Pcp:Hai Stevens MD Subjective: * Chief Complaints: [...] Harding DPM Date:?02/2025 Generated for Sofya lennon/Marry/Marcos on:?07/31/2024 09:14 AM EDT
--- OUTSIDE RECORDS SUMMARY | 2024-07-31 09:14 | XMS_ITS | Clinical Summary ---
Author Organization [facility] Address [address] [place] [address] Care Team Providers Care Sales And Service Representative Name Role Phone Hai Stevens MD Primary Care Provider [phone] Allergies Active Allergy Reactions Criticality Noted Date [...] Colonoscopy 11/11/2011 Colorectal Cancer Screening: Sigmoidoscopy 11/11/2011 Pneumococcal Vaccine: 50+ Years (1 of 1 - PCV) 2012 Diabetes: Hemoglobin A1C 04/02/2022 Diabetes: Ophthalmology Exam 04/02/2022 Diabetes: Pedal Pulse Checked 04/02/2022 Diabetes: Sensory Foot Exam 04/02/2022 Diabetes: Visual Foot Exam 04/02/2022 Influenza Vaccine (Season Ended) 2024 01/21/2021, 02/16/2020, 02/16/2019, Additional history exists Hepatitis B Vaccine Aged Out No longe r eligible based on patient's age to complete this topic Insurance Cigna Cigna Care Teams Sales And Service Representative Relationship Specialty Start Date End Date Hai Stevens MD [address] [place], [place] PCP - General 04/29/20
== END 2024-07-31 08:41 | disposition home or self-care (01) ==
LOC: HO.SH 08:40
PROVIDERS: Visit Provider Internal Medicine
DX: Z46.1 Encounter for fitting and adjustment of hearing aid (principal); H90.3 Sensorineural hearing loss, bilateral
CPT/HCPCS: 92557; 92567

== ENCOUNTER 2024-08-02 07:57 | Outpatient (REF) | payer OTHER, SELFPAY ==
--- OUTSIDE RECORDS SUMMARY | 2024-08-02 08:02 | XMS_ITS | Clinical Summary ---
Author Organization [employer] Address [address] [place] [address] Care Team Providers Care Information Technology Assistant Name Role Phone Hai Stevens MD Primary Care Provider [phone] Social History Tobacco Use Types Packs/Day Years [...] Cancer Screening 07/18/2029 Insurance C[employer] Care Teams Information Technology Assistant Relationship Specialty Start Date End Date Hai Stevens MD [address] [place] [address] [place] [address] PCP - General Internal Medicine 11/10/21
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
--- OUTSIDE RECORDS SUMMARY | 2024-08-02 08:02 | XMS_ITS ---
Author Organization [facility] Address [address] [facility] [place] [address] Care Team Providers Care R Developer Name Role Phone Hai Stevens MD Primary Care Provider Camryn Rodriguez [phone] Encounters Encounter Location Date Provider Diagnosis [address] [address] 06/27/2024 Camryn Harding Plan Of Treatment Next Appt Details Provider Name:Camryn valera, 09/19/2024 11:30:00 AM, [address] [place], [address], Progress Notes * Rajwinder HALL MDOB: [birth year] (63 yo F)Acc No.[id number]:06/27/2024 Progress Note Patient:?Rajwinder HALL Provider:?aCmryn Harding DPM :1960???Age:63 Y???Sex:Female D ate:06/27/2024 Address:[address] [id number] Pcp:Hai Stevens MD Subjective: * Chief Complaints: [...] Harding DPM Date:?02/2025 Generated for Sofya lennon/Marry/Marcos on:?08/02/2024 08:02 AM EDT
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
--- OUTSIDE RECORDS SUMMARY | 2024-08-02 08:02 | XMS_ITS | Clinical Summary ---
Author Organization [facility] Address [address] [place] [address] Care Team Providers Care Post Doc Fellowship Name Role Phone Hai Stevens MD Primary [...] this topic Insurance Cigna Cigna Care Teams Post Doc Fellowship Relationship Specialty Start Date End Date Hai Stevens MD [address] [place], [place] PCP - General 04/29/20
== END 2024-08-02 07:58 | disposition home or self-care (01) ==
LOC: HO.MAMMO 07:57
PROVIDERS: PCP Internal Medicine; Visit Provider Internal Medicine
DX: Z12.31 Encounter for screening mammogram for malignant neoplasm of breast (principal)
CPT/HCPCS: 77063; 77067

== ENCOUNTER → 2024-08-02 08:15 | Outpatient (BNV) | payer OTHER, SELFPAY | PROVIDERS: PCP Internal Medicine; Visit Provider Internal Medicine | DX: Z12.31 Encounter for screening mammogram for malignant neoplasm of breast (principal) | CPT/HCPCS: 77063; 77067 ==

== ENCOUNTER 2024-09-13 08:19 | Outpatient (AMB) | payer OTHER, SELFPAY ==
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
[2024-09-13 08:36] VITALS: BMI 30.7
--- NOTE | 2024-09-13 08:36 | A.OFFVIS_ITS ---
VS Expanded 09/13/24 08:36 Height 5 ft 7 in Weight 196 lb 3.382 oz BMI 30.7 Intake Visit Reasons: obesity, t2dm Allergies MILTON Inhibitors [MILTON INHIBITORS] Allergy (Severe, Verified 06/28/24 08:26) SWELLING,ANAPHYLAXIS Calcium Channel Blocking Agents-Dih [CALCIUM CHANNEL BLOCKING AGENTS-DIH] Allergy (Severe, Verified 06/28/24 08:26) SEVERE WEIGHT LOSS lidocaine [LIDOCAINE] Allergy (Severe, Verified 06/28/24 08:26) ANAPHYLAXIS amlodipine [AMLODIPINE] Allergy (Intermediate, Verified 06/28/24 08:26) HIVES, rash aspirin [ASPIRIN] Allergy (Intermediate, Verified 06/28/24 08:26) GI UPSET, rash codeine [CODEINE] Allergy (Intermediate, Verified 06/28/24 08:26) GI UPSET, rash acetaminophen [Percocet] Allergy (Unknown, Verified 06/28/24 08:26) Unknown amoxicillin [AMOXICILLIN] Allergy (Unknown, Verified 06/28/24 08:26) UNKNOWN Anesthetics - Amide Type - Select A [ANESTHETICS - AMIDE TYPE] Allergy (Unknown, Verified 06/28/24 08:26) ANESTHETIC ADDITIVES lisinopril Allergy (Unknown, Verified 06/28/24 08:26) Angioedema, anaphylaxis morphine Allergy (Unknown, Verified 06/28/24 08:26) rash oxycodone [Percocet] Allergy (Unknown, Verified 06/28/24 08:26) Unknown From Novocain Allergy (Severe, Uncoded 06/28/24 08:26) ANAPHYLAXIS ... additives or preservative Allergy (Unknown, Uncoded 06/28/24 08:26) unknown MILTON Inhibitors Allergy (Unknown, Uncoded 06/28/24 08:26) unknown calcium blockers Allergy (Unknown, Uncoded 06/28/24 08:26) unnown Calcium Channel blockers Allergy (Unknown, Uncoded 06/28/24 08:26) anaphylaxis Codeine Phosphate Allergy (Unknown, Uncoded 06/28/24 08:26) unknown Novocain Allergy (Unknown, Uncoded 06/28/24 08:26) anaphylaxis From PERCOCET Adverse Reaction (Intermediate, Uncoded 06/28/24 08:26) GI UPSET Medication List - Last Reconciled 09/13/[address], LDN albuterol sulfate 90 mcg/actuation 2 inhalations inhalation Q4-6H PRN albuterol sulfate 90 mcg/actuation (Ventolin HFA) 1 inh inhalation QID PRN aripiprazole 2 mg PO DAILY atorvastatin 80 mg PO DAILY benzonatate 200 mg PO TID PRN blood sugar diagnostic ([employer] Ultra Test strips) once per day escitalopram oxalate 20 orally daily; lamotrigine 225 mg PO BID lancets ([employer] Delica Lancets) once a day lancing device with lancets ([employer] Delica Plus Lancing Device kit) test once daily lorazepam 1 mg PO BID PRN metformin 500 mg PO TID spironolactone 12.5 mg (1/2 x 25 mg) PO DAILY temazepam 7.5 mg orally bedtime; trazodone 100 mg PO DAILY Nutrition Presentation Details: Pt presents for MNT f/u for T2DM Pt reports feeling well, motivated working on diet modifications, reducing on empty calories foods (freda, and foods/beverages with caffeine) Including protein rich foods 20-30 g at meals (60-80 g prot) from shakes, foods/milk/yogurts Beverages: water mainly 36 -42 oz/day fish: 1-2 x/wk fruits: 3 serving/d vegetables : daily 3-4 servings dairy 3-4 serving/d monitoring BG using truetrack glucometer, 14 d bg average at 124mg/dl , 30 d 136 mg/dl BS Monitoring Most Recent Diabetes Results: Creatinine 0.80 mg/dL (0.5-1.4) 06/16/24 Blood Urea Nitrogen 11 mg/dL (9-16) 06/16/24 Sodium 139 mmol/L (135-145) 06/16/24 Potassium 4.3 mmol/L (3.3-5.1) 06/16/24 Chloride 107 mmol/L (96-108) 06/16/24 Carbon Dioxide 25 mmol/L (22-29) 06/16/24 Calcium 9.8 mg/dL (8.4-10.2) 06/16/24 [facility] Medical History Colonoscopy planned Kidney disease Diabetes mellitus Surgical History H/O breast surgery No history of previous surgery Family History Mother No problems noted. Father No problems noted. Social History Housing: House Alcohol intake: current Alcohol intake frequency: holidays/special occasions only Patient Tobacco Use Status: Never used Tobacco Tobacco use type: Cigarette e-Cigarette/Vaping Use: Never Used Second Hand Smoke Exposure: No Current occupational status: employed Current occupation: right hand dominant Cognitive needs: No Hearing needs: No Vision needs: No Female Reproductive History Menstrual Age of Menarche: 13 Assessment & Plan Assessment & Plan (1) Diabetes mellitus with coincident hypertension: Code(s): E11.9 - Type 2 diabetes mellitus without complications; I10 - Essential (primary) hypertension Category: Medical Plan: Wt: 94Kg ( July/2023 ), ----, 88 kg (03/12), 89 kg ( 05/13), 90kg(06/13), 94kg (08/11), 89kg (09/10) Est kcal needs as per MSJ: 1800 (40% carb, 30% protein/fat) Est fluid needs as per 25-30 ml/d: 2800 Est prot per day as per 1 g/kg bw: 94 Recommend fiber intake : 8-10 g per day and gradually increase to 25-28 g per day for women and 35-38 g for men or as tolerated Recommend sodium intake per day : less than 2000 mg Educated patient on: ( R = reviewed V = verbalizes understanding N/R = needs review N/A = not applicable * Food sources of carbohydrate, adequate serving sizes and its role in various health conditions: R * Differences between complex carbohydrates a simple carbohydrates, role of fiber in diet: R * Lean protein sources of foods: R * Meal replacement and snack replacement option: R * Differences between types of fats and role in diet (mono on saturated fat fatty acids, saturated fatty acids, trans fats): R * Food sources of sodium in salt and healthy modifications for heart health in kidney health: R * Vitamins and minerals: N/R * Healthy plate method concept: R * Physical activity: Benefits a precaution: R * Hypoglycemia protocol (rule of 15): R V * Dietary prevention of Hyperglycemia: R Patient Instructions: Continue following healthy plate method Try a new food/recipe (ex beets/tangerine) a week Coding Level of Care Code Nutr Indiv Subseq (44834) Diagnoses Diabetes mellitus with coincident hypertension E11.9; I10 Time Spent (min) 30
== END 2024-09-13 09:12 | disposition home or self-care (01) ==
LOC: HO.ENCR 08:20
PROVIDERS: PCP Internal Medicine; Visit Provider Dietitian, Registered
DX: E11.9 Type 2 diabetes mellitus without complications (principal); I10 Essential (primary) hypertension

== ENCOUNTER → 2024-09-13 08:19 | Outpatient (BNVA) | payer OTHER, SELFPAY | PROVIDERS: PCP Internal Medicine; Visit Provider Dietitian, Registered | DX: E11.9 Type 2 diabetes mellitus without complications (principal); I10 Essential (primary) hypertension; Z79.84 Long term (current) use of oral hypoglycemic drugs; Z71.3 Dietary counseling and surveillance | CPT/HCPCS: 97803 ==

== ENCOUNTER 2024-10-27 08:44 | Outpatient (AMB) | payer OTHER, SELFPAY ==
[2024-10-27 08:48] VITALS: BP 147/66; PULSE 87; BMI 30.8
--- NOTE | 2024-10-27 08:48 | MHC.OFFVIS ---
Vital Signs 10/27/24 08:48 Height 5 ft 6.5 in Weight 194 lb 0.108 oz BMI 30.8 BP 147/66 H Blood Pressure Location Lt brachial Position Sitting Pulse 87 Intake Visit Reasons: Colonoscopy Screening Intake Note: Rajwinder presents in the office as a colonoscopy screening. CC: due for a colonoscopy - needs a note for the prep, surgery and day after. Bi Solutions Architect Required: No Allergies MILTON Inhibitors (MILTON INHIBITORS) Allergy (Severe, Verified 10/27/24 08:50) SWELLING,ANAPHYLAXIS Calcium Channel Blocking Agents-Dih (CALCIUM CHANNEL BLOCKING AGENTS-DIH) Allergy (Severe, Verified 10/27/24 08:50) SEVERE WEIGHT LOSS lidocaine (LIDOCAINE) Allergy (Severe, Verified 10/27/24 08:50) ANAPHYLAXIS amlodipine (AMLODIPINE) Allergy (Intermediate, Verified 10/27/24 08:50) HIVES, rash aspirin (ASPIRIN) Allergy (Intermediate, Verified 10/27/24 08:50) GI UPSET, rash codeine (CODEINE) Allergy (Intermediate, Verified 10/27/24 08:50) GI UPSET, rash acetaminophen (Percocet) Allergy (Unknown, Verified 10/27/24 08:50) Unknown amoxicillin (AMOXICILLIN) Allergy (Unknown, Verified 10/27/24 08:50) UNKNOWN Anesthetics - Amide Type - Select A (ANESTHETICS - AMIDE TYPE) Allergy (Unknown, Verified 10/27/24 08:50) ANESTHETIC ADDITIVES lisinopril Allergy (Unknown, Verified 10/27/24 08:50) Angioedema, anaphylaxis morphine Allergy (Unknown, Verified 10/27/24 08:50) rash oxycodone (Percocet) Allergy (Unknown, Verified 10/27/24 08:50) Unknown From Novocain Allergy (Severe, Uncoded 10/27/24 08:50) ANAPHYLAXIS ... additives or preservative Allergy (Unknown, Uncoded 10/27/24 08:50) unknown MILTON Inhibitors Allergy (Unknown, Uncoded 10/27/24 08:50) unknown calcium blockers Allergy (Unknown, Uncoded 10/27/24 08:50) unnown Calcium Channel blockers Allergy (Unknown, Uncoded 10/27/24 08:50) anaphylaxis Codeine Phosphate Allergy (Unknown, Uncoded 10/27/24 08:50) unknown Novocain Allergy (Unknown, Uncoded 10/27/24 08:50) anaphylaxis From PERCOCET Adverse Reaction (Intermediate, Uncoded 10/27/24 08:50) GI UPSET HPI HPI Colonoscopy Screening: Details: 63 year old? female with past medical history of hypertension, asthma, hyperlipidemia, diabetes is here today for pre colonoscopy screening.? Patient was sent to us by her PCP.? Last colonoscopy in July 2019 was normal, however due to history of tubular adenoma patient was put on 5 year recall colonoscopy.? Patient denies any gastrointestinal symptoms in the past or at present.? Denies any family history CRC.? Patient reports nausea and vomiting after anesthesia. Tough time waking up after anesthesia.? Negative for history of sleep apnea.? Denies any history of cardiac, renal, pulmonary, or hepatic disease.?? No history of infectious diseases like hepatitis A, B, C, HIV or tuberculosis.? Patient is not on any anticoagulation [facility] Medical History Colonoscopy planned Kidney disease Diabetes mellitus Surgical History (Updated 10/24/24 @ 13:42 by Gama Luo [facility]) H/O colonoscopy H/O breast surgery No history of previous surgery Family History Mother No problems noted. Father No problems noted. Social History Housing: House Alcohol intake: current Alcohol intake frequency: holidays/special occasions only Patient Tobacco Use Status: Never used Tobacco Tobacco use type: Cigarette e-Cigarette/Vaping Use: Never Used Second Hand Smoke Exposure: No Current occupational status: employed Current occupation: right hand dominant Cognitive needs: No Hearing needs: No Vision needs: No Female Reproductive History Menstrual Age of Menarche: 13 Review of Systems Const Denies weight gain and Denies weight loss ENT Reports no additional complaints, Denies dysphagia and Denies odynophagia Card Reports no additional complaints Resp Reports no additional complaints GI Denies abdominal pain, Denies belching, Denies melena, Denies bloating, Denies change in bowel habits, Denies dysphagia, Denies excessive flatus, Denies dyspepsia, Denies heartburn, Denies diarrhea, Denies loose stools, Denies nausea, Denies odynophagia and Denies vomiting Musc Reports no additional complaints Neuro Reports no additional complaints Psych Reports no additional complaints Endo Reports no additional complaints Physical Exam Vital Signs: Last Vital Signs Pulse 87 10/27/24 08:48 BP 147/66 H 10/27/24 08:48 BMI result Body Mass Index 30.8 Const General: healthy appearing, no acute distress and well developed Nutritional Appearance: well nourished Orientation/consciousness: patient oriented x3 Resp Effort & Inspection: normal respiratory effort, able to speak in complete sentences, no tracheal deviation and symmetric chest movement Auscultation: clear to auscultation bilaterally Cardio Rate: regular rate GI Inspection: Yes normal to inspection and No distended Palpation (GI): Soft to palpation, not firm, nontender and No hepatosplenomegaly present Auscultation: normal bowel sounds General: Yes no CVA tenderness Back/Spine/Pelvis Back: no CVA tenderness Skin General skin exam: elasticity normal, turgor normal and dry skin Neuro General: patient oriented x3 Psych Appearance: grossly normal Mental Status: mental status grossly normal Assessment & Plan Assessment & Plan (1) Screen for colon cancer: Code(s): Z12.11 - Encounter for screening for malignant neoplasm of colon Plan Patient denies any GI, cardiac or respiratory symptoms.? Patient reports nausea and vomiting after anesthesia. Patient reports that he feels tired after anesthesia.? Denies any history of sleep apnea.? No history infectious diseases in the past or present.? Not on any anticoagulation therapy.? No family or personal history of colon cancer or polyps.? Patient denies melena, hematochezia, unintentional weight loss or ribbon like stools.? Discussed at length the pre-procedure,? prep, diet & medications as well as what to expect prior, during and after the procedure.?? Stressed the importance of good bowel prep.? Recommended the use of Vaseline or Calmoseptine OTC & baby wipes with bowel movements to promote comfort.? ?Patient verbalizes understanding and agrees to plan of care.? She was given the opportunity to ask questions and all questions answered.? We will see her after the procedure.? Medications: New bisacodyl (Dulcolax (bisacodyl)) take 4 tabs at noon the day before your colonoscopy 20 mg (4 x 5 mg) PO ONCE 4 tabs 0RF constipation 1 day Z12.11 - Encounter for screening for malignant neoplasm of colon polyethylene glycol 3350 (Miralax) As directed by gastro[facility]ology department at [facility] 238 grams PO ONCE 238 grams 0RF Z12.11 - Encounter for screening for malignant neoplasm of colon Coding Level of Care Code New Pt Level 3 (64693) Diagnoses Screen for colon cancer Z12.11 Time Spent (min) 40 Comment 30 minutes spent with patient and additional 10 minutes spent reviewing her records
--- OUTSIDE RECORDS SUMMARY | 2024-10-27 08:54 | XMS_ITS | Patient Health Record ---
Author Organization [facility] Address [address] [place] [address] Care Team Providers Care Textile Colorist Formulator Name Role Phone Levi SANCHES, Josefina Primary Care Provider Unavail able Camryn Harding Unavailable [phone] Allergies Allergen (clinical drug ingredient) Drug/Non Drug [...] Range Notes HEMOGLOBIN A1C (GLYCOHEMOGLO BIN) Reviewed date:06/27/2024 10:58:06 AM Interpretation: Performing Lab: Notes/Report: HEMOGLOBIN A1C % (HH) 5.6 HEMOGLOBIN A1C (GLYCOHEMOGLO BIN) Reviewed date:12/14/2023 09:16:40 AM Interpretation: Performing Lab: Notes/Report: TOTAL HEMOGLOBIN (HGBA1C) 5.6 Reason For Referral No Information Medications Medication SIG (Take, Route, Frequency, Duration) Notes Start Date End Date Status Atorvastatin Calcium 80 MG Active lamoTRIgine 150 MG 1 tablet Orally at night 225 mg in am Active Extra Depth Orthopedic Shoes (1 Pair) with Customized Heat Molded Multidensity Innersoles (3 Pair) as directed Dx: NIDDM (E11.9), Hammertoe Foot Deformity (M20.41,M20.42), Preulcerative Skin Lesion(s) (L85.1) 12/30/2018 Not-Taking Escitalopram Oxalate 10 MG/10ML 5 mL Orally Once a day; Duration: 30 days Active Physical Therapy . . Ultrasound for painful fibroma left foot> right foot 2-3x/week 03/25/2020 Not-Taking Spironolactone 12.5 mg Active traZODone HCl 100 MG as directed Active Lorazepam 1 mg Activ e metFORMIN HCl 1500 mg as directed Orally 3 times a day Active Extra Depth Orthopedic Shoes (1 Pair) with Customized Heat Molded Multidensity Innersoles (3 Pair) as directed Dx: NIDDM (E11.9), Hammertoe Foot Deformity (M20.41,M20.42), Preulcerative Skin Lesion(s) (L85.1) 12/21/2017 Not-Taking ARIPiprazole 2 MG 1 film Orally Once a day Active Temazepam 7.5 MG 1 capsule at bedtime as needed Orally Once a day Active Extra Depth Orthopedic Shoes (1 Pair) with Customized Heat Molded Multidensity Innersoles (3 Pair) as directed Offloading left plantar fibroma Dx: NIDDM (E11.9), Hammertoe Foot Deformity (M20.41,M20.42), Preulcerative Skin Lesion(s) (L85.1) 06/03/2021 Active Immunizations Vaccine Route Administration Date Status [...] W/U Status Risk Notes Problem Plantar wart (52593169) Plantar wart (B07.0) Active confirmed Problem Acquired hammer toe of right foot (8653120680810833 ) Hammer toe of right foot (M20.41) Active confirmed Problem Acquired hammer toe of left foot (6738336473809197 ) Hammer toe of left foot (M20.42) Active confirmed Problem Type II diabetes mellitus without complication (304829409) Type 2 diabetes mellitus without complication, without long-term current use of insulin (E11.9) Active confirmed Vital Signs Blood pressure diastolic 77 mm Hg 09/19/2024 Height 5ft7in in 09/19/2024 Blood pressure systolic 130 mm Hg 09/19/2024 Weight 173 lbs 09/19/2024 BMI 27.09 kg/m2 09/19/2024 Encounters Encounter Location Date Provider Diagnosis [address] [address] 12/14/2023 Camryn Harding Type 2 diabetes mellitus without complication, without long-term current use of insulin E11.9 ; Tinea unguium B35.1 ; Pain in toe of left foot M79.675 ; Pain in toe of right foot M79.674 ; Right foot pain M79.671 and Plantar wart B07.[address] [address] 03/21/2024 Camryn Harding Type 2 diabetes mellitus without complication, without long-term current use of insulin E11.9 ; Tinea unguium B35.1 ; Pain in toe of left foot M79.675 ; Pain in toe of right foot M79.674 ; Right foot pain M79.671 ; Plantar wart B07.0 and Pain in left foot M79.[address] [address] 06/27/2024 Camryn Harding Type 2 diabetes mellitus without complication, without long-term current use of insulin E11.9 ; Tinea unguium B35.1 ; Pain in toe of left foot M79.675 ; Pain in toe of right foot M79.674 ; Right foot pain M79.671 ; Plantar wart B07.0 and Pain in left foot M79.672 [facility] [address] [address] 09/19/2024 Camryn Harding Tinea unguium B35.1 ; Plantar wart B07.0 ; Type 2 diabetes mellitus without complication, without long-term current use of insulin E11.9 ; Pain in toe of left foot M79.675 ; Pain in toe of right foot M79.674 and Right foot pain M79.671 Assessments Encounter Date Diagnosis (ICD Code) Assessment [...] current use of insulin (ICD-10 - E11.9) 09/19/2024 Plantar wart (ICD-10 - B07.0) 09/19/2024 Tinea unguium (ICD-10 - B35.1) 09/19/2024 Type 2 diabetes mellitus without complication, without [...] toe of left foot (ICD-10 - M79.675) 09/19/2024 Pain in toe of left foot (ICD-10 - M79.675) 09/19/2024 Pain in toe of right foot (ICD-10 - M79.674) 06/27/2024 Pain in toe of right foot (ICD-10 - M79.674) 03/21/2024 Right foot pain (ICD-10 - M79.671) 12/14/2023 Right foot pain (ICD-10 - M79.671) 03/21/2024 Plantar wart (ICD-10 - B07.0) 12/14/2023 Plantar wart (ICD-10 - B07.0) 06/27/2024 Right foot pain (ICD-10 - M79.671) 09/19/2024 Right foot pain (ICD-10 - M79.671) 03/21/2024 Pain in left foot (ICD-10 - M79.672) 06/27/2024 Plantar wart (ICD-10 - B07.0) 06/27/2024 Pain in left foot (ICD-10 - M79.672) Plan Of Treatment Pending Test Test Name Order Date X ray : Foot, right 3V 08/11/2022 [id number] DYSTROPHIC NAILS ANY # [id number] DYSTROPHIC NAILS ANY # [id number] TENDON SHEATH/LIGAMENT 0 11/24/2019 Next Appt Details Provider Name:Camryn valera, 12/26/2024 09:00:00 AM, [address] [place], [address], Insurance Providers Payer Name Payer Address Payer Phone Subscriber Number Group Number Insured Name Patient Relationship to Insured Coverage Start Date Coverage End Date Blue Benefits [address] [address] [place] [address] [id number] Self - patient is the insured Medical (General) History Medical History History ICD Code Anxiety Cholesterol Depression type II diabetes Kidney disease Chicken pox Surgical History Surgery Date(Month/Year) colonoscopy 07/2019 [place] [facility] [place]
--- OUTSIDE RECORDS SUMMARY | 2024-10-27 08:54 | XMS_ITS | Clinical Summary ---
Author Organization [facility] Address [address] [place] [address] Care Team Providers Care Street Worker Name Role Phone Hai Stevens MD Primary Care Provider [phone] Social History Tobacco Use Types Packs/Day Years [...] (1 - season) 2023 Influenza Vaccine (#1) 2024 Colonoscopy 07/18/2029 07/19/2019 Colorectal Cancer Screening 07/18/2029 Insurance [employer] Care Teams Street Worker Relationship Specialty Start Date End Date Hai Stevens MD [address] [place] [address] [place] [id number] PCP - General Internal Medicine 11/10/21
--- OUTSIDE RECORDS SUMMARY | 2024-10-27 08:54 | XMS_ITS | Clinical Summary ---
Author Organization [facility] Facility Address [address] [place] [address] Care Team Providers Care Title Examiner Name Role Phone Hai Stevens MD Primary Care Provider [phone] Allergies Active Allergy Reactions Criticality Noted Date [...] Visual Foot Exam 04/02/2022 Influenza Vaccine (#1) 2024 , 02/16/2020, 02/16/2019, Additional history exists Hepatitis B Vaccine Aged Out No longe r eligible based on patient's age to complete this topic Insurance Cigna C[employer] Care Teams Title Examiner Relationship Specialty Start Date End Date Hai Stevens MD [address] [place], [place] PCP - General 04/29/20
== END 2024-10-27 09:52 | disposition home or self-care (01) ==
LOC: HO.HGI 08:45
PROVIDERS: PCP Internal Medicine; Visit Provider Nurse Practitioner Family
DX: Z01.818 Encounter for other preprocedural examination (principal); Z12.11 Encounter for screening for malignant neoplasm of colon
CPT/HCPCS: S0285

== ENCOUNTER 2024-11-08 08:45 | Outpatient (AMB) | payer OTHER, SELFPAY ==
[2024-11-08 09:05] VITALS: BMI 31.2
--- NOTE | 2024-11-08 09:05 | A.OFFVIS_ITS ---
VS Expanded 11/08/24 09:05 Height 5 ft 6.5 in Weight 195 lb 15.855 oz BMI 31.2 Intake Visit Reasons: Nutrition Allergies MILTON Inhibitors (MILTON INHIBITORS) Allergy (Severe, Verified 10/27/24 08:50) SWELLING,ANAPHYLAXIS Calcium Channel Blocking Agents-Dih (CALCIUM CHANNEL BLOCKING AGENTS-DIH) Allergy (Severe, Verified 10/27/24 08:50) SEVERE WEIGHT LOSS lidocaine (LIDOCAINE) Allergy (Severe, Verified 10/27/24 08:50) ANAPHYLAXIS amlodipine (AMLODIPINE) Allergy (Intermediate, Verified 10/27/24 08:50) HIVES, rash aspirin (ASPIRIN) Allergy (Intermediate, Verified 10/27/24 08:50) GI UPSET, rash codeine (CODEINE) Allergy (Intermediate, Verified 10/27/24 08:50) GI UPSET, rash acetaminophen (Percocet) Allergy (Unknown, Verified 10/27/24 08:50) Unknown amoxicillin (AMOXICILLIN) Allergy (Unknown, Verified 10/27/24 08:50) UNKNOWN Anesthetics - Amide Type - Select A (ANESTHETICS - AMIDE TYPE) Allergy (Unknown, Verified 10/27/24 08:50) ANESTHETIC ADDITIVES lisinopril Allergy (Unknown, Verified 10/27/24 08:50) Angioedema, anaphylaxis morphine Allergy (Unknown, Verified 10/27/24 08:50) rash oxycodone (Percocet) Allergy (Unknown, Verified 10/27/24 08:50) Unknown From Novocain Allergy (Severe, Uncoded 10/27/24 08:50) ANAPHYLAXIS ... additives or preservative Allergy (Unknown, Uncoded 10/27/24 08:50) unknown MILTON Inhibitors Allergy (Unknown, Uncoded 10/27/24 08:50) unknown calcium blockers Allergy (Unknown, Uncoded 10/27/24 08:50) unnown Calcium Channel blockers Allergy (Unknown, Uncoded 10/27/24 08:50) anaphylaxis Codeine Phosphate Allergy (Unknown, Uncoded 10/27/24 08:50) unknown Novocain Allergy (Unknown, Uncoded 10/27/24 08:50) anaphylaxis From PERCOCET Adverse Reaction (Intermediate, Uncoded 10/27/24 08:50) GI UPSET Nutrition Presentation Details: Pt presents for MNT for T2DM on metformin 500 mg BID 7 d bg average at 111 mg/dl (pt uses talking glucometer), FBG ranging from 97- 144 mg/dl for the past 14 days 24 hr food recall B: 2 Millie or apple with peanut butter lunch : protein shake or carrots or sandwich shrimp or salad with eggs dinner : pizza or pork /potato or salad with peas and tuna snack: yasso yogurt or chips reports feeling well, no concerns expressed physical activity: 2500 steps most days (other days reaching 5000 and [address]) BS Monitoring Most Recent Diabetes Results: Creatinine, (0.5-1.4) 0.80 mg/dL 06/16/24 BUN, (9-16) 11 mg/dL 06/16/24 Sodium, (135-145) 139 mmol/L 06/16/24 Potassium, (3.3-5.1) 4.3 mmol/L 06/16/24 Chloride, (96-108) 107 mmol/L 06/16/24 Carbon Dioxide, (22-29) 25 mmol/L 06/16/24 Calcium, (8.4-10.2) 9.8 mg/dL 06/16/24 [facility] Medical History Colonoscopy planned Kidney disease Diabetes mellitus Surgical History (Updated 10/24/24 @ 13:42 by Gama Luo [facility]) H/O colonoscopy H/O breast surgery No history of previous surgery Family History Mother No problems noted. Father No problems noted. Social History Housing: House Alcohol intake: current Alcohol intake frequency: holidays/special occasions only Patient Tobacco Use Status: Never used Tobacco Tobacco use type: Cigarette e-Cigarette/Vaping Use: Never Used Second Hand Smoke Exposure: No Current occupational status: employed Current occupation: right hand dominant Cognitive needs: No Hearing needs: No Vision needs: No Female Reproductive History Menstrual Age of Menarche: 13 Assessment & Plan Assessment & Plan (1) Diabetes mellitus with coincident hypertension: Code(s): E11.9 - Type 2 diabetes mellitus without complications; I10 - Essential (primary) hypertension Category: Medical Plan: Wt: 94Kg ( July/2023 ), , 88 kg (03/12), 89 kg ( 05/13), 90kg(06/13), 94kg (08/11), 89kg (09/10), 11/10 Est kcal needs as per MSJ: 1800 (40% carb, 30% protein/fat) Est fluid needs as per 25-30 ml/d: 2800 Est prot per day as per 1 g/kg bw: 94 Recommend fiber intake : 8-10 g per day and gradually increase to 25-28 g per day for women and 35-38 g for men or as tolerated Recommend sodium intake per day : less than 2000 mg Educated patient on: ( R = reviewed V = verbalizes understanding N/R = needs review N/A = not applicable * Food sources of carbohydrate, adequate serving sizes and its role in various health conditions: R * Differences between complex carbohydrates a simple carbohydrates, role of fiber in diet: R * Lean protein sources of foods: R * Meal replacement and snack replacement option: R * Differences between types of fats and role in diet (mono on saturated fat fatty acids, saturated fatty acids, trans fats): R * Food sources of sodium in salt and healthy modifications for heart health in kidney health: R * Vitamins and minerals: N/R * Healthy plate method concept: R * Physical activity: Benefits a precaution: R * Hypoglycemia protocol (rule of 15): R V * Dietary prevention of Hyperglycemia: R Patient Instructions: Have celery, portillo tomatoes as bedtime snack (reducing on salt intake and total carbs) monitor your blood sugar 2 hours after a meal for self assessment (goal less than 180 unless otherwise specified by your doctor) continue walking reaching 3000 steps daily Coding Level of Care Code Nutr Indiv Subseq (83818) Diagnoses Diabetes mellitus with coincident hypertension E11.9; I10 Time Spent (min) 30
--- OUTSIDE RECORDS SUMMARY | 2024-11-08 09:05 | XMS_ITS | Clinical Summary ---
Author Organization [facility] Address [address] [place] [address] Care Team Providers Care Sr. Logistics Analyst Name Role Phone Hai Stevens MD Primary Care Provider [phone] Social History Tobacco Use Types Packs/Day Years [...] Cancer Screening 07/18/2029 Insurance [employer] Care Teams Sr. Logistics Analyst Relationship Specialty Start Date End Date Hai Stevens MD [address] [place] [address] [place] [id number] PCP - General Internal Medicine 11/10/21
--- OUTSIDE RECORDS SUMMARY | 2024-11-08 09:05 | XMS_ITS | Clinical Summary ---
Author Organization [facility] Facility Address [address] [place] [address] Care Team Providers Care Veneer Glue Spreader Name Role Phone Hai Stevens MD Primary Care Provider [phone] Allergies Active Allergy Reactions Criticality Noted Date [...] this topic Insurance [employer] Care Teams Veneer Glue Spreader Relationship Specialty Start Date End Date Hai Stevens MD [address] [place], [place] PCP - General 04/29/20
--- OUTSIDE RECORDS SUMMARY | 2024-11-08 09:05 | XMS_ITS ---
Author Organization Unknown ENCOUNTERS Encounter Performer Location Date Diagnosis Diagnosis Status Emergency [facility] [address] [place] [id number] TERRY Emergency [address] [address] [id number] TERRY Pre Admit [address] [address] [id number] Emergency [address] [address] [id number] TERRY Pre Admit [facility] ED Physician [facility] [address] [place] [address] [id number] Pre Admit Ovidio Simons [address] [id number] [place] [address] [id number] Outpatient [address] [address] [id number] *H *Note: Encounters from your own facility or health system may be excluded. Allergies, Adverse Reactions, Alerts Allergen Type Severity Identification Date Medications Name Date Quantity Days Supplied GPI Number
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
== END 2024-11-08 09:44 | disposition home or self-care (01) ==
LOC: HO.ENCR 08:46
PROVIDERS: PCP Internal Medicine; Visit Provider Dietitian, Registered
DX: E11.9 Type 2 diabetes mellitus without complications (principal); I10 Essential (primary) hypertension

== ENCOUNTER → 2024-11-08 08:45 | Outpatient (BNVA) | payer OTHER, SELFPAY | PROVIDERS: PCP Internal Medicine; Visit Provider Dietitian, Registered | DX: E11.9 Type 2 diabetes mellitus without complications (principal); I10 Essential (primary) hypertension | CPT/HCPCS: 97803 ==

== ENCOUNTER → 2024-11-10 11:13 | Outpatient (BNVA) | payer OTHER, SELFPAY | PROVIDERS: PCP Internal Medicine; Visit Provider Physician Assistant | DX: Z13.89 Encounter for screening for other disorder (principal) | CPT/HCPCS: 99202 ==

== ENCOUNTER 2024-11-27 07:26 | Outpatient (AMB) | payer OTHER, SELFPAY ==
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
--- OUTSIDE RECORDS SUMMARY | 2024-11-27 07:29 | XMS_ITS | Clinical Summary ---
Author Organization [facility] Address [address] [place] [address] Care Team Providers Care Director Of Personnel Name Role Phone Hai Stevens MD Primary Care Provider [phone] Social History Tobacco Use Types Packs/Day Years [...] Cancer Screening 07/18/2029 Insurance [employer] Care Teams Director Of Personnel Relationship Specialty Start Date End Date Hai Stevens MD [address] [place] [address] [place] [address] PCP - General Internal Medicine 11/10/21
--- OUTSIDE RECORDS SUMMARY | 2024-11-27 07:29 | XMS_ITS ---
Author Organization Unknown ENCOUNTERS Encounter Performer Location Date Diagnosis Diagnosis Status Emergency [facility] [address] [place] [address] [id number] TERRY Emergency [address] [address] [id number] TERRY Pre Admit [address] [address] [id number] Emergency [address] [address] [id number] TERRY Pre Admit [facility] Phys[facility] [address] [place] [address] [id number] Pre Admit Ovidio Simons [place] [address] [place] [address] [id number] [address] [address] [id number] *H *Note: Encounters from your own facility or health system may be excluded. Allergies, Adverse Reactions, Alerts Allergen Type Severity Identification Date Medications Name Date Quantity Days Supplied GPI Number
--- OUTSIDE RECORDS SUMMARY | 2024-11-27 07:29 | XMS_ITS | Clinical Summary ---
Author Organization [facility] Address [address] [address] Phone Care Team Providers Care Senior Clinical Research Associate Name Role Phone Hai Stevens MD Primary Care Provider [phone] Allergies Active Allergy Reactions Criticality Noted Date Comments Jb Inhibitors Unknown 11/23/2017 Amlodipine Unknown 11/23/2017 Amoxicillin Unknown 11/23/2017 Aspirin Unknown 11/23/2017 Calcium Channel Blocking Agents-Dihydropyridines Unknown 11/23/2017 Codeine Unknown 11/23/2017 Procaine Unknown 11/23/2017 Oxycodone-Acetaminophen Unknown 11/23/2017 Medications traZODone (DESYREL) 150 MG tablet Take 175 mg by mouth nightly. Active metFORMIN (GLUCOPHAGE) 1000 MG tablet Take 1,500 mg by mouth. Active temazepam (RESTORIL) 30 mg capsule Take 30 mg by mouth nightly as needed. Active atorvastatin (LIPITOR) 80 MG tablet Take 80 mg by mouth daily. Active LORazepam (ATIVAN) 1 MG tablet Take 0.5 mg by mouth 2 (two) times a day. Active lamoTRIgine (LAMICTAL) 200 MG tablet Take 200 mg by mouth. Active spironolactone (ALDACTONE) 25 MG tablet Take 12.5 mg by mouth. Active Social History Tobacco Use Types Packs/Day Years Used Date Smoking Tobacco: Never Smokeless Tobacco: Never Alcohol Use Standard Drinks/Week Comments No 0 (1 standard drink = 0.6 oz pur e alcohol) Education Answer Date Recorded Are you interested in more education? Not on jim e 08/14/2022 Are you concerned about learning? Not on file 08/14/2022 No 08/14/2022 No 08/14/2022 Digital Access Answer Date Recorded No 09/14/2022 No 09/14/2022 No 09/14/2022 Reliable internet access at home? Not on file 09/14/2022 Device with a working camera? Not on file Comments Unknown Sex and Gender Information Value Date Recorded Sex Assigned at Female 11/23/2017 11:15 AM EDT Legal Sex Female 9:44 PM EDT Gender Identity Female 11/23/2017 11:15 AM EDT Sexual Orientation Straight 11/23/2017 11 :15 AM EDT Last Filed Vital Signs Vital Sign Reading Time Taken Comments Blood Pressure 144/79 11/23/2017 12:30 PM EDT Pulse 74 11/23/2017 12:30 PM EDT Temperature 36.7 C (98.1 F) 11/23/2017 11:15 AM EDT Respiratory Rate 16 11/23/2017 12:30 PM EDT Oxygen Saturation 94% 11/23/2017 12:30 PM EDT Inhaled Oxygen Concentration - - Weight 74.8 kg (165 lb) 11/23/2017 11:15 AM EDT Height 170.2 cm (5' 7 ) 11/23/2017 11:15 AM EDT Body Mass Index 25.84 11/23/2017 11:15 AM EDT Plan of Treatment Not on file Medical Devices Not on file Insurance [employer]IDAD PPO CIGNA PPO CIGNA PPO CIGNA PPO CIGNA PPO CIGNA PPO CIGNA PPO CIGNA PPO CIGNA PPO Care Teams Senior Clinical Research Associate Relationship Specialty Start Date End Date Hai Stevens MD [address] [place] [address] [place] [address] PCP - General Internal Medicine 11/23/17 Additional Source Comments The information contained in this document represents components of the legal health record. It is not the complete legal health record.[facility]
--- OUTSIDE RECORDS SUMMARY | 2024-11-27 07:29 | XMS_ITS | Patient Health Record ---
[facility] Address [address] [facility] [place] [address] Care Team Providers Care Radiological Health Specialist Name Role Phone Levi SANCHES, Josefina Primary Care Provider Unavail able Camryn Harding Unavailable [phone] Allergies Allergen (clinical drug ingredient) Drug/Non Drug [...] W/U Status Risk Notes Problem Plantar wart (16044713) Plantar wart (B07.0) Active confirmed Problem Acquired hammer toe of right foot (2586632663118532 ) Hammer toe of right foot (M20.41) Active confirmed Problem Acquired hammer toe of left foot (0759293331850665 ) Hammer toe of left foot (M20.42) Active confirmed Problem Type II diabetes mellitus without complication (015572461) Type 2 diabetes mellitus without complication, without long-term current use of insulin (E11.9) Active confirmed Vital Signs Blood pressure diastolic 77 mm Hg 09/19/2024 Height 5ft7in in 09/19/2024 Blood pressure systolic 130 mm Hg 09/19/2024 Weight 173 lbs 09/19/2024 BMI 27.09 kg/m2 09/19/2024 Encounters Encounter Location Date Provider Diagnosis [address] [address] 12/14/2023 Camryn Damonsoto Type 2 diabetes mellitus without complication, without long-term current use of insulin E11.9 ; Tinea unguium B35.1 ; Pain in toe of left foot M79.675 ; Pain in toe of right foot M79.674 ; Right foot pain M79.671 and Plantar wart B07.[address] [address] 03/21/2024 Camryn Nelsona Type 2 diabetes mellitus without complication, without long-term current use of insulin E11.9 ; Tinea unguium B35.1 ; Pain in toe of left foot M79.675 ; Pain in toe of right foot M79.674 ; Right foot pain M79.671 ; Plantar wart B07.0 and Pain in left foot M79.[address] [address] 06/27/2024 Camryn Perica Type 2 diabetes mellitus without complication, without long-term current use of insulin E11.9 ; Tinea unguium B35.1 ; Pain in toe of left foot M79.675 ; Pain in toe of right foot M79.674 ; Right foot pain M79.671 ; Plantar wart B07.0 and Pain in left foot M79.672 [facility] [address] [address] 09/19/2024 Camryn Harding Tinea unguium B35.1 ; [...] X ray : Foot, right 3V 08/11/2022 [id number] DYSTROPHIC NAILS ANY # [id number]-YXOSILFO DYSTROPHIC NAILS ANY # [id number]-JLZ TENDON SHEATH/LIGAMENT 0 11/24/2019 Next Appt Details Provider Name:Camryn valera, 12/26/2024 09:00:00 AM, [address] [place], [address], Insurance Providers Payer Name Payer Address Payer Phone Subscriber Number Group Number Insured Name Patient Relationship to Insured Coverage Start Date Coverage End Date Blue Benefits [address] [address] [place] [id number] Rajwinder Hall Self - patient is the insured Medical (General) History Medical History History ICD Code Anxiety Cholesterol Depression type II diabetes Kidney disease Chicken pox Surgical History Surgery Date(Month/Year) colonoscopy 07/2019 Hospitalization History Reason Date(Month/Year[place] [facility] [place]
[2024-11-27 07:31] VITALS: BP 136/82; PULSE 79; O2SAT 97; BMI 32.1
--- NOTE | 2024-11-27 07:31 | MHC.PC.OV ---
Vital Signs 11/27/24 07:31 Height 5 ft 6.5 in Weight 202 lb BMI 32.1 BP 136/82 Blood Pressure Location Lt brachial Position Sitting Pulse 79 Pulse Source Pulse Oximeter Pulse Oximetry (%) 97 Oxygen Delivery Method Room Air Intake Visit Reasons: Transfer Care from Dr. 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 Required: No Accompanied by: Self / Same As Patient Allergies MILTON Inhibitors (MILTON INHIBITORS) Allergy (Severe, Verified 11/27/24 07:45) SWELLING,ANAPHYLAXIS Calcium Channel Blocking Agents-Dih (CALCIUM CHANNEL BLOCKING AGENTS-DIH) Allergy (Severe, Verified 11/27/24 07:45) SEVERE WEIGHT LOSS lidocaine (LIDOCAINE) Allergy (Severe, Verified 11/27/24 07:45) ANAPHYLAXIS amlodipine (AMLODIPINE) Allergy (Intermediate, Verified 11/27/24 07:45) HIVES, rash aspirin (ASPIRIN) Allergy (Intermediate, Verified 11/27/24 07:45) GI UPSET, rash codeine (CODEINE) Allergy (Intermediate, Verified 11/27/24 07:45) GI UPSET, rash acetaminophen (Percocet) Allergy (Unknown, Verified 11/27/24 07:45) Unknown amoxicillin (AMOXICILLIN) Allergy (Unknown, Verified 11/27/24 07:45) UNKNOWN Anesthetics - Amide Type - Select A (ANESTHETICS - AMIDE TYPE) Allergy (Unknown, Verified 11/27/24 07:45) ANESTHETIC ADDITIVES lisinopril Allergy (Unknown, Verified 11/27/24 07:45) Angioedema, anaphylaxis morphine Allergy (Unknown, Verified 11/27/24 07:45) rash oxycodone (Percocet) Allergy (Unknown, Verified 11/27/24 07:45) Unknown From Novocain Allergy (Severe, Uncoded 11/27/24 07:45) ANAPHYLAXIS ... additives or preservative Allergy (Unknown, Uncoded 11/27/24 07:45) unknown MILTON Inhibitors Allergy (Unknown, Uncoded 11/27/24 07:45) unknown calcium blockers Allergy (Unknown, Uncoded 11/27/24 07:45) unnown Calcium Channel blockers Allergy (Unknown, Uncoded 11/27/24 07:45) anaphylaxis Codeine Phosphate Allergy (Unknown, Uncoded 11/27/24 07:45) unknown Novocain Allergy (Unknown, Uncoded 11/27/24 07:45) anaphylaxis From PERCOCET Adverse Reaction (Intermediate, Uncoded 11/27/24 07:45) GI UPSET Medication List - Last Reconciled 11/27/24 by Josefina Dodson MD albuterol sulfate 90 mcg/actuation 2 inhalations inhalation Q4-6H PRN albuterol sulfate 90 mcg/actuation (Ventolin HFA) 1 inh inhalation QID PRN aripiprazole 2 mg PO DAILY atorvastatin 80 mg PO DAILY benzonatate 200 mg PO TID PRN bisacodyl (Dulcolax (bisacodyl)) 20 mg (4 x 5 mg) PO ONCE 1 day blood sugar diagnostic ([employer] Ultra Test strips) once per day lamotrigine 450 mg PO BID lancets ([employer] Delica Lancets) once a day lancing device with lancets ([employer] Delica Plus Lancing Device kit) test once daily lorazepam mg PO metformin 500 mg PO TID polyethylene glycol 3350 (Miralax) 238 grams PO ONCE spironolactone 12.5 mg (1/2 x 25 mg) PO DAILY temazepam 7.5 mg orally bedtime; trazodone 100 mg PO DAILY Tobacco use date assessed: 11/27/24 Dental Screening Dental Screen Date: 06/28/24 HPI HPI Comments History of Present Illness Details The patient is a 64-year-old female presenting for a transfer of care due to her previous doctor's pen[facility]. She has a history of diabetes mellitus type 2, currently managed with metformin 500 mg three times daily, achieving an A1c of 5.8%. She reports no side effects from the medication. The patient also has hyperlipidemia, with a treatment goal of maintaining an LDL level below 70 mg/dL, managed with atorvastatin 80 mg. Her medical history includes hypertension, for which she takes spironolactone 12.5 mg daily. She denies experiencing any chest pain or dyspnea. The patient has a psychiatric history of depression with anxiety, managed with Abilify, Lamictal, and lorazepam as needed. She also suffers from insomnia, for which she uses temazepam and trazodone. Preventative care measures include up-to-date vaccinations and recent screenings, including a negative mammogram and a Pap smear negative for HPV conducted in May of this year. [facility] Medical History (Updated 11/27/24 @ 08:03 by Josefina Dodson MD) Colonoscopy planned Kidney disease Diabetes mellitus Surgical History H/O colonoscopy H/O breast surgery No history of previous surgery Family History Mother No problems noted. Father No problems noted. Social History Housing: House Alcohol intake: current Alcohol intake frequency: holidays/special occasions only Patient Tobacco Use Status: Never used Tobacco Tobacco use type: Cigarette e-Cigarette/Vaping Use: Never Used Second Hand Smoke Exposure: No Current occupational status: employed Current occupation: right hand dominant Cognitive needs: No Hearing needs: No Vision needs: No Female Reproductive History Menstrual Age of Menarche: 13 Questionnaire PHQ-9 Over the last 2 weeks, how often have you been bothered by any of the following problems? 1. Little interest or pleasure in doing things: not at all 2. Feeling down, depressed, or hopeless: not at all 3. Trouble falling or staying asleep, or sleeping too much: not at all 4. Feeling tired or having little energy: not at all 5. Poor appetite or overeating: not at all 6. Feeling bad about yourself - or that you are a failure or have let yourself or your family down: not at all 7. Trouble concentrating on things, such as reading the newspaper or watching television: not at all 8. Moving or speaking so slowly that other people could have noticed. Or the opposite - being so fidgety or restless that you have been moving around a lot more than usual: not at all 9. Thoughts that you would be better off or of hurting yourself in some way: not at all Total score: 0 Depression Screening Interpretation: Negative Depression Screening Done: Yes 02500 - PHQ-9 Billing: Yes Source: Developed by Drs. Lobito Chaidez, Socorro Bergman, Marcio Salguero and colleagues, with an educational ismael from [employer]. Thrive Questionnaire Date Thrive assessed: 06/28/24 BLAISE-7 AMB Questionnaire BLAISE-7 Date BLAISE - 7 assessed: 06/28/24 Source: Developed by Drs. Lobito Chaidez, Socorro Bergman, Marcio Salguero and colleagues, with an educational ismael from [employer]. Review of Systems Const All systems reviewed & are unremarkable except as noted in HPI and below Card Denies chest pain at rest, Denies chest pain with activity, Denies edema, Denies irregular heart rhythm, Denies claudication, Denies dyspnea, Denies dyspnea on exertion, Denies orthopnea, Denies paroxysmal nocturnal dyspnea and Denies slow heart rate Resp Denies cough, Denies dyspnea and Denies dyspnea on exertion GI Denies abdominal pain, Denies change in bowel habits, Denies excessive flatus, Denies nausea and Denies vomiting Denies urinary incontinence, Denies urinary hesitancy and Denies urinary urgency Physical exam (Primary Care) Vital Signs: Last Vital Signs Pulse 79 11/27/24 07:31 BP 136/82 11/27/24 07:31 Pulse Ox 97 11/27/24 07:31 Oxygen Delivery Method Room Air 11/27/24 07:31 BMI result Body Mass Index 32.1 Tobacco/Smoking Status: Tobacco use Status Tobacco use date assessed 11/27/24 11/27/24 07:35 Patient Tobacco Use Status Never used Tobacco 11/27/24 07:35 Tobacco use type Cigarette 11/27/24 07:35 e-Cigarette/Vaping Use Never Used 11/27/24 07:35 PHQ-9: PHQ-9 Score PHQ-9: Total score 0 11/27/24 07:47 Depression Screening Interpretation: Negative Thrive Assessment: Date of Thrive Assessment Date Thrive assessed 06/28/24 11/27/24 07:35 Resp Effort & Inspection: normal respiratory effort Auscultation: clear to auscultation bilaterally Cardio Jugular venous distension: no JVD Rate: regular rate Rhythm: regular rhythm Heart sounds: S1 normal heart sound present and S2 normal heart sound present Extrem General: Yes full ROM Results AMB Hemoglobin A1c AMB Hemoglobin A1c 5.8 % Last Edit by Dayana Jorgensen CMA on 11/27/24 07:56 Coding Level of Care Code Est Pt Level 4 (39436) Complex EM visit Add On G2211 Diagnoses Essential hypertension I10 Hyperlipidemia LDL goal <70 E78.5 Diabetes mellitus E11.9 Asthma J45.909 Mild recurrent major depression F33.0 BLAISE (generalized anxiety disorder) F41.1 Additional Codes PHQ-9 - 13518 - PHQ-9 Billing: Yes ([id number]) Time Spent (min) 23 Assessment & Plan Assessment & Plan (1) Essential hypertension: Code(s): I10 - Essential (primary) hypertension Category: Medical (2) Hyperlipidemia LDL goal <70: Code(s): E78.5 - Hyperlipidemia, unspecified Category: Medical (3) Diabetes mellitus: Code(s): E11.9 - Type 2 diabetes mellitus without complications Category: Medical (4) Asthma: Code(s): J45.909 - Unspecified asthma, uncomplicated Category: Medical (5) Mild recurrent major depression: Code(s): F33.0 - Major depressive disorder, recurrent, mild Category: Medical (6) BLAISE (generalized anxiety disorder): Code(s): F41.1 - Generalized anxiety disorder Category: Medical Plan The management of diabetes mellitus type 2 will continue with metformin 500 mg three times daily, given the current A1c of 5.8% indicates good control. The patient should maintain regular follow-ups to monitor her glycemic control. For hyperlipidemia, the patient will continue atorvastatin 80 mg to achieve and maintain the LDL goal of less than 70 mg/dL. Hypertension management will continue with spironolactone 12.5 mg daily, and the patient should monitor her blood pressure regularly. The patient's depression with anxiety will continue to be managed with Abilify, Lamictal, and lorazepam as needed. Insomnia management will continue with temazepam and trazodone. Preventative care measures, including vaccinations and screenings, are up to date, and the patient should continue to adhere to recommended schedules. Orders: Orders AMB Hemoglobin A1c Today Z13.9 - Encounter for screening, unspecified Microalbumin, Random (w Creat) 4 Months R80.9 - Proteinuria, unspecified Comprehensive [place]. Panel Fast 4 Months E11.9 - Type 2 diabetes mellitus without complications, I10 - Essential (primary) hypertension Lipid Panel 4 Months E78.5 - Hyperlipidemia, unspecified Medications: Changed From lancets ([employer] Delica Lancets) once a day 100 ea 0RF E11.9 - Type 2 diabetes mellitus without complications, I10 - Essential (primary) hypertension To lancets once a day 100 ea 3RF E11.9 - Type 2 diabetes mellitus without complications, I10 - Essential (primary) hypertension
== END 2024-11-27 07:55 | disposition home or self-care (01) ==
LOC: HO.HMCH 07:26
PROVIDERS: PCP Internal Medicine; Visit Provider Internal Medicine
DX: I10 Essential (primary) hypertension (principal); E78.5 Hyperlipidemia, unspecified; E11.9 Type 2 diabetes mellitus without complications; J45.909 Unspecified asthma, uncomplicated; F33.0 Major depressive disorder, recurrent, mild; F41.1 Generalized anxiety disorder; Z13.9 Encounter for screening, unspecified

== ENCOUNTER → 2024-11-27 07:26 | Outpatient (BNVA) | payer OTHER, SELFPAY | PROVIDERS: PCP Internal Medicine; Visit Provider Internal Medicine | DX: E11.9 Type 2 diabetes mellitus without complications (principal); I10 Essential (primary) hypertension; E78.5 Hyperlipidemia, unspecified; F33.0 Major depressive disorder, recurrent, mild; F41.1 Generalized anxiety disorder; R80.9 Proteinuria, unspecified; Z79.84 Long term (current) use of oral hypoglycemic drugs | CPT/HCPCS: 83036; 96127 ==

== ENCOUNTER 2025-01-03 13:46 | Emergency (ER) | payer OTHER, SELFPAY ==
--- OUTSIDE RECORDS SUMMARY | 2024-06-27 05:00 | XMS_ITS ---
Author Organization [facility] Address [address] [place] [address] Care Team Providers Care Red Cap Name Role Phone Levi SANCHES, Josefina Primary Care Provider Unavail Camryn Magallanes Unavailable [phone] Encounters Encounter Location Date Provider Diagnosis [facility] [address] [place] [address] 06/27/2024 Camryn Harding Plan Of Treatment Next Appt Details Provider Name:Camryn valera, 04/03/2025 09:00:00 AM, [address] [place], [address], Progress Notes * Rajwnider HALL MDOB: [birth year] (64 yo F)Acc No.[id number]:06/27/2024 Progress Note Patient: Rajwinder EVANS Provider: Marjorie Harding DPM :1960 A ge:63 Y S ex:Female Date:06/27/2024 Address:[facility] [address], [place], [place] Pcp:Josefina Sims MD Subjective: * Chief Complaints: * * Medical History: Objective: * Vitals: Assessment: Plan: * Treatment: * Images: * The named appointment provid er may or may not be the originator of this progress note, and it is not deemed complete until electronically signed by the appointment provider. Sign off status: Pending * Provider: Marjorie Harding DPM Date: 0 06/27/2024 Generated for Sofya lennon/Marry/Marcos on: 0 01/03/2025 06:10 PM EDT
--- NOTE | ~2025-01-03 | XR_ITS ---
EXAMINATION: XR CHEST CLINICAL INFORMATION: dizziness COMPARISON: May 23, 2024 TECHNIQUE: Frontal view of the chest was obtained. FINDINGS: Lung volumes are lower than on the prior study. Lungs clear. Heart size is normal. No pleural effusion is evident. XR/XR chest 1V IMPRESSION: No acute disease. Electronically signed by: Nash Haynes MD 01/03/2025 03:22 PM EDT RP
--- NOTE | ~2025-01-03 | CT_ITS ---
CLINICAL HISTORY: nausea vomiting --- Additional Notes or Special Instructions: Gastro @15:35 CT abdomen and pelvis with contrast Comparison: None provided Findings: No consolidation or effusion. Mild bilateral basilar dependent atelectasis. The gallbladder is unremarkable. No biliary ductal dilatation. The liver, spleen, pancreas and adrenal glands are unremarkable. Enhancement of bilateral kidneys with no ureteral stones and no hydronephrosis or hydroureter. No perinephric stranding. Lobulated kidneys bilaterally. No bowel obstruction, pneumoperitoneum, or pneumatosis. Appendix not visualized. No pericecal inflammatory changes. Intraluminal contrast in small bowel and in the colon. Apparent mild distal rectal wall thickening. Uterus is either markedly small or absent. 1.2 cm x 1 cm right-sided pelvic calcification. Urinary bladder within normal limits. No aneurysm of the abdominal aorta. IMPRESSION: 1. Questionable distal rectal wall thickening. Correlate clinically. 2. No acute findings This document has been electronically signed by: Yenny Malik MD on 01/03/2025 18:39:31
--- NOTE | ~2025-01-03 | CT_ITS ---
EXAMINATION: CT HEAD WITHOUT CONTRAST CLINICAL INFORMATION: Altered mental status COMPARISON: September 01, 2023 TECHNIQUE: Contiguous axial imaging was performed from the skull base to vertex without intravenous administration of contrast. This CT examination was performed using dose optimization techniques as appropriate, variously including the following: *Automated exposure control *Adjustment of mA and/or kV according to patient size (this includes techniques or standardized protocols for targeted exams where dose is matched to indication/reason for exam; i.e. extremities or head) *Use of iterative reconstruction technique DLP: 556 mGY*cm FINDINGS: There is no acute ischemic change. Mild patchy periventricular and white matter hypoattenuation are similar to the prior. There is no intracranial hemorrhage. There is no mass-effect or midline shift. Basal cisterns and ventricles are within normal limits for age/cerebral volume. Orbits are symmetrical and unremarkable. Paranasal sinuses and mastoid air cells are pneumatized. There are no bony abnormalities. CT/CT head/brain wo IV con IMPRESSION: No acute intracranial abnormality. Stable nonspecific periventricular white matter disease probably related to small vessel angiopathy. Electronically signed by: Nash Haynes MD 01/03/2025 03:45 PM EDT
[2025-01-03 13:50] VITALS: BP 136/60; PULSE 82; RESP 18; TEMP 37; O2SAT 96; BMI 27.9
--- NOTE | 2025-01-03 13:52 | ECG_ITS ---
Test Reason : TREMORS/SWEATING Blood Pressure : */* mmHG Vent. Rate : 82 BPM Atrial Rate : 82 BPM P-R Int : 148 ms QRS Dur : 72 ms QT Int : 348 ms P-R-T Axes : 43 12 34 degrees QTcB Int : 406 ms Normal sinus rhythm Normal ECG When compared with ECG of 01-Sep-2023 14:47, No significant change was found Referred By: Asif Morales Electronically Signed By: MARY GONZALEZ
--- NOTE | 2025-01-03 13:56 | ED_ITS ---
HPI - General Adult General Chief complaint: General Medical Stated complaint: sugar low ? dehydrated Time Seen by Provider: 01/03/25 14:47 Source: patient Mode of arrival: ambulatory Limitations: no limitations History of Present Illness ED Provider: Lois Ann PA-C HPI narrative: Patient is a 64 year old assigned female at with a history of DM on metformin, HLD, asthma, HTN, anxiety, and depression presenting to the emergency department with shakiness, tremors, and diaphoresis. Patient states that she felt like her sugar was low this morning so she drank some orange juice. She reports that she started to have a headache, feel shaky, tremulousness, hot and sweaty while at work this afternoon. Patient states that she had one episode of fecal incontinence and non-bloody diarrhea in the ER which has never happened to her before. Patient denies any fevers, chills, night sweats, weight loss or weight gain, dizziness, lightheadedness, syncopal, vision changes, chest pain, SOB, difficulty breathing, abdominal pain, back pain, dysuria, hematuria, changes to urinary frequency, changes to stool caliber prior to coming to the emergency department, blood in her stool, or any other symptoms at this time. Patient denies any recent travel, recent illness, or sick contacts. She reports her medical conditions and medications have been stable with no changes recently. Patient's last colonoscopy was in July 2019, which was normal but she is due for another one due to a history of tubular adenoma. Patient reports social alcohol use, but denies recent ETOH. Patient denies smoking cigarettes or any other substance use. Related Data Home Medications ?Medication ?Instructions ?Recorded ?Confirmed trazodone 100 mg tablet 100 mg PO DAILY 10/02/2003/13 temazepam 15 mg capsule See Rx Instructions PO BEDTI ME 04/29/23 11/27/24 aripiprazole 2 mg tablet 2 mg PO DAILY 09/13/2411/27 lamotrigine 150 mg tablet 450 mg PO BID 10/27/2411/27 lorazepam 0.5 mg tablet mg PO 10/27/24 11/27/24 Previous Rx's ?Medication ?Instructions ?Recorded blood sugar diagnostic (CallidusCloudTouch #100 ea 08/05/22 Ultra Test strips) lancing device with lancets kit #1 ea 08/05/22 ([employer] Plus Lancing Device kit) albuterol sulfate 90 mcg/actuation 2 inh inhalation Q4 -6H PRN 06/08/23 breath activated powder inhaler shortness of breath or wheezing #1 ea atorvastatin 80 mg tablet 80 mg PO DAILY #90 tabs 10/17 07/10 spironolactone 25 mg tablet 12.5 mg (1/2 x 25 mg) PO D AILY #90 04/10/24 tabs albuterol sulfate 90 mcg/actuation 1 inh inhalation QI D PRN shortness 06/12/24 aerosol inhaler (Ventolin HFA) of breath or wheezing # 8.5 grams benzonatate 200 mg capsule 200 mg PO TID PRN cough #14 caps 06/28/24 metformin 500 mg tablet 500 mg PO TID #90 tabs 08/30 bisacodyl 5 mg tablet,delayed 20 mg (4 x 5 mg) PO ONCE 10/27/24 release (Dulcolax (bisacodyl)) constipation 1 day #4 t abs polyethylene glycol 3350 17 238 g PO ONCE #238 grams 0 10/27/24 gram/dose oral powder (Miralax) blood sugar diagnostic (Embrace #50 ea 11/27/24 EDWAR test strips) lancets 33 gauge #100 ea 11/27/24 loperamide 2 mg capsule (Imodium 2 mg PO Q4H PRN loose stool #12 01/03/25 A-D) caps nitrofurantoin 100 mg PO Q12H 3 days #6 cap s 01/03/25 monohydrate/macrocrystals 100 mg capsule (Macrobid) Allergies Allergy/AdvReac Type Severity Reaction Status Date / Time MILTON Inhibitors (MILTON Allergy Severe SWELLING,AN Verified 01/03/25 13:56 INHIBITORS) APHYLAXIS Calcium Channel Blocking Allergy Severe SEVERE Verified 01/03/25 13:56 Agents-Dih (CALCIUM CHANNEL WEIGHT LOSS BLOCKING AGENTS-DIH) lidocaine (LIDOCAINE) Allergy Severe ANAPHYLAXIS Verified 01/03/25 13:56 amlodipine (AMLODIPINE) Allergy Intermediate HIVES, rash Verified 01/03/25 13:56 aspirin (ASPIRIN) Allergy Intermediate GI UPSET, Verified 01/03/25 13:56 rash codeine (CODEINE) Allergy Intermediate GI UPSET, Verified 01/03/25 13:56 rash acetaminophen (Percocet) Allergy Unknown Unknown Verified 01/03/25 13:56 amoxicillin (AMOXICILLIN) Allergy Unknown UNKNOWN Verified 01/03/25 13:56 Anesthetics - Amide Type - Allergy Unknown ANESTHETIC Verified 01/03/25 13:56 Select A (ANESTHETICS - ADDITIVES AMIDE TYPE) lisinopril Allergy Unknown Angioedema, Verified 01/03/25 13:56 anaphylaxis morphine Allergy Unknown rash Verified 01/03/25 13:56 oxycodone (Percocet) Allergy Unknown Unknown Verified 01/03/25 13:56 From Novocain Allergy Severe ANAPHYLAXIS Uncoded 11/27/24 07:45 ... additives or Allergy Unknown unknown Uncoded 11/27/24 07:45 preservative MILTON Inhibitors Allergy Unknown unknown Uncoded 11/27/24 07:45 calcium blockers Allergy Unknown unnown Uncoded 11/27/24 07:45 Calcium Channel blockers Allergy Unknown anaphylaxis Uncoded 11/27/24 07:45 Codeine Phosphate Allergy Unknown unknown Uncoded 11/27/24 07:45 Novocain Allergy Unknown anaphylaxis Uncoded 11/27/24 07:45 From PERCOCET AdvReac Intermediate GI UPSET Uncoded 11/27/24 07:45 Review of Systems 2 Constitutional: Constitutional: Reports as per HPI Eyes: Eyes: Reports as per HPI ENT: Reports as per HPI Cardiovascular: Cardiovascular: Reports as per HPI Respiratory: Respiratory: Reports as per HPI Gastrointestinal: Gastrointestinal: Reports as per HPI Genitourinary: Genitourinary: Reports as per HPI Musculoskeletal: Musculoskeletal: Reports as per HPI Integumentary/Breasts: Skin/Breast: Reports as per HPI Neurologic: Reports as per HPI Psychiatric: Psychiatric: Reports as per HPI Endocrine: Endocrine: Reports as per HPI Hematologic/Lymphatic: Hematologic/Lymphatic: Reports as per HPI Allergic/Immunologic: Allergic/Immunologic: Reports as per HPI PMFSH Past Medical History Attestation statement: The following information was validated with the patient. Source: old records reviewed and nursing notes reviewed Medical History Colonoscopy planned Kidney disease Diabetes mellitus Surgical History H/O colonoscopy H/O breast surgery No history of previous surgery Family History Family History Mother No problems noted. Father No problems noted. Social History Social History Housing: House Alcohol intake: former Patient Tobacco Use Status: Never used Tobacco Tobacco use type: Cigarette e-Cigarette/Vaping Use: Never Used Second Hand Smoke Exposure: No Current occupational status: employed Current occupation: right hand dominant Cognitive needs: No Hearing needs: No Vision needs: No Physical Exam ED Vital Signs: Vital Signs - 24 hr 01/03/25 13:50 01/03/25 15:29 01/03/25 18:04 Temperature 98.6 F 98.7 F Pulse Rate 82 75 67 Respiratory Rate 18 18 12 Blood Pressure 136/60 148/72 H 144/74 H Pulse Oximetry 96 97 99 Oxygen Delivery Method Room Air Room Air Room Air 01/03/25 19:56 01/03/25 20:02 Temperature 98.4 F 98.4 F Pulse Rate 65 65 Respiratory Rate 18 18 Blood Pressure 135/71 135/71 Pulse Oximetry 93 93 Oxygen Delivery Method Room Air Room Air BMI result Body Mass Index 27.9 Const General: cooperative, no acute distress, alert and awake Nutritional Appearance: well nourished Orientation/consciousness: patient oriented x3 HENMT Head: Yes normal to inspection and Yes atraumatic Ears: hearing grossly normal bilaterally and external ears normal General nose exam: Normal external nose present, no nasal discharge noted and no epistaxis Face and sinus: Yes normal facial exam, No abrasion and No laceration Mouth: Normal oral and palatal mucosa present, no drooling and no muffled voice Eyes General: appearance normal, both eyes and all related structures Periorbital: periorbital findings normal Eyelids: Yes eyelids normal Conjunctivae: conjunctivae normal Pupils: Equal, round and reactive pupils present EOM: EOMs intact bilaterally Neck Neck: Yes normal visual inspection and Yes full ROM Resp Effort & Inspection: normal respiratory effort and able to speak in complete sentences Neuro General: patient oriented x3, moves all extremities and CN's II-XI intact bilaterally Cranial nerves: Yes Equal, round and reactive pupils present Cognition (Neuro): normal cognition Extrem General: Yes normal to inspection, Yes full ROM and Yes capillary refill normal Psych Appearance: grossly normal Mental Status: mental status grossly normal Affect: normal affect Attitude: cooperative Thought process: Normal thought process present Thought content: Normal thought content present Insight: Good insight present (Psych) Course Course Course Narrative: RME: 64-year-old female brought to the ED for tremors and sweating. Patient has history of diabetes. Fingerstick it is normal. Labs EKG ordered. NIH score is 0. Patient is alert oriented x3. Reevaluation(s) Reevaluation #1: Patient received in sign-out at change of shift pending CT scan and urinalysis. Her CT scan shows questionable distal rectal thickening. She reports that she has already waiting to see GI for his colonoscopy but has not yet gotten the appointment. We will put a referral back to the office. I did give her a dose of Imodium given the bladder incontinence. The patient's urinalysis did show greater than 50 white cells with 1+ bacteria and no signs of contamination. We will give her a short course of Macrobid. I did discuss possible side effects of diarrhea with antibiotics. All questions were answered, she is hemodynamically stable and stable for discharge. Time: 19:30 Medications Administered Discontinued Medications Generic Name Dose Route Start Last Admin Trade Name Boris PRN Reason Stop Dose Admin Diatrizoate Meglum/Diatrizoate Sod 30 ml 01/03/25 17:35 01/03/25 17:35 Diatrizoate Meglumine, Sodium 30 Ml Solution PO 01/03/25 17:36 30 ml ONCE ONE Administration Sodium Chloride 1,000 mls @ 999 mls/hr 01/03/25 15:00 01/03/25 16:54 Ns IV 01/03/25 16:00 Infused .Q1H1M BJ Infusion Iohexol 85 ml 01/03/25 17:33 01/03/25 17:35 Iohexol 350 Mg/Ml 100 Ml Infus..Btl IV 01/03/25 17:34 85 ml ONCE ONE Administration Loperamide HCl 4 mg 01/03/25 19:00 01/03/25 19:13 Loperamide Hcl 2 Mg Capsule PO 01/03/25 19:01 4 mg ONCE ONE Administration Ondansetron HCl 4 mg 01/03/25 15:10 01/03/25 15:28 Ondansetron Hcl 4 Mg/2 Ml Vial IVPUSH 01/03/25 15:11 4 mg ONCE ONE Administration Medical Decision Making Medical Decision Making MDM Narrative: Patient is a 64 year old assigned female at with a history of DM on metformin, HLD, asthma, HTN, anxiety, and depression presenting to the emergency department with shakiness, tremors, and diaphoresis. Patient's physical exam was as noted in the physical exam portion of this note. Patient's blood work showed an elevated potassium of 5.3 but otherwise unremarkable. Patient's urine showed is pending. Patient's chest x-ray and head CT showed no acute process. Patient's CT abdomen/pelvis is pending Patient signed out to JAMES Kendall pending CT and UA result. Differential Diagnosis Differential Diagnoses: The differential diagnosis associated with the presentation includes Gastroenteritis Viral illness Admission/Observation Consideration of admission/observation: Escalation of care including admission/observation considered Patient's disposition will be determined after UA and CT abd/pelvis result. Lab Data [facility] Lab Attestation statement: I reviewed the patient's lab results. My interpretation of these results are in the [facility] Rationale portion of this note. 01/03/25 14:03 01/03/25 14:03 Labs: Lab Results 01/03/25 01/03/25 01/03/25 Range/Units 13:50 14:03 14:04 WBC 6.6 (4.8-10.8) X10*3/uL RBC 3.95 L (4.20-5.50) X10*6/uL Hgb 11.5 L (12.0-16.0) g/dl Hct 35.4 L (37.0-47.0) % MCV 89.6 (80.0-98.0) fL MCH 29.1 (27.0-33.0) pg MCHC 32.5 (31.0-35.0) g/dl RDW 13.6 (11.0-16.0) % Plt Count 264 (160-400) X10*3/uL MPV 9.3 L (9.4-12.3) fL Immature Gran % (Auto) 0.3 (0.0-0.4) % Neut % (Auto) 57.7 (45-73) % Lymph % (Auto) 28.2 (20-40) % [place] % (Auto) 8.9 (2-11) % Eos % (Auto) 3.8 (0-4) % Baso % (Auto) 1.1 (0-2) % Lymph # (Auto) 1.9 (1.2-4.9) X10*3/uL [place] # (Auto) 0.6 (0.1-1.2) X10*3/uL Eos # (Auto) 0.3 (0.0-0.4) X10*3/uL Baso # (Auto) 0.1 (0.0-0.2) X10*3/uL Abs Immat Gran (auto) 0.02 (0.00-0.03) X10*3/uL Absolute Neuts (auto) 3.8 (2.0-8.3) x10*3/uL Absolute Nucleated RBC 0.000 (0.0-0.012) X10*3/uL Nucleated RBC % (auto) 0.0 (0.0-0.2) /100WBC PT 10.0 L (10.9-12.4) SEC INR 0.9 (0.9-1.1) APTT 30.4 (26.7-34.1) SEC Sodium 138 (135-145) mmol/L Potassium 5.3 H D (3.3-5.1) mmol/L Chloride 103 (96-108) mmol/L Carbon Dioxide 28 (22-29) mmol/L Anion Gap 12 (12-20) BUN 19 H (9-16) mg/dL Creatinine 1.07 (0.5-1.4) mg/dL Estim Creat Clear Calc 59.6 Estimated GFR 52 POC Glucose 132 H (60-115) mg/dL Random Glucose 110 (60-115) mg/dL Calcium 10.1 (8.4-10.2) mg/dL Magnesium 1.9 (1.6-2.6) mg/dL Total Bilirubin 0.5 (0.0-1.0) mg/dL AST 24 (5-31) U/L ALT 26 (0-31) U/L Alkaline Phosphatase 99 (39-117) U/L Total Creatine Kinase 205 H (26-140) U/L Troponin I High Sens 6.3 (<3.5-17.0) ng/L Total Protein 7.5 (6.5-8.0) g/dL Albumin 4.9 (3.5-5.0) g/dL TSH 0.83 (0.32-4.0) uIU/mL Urine Color Urine Appearance Urine pH (5.0-9.0) Ur Specific [place] (1.005-1.025) Urine Protein (Neg-Trace) mg/dL Urine Glucose (UA) (Negative) mg/dL Urine Ketones (Negative) mg/dL Urine Blood (Negative) Urine Nitrite (Negative) Ur Leukocyte Esterase (Negative) Urine RBC (0-2) /HPF Urine WBC (0-5) /HPF Ur Squamous Epith Cells (0-2) /HPF Urine Bacteria (None Seen) Hyaline Casts (0-2) /LPF C. difficile Tox B Gene (Negative) COVID-19 (IVETT) Negative (Negative) COVID-19 Clin Com See Note Influenza Type A (ANGELA) Negative (Negative) Influenza Type B (ANGELA) Negative (Negative) Influenza A & B Note See Note 01/03/25 01/03/25 01/03/25 Range/Units 14:14 17:46 19:14 WBC (4.8-10.8) X10*3/uL RBC (4.20-5.50) X10*6/uL Hgb (12.0-16.0) g/dl Hct (37.0-47.0) % MCV (80.0-98.0) fL MCH (27.0-33.0) pg MCHC (31.0-35.0) g/dl RDW (11.0-16.0) % Plt Count (160-400) X10*3/uL MPV (9.4-12.3) fL Immature Gran % (Auto) (0.0-0.4) % Neut % (Auto) (45-73) % Lymph % (Auto) (20-40) % [place] % (Auto) (2-11) % Eos % (Auto) (0-4) % Baso % (Auto) (0-2) % Lymph # (Auto) (1.2-4.9) X10*3/uL [place] # (Auto) (0.1-1.2) X10*3/uL Eos # (Auto) (0.0-0.4) X10*3/uL Baso # (Auto) (0.0-0.2) X10*3/uL Abs Immat Gran (auto) (0.00-0.03) X10*3/uL Absolute Neuts (auto) (2.0-8.3) x10*3/uL Absolute Nucleated RBC (0.0-0.012) X10*3/uL Nucleated RBC % (auto) (0.0-0.2) /100WBC PT (10.9-12.4) SEC INR (0.9-1.1) APTT (26.7-34.1) SEC Sodium (135-145) mmol/L Potassium (3.3-5.1) mmol/L Chloride (96-108) mmol/L Carbon Dioxide (22-29) mmol/L Anion Gap (12-20) BUN (9-16) mg/dL Creatinine (0.5-1.4) mg/dL Estim Creat Clear Calc Estimated GFR POC Glucose 127 H (60-115) mg/dL Random Glucose (60-115) mg/dL Calcium (8.4-10.2) mg/dL Magnesium (1.6-2.6) mg/dL Total Bilirubin (0.0-1.0) mg/dL AST (5-31) U/L ALT (0-31) U/L Alkaline Phosphatase (39-117) U/L Total Creatine Kinase (26-140) U/L Troponin I High Sens (<3.5-17.0) ng/L Total Protein (6.5-8.0) g/dL Albumin (3.5-5.0) g/dL TSH (0.32-4.0) uIU/mL Urine Color Yellow Urine Appearance Clear Urine pH 7.0 (5.0-9.0) Ur Specific [place] 1.015 (1.005-1.025) Urine Protein Negative (Neg-Trace) mg/dL Urine Glucose (UA) Negative (Negative) mg/dL Urine Ketones Negative (Negative) mg/dL Urine Blood Negative (Negative) Urine Nitrite Negative (Negative) Ur Leukocyte Esterase Moderate (2+) H (Negative) Urine RBC 0-2 (0-2) /HPF Urine WBC >50 H (0-5) /HPF Ur Squamous Epith Cells 0-2 (0-2) /HPF Urine Bacteria 1+ (None Seen) Hyaline Casts 0-2 (0-2) /LPF C. difficile Tox B Gene NEGATIVE (Negative) COVID-19 (IVETT) (Negative) COVID-19 Clin Com Influenza Type A (ANGELA) (Negative) Influenza Type B (ANGELA) (Negative) Influenza A & B Note Independent Interpretation I performed an independent interpretation of an: Plain X-Ray and CT Scan Interpretation: My interpretation is in agreement with the radiologist's impression of these imaging studies. L EXAMINATION: XR CHEST CLINICAL INFORMATION: dizziness COMPARISON: May 23, 2024 TECHNIQUE: Frontal view of the chest was obtained. FINDINGS: Lung volumes are lower than on the prior study. Lungs clear. Heart size is normal. No pleural effusion is evident. XR/XR chest 1V IMPRESSION: No acute disease. Electronically signed by: Nash Haynes MD 01/03/2025 03:22 PM EDT RP Dictated By: Nash Haynes MD Signed By: Electronically signed by Nash Haynes MD 01/03/25 1522 Reason for Exam: AMS EXAMINATION: CT HEAD WITHOUT CONTRAST CLINICAL INFORMATION: Altered mental status COMPARISON: September 01, 2023 TECHNIQUE: Contiguous axial imaging was performed from the skull base to vertex without intravenous administration of contrast. This CT examination was performed using dose optimization techniques as appropriate, variously including the following: *Automated exposure control *Adjustment of mA and/or kV according to patient size (this includes techniques or standardized protocols for targeted exams where dose is matched to indication/reason for exam; i.e. extremities or head) *Use of iterative reconstruction technique DLP: 556 mGY*cm FINDINGS: There is no acute ischemic change. Mild patchy periventricular and white matter hypoattenuation are similar to the prior. There is no intracranial hemorrhage. There is no mass-effect or midline shift. Basal cisterns and ventricles are within normal limits for age/cerebral volume. Orbits are symmetrical and unremarkable. Paranasal sinuses and mastoid air cells are pneumatized. There are no bony abnormalities. CT/CT head/brain wo IV con IMPRESSION: No acute intracranial abnormality. Stable nonspecific periventricular white matter disease probably related to small vessel angiopathy. Electronically signed by: Nash Haynes MD 01/03/2025 03:45 PM EDT RP Dictated By: Nash Haynes MD Signed By: Electronically signed by Nash Haynes MD 01/03/25 1545 I independently interpreted this EKG and am in agreement with the below findings: Vent. Rate: 82 BPM Atrial Rate: 82 BPM P-R Int: 148 ms QRS Dur: 72 ms QT Int: 348 ms P-R-T Axes: 43 12 34 degrees QTcB Int: 406 ms Normal sinus rhythm Normal ECG When compared with ECG of 01-Sep-2023 14:47, No significant change was found DD/ 1357 Radiology Impression Discussion of test interpretation with radiology: I have reviewed the radiologist's reading. Discharge Plan Discharge Clinical Impression: Diarrhea Patient Disposition: Home, Self-Care Instructions: Acute Diarrhea (ED) Additional Instructions: Workup in the ER today was reassuring. Your CT scan did show questionable thickening of the distal rectum. You may take Imodium as directed, up to 8 mg per day. I do recommend that you follow up with GI for a colonoscopy Your urinalysis did show signs of infection, you should take nitrofurantoin twice daily for the next 3 days Prescriptions: New loperamide [Imodium A-D] 2 mg capsule 2 mg PO Q4H PRN (Reason: loose stool) Qty: 12 0RF Rx Instructions: administer after each loose stool until symptoms controlled; do not exceed 8 mg per 24 hrs nitrofurantoin monohyd/m-cryst [Macrobid] 100 mg capsule 100 mg PO Q12H 3 Days Qty: 6 0RF Rx Instructions: must administer with a meal/food No Action (DME) OneTouch Ultra Test Strip See Rx Instructions .Route Qty: 100 0RF Rx Instructions: once per day (DME) lancing device with lancets [OneTouch Delica Plus Lanc Dev] Kit See Rx Instructions .Route Qty: 1 0RF Rx Instructions: test once daily atorvastatin 80 mg tablet 80 mg PO DAILY Qty: 90 8RF spironolactone 25 mg tablet 12.5 mg PO DAILY Qty: 90 3RF albuterol sulfate [Ventolin HFA] 90 mcg/actuation HFA aerosol inhaler 1 inh inhalation QID PRN (Reason: shortness of breath or wheezing) Qty: 8.5 1RF metformin 500 mg tablet 500 mg PO TID Qty: 90 2RF (DME) Embrace EDWAR test strips Strip See Rx Instructions .Route Qty: 50 11RF Rx Instructions: Use 1 test strip once a day albuterol sulfate 90 mcg/actuation aerosol powdr breath activated 2 inh inhalation Q4-6H PRN (Reason: shortness of breath or wheezing) Qty: 1 0RF trazodone 100 mg tablet 100 mg PO DAILY temazepam 15 mg capsule See Rx Instructions PO BEDTIME Rx Instructions: 7.5 mg orally bedtime; benzonatate 200 mg capsule 200 mg PO TID PRN (Reason: cough) Qty: 14 0RF lamotrigine 150 mg tablet 450 mg PO BID lorazepam 0.5 mg tablet PO bisacodyl [Dulcolax (bisacodyl)] 5 mg tablet,delayed release (DR/EC) 20 mg PO ONCE 1 Days Qty: 4 0RF Rx Instructions: take 4 tabs at noon the day before your colonoscopy polyethylene glycol 3350 [Miralax] 17 gram/dose powder 238 g PO ONCE Qty: 238 0RF Rx Instructions: As directed by gastroenterology department at [facility] ([facility] [place]) lancets 33 gauge misc See Rx Instructions .Route Qty: 100 3RF Rx Instructions: once a day aripiprazole 2 mg tablet 2 mg PO DAILY Interventions: ED Discharge Assessment Last Done: 01/03/25 20:02 Discharge Date/Time: 01/03/25 20:40 Print Language: French
[2025-01-03 14:00] LABS: Glucose, Whole Blood 132 mg/dL (60-115)
[2025-01-03 14:10] LABS: MANUAL DIFF FLAG NO
[2025-01-03 14:19] LABS: Glucose, Whole Blood 127 mg/dL (60-115)
[2025-01-03 14:20] LABS: Hematocrit 35.4 % (37.0-47.0); Hemoglobin 11.5 g/dl (12.0-16.0); Imm Gran Abs Auto 0.02 X10*3/uL (0.00-0.03); Imm Gran Pct Auto 0.3 % (0.0-0.4); Lymphocytes Absolute Auto 1.9 X10*3/uL (1.2-4.9); Mean Corpuscular HGB Conc 32.5 g/dl (31.0-35.0); Mean Corpuscular Hemoglobin 29.1 pg (27.0-33.0); Mean Corpuscular Volume 89.6 fL (80.0-98.0); NRBC Abs Auto 0.000 X10*3/uL (0.0-0.012); NRBC Pct Auto 0.0 /100WBC (0.0-0.2); Platelet Count 264 X10*3/uL (160-400); Red Blood Count 3.95 X10*6/uL (4.20-5.50); White Blood Count 6.6 X10*3/uL (4.8-10.8)
[2025-01-03 14:24] LABS: INTERNATIONAL NORM RATIO 0.9 (0.9-1.1); Prothrombin Time 10.0 SEC (10.9-12.4)
[2025-01-03 14:26] LABS: Partial Thromboplastin Time 30.4 SEC (26.7-34.1)
[2025-01-03 14:28] LABS: Alanine Aminotransferase 26 U/L (0-31); Albumin Level 4.9 g/dL (3.5-5.0); Alkaline Phosphatase 99 U/L (39-117); Anion Gap 12 (12-20); Aspartate Amino Transferase 24 U/L (5-31); Blood Urea Nitrogen 19 mg/dL (9-16); Calcium 10.1 mg/dL (8.4-10.2); Carbon Dioxide 28 mmol/L (22-29); Chloride 103 mmol/L (96-108); Creatinine Clr Calc Pharmacy 59.6; Estimated Glomerular Filt Rate 52; Magnesium 1.9 mg/dL (1.6-2.6); Potassium 5.3 mmol/L (3.3-5.1); Sodium 138 mmol/L (135-145); Total Protein 7.5 g/dL (6.5-8.0)
[2025-01-03 14:35] LABS: Troponin-I High Sensitivity 6.3 ng/L (<3.5-17.0)
[2025-01-03 14:35] LABS: COVID-19 Test Negative (Negative); IDNOW Serial# 55D5AD1C; IDNOW Serial# 58CA691E; Influenza B2 Negative (Negative)
[2025-01-03 15:29] VITALS: BP 148/72; PULSE 75; RESP 18; O2SAT 97
[2025-01-03] MEDS: iohexoL 350 MG/ML 100 ML INFUS..BTL 85 ML IV (17:35)
[2025-01-03 18:04] VITALS: BP 144/74; PULSE 67; RESP 12; TEMP 37.1; O2SAT 99
--- OUTSIDE RECORDS SUMMARY | 2025-01-03 18:10 | XMS_ITS | Clinical Summary ---
Author Organization [facility] Address [address] [place] [id number] Care Team Providers Care [employer] Name Role Phone Hai Stevens MD Primary Care Provider [phone] Social History Tobacco Use Types Packs/Day Years [...] series) 2022 COVID-19 Vaccine (1 - season) 2024 Influenza Vaccine (#1) 2024 Colonoscopy 07/18/2029 07/19/2019 Colorectal Cancer Screening 07/18/2029 Insurance [employer] Care Teams [employer] Relationship Specialty Start Date End Date Hai Stevens MD [address] [place] [address] [place] [id number] PCP - General Internal Medicine 11/10/21
--- OUTSIDE RECORDS SUMMARY | 2025-01-03 18:10 | XMS_ITS | Clinical Summary ---
Author Organization [facility] Address [address] [address] Phone Care Team Providers Care Motion Picture Scene Builder Name Role Phone Hai Stevens MD Primary [...] PPO [employer]IG[employer] PPO [employer] PPO Care Teams Motion Picture Scene Builder Relationship Specialty Start Date End Date Hai Stevens MD [address] [place] [address] [place] [id number] PCP - General Internal Medicine 11/23/17 Additional Source Comments The information contained in this document represents components of the legal health record. It is not the complete legal health record.[facility]
--- OUTSIDE RECORDS SUMMARY | 2025-01-03 18:10 | XMS_ITS | Patient Health Record ---
[facility] Address [address] [address] Care Team Providers Care Brake Operator Name Role Phone Levi SANCHES, Josefina Primary Care Provider Unavail able Camryn Harding Unavailable [phone] Allergies Allergen (clinical drug ingredient) Drug/Non Drug [...] Duration) Notes Start Date End Date Status traZODone HCl 100 MG as directed Active [...] Preulcerative Skin Lesion(s) (L85.1) 12/21/2017 Not-Taking ARIPiprazole 5 MG 1 film Orally Once a day Active Extra Depth [...] 03/25/2020 Not-Taking Atorvastatin Calcium 80 MG Active lamoTRIgine 150 [...] Unknown 12/18/2021 Administered Influenza Unknown 01/18/2023 Administered Influenza Unknown 12/19/2023 Administered COVID-19 Pfizer BioNTech Vaccine Unknown 12/31/2020 [...] Are you an other tobacco user? No AUDIT-C (Standard) Question Answer Notes Did you have a drink containing alcohol in the p ast year? No Points 0 Interpretation Negative Problems Problem Type SNOMED Code ICD Code Onset Dates Problem Status W/U Status Risk Notes Problem Plantar wart (86159747) Plantar wart (B07.0) Active confirmed Problem Acquired hammer toe of right foot (9251823649803779 ) Hammer toe of right foot (M20.41) Active confirmed Problem Acquired hammer toe of left foot (2282676960654164 ) Hammer toe of left foot (M20.42) Active confirmed Problem Type II diabetes mellitus without complication (703765187) Type 2 diabetes mellitus without complication, without long-term current use of insulin (E11.9) Active confirmed Vital Signs Blood pressure diastolic 75 mm Hg 12/26/2024 Height 5ft7in in 12/26/2024 Blood pressure systolic 129 mm Hg 12/26/2024 Weight 178 lbs 12/26/2024 BMI 27.88 kg/m2 12/26/2024 Encounters Encounter Location Date Provider Diagnosis [address] [address] 03/21/2024 Camryn Harding Type 2 diabetes mellitus without complication, without long-term current use of insulin E11.9 ; Tinea unguium B35.1 ; Pain in toe of left foot M79.675 ; Pain in toe of right foot M79.674 ; Right foot pain M79.671 ; Plantar wart B07.0 and Pain in left foot M79.[address] [address] 06/27/2024 Camryn Harding Type 2 diabetes mellitus without complication, without long-term current use of insulin E11.9 ; Tinea unguium B35.1 ; Pain in toe of left foot M79.675 ; Pain in toe of right foot M79.674 ; Right foot pain M79.671 ; Plantar wart B07.0 and Pain in left foot M79.[address] [address] 09/19/2024 Camryn Harding Tinea unguium B35.1 ; Plantar wart B07.0 ; Type 2 diabetes mellitus without complication, without long-term current use of insulin E11.9 ; Pain in toe of left foot M79.675 ; Pain in toe of right foot M79.674 and Right foot pain M79.671 [facility] [address] [address] 12/26/2024 Camryn Harding Tinea unguium B35.1 ; Plantar wart B07.0 ; Type 2 diabetes mellitus without complication, without long-term current use of insulin E11.9 ; Pain in toe of left foot M79.675 ; Pain in toe of right foot M79.674 and Right foot pain M79.671 Assessments Encounter Date Diagnosis (ICD Code) Assessment Notes Treatment Notes Treatment Clinical Notes Section Notes 03/21/2024 Tinea unguium (ICD-10 - B35.1) 03/21/2024 Type 2 diabetes mellitus without complication, without long-term current use of insulin (ICD-10 - E11.9) 12/26/2024 Plantar wart (ICD-10 - B07.0) 12/26/2024 Tinea unguium (ICD-10 - B35.1) 09/19/2024 Plantar wart (ICD-10 - B07.0) 09/19/2024 Tinea unguium (ICD-10 - B35.1) 06/27/2024 Type 2 diabetes mellitus without complication, without long-term current use of insulin (ICD-10 - E11.9) 09/19/2024 Type 2 diabetes mellitus without complication, without long-term current use of insulin (ICD-10 - E11.9) 06/27/2024 Tinea unguium (ICD-10 - B35.1) 12/26/2024 Type 2 diabetes mellitus without complication, without long-term current use of insulin (ICD-10 - E11.9) 03/21/2024 Pain in toe of left foot (ICD-10 - M79.675) 03/21/2024 Pain in toe of right foot (ICD-10 - M79.674) 12/26/2024 Pain in toe of left foot (ICD-10 - M79.675) 09/19/2024 Pain in toe of left foot (ICD-10 - M79.675) 06/27/2024 Pain in toe of left foot (ICD-10 - M79.675) 06/27/2024 Pain in toe of right foot (ICD-10 - M79.674) 09/19/2024 Pain in toe of right foot (ICD-10 - M79.674) 12/26/2024 Pain in toe of right foot (ICD-10 - M79.674) 03/21/2024 Right foot pain (ICD-10 - M79.671) 03/21/2024 Plantar wart (ICD-10 - B07.0) 12/26/2024 Right foot pain (ICD-10 - M79.671) 09/19/2024 Right foot pain (ICD-10 - M79.671) 06/27/2024 Right foot pain (ICD-10 - M79.671) 06/27/2024 Plantar wart (ICD-10 - B07.0) 03/21/2024 Pain in left foot (ICD-10 - M79.672) 06/27/2024 Pain in left foot (ICD-10 - M79.672) Plan Of Treatment Pending Test Test Name Order Date X ray : Foot, right 3V 08/11/2022 [id number] DYSTROPHIC NAILS ANY # [id number] DYSTROPHIC NAILS ANY # [id number] TENDON SHEATH/LIGAMENT 0 11/24/2019 Next Appt Details Provider Name:Camryn valera, 04/03/2025 09:00:00 AM, [address] [place], [address], Insurance Providers Payer Name Payer Address Payer Phone Subscriber Number Group Number Insured Name Patient Relationship to Insured Coverage Start Date Coverage End Date Blue Benefits [address] [address] [place] [address] [phone] [id number] [address] Self - patient is the insured Medical (General) History Medical History History ICD Code Anxiety Cholesterol Depression type II diabetes Kidney disease Chicken pox Surgical History Surgery Date(Month/Year) colonoscopy 07/2019 [place] [facility] [place]
--- OUTSIDE RECORDS SUMMARY | 2025-01-03 18:10 | XMS_ITS ---
Author Organization Unknown ENCOUNTERS Encounter Performer Location Date Diagnosis Diagnosis Status Emergency [facility] [address] [place] [address] [id number] Pre Admit Generic ED Physician [facility] [address] [place] [address] [id number] Emergency [facility] [address] [place] [address] [id number] TERRY Emergency [place] [address] [place] [address] [id number] TERRY Pre Admit [facility] [address] [place] [address] [id number] Emergency [facility] [address] [place] [address] [id number] TERRY Pre Admit Generic ED Physician [facility] [address] [place] [address] [id number] Pre Admit Ovidio Simons [facility] [address] [place] [address] [id number] *Note: Encounters from your own facility or health system may be excluded. Allergies, Adverse Reactions, Alerts Allergen Type Severity Identification Date morphine drug allergy 3 [id number] lisinopril drug allergy 3 [id number] oxycodone drug allergy 3 [id number] Anesthetics - Amide Type - Select A drug allergy 3 [id number] acetaminophen drug allergy 3 [id number] Medications Name Date Quantity Days Supplied GPI Number
--- OUTSIDE RECORDS SUMMARY | 2025-01-03 18:10 | XMS_ITS | Clinical Summary ---
Author Organization [facility] Address [address] [place] [id number] Care Team Providers Care Quality Control Specialist Name Role Phone Hai Stevens MD Primary Care Provider [phone] Allergies Active Allergy Reactions Criticality Noted Date [...] this topic Insurance [employer] C[employer] Care Teams Quality Control Specialist Relationship Specialty Start Date End Date Hai Stevens MD [address] [place], [place] PCP - General 04/29/20
[2025-01-03 19:04] LABS: CDiff Gene PCR NEGATIVE (Negative)
[2025-01-03 19:21] LABS: Appearance Urine Clear; Glucose Urine UA Negative (Negative); PH 7.0 (5.0-9.0); Specific Gravity - Urine 1.015 (1.005-1.025); UMIC TRIGGER UACC YES
[2025-01-03 19:23] LABS: UACC Culture Trigger YES
[2025-01-03 19:56] VITALS: BP 135/71; PULSE 65; RESP 18; TEMP 36.9; O2SAT 93
[2025-01-03 20:02] VITALS: BP 135/71; PULSE 65; RESP 18; TEMP 36.9; O2SAT 93
[2025-01-04 08:52] LABS: E. coli EAEC Not Detected (Not Detect.); E. coli EPEC Not Detected (Not Detect.); E. coli ETEC Not Detected (Not Detect.); E. coli STEC Not Detected (Not Detect.); Shigella sp./EIEC Not Detected (Not Detect.)
== END 2025-01-03 20:40 | disposition home or self-care (01) ==
PROVIDERS: Physician Assistant; Physician Assistant Medical; Emergency Provider Emergency Medicine; PCP Internal Medicine
DX: R25.1 Tremor, unspecified (principal); R19.7 Diarrhea, unspecified; R61 Generalized hyperhidrosis; R42 Dizziness and giddiness; R10.2 Pelvic and perineal pain; R41.82 Altered mental status, unspecified; I10 Essential (primary) hypertension; Z79.899 Other long term (current) drug therapy; Z11.52 Encounter for screening for COVID-19
CPT/HCPCS: 36415; 70450; 71045; 74177; 80053; 81001; 82550; 82947; 83735; 84443; 84484; 85025; 85610; 85730; 87086; 87088; 87186; 87493; 87502; 87507; 87635; 93005; 96361; 96374; 99285; J2405; Q9967

== ENCOUNTER → 2025-01-03 13:52 | Outpatient (BNV) | payer OTHER, SELFPAY | PROVIDERS: Emergency Provider Emergency Medicine; PCP Internal Medicine; Visit Provider Internal Medicine | DX: Z13.6 Encounter for screening for cardiovascular disorders (principal) | CPT/HCPCS: 93010 ==

== ENCOUNTER → 2025-01-03 14:53 | Outpatient (BNV) | payer OTHER, SELFPAY | PROVIDERS: PCP Internal Medicine; Visit Provider Radiology Diagnostic Radiology | DX: K62.89 Other specified diseases of anus and rectum (principal); R41.82 Altered mental status, unspecified; R42 Dizziness and giddiness | CPT/HCPCS: 70450; 71045; 74177 ==

== ENCOUNTER 2025-01-15 08:17 | Outpatient (AMB) | payer OTHER, SELFPAY ==
[2025-01-15 08:32] VITALS: BMI 32.4
--- NOTE | 2025-01-15 08:32 | A.OFFVIS_ITS ---
VS Expanded 01/15/25 08:32 Height 5 ft 6.5 in Weight 203 lb 11.314 oz BMI 32.4 Intake Visit Reasons: T2DM Allergies MILTON Inhibitors (MILTON INHIBITORS) Allergy (Severe, Verified 01/03/25 13:56) SWELLING,ANAPHYLAXIS Calcium Channel Blocking Agents-Dih (CALCIUM CHANNEL BLOCKING AGENTS-DIH) Allergy (Severe, Verified 01/03/25 13:56) SEVERE WEIGHT LOSS lidocaine (LIDOCAINE) Allergy (Severe, Verified 01/03/25 13:56) ANAPHYLAXIS amlodipine (AMLODIPINE) Allergy (Intermediate, Verified 01/03/25 13:56) HIVES, rash aspirin (ASPIRIN) Allergy (Intermediate, Verified 01/03/25 13:56) GI UPSET, rash codeine (CODEINE) Allergy (Intermediate, Verified 01/03/25 13:56) GI UPSET, rash acetaminophen (Percocet) Allergy (Unknown, Verified 01/03/25 13:56) Unknown amoxicillin (AMOXICILLIN) Allergy (Unknown, Verified 01/03/25 13:56) UNKNOWN Anesthetics - Amide Type - Select A (ANESTHETICS - AMIDE TYPE) Allergy (Unknown, Verified 01/03/25 13:56) ANESTHETIC ADDITIVES lisinopril Allergy (Unknown, Verified 01/03/25 13:56) Angioedema, anaphylaxis morphine Allergy (Unknown, Verified 01/03/25 13:56) rash oxycodone (Percocet) Allergy (Unknown, Verified 01/03/25 13:56) Unknown From Novocain Allergy (Severe, Uncoded 11/27/24 07:45) ANAPHYLAXIS ... additives or preservative Allergy (Unknown, Uncoded 11/27/24 07:45) unknown MILTON Inhibitors Allergy (Unknown, Uncoded 11/27/24 07:45) unknown calcium blockers Allergy (Unknown, Uncoded 11/27/24 07:45) unnown Calcium Channel blockers Allergy (Unknown, Uncoded 11/27/24 07:45) anaphylaxis Codeine Phosphate Allergy (Unknown, Uncoded 11/27/24 07:45) unknown Novocain Allergy (Unknown, Uncoded 11/27/24 07:45) anaphylaxis From PERCOCET Adverse Reaction (Intermediate, Uncoded 11/27/24 07:45) GI UPSET Nutrition Presentation Details: Pt presents for MNT f/u for T2DM, Pt reports dietary indiscretion related to GI symptoms. Pt reports GI symptoms are now resolved and wants to resume working on meal planning. Pt reports having resumed exercise routine - 10 minutes stationery bike 4-5 x/wk BS Monitoring Most Recent Diabetes Results: Creatinine, (0.5-1.4) 1.07 mg/dL 01/03/25 BUN, (9-16) 19 mg/dL H 01/03/25 Sodium, (135-145) 138 mmol/L 01/03/25 Potassium, (3.3-5.1) 5.3 mmol/L H Δ 01/03/25 Chloride, (96-108) 103 mmol/L 01/03/25 Carbon Dioxide, (22-29) 28 mmol/L 01/03/25 Calcium, (8.4-10.2) 10.1 mg/dL 01/03/25 AST, (5-31) 24 U/L 01/03/25 ALT, (0-31) 26 U/L 01/03/25 Total Protein, (6.5-8.0) 7.5 g/dL 01/03/25 Albumin, (3.5-5.0) 4.9 g/dL 01/03/25 PFSH Medical History Colonoscopy planned Kidney disease Diabetes mellitus Surgical History H/O colonoscopy H/O breast surgery No history of previous surgery Family History Mother No problems noted. Father No problems noted. Social History Housing: House Alcohol intake: former Patient Tobacco Use Status: Never used Tobacco Tobacco use type: Cigarette e-Cigarette/Vaping Use: Never Used Second Hand Smoke Exposure: No Current occupational status: employed Current occupation: right hand dominant Cognitive needs: No Hearing needs: No Vision needs: No Female Reproductive History Menstrual Age of Menarche: 13 Assessment & Plan Assessment & Plan (1) Diabetes mellitus with coincident hypertension: Code(s): E11.9 - Type 2 diabetes mellitus without complications; I10 - Essential (primary) hypertension Category: Medical Plan: Wt: 93Kg ( 9/25) (pt has regained lost wetEst kcal needs as per MSJ: 1800 (40% carb, 30% protein/fat) Est fluid needs as per 25-30 ml/d: 2800 Est prot per day as per 1 g/kg bw: 94 Recommend fiber intake : 8-10 g per day and gradually increase to 25-28 g per day for women and 35-38 g for men or as tolerated Recommend sodium intake per day : less than 2000 mg Educated patient on: ( R = reviewed V = verbalizes understanding N/R = needs review N/A = not applicable * Food sources of carbohydrate, adequate serving sizes and its role in various health conditions: R * Differences between complex carbohydrates a simple carbohydrates, role of fiber in diet: R * Lean protein sources of foods: R * Meal replacement and snack replacement option: R * Differences between types of fats and role in diet (mono on saturated fat fatty acids, saturated fatty acids, trans fats): R * Food sources of sodium in salt and healthy modifications for heart health in kidney health: R * Vitamins and minerals: N/R * Healthy plate method concept: R * Physical activity: Benefits a precaution: R * Hypoglycemia protocol (rule of 15): R V * Dietary prevention of Hyperglycemia: R Patient Instructions: Resume meal planning, have a meal replacement once a day (see list of food options) have a yogurt as your bedtime snack keep hydrated by having water with meals/snacks Coding Level of Care Code Nutr Indiv Subseq (77739) Diagnoses Diabetes mellitus with coincident hypertension E11.9; I10 Time Spent (min) 30
== END 2025-01-15 08:50 | disposition home or self-care (01) ==
LOC: HO.ENCR 08:17
PROVIDERS: PCP Internal Medicine; Visit Provider Dietitian, Registered
DX: E11.9 Type 2 diabetes mellitus without complications (principal); I10 Essential (primary) hypertension

== ENCOUNTER → 2025-01-15 08:17 | Outpatient (BNVA) | payer OTHER, SELFPAY | PROVIDERS: PCP Internal Medicine; Visit Provider Dietitian, Registered | DX: E11.9 Type 2 diabetes mellitus without complications (principal); I10 Essential (primary) hypertension | CPT/HCPCS: 97803 ==

== ENCOUNTER 2025-03-03 08:40 | Outpatient (REF) | payer OTHER, SELFPAY ==
[2025-03-03 09:39] LABS: Alanine Aminotransferase 27 U/L (0-31); Albumin Level 4.6 g/dL (3.5-5.0); Alkaline Phosphatase 104 U/L (39-117); Anion Gap 15 (12-20); Aspartate Amino Transferase 26 U/L (5-31); Blood Urea Nitrogen 17 mg/dL (9-16); Calcium 9.8 mg/dL (8.4-10.2); Carbon Dioxide 23 mmol/L (22-29); Chloride 108 mmol/L (96-108); Cholesterol 147 mg/dL (<200); Estimated Glomerular Filt Rate 55; HDL Cholesterol 62 mg/dL (>40); Potassium 4.7 mmol/L (3.3-5.1); Sodium 141 mmol/L (135-145); Total Protein 7.1 g/dL (6.5-8.0); Triglycerides 58 mg/dL (<150)
[2025-03-03 10:24] LABS: Microalbum/Creatinine Ratio Ur 53.2 ug/mg cr (<30)
== END 2025-03-03 08:41 | disposition home or self-care (01) ==
LOC: HO.LAB 08:40
PROVIDERS: PCP Internal Medicine; Visit Provider Internal Medicine
DX: I10 Essential (primary) hypertension (principal); E11.9 Type 2 diabetes mellitus without complications; E78.5 Hyperlipidemia, unspecified; R80.9 Proteinuria, unspecified
CPT/HCPCS: 36415; 80053; 80061; 82043; 82570

== ENCOUNTER 2025-03-28 08:04 | Outpatient (AMB) | payer OTHER, SELFPAY ==
[2025-03-28 08:12] VITALS: BP 136/82; PULSE 78; O2SAT 97; BMI 31.8
--- NOTE | 2025-03-28 08:12 | A.OFFPC_ITS ---
Vital Signs 03/28/25 08:12 Height 5 ft 6.5 in Weight 200 lb BMI 31.8 BP 136/82 Blood Pressure Location Lt brachial Position Sitting Pulse 78 Pulse Source Pulse Oximeter Pulse Oximetry (%) 97 Oxygen Delivery Method Room Air Intake Visit Reasons: DM Cert Occupational Therapy Asst Required: No Accompanied by: Self / Same As Patient Allergies MILTON Inhibitors (MILTON INHIBITORS) Allergy (Severe, Verified 03/28/25 08:25) SWELLING,ANAPHYLAXIS Calcium Channel Blocking Agents-Dih (CALCIUM CHANNEL BLOCKING AGENTS-DIH) Allergy (Severe, Verified 03/28/25 08:25) SEVERE WEIGHT LOSS lidocaine (LIDOCAINE) Allergy (Severe, Verified 03/28/25 08:25) ANAPHYLAXIS amlodipine (AMLODIPINE) Allergy (Intermediate, Verified 03/28/25 08:25) HIVES, rash aspirin (ASPIRIN) Allergy (Intermediate, Verified 03/28/25 08:25) GI UPSET, rash codeine (CODEINE) Allergy (Intermediate, Verified 03/28/25 08:25) GI UPSET, rash acetaminophen (Percocet) Allergy (Unknown, Verified 03/28/25 08:25) Unknown amoxicillin (AMOXICILLIN) Allergy (Unknown, Verified 03/28/25 08:25) UNKNOWN Anesthetics - Amide Type - Select A (ANESTHETICS - AMIDE TYPE) Allergy (Unknown, Verified 03/28/25 08:25) ANESTHETIC ADDITIVES lisinopril Allergy (Unknown, Verified 03/28/25 08:25) Angioedema, anaphylaxis morphine Allergy (Unknown, Verified 03/28/25 08:25) rash oxycodone (Percocet) Allergy (Unknown, Verified 03/28/25 08:25) Unknown From Novocain Allergy (Severe, Uncoded 03/28/25 08:25) ANAPHYLAXIS ... additives or preservative Allergy (Unknown, Uncoded 03/28/25 08:25) unknown MILTON Inhibitors Allergy (Unknown, Uncoded 03/28/25 08:25) unknown calcium blockers Allergy (Unknown, Uncoded 03/28/25 08:25) unnown Calcium Channel blockers Allergy (Unknown, Uncoded 03/28/25 08:25) anaphylaxis Codeine Phosphate Allergy (Unknown, Uncoded 03/28/25 08:25) unknown Novocain Allergy (Unknown, Uncoded 03/28/25 08:25) anaphylaxis From PERCOCET Adverse Reaction (Intermediate, Uncoded 03/28/25 08:25) GI UPSET Medication List - Last Reconciled 03/28/25 by Josefina Dodson MD albuterol sulfate 90 mcg/actuation 2 inhalations inhalation Q4-6H PRN albuterol sulfate 90 mcg/actuation (Ventolin HFA) 1 inh inhalation QID PRN aripiprazole 2 mg PO DAILY atorvastatin 80 mg PO DAILY bisacodyl (Dulcolax (bisacodyl)) 20 mg (4 x 5 mg) PO ONCE 1 day blood sugar diagnostic (Minubouch Ultra Test strips) once per day blood sugar diagnostic (Embrace EDWAR test strips) Use 1 test strip once a day lamotrigine 450 mg PO BID lancets once a day lancing device with lancets (ParStream Delica Plus Lancing Device kit) test once daily loperamide (Imodium A-D) 2 mg PO Q4H PRN lorazepam mg PO metformin 500 mg PO TID polyethylene glycol 3350 (Miralax) 238 grams PO ONCE spironolactone 12.5 mg (1/2 x 25 mg) PO DAILY temazepam 7.5 mg orally bedtime; trazodone 100 mg PO DAILY Tobacco use date assessed: 11/27/24 Dental Screening Dental Screen Date: 06/28/24 HPI HPI Comments History of Present Illness Details The patient is a 64 year old female presenting for a follow-up on her diabetes, hyperlipidemia, depression and anxiety. She has a history of asthma and uses an albuterol inhaler as needed, particularly in very hot or cold weather. The patient reports a history of depression and sees a psychiatrist and therapist; she takes lamotrigine for mood. Regarding her medication history, the patient takes atorvastatin 80 mg for hyperlipidemia and metformin 500 mg three times daily. She also takes spironolactone, trazodone, and lorazepam. She has discontinued loperamide, which was prescribed during an emergency room visit. The patient had a significant adverse reaction to aripiprazole (Abilify), describing a feeling of being in space and inability to drive, and states she will never take it again. The patient has a history of chronic kidney disease and sees a pharmacy technician inpatient annually. Recent lab work showed an improvement in her GFR from 52 to 55. She has multiple drug allergies, including MILOTN inhibitors (swelling, anaphylaxis), amlodipine (hives, rashes), aspirin (GI upset), codeine (GI upset), Percocet, amoxicillin, anesthetics, lisinopril, and morphine (rash). [facility] Medical History (Updated 03/28/25 @ 10:03 by Josefina Dodson MD) Colonoscopy planned Kidney disease Diabetes mellitus Surgical History H/O colonoscopy H/O breast surgery No history of previous surgery Family History Mother No problems noted. Father No problems noted. Social History Housing: House Alcohol intake: former Patient Tobacco Use Status: Never used Tobacco Tobacco use type: Cigarette e-Cigarette/Vaping Use: Never Used Second Hand Smoke Exposure: No Current occupational status: employed Current occupation: right hand dominant Cognitive needs: No Hearing needs: No Vision needs: No Female Reproductive History Menstrual Age of Menarche: 13 Questionnaire PHQ-9 Over the last 2 weeks, how often have you been bothered by any of the following problems? 1. Little interest or pleasure in doing things: not at all 2. Feeling down, depressed, or hopeless: not at all 3. Trouble falling or staying asleep, or sleeping too much: not at all 4. Feeling tired or having little energy: not at all 5. Poor appetite or overeating: several days 6. Feeling bad about yourself - or that you are a failure or have let yourself or your family down: not at all 7. Trouble concentrating on things, such as reading the newspaper or watching television: several days 8. Moving or speaking so slowly that other people could have noticed. Or the opposite - being so fidgety or restless that you have been moving around a lot more than usual: not at all 9. Thoughts that you would be better off or of hurting yourself in some way: not at all Total score: 2 Depression Screening Interpretation: Positive Depression Screening Follow-up: Existing condition, In treatment, Community Mental Health Worker F/U and Follow- up Visit Requested Depression Screening Done: Yes 80423 - PHQ-9 Billing: Yes Source: Developed by Drs. Lobito Chaidez, Socorro Bergman, Marcio Salguero and colleagues, with an educational ismael from [employer]. Thrive Questionnaire Date Thrive assessed: 06/28/24 I am a: Patient What is your living situation today?: I have a steady place to live Within the past 12 months, did the food you bought not last and you didn't have the money to get more?: I choose not to answer this question Within the past 12 months, did you worry whether your food would run out before you got money to buy more?: I choose not to answer this question Do you have trouble paying for medicines?: I choose not to answer this question Do you have trouble getting transportation to medical appointments?: I choose not to answer this question Do you have trouble paying your heating and electricity bill?: I choose not to answer this question Do you have trouble taking care of your child, family member or friend?: I choose not to answer this question Do you have trouble with day-to-day activities such as bathing, preparing meals, shopping, managing finances, etc.?: I choose not to answer this question Are you currently unemployed and looking for a job?: No Are you interested in more education?: I choose not to answer this question Please select the resources that you would like help with: None Currently or been in a relationship where the following occur: I choose not to answer THRIVE Score: 0 AUDIT C Alcohol Use Questionnaire (AUDIT-C) 1. How often do you have a drink containing alcohol?: Monthly or less 2. How many drinks containing alcohol do you have on a typical day when you are drinking?: 1 or 2 3. How often do you have six or more drinks on one occasion?: Never Total Score: 1 Score Reviewed/Action Taken: No BLAISE-7 AMB Questionnaire BLAISE-7 Date BLAISE - 7 assessed: 06/28/24 Feeling nervous, anxious, or on edge: 0 = Not at all Not being able to stop or control worryin = Not at all Worrying too much about different things: 0 = Not at all Trouble relaxin = Not at all Being so restless that it is hard to sit still: 0 = Not at all Becoming easily annoyed or irritable: 1 = Several days Feeling afraid as if something awful might happen: 0 = Not at all Total BLAISE-7 score (0-4 normal; 5-9 mild; 10-14 moderate; 15-21 severe): 1 Source: Developed by Drs. Lobito Chaidez, Socorro Bergman, Marcio Salguero and colleagues, with an educational ismael from [employer]. BLAISE-7 Assessment Billing BLAISE-7 Assessment Tool: BLAISE-7 Assessment 55830 Review of Systems Const All systems reviewed & are unremarkable except as noted in HPI and below Card Denies chest pain at rest, Denies chest pain with activity, Denies edema, Denies irregular heart rhythm, Denies claudication, Denies dyspnea, Denies dyspnea on exertion, Denies orthopnea, Denies paroxysmal nocturnal dyspnea and Denies slow heart rate Resp Denies cough, Denies dyspnea and Denies dyspnea on exertion GI Denies abdominal pain, Denies change in bowel habits, Denies excessive flatus, Denies nausea and Denies vomiting Physical exam (Primary Care) Vital Signs: Last Vital Signs Pulse 78 03/28/25 08:12 BP 136/82 03/28/25 08:12 Pulse Ox 97 03/28/25 08:12 Oxygen Delivery Method Room Air 03/28/25 08:12 BMI result Body Mass Index 31.8 Tobacco/Smoking Status: Tobacco use Status Tobacco use date assessed 11/27/24 03/28/25 08:14 Patient Tobacco Use Status Never used Tobacco 03/28/25 08:14 Tobacco use type Cigarette 03/28/25 08:14 e-Cigarette/Vaping Use Never Used 03/28/25 08:14 PHQ-9: PHQ-9 Score PHQ-9: Total score 2 03/28/25 08:36 Depression Screening Interpretation: Positive Depression Screening Follow-up: Existing condition, In treatment, Community Mental Health Worker F/U and Follow- up Visit Requested Thrive Assessment: Date of Thrive Assessment Date Thrive assessed 06/28/24 03/28/25 08:14 Currently or been in a relationship where the following occur: I choose not to answer Resp Effort & Inspection: normal respiratory effort Auscultation: clear to auscultation bilaterally Cardio Jugular venous distension: no JVD Rate: regular rate Rhythm: regular rhythm Heart sounds: S1 normal heart sound present and S2 normal heart sound present Extrem General: Yes full ROM Results AMB Hemoglobin A1c AMB Hemoglobin A1c 5.6 % Last Edit by Dayana Jorgensen CMA on 03/28/25 08 :33 Results Reviewed Results Reviewed: Laboratory Last Values Hgb A1c (Clinic) 5.6 % (4.0-6.0) 03/28/25 08:15 Coding Level of Care Code Add On Preventative Visit Only Diagnoses Essential hypertension I10 Mild recurrent major depression F33.0 BLAISE (generalized anxiety disorder) F41.1 Diabetes mellitus E11.9 Hyperlipidemia LDL goal <70 E78.5 Asthma J45.909 CKD (chronic kidney disease) stage 3, GFR 30-59 ml/min N18.30 Additional Codes BLAISE-7 Assessment Billing - BLAISE-7 Assessment Tool: BLAISE-7 Assessment 81721 ([id number]) PHQ-9 - 81993 - PHQ-9 Billing: Yes ([id number]) Time Spent (min) 23 Assessment & Plan Assessment & Plan (1) Essential hypertension: Code(s): I10 - Essential (primary) hypertension Category: Medical (2) Mild recurrent major depression: Code(s): F33.0 - Major depressive disorder, recurrent, mild Category: Medical (3) BLAISE (generalized anxiety disorder): Code(s): F41.1 - Generalized anxiety disorder Category: Medical (4) Diabetes mellitus: Code(s): E11.9 - Type 2 diabetes mellitus without complications Category: Medical (5) Hyperlipidemia LDL goal <70: Code(s): E78.5 - Hyperlipidemia, unspecified Category: Medical (6) Asthma: Code(s): J45.909 - Unspecified asthma, uncomplicated Category: Medical (7) CKD (chronic kidney disease) stage 3, GFR 30-59 ml/min: Code(s): N18.30 - Chronic kidney disease, stage 3 unspecified Category: Medical Plan Plan 1. Diabetes Mellitus The patient's HbA1c is 5.6%, which is well-controlled. She will continue taking metformin 500 mg three times a day. An in-office HbA1c will be checked at the next visit in four months. 2. Hyperlipidemia The patient's LDL cholesterol is 74 mg/dL, which is close to the goal of 70 mg/dL. No medication changes are planned at this time, as the current level is considered acceptable. The patient will continue her current regimen with atorvastatin 80 mg. Given her stable and well-controlled cholesterol, no blood work will be ordered for the next visit in four months, unless new complaints arise. 3. Chronic Kidney Disease Stage 3a The patient's kidney function has slightly improved, with a GFR of 55. Urine protein levels are normal. The patient will continue to follow up with her pharmacy technician inpatient annually. 4. Asthma The patient reports using her albuterol inhaler as needed for symptoms triggered by cold and very hot weather. She will continue to use the inhaler as needed. 5. Follow-Up The patient will return for a follow-up visit in four months. An in-office HbA1c test will be performed at that time. Blood pressure will also be checked. No other lab work will be ordered unless new concerns arise. 6. Mild major depression and anxiety Follow with Psychiatry. Orders: Orders AMB Hemoglobin A1c Today Z13.9 - Encounter for screening, unspecified
--- OUTSIDE RECORDS SUMMARY | 2025-03-28 08:15 | XMS_ITS | Clinical Summary ---
Author Organization [facility] Address [address] [place] [id number] Care Team Providers Care Physicians Assistant Name Role Phone Hai Stevens MD Primary Care Provider [phone] Social History Tobacco Use Types Packs/Day Years [...] 1960 Hepatitis C Screening 1962 Sigmoidoscopy 1962 MMR Vaccines (1 of 1 - Standard series) 11/11/1963 PHQ-9 Depression Screen 1974 BLAISE-7 Anxiety Screen 1980 DTaP,Tdap,and Td Vaccines (1 - Tdap) 1981 Pneumococcal Vaccine: 50+ Years (1 of 2 - PCV) 1981 Cervical Cancer Screening (Pap/HPV) 11/11/1983 Zoster Vaccines (1 of 2) 2012 Annual Preventive Exam 09/26/2020 09/27/2019 Mammogram 04/05/2022 04/05/2020, 04/05/2020 RSV Vaccine (SCDM) (1 - Risk 60-74 years 1-dose series) 2022 COVID-19 Vaccine ( - 2023-2 5 season) 2024 Influenza Vaccine (#1) 2024 Colonoscopy 07/18/2029 07/19/2019 Colorectal Cancer Screening 07/18/2029 Hepatitis B Vaccines Aged Out No long er eligible based on patient's age to complete this topic Insurance [employer] Care Teams Physicians Assistant Relationship Specialty Start Date End Date Hai Stevens MD [address] [place] [address] [place] [id number] PCP - General Internal Medicine 11/10/21
--- OUTSIDE RECORDS SUMMARY | 2025-03-28 08:15 | XMS_ITS | Clinical Summary ---
Author Organization [facility] Facility Address [address] [place] [id number] Care Team Providers Care Gambling Cashier Name Role Phone Hai Stevens MD Primary Care Provider [phone] Allergies Active Allergy Reactions Criticality Noted Date [...] this topic Insurance [employer] C[employer] Care Teams Gambling Cashier Relationship Specialty Start Date End Date Hai Stevens MD [id number] [place], [place] PCP - General 04/29/20
--- OUTSIDE RECORDS SUMMARY | 2025-03-28 08:15 | XMS_ITS | Clinical Summary ---
Author Organization [facility] Address [address] [address] Phone Care Team Providers Care Machinist Supervisor Outside Name Role Phone Hai Stevens MD Primary Care Provider [phone] Allergies Active Allergy Reactions Criticality Noted Date [...] PPO [employer]IG[employer] PPO [employer]IG[employer] PPO Care Teams Machinist Supervisor Outside Relationship Specialty Start Date End Date Hai Stevens MD [address] [place] [address] [place] [id number] PCP - General Internal Medicine 11/23/17 Additional Source Comments The information contained in this document represents components of the legal health record. It is not the complete legal health record.[facility]
== END 2025-03-28 08:46 | disposition home or self-care (01) ==
LOC: HO.HMCH 08:05
PROVIDERS: PCP Internal Medicine; Visit Provider Internal Medicine
DX: I10 Essential (primary) hypertension (principal); F33.0 Major depressive disorder, recurrent, mild; F41.1 Generalized anxiety disorder; E11.9 Type 2 diabetes mellitus without complications; E78.5 Hyperlipidemia, unspecified; J45.909 Unspecified asthma, uncomplicated; N18.30 Chronic kidney disease, stage 3 unspecified; Z13.9 Encounter for screening, unspecified

== ENCOUNTER → 2025-03-28 08:04 | Outpatient (BNVA) | payer OTHER, SELFPAY | PROVIDERS: PCP Internal Medicine; Visit Provider Internal Medicine | DX: E11.22 Type 2 diabetes mellitus with diabetic chronic kidney disease (principal); I12.9 Hypertensive chronic kidney disease with stage 1 through stage 4 chronic kidney disease, or unspecified chronic kidney disease; N18.30 Chronic kidney disease, stage 3 unspecified; F33.0 Major depressive disorder, recurrent, mild; F41.1 Generalized anxiety disorder; E78.5 Hyperlipidemia, unspecified; J45.909 Unspecified asthma, uncomplicated | CPT/HCPCS: 83036; 96127 ==